=== PATIENT | male | born 1945 | race Caucasian/White ===

== ENCOUNTER 2017-01-13 16:25 | Outpatient (CLI) | payer MEDICARE | END 2017-01-13 16:26 | disposition EMS.NT | LOC: EMS 16:25 | PROVIDERS: ATTEND Surgery | DX: Z03.89 Encounter for observation for other suspected diseases and conditions ruled out (principal) ==

== ENCOUNTER 2017-10-31 | Outpatient (CLI) | END 2017-10-31 15:25 | disposition critical access hospital (66) | CPT/HCPCS: A0425; A0429 ==

== ENCOUNTER 2017-10-31 16:00 | Emergency (ER) | payer SELFPAY ==
[2017-10-31] MEDS ORDERED: SODIUM CHLORIDE 0.9% 1,000 ML IV ONE (16:09)
--- NOTE | 2017-10-31 16:12 | ED Physician Documentation ---
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 They thought he may be intoxicated and called EMS. When EMS arrived he was confused, not oriented. They state he had a temperature of 101. They have now brought him to the emergency department. He states he does not know why he is here. States he feels normal. States he does not take any medications, is allergic to penicillin. Denies any headache, chest pain. No abdominal pain. No urinary symptoms. Denies any drug use. Review of Systems Ten Systems: 10 systems reviewed and negative Constitutional: denies: Chills Ears: denies: Ear pain Nose: denies: Rhinorrhea / runny nose, Congestion Throat: denies: Sore throat Cardiac: denies: Chest pain / pressure Respiratory: denies: Cough GI: denies: Nausea, Vomiting, Diarrhea : denies: Dysuria Skin: denies: Rash Musculoskeletal: denies: Neck pain, Back pain Neurologic: denies: Focal weakness, Numbness, Syncope, Seizure, Headache PD PAST MEDICAL HISTORY - Past Medical History Past Medical History: No - Past Surgical History Past Surgical History: No - Present Medications Home Medications: Ambulatory Orders Medication Instructions Recorded Confirmed No Known Home Medications [No 10/31/17 10/31/17 Known Home Medications] - Allergies Allergies/Adverse Reactions: Allergies Allergy/AdvReac Type Severity Reaction Status Date / Time Sulfa (Sulfonamide Allergy Unknown Verified 10/31/17 16:06 Antibiotics) Penicillins AdvReac Unknown Verified 10/31/17 16:06 - Living Situation Living Arrangement: reports: At home - Social History Does the pt smoke?: Yes Does the pt drink ETOH?: Yes Does the pt have substance abuse?: No - Family History Family history: reports: Non contributory PD ED PE NORMAL - Vitals Vital signs reviewed: Yes - General General: Alert and oriented X 3, No acute distress - HEENT HEENT: Atraumatic, PERRL, EOMI, Ears normal, Moist mucous membranes, Pharynx benign, Other (wound to the L side of the nose, patient states it is chronic. 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, No motor deficit, No sensory deficit, Normal speech Eye Opening: Spontaneous Motor: Obeys Commands Verbal: Oriented GCS Score: 15 - Psych Psych: Normal mood, Normal affect Results - Vitals Vitals: Vital Signs - 24 hr 10/31/17 10/31/17 10/31/17 16:06 16:24 16:52 Temperature 37.4 C Heart Rate 86 86 63 Respiratory 15 16 15 Rate Blood Pressure 120/77 120/77 117/70 O2 Saturation 93 93 96 10/31/17 10/31/17 17:48 18:31 Temperature 36.3 C L Heart Rate 68 69 Respiratory 16 Rate Blood Pressure 133/68 H 148/70 H O2 Saturation 93 Oxygen O2 Source Room air - Labs Labs: Laboratory Tests 10/31/17 10/31/17 10/31/17 16:10 16:10 16:10 WBC 4.4 L RBC 3.34 L Hgb 11.4 L Hct 34.2 L MCV 102.5 H MCH 34.1 H MCHC 33.3 RDW 15.3 H Plt Count 166 MPV 7.7 Neut # (Auto) 3.4 Lymph # (Auto) 0.6 L [place] # (Auto) 0.2 Eos # (Auto) 0.1 Baso # (Auto) 0.1 Absolute Nucleated RBC 0.01 Nucleated RBC % 0.1 Sodium 136 Potassium 4.0 Chloride 103 Carbon Dioxide 25 Anion Gap 8.0 BUN 22 H Creatinine 1.1 Estimated GFR (MDRD) 65 L Glucose 103 H Calcium 8.6 Total Bilirubin 0.7 AST 21 ALT 10 Alkaline Phosphatase 93 Total Creatine Kinase 95 Troponin I < 0.04 Total Protein 6.7 Albumin 3.3 Globulin 3.4 Albumin/Globulin Ratio 1.0 Lipase 25 Urine Color Urine Clarity Urine pH Ur Specific [place] Urine Protein Urine Glucose (UA) Urine Ketones Urine Occult Blood Urine Nitrite Urine Bilirubin Urine Urobilinogen Ur Leukocyte Esterase Ur Microscopic Review Urine Culture Comments Salicylates < 6.0 Urine Opiates Screen Ur Oxycodone Screen Urine Methadone Screen Ur Propoxyphene Screen Acetaminophen < 10 L Ur Barbiturates Screen Ur Tricyclics Screen Ur Phencyclidine Scrn Ur Amphetamine Screen U Methamphetamines Scrn U Benzodiazepines Scrn Urine Cocaine Screen U Cannabinoids Screen Ethyl Alcohol < 5.0 10/31/17 17:40 WBC RBC Hgb Hct MCV MCH MCHC RDW Plt Count MPV Neut # (Auto) Lymph # (Auto) [place] # (Auto) Eos # (Auto) Baso # (Auto) Absolute Nucleated RBC Nucleated RBC % Sodium Potassium Chloride Carbon Dioxide Anion Gap BUN Creatinine Estimated GFR (MDRD) Glucose Calcium Total Bilirubin AST ALT Alkaline Phosphatase Total Creatine Kinase Troponin I Total Protein Albumin Globulin Albumin/Globulin Ratio Lipase Urine Color YELLOW Urine Clarity CLEAR Urine pH 5.5 Ur Specific [place] 1.025 Urine Protein NEGATIVE Urine Glucose (UA) NEGATIVE Urine Ketones NEGATIVE Urine Occult Blood NEGATIVE Urine Nitrite NEGATIVE Urine Bilirubin NEGATIVE Urine Urobilinogen 0.2 (NORMAL) Ur Leukocyte Esterase NEGATIVE Ur Microscopic Review NOT INDICATED Urine Culture Comments NOT INDICATED Salicylates Urine Opiates Screen NEGATIVE Ur Oxycodone Screen NEGATIVE Urine Methadone Screen NEGATIVE Ur Propoxyphene Screen NEGATIVE Acetaminophen Ur Barbiturates Screen NEGATIVE Ur Tricyclics Screen NEGATIVE Ur Phencyclidine Scrn NEGATIVE Ur Amphetamine Screen NEGATIVE U Methamphetamines Scrn NEGATIVE U Benzodiazepines Scrn NEGATIVE Urine Cocaine Screen NEGATIVE U Cannabinoids Screen NEGATIVE Ethyl Alcohol - Rads (name of study) head ct Radiology: Prelim report reviewed, EMP read contemporaneously, See rad report ( Symmetric moderate to marked ventriculomegaly and evidence of parenchymal volume loss. No acute hemorrhage or shift. ) PD MEDICAL DECISION MAKING - ED course Complexity details: reviewed results, re-evaluated patient, considered differential, d/w patient ED course: Patient is a 72-year-old male who was brought in by EMS for altered mental status via police report earlier today. He is alert and oriented 3 in the emergency department. No fever. No laboratory abnormalities. No abnormalities on head CT. No evidence of stroke. Unclear etiology of his symptoms earlier. We will have him follow-up closely with his doctor. Ambulating well. States he wants to go outside for a cigarette. Patient was picked up by a friend and taken home. Patient counseled regarding signs and symptoms for which I believe and urgent re-evaluation would be necessary. Patient with good understanding of and agreement to plan and is comfortable going home at this time This document was made in part using voice recognition software. While efforts are made to proofread this document, sound alike and grammatical errors may occur. - Sepsis Event Vital Signs: Vital Signs - 24 hr 10/31/17 10/31/17 10/31/17 16:06 16:24 16:52 Temperature 37.4 C Heart Rate 86 86 63 Respiratory 15 16 15 Rate Blood Pressure 120/77 120/77 117/70 O2 Saturation 93 93 96 10/31/17 10/31/17 17:48 18:31 Temperature 36.3 C L Heart Rate 68 69 Respiratory 16 Rate Blood Pressure 133/68 H 148/70 H O2 Saturation 93 Oxygen O2 Source Room air Departure - Departure Disposition: 01 Home, Self Care Clinical Impression: Altered mental status Qualifiers: Altered mental status type: transient alteration of awareness Qualified Code(s) : R40.4 - Transient alteration of awareness Condition: Good Instructions: ED Altered Loc Follow-Up: your,doctor in 1 week [Other] Comments: Return if you worsen. Drink plenty of water at home. Discharge Date/Time: 10/31/17 19:04
[2017-10-31 16:20] LABS: BASOPHILS # (AUTO) 0.1 10^3/uL (0.0-0.1); BASOPHILS % (AUTO) 2.4 %; EOSINOPHILS # (AUTO) 0.1 10^3/uL (0.0-0.7); EOSINOPHILS % (AUTO) 2.4 %; HGB - HEMOGLOBIN 11.4 g/dL (14.0-18.0); LYMPHOCYTES # (AUTO) 0.6 10^3/uL (1.5-3.5); LYMPHOCYTES % (AUTO) 13.7 %; MEAN CORPUSCULAR HEMOGLOBIN 34.1 pg (27.0-31.0); MEAN CORPUSCULAR HGB CONC 33.3 g/dL (32.0-36.0); MEAN CORPUSCULAR VOLUME 102.5 fL (80.0-94.0); MEAN PLATELET VOLUME 7.7 fL (7.4-11.4); MONOCYTES # (AUTO) 0.2 10^3/uL (0.0-1.0); MONOCYTES % (AUTO) 5.4 %; NEUTROPHILS # (AUTO) 3.4 10^3/uL (1.5-6.6); NEUTROPHILS % (AUTO) 76.1 %; PLT - PLATELET COUNT 166 10^3/uL (130-450); RED BLOOD COUNT 3.34 10^6/uL (4.70-6.10); RED CELL DISTRIBUTION WIDTH 15.3 % (12.0-15.0); WHITE BLOOD COUNT 4.4 x10^3/uL (4.8-10.8)
[2017-10-31 16:35] LABS: ALBUMIN 3.3 g/dL (3.2-5.5); ALKALINE PHOSPHATASE 93 IU/L (42-121); ALT ALANINE AMINOTRANSFERASE 10 IU/L (10-60); AST ASPARTATE AMINOTRANSFERASE 21 IU/L (10-42); BILIRUBIN,TOTAL 0.7 mg/dL (0.2-1.0); BUN - BLOOD UREA NITROGEN 22 mg/dL (6-20); CALCIUM 8.6 mg/dL (8.5-10.3); CARBON DIOXIDE - CO2 25 mmol/L (21-32); CHLORIDE 103 mmol/L (101-111); CK- CREATINE KINASE 95 IU/L (22-269); CREATININE 1.1 mg/dL (0.6-1.2); GFR - MDRD 65 (>89); GLUCOSE 103 mg/dL (70-100); LIPASE 25 U/L (22-51); SALICYLATE < 6.0 mg/dL; SODIUM 136 mmol/L (135-145); TOTAL PROTEIN 6.7 g/dL (6.7-8.2)
[2017-10-31 16:41] LABS: ACETAMINOPHEN < 10 ug/mL (10-30)
--- NOTE | 2017-10-31 16:59 | CT Report ---
Procedure Date: 10/31/2017 Accession Number: [id number] / [id number] Procedure: CT - Head W/O CPT Code: FULL RESULT: EXAM: CT HEAD EXAM DATE: 10/31/2017 04:31 PM. CLINICAL HISTORY: ALOC. COMPARISON: None. TECHNIQUE: Multiaxial CT images were obtained from the foramen magnum to the vertex. Reformats: Coronal. IV contrast: None. In accordance with CT protocol optimization, one or more of the following dose reduction techniques were utilized for this exam: automated exposure control, adjustment of mA and/or KV based on patient size, or use of iterative reconstructive technique. FINDINGS: Parenchyma: Negative for acute intracranial hemorrhage. No midline shift. No localizing edema demonstrated. Extraaxial Spaces: No subdural or epidural collections identified. Ventricles: There is symmetric moderate to marked ventriculomegaly. Sinuses and Orbits: Imaged paranasal sinuses, orbits, and mastoids show no significant abnormality. Bones: No evidence of fracture or calvarial defect. Other: None. IMPRESSION: 1. Symmetric moderate to marked ventriculomegaly and evidence of parenchymal volume loss. No acute hemorrhage or shift. RADIA
[2017-10-31 17:52] LABS: MUDS CUTOFF CONCENTRATIONS CUTOFF CONC BELOW:
[2017-10-31 17:57] LABS: BILIRUBIN,URINE NEGATIVE (NEGATIVE); GLUCOSE, URINE (UA) NEGATIVE (NEGATIVE); KETONES,URINE (UA) NEGATIVE (NEGATIVE); LEUKOCYTE ESTERASE, URINE NEGATIVE (NEGATIVE); NITRITE,URINE NEGATIVE (NEGATIVE); OCCULT BLOOD,URINE NEGATIVE (NEGATIVE); PH,URINE 5.5 PH (5.0-7.5); PROTEIN,URINE NEGATIVE (NEGATIVE); UROBILINOGEN,URINE 0.2 (NORMAL) E.U./dL (NORMAL)
[2017-10-31 17:58] LABS: CLARITY,URINE CLEAR (CLEAR)
[2017-10-31 18:07] LABS: AMPHETAMINE SCREEN,URINE NEGATIVE (NEGATIVE); BENZODIAZEPINES SCREEN, URINE NEGATIVE (NEGATIVE); COCAINE SCREEN URINE NEGATIVE (NEGATIVE); METHADONE SCREEN, URINE NEGATIVE (NEGATIVE); METHAMPHETAMINES SCREEN, URINE NEGATIVE (NEGATIVE); OPIATE SCREEN, URINE NEGATIVE (NEGATIVE); OXYCODONE SCREEN, URINE NEGATIVE (NEGATIVE); PROPOXYPHENE SCREEN, URINE NEGATIVE (NEGATIVE); TRICYCLIC ANTIDEPRESSANT,URINE NEGATIVE (NEGATIVE)
[2017-10-31 18:33] VITALS: BP 148/70
== END 2017-10-31 19:04 | disposition home or self-care (01) ==
LOC: EDUNIT# → ED 16:00
DX: R40.4 Transient alteration of awareness (principal)
CPT/HCPCS: 36415; 70450; 80053; 80306; 80307; 80320; 80329; 81001; 81003; 82550; 83690; 84484; 85025; 87086; 93005; 96360; 99284

== ENCOUNTER 2017-12-28 13:45 | Outpatient (CLI) | payer SELFPAY | END 2017-12-28 13:46 | disposition critical access hospital (66) | LOC: EMS 13:45 | PROVIDERS: ATTEND Surgery | DX: S09.90XA Unspecified injury of head, initial encounter (principal); S50.312A Abrasion of left elbow, initial encounter; S50.311A Abrasion of right elbow, initial encounter; R41.0 Disorientation, unspecified; W01.0XXA Fall on same level from slipping, tripping and stumbling without subsequent striking against object, initial encounter; Y93.01 Activity, walking, marching and hiking; Y92.413 State road as the place of occurrence of the external cause | CPT/HCPCS: A0425; A0429; A0999 ==

== ENCOUNTER 2017-12-28 14:04 | Emergency (ER) | payer SELFPAY ==
[2017-12-28] MEDS ORDERED: TETANUS/DIPHTHERIA/PERTUSSIS 0.5 ML SYRINGE IM ONE (14:17)
[2017-12-28 14:34] LABS: BASOPHILS # (AUTO) 0.1 10^3/uL (0.0-0.1); BASOPHILS % (AUTO) 1.5 %; EOSINOPHILS # (AUTO) 0.1 10^3/uL (0.0-0.7); EOSINOPHILS % (AUTO) 1.9 %; HGB - HEMOGLOBIN 11.5 g/dL (14.0-18.0); LYMPHOCYTES # (AUTO) 0.6 10^3/uL (1.5-3.5); LYMPHOCYTES % (AUTO) 15.5 %; MEAN CORPUSCULAR HEMOGLOBIN 34.8 pg (27.0-31.0); MEAN CORPUSCULAR HGB CONC 34.2 g/dL (32.0-36.0); MEAN CORPUSCULAR VOLUME 101.7 fL (80.0-94.0); MEAN PLATELET VOLUME 7.8 fL (7.4-11.4); MONOCYTES # (AUTO) 0.2 10^3/uL (0.0-1.0); MONOCYTES % (AUTO) 6.6 %; NEUTROPHILS # (AUTO) 2.7 10^3/uL (1.5-6.6); NEUTROPHILS % (AUTO) 74.5 %; PLT - PLATELET COUNT 150 10^3/uL (130-450); RED BLOOD COUNT 3.32 10^6/uL (4.70-6.10); RED CELL DISTRIBUTION WIDTH 15.7 % (12.0-15.0); WHITE BLOOD COUNT 3.6 x10^3/uL (4.8-10.8)
[2017-12-28 14:49] LABS: ALBUMIN 3.6 g/dL (3.2-5.5); ALBUMIN/GLOBULIN RATIO 1.2 (1.0-2.2); ALKALINE PHOSPHATASE 77 IU/L (42-121); ALT ALANINE AMINOTRANSFERASE 12 IU/L (10-60); AST ASPARTATE AMINOTRANSFERASE 22 IU/L (10-42); BILIRUBIN,TOTAL 0.5 mg/dL (0.2-1.0); BUN - BLOOD UREA NITROGEN 19 mg/dL (6-20); CALCIUM 8.6 mg/dL (8.5-10.3); CARBON DIOXIDE - CO2 29 mmol/L (21-32); CHLORIDE 103 mmol/L (101-111); CREATININE 1.1 mg/dL (0.6-1.2); GFR - MDRD 65 (>89); GLUCOSE 108 mg/dL (70-100); LIPASE 23 U/L (22-51); SODIUM 137 mmol/L (135-145); TOTAL PROTEIN 6.6 g/dL (6.7-8.2)
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
--- NOTE | 2017-12-28 15:10 | CT Report ---
Procedure Date: 12/28/2017 Accession Number: [id number] / [id number] Procedure: CT - Head W/O CPT Code: FULL RESULT: EXAM: CT HEAD EXAM DATE: 12/28/2017 02:40 PM. CLINICAL HISTORY: Fall with head injury. COMPARISON: Head w/o contrast 10/31/2017. TECHNIQUE: Multiaxial CT images were obtained from the foramen magnum to the vertex. Reformats: Coronal. IV contrast: None. In accordance with CT protocol optimization, one or more of the following dose reduction techniques were utilized for this exam: automated exposure control, adjustment of mA and/or KV based on patient size, or use of iterative reconstructive technique. FINDINGS: Parenchyma: No intraparenchymal hemorrhage. No evidence of mass, midline shift, or CT findings of acute infarction. Arellano-white differentiation is distinct. Diffuse chronic microangiopathic white matter changes are evident. Extraaxial Spaces: Normal for age. No subdural or epidural collections identified. Ventricles: Disproportionate [id number] enlargement of the third and lateral ventricles. Fourth ventricle is small in caliber. No midline shift nor intraventricular blood products. Sinuses and orbits: Imaged paranasal sinuses, orbits, and mastoids show no significant abnormality. Bones: No evidence of fracture or calvarial defect. Other: None. IMPRESSION: 1. Normal pressure hydrocephalus. 2. No acute intracranial abnormality nor bleed. RADIA
[2017-12-28 16:12] LABS: MUDS CUTOFF CONCENTRATIONS CUTOFF CONC BELOW:
[2017-12-28 16:13] LABS: BILIRUBIN,URINE NEGATIVE (NEGATIVE); GLUCOSE, URINE (UA) NEGATIVE (NEGATIVE); KETONES,URINE (UA) NEGATIVE (NEGATIVE); LEUKOCYTE ESTERASE, URINE NEGATIVE (NEGATIVE); NITRITE,URINE NEGATIVE (NEGATIVE); OCCULT BLOOD,URINE NEGATIVE (NEGATIVE); PH,URINE 6.5 PH (5.0-7.5); PROTEIN,URINE NEGATIVE (NEGATIVE); UROBILINOGEN,URINE 0.2 (NORMAL) E.U./dL (NORMAL)
[2017-12-28 16:15] LABS: CLARITY,URINE CLEAR (CLEAR)
[2017-12-28 16:16] VITALS: BP 147/90
[2017-12-28 16:24] LABS: AMPHETAMINE SCREEN,URINE NEGATIVE (NEGATIVE); BENZODIAZEPINES SCREEN, URINE NEGATIVE (NEGATIVE); COCAINE SCREEN URINE NEGATIVE (NEGATIVE); METHADONE SCREEN, URINE NEGATIVE (NEGATIVE); METHAMPHETAMINES SCREEN, URINE NEGATIVE (NEGATIVE); OPIATE SCREEN, URINE NEGATIVE (NEGATIVE); OXYCODONE SCREEN, URINE NEGATIVE (NEGATIVE); PROPOXYPHENE SCREEN, URINE NEGATIVE (NEGATIVE); TRICYCLIC ANTIDEPRESSANT,URINE NEGATIVE (NEGATIVE)
== END 2017-12-28 16:20 | disposition home or self-care (01) ==
LOC: EDUNIT# → ED 14:04
DX: S00.03XA Contusion of scalp, initial encounter (principal); S50.312A Abrasion of left elbow, initial encounter; S50.311A Abrasion of right elbow, initial encounter; S00.01XA Abrasion of scalp, initial encounter; W01.0XXA Fall on same level from slipping, tripping and stumbling without subsequent striking against object, initial encounter; W10.1XXA Fall (on)(from) sidewalk curb, initial encounter; Y93.01 Activity, walking, marching and hiking; Y92.480 Sidewalk as the place of occurrence of the external cause; F17.200 Nicotine dependence, unspecified, uncomplicated; Z23 Encounter for immunization
CPT/HCPCS: 36415; 70450; 80053; 80306; 80320; 81001; 81003; 83690; 84484; 85025; 87086; 90471; 93005; 99283; 99284

== ENCOUNTER 2018-02-20 15:23 | Outpatient (CLI) | payer SELFPAY | END 2018-02-20 15:24 | disposition critical access hospital (66) | LOC: EMS 15:23 | PROVIDERS: ATTEND Surgery | DX: M25.521 Pain in right elbow (principal); W19.XXXA Unspecified fall, initial encounter; Y92.481 Parking lot as the place of occurrence of the external cause | CPT/HCPCS: A0425; A0429 ==

== ENCOUNTER 2018-02-20 15:40 | Emergency (ER) | payer SELFPAY ==
--- NOTE | 2018-02-20 15:49 | ED Physician Documentation ---
PD HPI Fall - Stated complaint Stated Complaint: FALL - History obtained from History obtained from: Patient, EMS - History of Present Illness Mechanism of injury: Tripped (72-year-old gentleman with dementia who reportedly lives alone in an apartment. He fell at [facility] today and has a little scratch on his right elbow B. No serious injuries per EMS report but because of the severe dementia they felt he was not safe and needed evaluation. The patient has no specific complaints other than needing to go to the bathroom. He does not remember falling today and does not remember any injuries.) Review of Systems Unable to obtain: Dementia PD PAST MEDICAL HISTORY - Past Medical History Cardiovascular: None Endocrine/Autoimmune: None Derm: Other - Past Surgical History Past Surgical History: No - Present Medications Home Medications: Ambulatory Orders Medication Instructions Recorded Confirmed No Known Home Medications 10/31/17 10/31/17 - Allergies Allergies/Adverse Reactions: Allergies Allergy/AdvReac Type Severity Reaction Status Date / Time Sulfa (Sulfonamide Allergy Unknown Verified 10/31/17 16:06 Antibiotics) Penicillins AdvReac Unknown Verified 10/31/17 16:06 - Social History Does the pt smoke?: Yes Smoking Status: Current every day smoker Does the pt drink ETOH?: Yes Does the pt have substance abuse?: No PD ED PE NORMAL - Vitals Vital signs reviewed: Yes - General General: Other (He is alert and pleasant and follows commands. 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.) - HEENT HEENT: PERRL, Other (Disconjugate gaze which he says is chronic) - Neck Neck: Supple, no meningeal sign, No bony TTP - Cardiac Cardiac: RRR, No murmur - Respiratory Respiratory: No respiratory distress, Clear bilaterally - Abdomen Abdomen: Normal bowel sounds, Soft, Non tender - Back Back: No CVA TTP, No spinal TTP - Derm Derm: Normal color, Warm and dry - Extremities Extremities: Other (There is some dried blood on the right elbow but I do not really see a laceration, he has some mild tenderness but no limited range of motion.) - 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 Obviously given the imaging I am concerned for normal pressure hydrocephalus. Given the living arrangements social work was involved and a friend is coming to pick him up and watch him and APS referral was made. - Sepsis Event Vital Signs: Oxygen O2 Source Room air Departure - Departure Disposition: 01 Home, Self Care Clinical Impression: NPH (normal pressure hydrocephalus) Fall Qualifiers: Encounter type: initial encounter Qualified Code(s): W19.XXXA - Unspecified fall, initial encounter Dementia Qualifiers: Dementia type: unspecified type Dementia behavioral disturbance: without behavioral disturbance Qualified Code(s): F03.90 - Unspecified dementia without behavioral disturbance Contusion of head Qualifiers: Encounter type: initial encounter Contusion of head detail: scalp Qualified Code(s): S00.03XA - Contusion of scalp, initial encounter Condition: Good Record reviewed to determine appropriate education?: Yes Comments: He needs a workup for "called normal pressure hydrocephalus, he needs to follow- up with his physician and have a referral to a neurologist. [facility] particularly adept at this diagnosis and I recommend following up with them.
[2018-02-20 15:55] LABS: MUDS CUTOFF CONCENTRATIONS CUTOFF CONC BELOW:
[2018-02-20 16:00] LABS: BILIRUBIN,URINE NEGATIVE (NEGATIVE); GLUCOSE, URINE (UA) NEGATIVE (NEGATIVE); KETONES,URINE (UA) NEGATIVE (NEGATIVE); LEUKOCYTE ESTERASE, URINE NEGATIVE (NEGATIVE); NITRITE,URINE NEGATIVE (NEGATIVE); OCCULT BLOOD,URINE NEGATIVE (NEGATIVE); PH,URINE 5.5 PH (5.0-7.5); PROTEIN,URINE NEGATIVE (NEGATIVE); UROBILINOGEN,URINE 0.2 (NORMAL) E.U./dL (NORMAL)
[2018-02-20 16:13] LABS: CLARITY,URINE CLEAR (CLEAR)
[2018-02-20 16:15] LABS: AMPHETAMINE SCREEN,URINE NEGATIVE (NEGATIVE); BENZODIAZEPINES SCREEN, URINE NEGATIVE (NEGATIVE); COCAINE SCREEN URINE NEGATIVE (NEGATIVE); METHADONE SCREEN, URINE NEGATIVE (NEGATIVE); METHAMPHETAMINES SCREEN, URINE NEGATIVE (NEGATIVE); OPIATE SCREEN, URINE NEGATIVE (NEGATIVE); OXYCODONE SCREEN, URINE NEGATIVE (NEGATIVE); PROPOXYPHENE SCREEN, URINE NEGATIVE (NEGATIVE); TRICYCLIC ANTIDEPRESSANT,URINE NEGATIVE (NEGATIVE)
[2018-02-20 16:17] LABS: BASOPHILS # (AUTO) 0.1 10^3/uL (0.0-0.1); BASOPHILS % (AUTO) 1.3 %; EOSINOPHILS # (AUTO) 0.1 10^3/uL (0.0-0.7); EOSINOPHILS % (AUTO) 1.8 %; HGB - HEMOGLOBIN 12.3 g/dL (14.0-18.0); LYMPHOCYTES # (AUTO) 0.7 10^3/uL (1.5-3.5); LYMPHOCYTES % (AUTO) 12.5 %; MEAN CORPUSCULAR HEMOGLOBIN 34.1 pg (27.0-31.0); MEAN CORPUSCULAR HGB CONC 33.7 g/dL (32.0-36.0); MEAN CORPUSCULAR VOLUME 101.5 fL (80.0-94.0); MEAN PLATELET VOLUME 7.7 fL (7.4-11.4); MONOCYTES # (AUTO) 0.4 10^3/uL (0.0-1.0); NEUTROPHILS # (AUTO) 4.2 10^3/uL (1.5-6.6); NEUTROPHILS % (AUTO) 76.4 %; PLT - PLATELET COUNT 185 10^3/uL (130-450); RED BLOOD COUNT 3.61 10^6/uL (4.70-6.10); RED CELL DISTRIBUTION WIDTH 15.6 % (12.0-15.0); WHITE BLOOD COUNT 5.5 x10^3/uL (4.8-10.8)
--- NOTE | 2018-02-20 16:34 | CT Report ---
Reason: poss head inj Procedure Date: 02/20/2018 Accession Number: [id number] / [id number] Procedure: CT - Head W/O CPT Code: FULL RESULT: EXAM: CT HEAD EXAM DATE: 02/20/2018 04:09 PM. CLINICAL HISTORY: Fall with head injury. COMPARISON: HEAD W/O 12/28/2017 2:34 PM. TECHNIQUE: Multiaxial CT images were obtained from the foramen magnum to the vertex. Reformats: Sagittal and coronal. IV contrast: None. In accordance with CT protocol optimization, one or more of the following dose reduction techniques were utilized for this exam: automated exposure control, adjustment of mA and/or KV based on patient size, or use of iterative reconstructive technique. FINDINGS: Parenchyma: There is diffuse cerebral volume loss. No midline shift or mass-effect. Negative for intracranial acute hemorrhage. Extraaxial Spaces: No subdural or epidural hematoma. Ventricles: There is ventriculomegaly. Sinuses and Orbits: Imaged paranasal sinuses, orbits, and mastoids show no significant abnormality. Bones: No evidence of fracture or calvarial defect. Other: None. IMPRESSION: 1. Moderate cerebral atrophy and volume loss. 2. Negative for acute hemorrhage, localizing edema, or mass-effect. RADIA
[2018-02-20 16:35] LABS: ALBUMIN/GLOBULIN RATIO 1.2 (1.0-2.2); ALKALINE PHOSPHATASE 129 IU/L (42-121); ALT ALANINE AMINOTRANSFERASE 13 IU/L (10-60); AST ASPARTATE AMINOTRANSFERASE 25 IU/L (10-42); BILIRUBIN,TOTAL 0.8 mg/dL (0.2-1.0); BUN - BLOOD UREA NITROGEN 29 mg/dL (6-20); CALCIUM 8.7 mg/dL (8.5-10.3); CARBON DIOXIDE - CO2 26 mmol/L (21-32); CHLORIDE 99 mmol/L (101-111); CREATININE 1.2 mg/dL (0.6-1.2); GFR - MDRD 59 (>89); GLUCOSE 90 mg/dL (70-100); LIPASE 25 U/L (22-51); MAGNESIUM 2.2 mg/dL (1.7-2.8); SALICYLATE < 6.0 mg/dL; SODIUM 135 mmol/L (135-145); TOTAL PROTEIN 7.3 g/dL (6.7-8.2)
[2018-02-20 16:40] LABS: ACETAMINOPHEN < 10 ug/mL (10-30)
== END 2018-02-20 17:55 | disposition home or self-care (01) ==
LOC: EDUNIT# → ED 15:40
DX: G91.2 (Idiopathic) normal pressure hydrocephalus (principal); F03.90 Unspecified dementia, unspecified severity, without behavioral disturbance, psychotic disturbance, mood disturbance, and anxiety; Z91.81 History of falling; F17.200 Nicotine dependence, unspecified, uncomplicated
CPT/HCPCS: 36415; 70450; 80053; 80306; 80307; 80320; 80329; 81001; 81003; 83690; 83735; 85025; 87086; 99283

== ENCOUNTER 2018-07-16 23:22 | Outpatient (CLI) | payer SELFPAY | END 2018-07-16 23:23 | disposition critical access hospital (66) | LOC: EMS 23:22 | PROVIDERS: ATTEND Surgery | DX: R41.82 Altered mental status, unspecified (principal) | CPT/HCPCS: A0425; A0429 ==

== ENCOUNTER 2018-07-16 23:41 | Inpatient (IN) | payer MEDICARE ==
[2018-07-17 00:09] LABS: MUDS CUTOFF CONCENTRATIONS CUTOFF CONC BELOW:
[2018-07-17 00:11] LABS: BILIRUBIN,URINE NEGATIVE (NEGATIVE); GLUCOSE, URINE (UA) NEGATIVE (NEGATIVE); KETONES,URINE (UA) NEGATIVE (NEGATIVE); LEUKOCYTE ESTERASE, URINE NEGATIVE (NEGATIVE); NITRITE,URINE NEGATIVE (NEGATIVE); OCCULT BLOOD,URINE TRACE-LYSE (NEGATIVE); PH,URINE 5.5 PH (5.0-7.5); PROTEIN,URINE TRACE mg/dL (NEGATIVE); UROBILINOGEN,URINE 0.2 (NORMAL) E.U./dL (NORMAL)
[2018-07-17 00:20] LABS: CLARITY,URINE CLEAR (CLEAR)
--- NOTE | 2018-07-17 00:26 | ED Physician Documentation ---
History of Present Illness - Stated complaint Stated Complaint: CONFUSED - Chief complaint Chief Complaint: Neuro - History obtained from History obtained from: Patient, EMS - History of Present Illness Timing: Today Pain level now: 0 - Additonal information Additional information: Patient was found on ground near street, passerby called 911. Patient told medics that he was walking from a friend's house back home. He does not recall falling. Medics note that patient was found walking away from his house from the location he said he was walking from. Patient has no c/o at this time. Review of Systems Cardiac: reports: Reviewed and negative Respiratory: reports: Reviewed and negative GI: reports: Reviewed and negative Musculoskeletal: reports: Reviewed and negative Neurologic: reports: Reviewed and negative PD PAST MEDICAL HISTORY - Past Medical History Past Medical History: No Cardiovascular: None Respiratory: None Neuro: None Endocrine/Autoimmune: None GI: None : None HEENT: None Psych: None Musculoskeletal: None Derm: Other - Past Surgical History Past Surgical History: No - Present Medications Home Medications: Ambulatory Orders Medication Instructions Recorded Confirmed No Known Home Medications 10/31/17 10/31/17 - Allergies Allergies/Adverse Reactions: Allergies Allergy/AdvReac Type Severity Reaction Status Date / Time Sulfa (Sulfonamide Allergy Unknown Verified 10/31/17 16:06 Antibiotics) Penicillins AdvReac Unknown Verified 10/31/17 16:06 - Social History Does the pt smoke?: Yes Smoking Status: Current every day smoker Does the pt drink ETOH?: Yes Does the pt have substance abuse?: No - Immunizations Immunizations are current?: No Immunizations: TDAP >10years/unknown - POLST Patient has POLST: No PD ED PE NORMAL - Vitals Vital signs reviewed: Yes - General General: No acute distress, Well developed/nourished, Other (awake, alert, oriented to self. Does not know year. He knows he is in "the hospital" (per patient), but does not know which one nor town) - HEENT HEENT: Atraumatic, PERRL, EOMI, Moist mucous membranes - Neck Neck: Supple, no meningeal sign, No bony TTP - Cardiac Cardiac: RRR, No murmur - Respiratory Respiratory: No respiratory distress, Clear bilaterally - Abdomen Abdomen: Soft, Non tender - Back Back: No spinal TTP - Derm Derm: Normal color, Warm and dry - Extremities Extremities: Normal ROM s pain, No edema, Other (right wrist and forearm abrasions without bony tenderness. the right wrist abrasions are to the ventral surface, the forearm abrasions on dorsal aspect. 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, No motor deficit, No sensory deficit, Normal speech Eye Opening: Spontaneous Motor: Obeys Commands Verbal: Confused GCS Score: 14 - Psych Psych: Normal mood, Normal affect Results - Vitals Vitals: Vital Signs - 24 hr 07/17/18 07/17/18 07/17/18 12:58 15:08 18:54 Heart Rate 66 57 L 56 L Respiratory 16 16 16 Rate Blood Pressure 133/76 H 168/73 H 147/82 H O2 Saturation 97 97 100 07/17/18 07/17/18 07/18/18 21:47 23:43 08:34 Heart Rate 58 L 67 55 L Respiratory 16 16 16 Rate Blood Pressure 137/72 H 130/72 136/62 H O2 Saturation 98 99 96 Oxygen O2 Source Room air - Labs Labs: Laboratory Tests 07/17/18 07/17/18 07/17/18 00:00 00:55 00:55 WBC 6.9 RBC 3.65 L Hgb 12.7 L Hct 37.8 L MCV 103.6 H MCH 35.0 H MCHC 33.7 RDW 15.8 H Plt Count 166 MPV 8.5 Neut # (Auto) 5.5 Lymph # (Auto) 0.6 L [place] # (Auto) 0.4 Eos # (Auto) 0.3 Baso # (Auto) 0.1 Absolute Nucleated RBC 0.00 Nucleated RBC % 0.0 Sodium 141 Potassium 4.1 Chloride 104 Carbon Dioxide 27 Anion Gap 10.0 BUN 16 Creatinine 0.9 Estimated GFR (MDRD) 82 L Glucose 118 H Calcium 8.9 Total Bilirubin 0.5 AST 23 ALT 18 Alkaline Phosphatase 121 Total Protein 6.9 Albumin 3.6 Globulin 3.3 Albumin/Globulin Ratio 1.1 Lipase 28 Urine Color YELLOW Urine Clarity CLEAR Urine pH 5.5 Ur Specific [place] >=1.030 H Urine Protein TRACE Urine Glucose (UA) NEGATIVE Urine Ketones NEGATIVE Urine Occult Blood TRACE-LYSE Urine Nitrite NEGATIVE Urine Bilirubin NEGATIVE Urine Urobilinogen 0.2 (NORMAL) Ur Leukocyte Esterase NEGATIVE Ur Microscopic Review NOT INDICATED Urine Culture Comments NOT INDICATED Urine Opiates Screen NEGATIVE Ur Oxycodone Screen NEGATIVE Urine Methadone Screen NEGATIVE Ur Propoxyphene Screen NEGATIVE Ur Barbiturates Screen NEGATIVE Ur Tricyclics Screen NEGATIVE Ur Phencyclidine Scrn NEGATIVE Ur Amphetamine Screen NEGATIVE U Methamphetamines Scrn NEGATIVE U Benzodiazepines Scrn NEGATIVE Urine Cocaine Screen NEGATIVE U Cannabinoids Screen NEGATIVE PD MEDICAL DECISION MAKING - ED course Complexity details: reviewed old records, reviewed results, re-evaluated patient, considered differential, d/w patient ED course: NAD, pleasant, but confused. Previous ED note from February 2018 seems to indicate this is baseline mental status for this patient. However, he lives alone and thus held until AM for SW consult.
[2018-07-17 00:42] LABS: AMPHETAMINE SCREEN,URINE NEGATIVE (NEGATIVE); BENZODIAZEPINES SCREEN, URINE NEGATIVE (NEGATIVE); COCAINE SCREEN URINE NEGATIVE (NEGATIVE); METHADONE SCREEN, URINE NEGATIVE (NEGATIVE); METHAMPHETAMINES SCREEN, URINE NEGATIVE (NEGATIVE); OPIATE SCREEN, URINE NEGATIVE (NEGATIVE); OXYCODONE SCREEN, URINE NEGATIVE (NEGATIVE); PROPOXYPHENE SCREEN, URINE NEGATIVE (NEGATIVE); TRICYCLIC ANTIDEPRESSANT,URINE NEGATIVE (NEGATIVE)
[2018-07-17 01:04] LABS: BASOPHILS # (AUTO) 0.1 10^3/uL (0.0-0.1); BASOPHILS % (AUTO) 0.8 %; EOSINOPHILS # (AUTO) 0.3 10^3/uL (0.0-0.7); EOSINOPHILS % (AUTO) 4.8 %; HGB - HEMOGLOBIN 12.7 g/dL (14.0-18.0); LYMPHOCYTES # (AUTO) 0.6 10^3/uL (1.5-3.5); LYMPHOCYTES % (AUTO) 9.2 %; MEAN CORPUSCULAR HGB CONC 33.7 g/dL (32.0-36.0); MEAN CORPUSCULAR VOLUME 103.6 fL (80.0-94.0); MEAN PLATELET VOLUME 8.5 fL (7.4-11.4); MONOCYTES # (AUTO) 0.4 10^3/uL (0.0-1.0); MONOCYTES % (AUTO) 5.7 %; NEUTROPHILS # (AUTO) 5.5 10^3/uL (1.5-6.6); NEUTROPHILS % (AUTO) 79.5 %; PLT - PLATELET COUNT 166 10^3/uL (130-450); RED BLOOD COUNT 3.65 10^6/uL (4.70-6.10); RED CELL DISTRIBUTION WIDTH 15.8 % (12.0-15.0); WHITE BLOOD COUNT 6.9 x10^3/uL (4.8-10.8)
[2018-07-17 01:20] LABS: ALBUMIN 3.6 g/dL (3.2-5.5); ALBUMIN/GLOBULIN RATIO 1.1 (1.0-2.2); BILIRUBIN,TOTAL 0.5 mg/dL (0.2-1.0); CREATININE 0.9 mg/dL (0.6-1.2); TOTAL PROTEIN 6.9 g/dL (6.7-8.2)
[2018-07-17 01:22] LABS: CALCIUM 8.9 mg/dL (8.5-10.3)
[2018-07-17] MEDS ORDERED: NICOTINE 14 MG PATCH TOP STA (21:48)
--- NOTE | 2018-07-19 08:51 | CT Report ---
Reason: trauma Procedure Date: 07/19/2018 Accession Number: [id number] / [id number] Procedure: CT - HEAD WO CPT Code: FULL RESULT: EXAM: CT HEAD EXAM DATE: 07/19/2018 08:31 AM. CLINICAL HISTORY: Head pain status post head trauma. COMPARISON: HEAD W/O 02/20/2018 4:01 PM. TECHNIQUE: Multiaxial CT images were obtained from the foramen magnum to the vertex. Reformats: Sagittal and coronal. IV contrast: None. In accordance with CT protocol optimization, one or more of the following dose reduction techniques were utilized for this exam: automated exposure control, adjustment of mA and/or KV based on patient size, or use of iterative reconstructive technique. FINDINGS: Parenchyma: No intraparenchymal hemorrhage. No evidence of mass or mass-effect. Arellano-white differentiation is distinct. Diffuse chronic microangiopathic white matter changes are evident. Extraaxial Spaces: Normal for age. No subdural or epidural collections identified. Ventricles: Stable hydrocephalus without transependymal CSF migration of fluid. Sinuses and Orbits: Middle ear cavities and mastoid air cells are clear. There is mucosal thickening in bilateral ethmoid air cells. There is hyperdense fluid within the left maxillary sinus secondary to fractures of the inferior wall of the left orbit and the lateral wall of the left maxillary sinus. There is air in the left masseter space. No fracture of the left zygoma or pterygoid plates. Intraorbital contents are within normal limits. Bones: Acute left nasal bone fracture with regional soft tissue swelling. No other calvarial fracture. Other: None. IMPRESSION: 1. No acute intracranial hemorrhage. 2. Stable hydrocephalus. 3. Fractures of the superior and lateral jin of the left maxillary sinus with hyperdense fluid in the left maxillary sinus. Associated air in the left masseter space. 4. Acute left nasal bone fracture with regional soft tissue swelling. RADIA
--- NOTE | 2018-07-19 08:55 | CT Report ---
Reason: trauma Procedure Date: 07/19/2018 Accession Number: [id number] / [id number] Procedure: CT - CERVICAL SPINE WO CPT Code: FULL RESULT: EXAM: CT CERVICAL SPINE WITHOUT CONTRAST DATE: 07/19/2018 08:31 AM. HISTORY: Acute neck pain status post trauma. COMPARISONS: None. TECHNIQUE: Thin-section axial images were acquired of the cervical spine without contrast. Post-processing: Coronal and sagittal reformats. Other: None. In accordance with CT protocol optimization, one or more of the following dose reduction techniques were utilized for this exam: automated exposure control, adjustment of mA and/or KV based on patient size, or use of iterative reconstructive technique. FINDINGS: Alignment: Accentuated cervical lordosis. No vertebral body subluxation. No scoliosis. Bones: Decreased mineralization of the bones. No fracture. No focal bone lesion. No congenital vertebral anomaly. Interspace Levels/Facets: Disk space narrowing at C5-C6 and C6-C7 with marginal osteophytes at C6-C7. Facet arthrosis on the right at C3-C4. Musculature: Normal. No fatty atrophy. Other: Because of established carotid plaques in the carotid arteries. Paraspinal soft tissues are otherwise unremarkable. Bilateral apical pleural parenchymal scarring. IMPRESSION: 1. No acute fracture or subluxation. 2. Degenerative disk disease and facet arthrosis, detailed above. 3. Carotid arteriosclerosis. RADIA
--- NOTE | 2018-07-19 09:00 | CT Report ---
Reason: trauma Procedure Date: 07/19/2018 Accession Number: [id number] / [id number] Procedure: CT - MAXILLOFACIAL WO CPT Code: FULL RESULT: EXAM: CT MAXILLOFACIAL WITHOUT CONTRAST EXAM DATE: 07/19/2018 08:31 AM. CLINICAL HISTORY: Left-sided facial pain and swelling status post trauma. COMPARISONS: None. TECHNIQUE: Thin-section axial images were acquired of the face without contrast. Post-processing: Coronal and sagittal reformats. Other: None. In accordance with CT protocol optimization, one or more of the following dose reduction techniques were utilized for this exam: automated exposure control, adjustment of mA and/or KV based on patient size, or use of iterative reconstructive technique. FINDINGS: Soft Tissue: There is air in the left fire extinguisher inspector space. There is left nasal, left preseptal periorbital and left supraorbital frontal scalp soft tissue swelling. Orbits: Globes and intraorbital structures are within normal limits. Bones: Left nasal bone fracture with regional soft tissue swelling. Nondisplaced fractures of the superior and lateral jin of the left maxillary sinus with hyperdense material within the left maxillary sinus indicating blood. Temporomandibular Joints: The temporomandibular joints are symmetric and normally located. Sinuses: Normal. No mucosal thickening or fluid levels. Other: Middle ear cavities and mastoid air cells are clear. There is soft tissue attenuation in the cartilaginous portion of the left external auditory canal. IMPRESSION: 1. Left nasal bone fracture with regional soft tissue swelling and irregularity. 2. Fractures of the superior and lateral jin of the left maxillary sinus, nondisplaced. 3. Air in the left fire extinguisher inspector space. 4. Left facial, left preseptal periorbital and left supraorbital frontal scalp soft tissue swelling. RADIA
[2018-07-19 09:05] LABS: EOSINOPHILS % (AUTO) 5.7 %; HGB - HEMOGLOBIN 13.2 g/dL (14.0-18.0); LYMPHOCYTES % (AUTO) 13.9 %; MEAN CORPUSCULAR HEMOGLOBIN 35.2 pg (27.0-31.0); MEAN CORPUSCULAR HGB CONC 33.9 g/dL (32.0-36.0); MEAN CORPUSCULAR VOLUME 103.9 fL (80.0-94.0); MEAN PLATELET VOLUME 8.7 fL (7.4-11.4); MONOCYTES % (AUTO) 7.4 %; PLT - PLATELET COUNT 183 10^3/uL (130-450); RED BLOOD COUNT 3.76 10^6/uL (4.70-6.10); RED CELL DISTRIBUTION WIDTH 15.4 % (12.0-15.0); WHITE BLOOD COUNT 4.3 x10^3/uL (4.8-10.8)
[2018-07-19 09:08] LABS: ALBUMIN 3.4 g/dL (3.2-5.5); ALBUMIN/GLOBULIN RATIO 1.1 (1.0-2.2); BILIRUBIN,TOTAL 0.7 mg/dL (0.2-1.0); CALCIUM 8.7 mg/dL (8.5-10.3); CREATININE 0.8 mg/dL (0.6-1.2); TOTAL PROTEIN 6.5 g/dL (6.7-8.2)
[2018-07-19 09:16] LABS: ABNORMAL LYMPHS % (MANUAL) 0 %; BAND NEUTROPHILS % (MANUAL) 0 %
--- NOTE | 2018-07-19 09:23 | ED Physician Documentation ---
PD HPI Fall - Stated complaint Stated Complaint: CONFUSED - Chief complaint Chief Complaint: Neuro - Additional information Additional information: 73-year-old male who is currently boarding the emergency department pending placement by social work. The patient's care was turned over to me at [address] Carrillo. At change of shift nursing went to check on the patient and found him on the ground. The patient is significantly confused and unable to explained why he fell or when. The patient has injury to his head and face. The patient appears to have old bruises on his extremities but no other area of acute injury. The patient is able to move all major joints and has no complaints of extremity pain. Review of Systems Unable to obtain: Confused, Dementia PD PAST MEDICAL HISTORY - Past Medical History Past Medical History: No Cardiovascular: None Respiratory: None Neuro: None Endocrine/Autoimmune: None GI: None : None HEENT: None Psych: None Musculoskeletal: None Derm: Other - Past Surgical History Past Surgical History: No - Present Medications Home Medications: Ambulatory Orders Medication Instructions Recorded Confirmed No Known Home Medications 10/31/17 10/31/17 - Allergies Allergies/Adverse Reactions: Allergies Allergy/AdvReac Type Severity Reaction Status Date / Time Sulfa (Sulfonamide Allergy Unknown Verified 10/31/17 16:06 Antibiotics) Penicillins AdvReac Unknown Verified 10/31/17 16:06 - Social History Does the pt smoke?: Yes Smoking Status: Current every day smoker Does the pt drink ETOH?: Yes Does the pt have substance abuse?: No - Immunizations Immunizations are current?: No Immunizations: TDAP >10years/unknown - POLST Patient has POLST: No PD ED PE NORMAL - General General: Other (The patient's alert, significantly confused and unable to provide any history regarding the events) - Cardiac Cardiac: RRR, Strong equal pulses - Respiratory Respiratory: No respiratory distress - Abdomen Abdomen: Soft, Non tender - Derm Derm: Other (Patient appears to have old bruises on the extremities) - Extremities Extremities: No deformity, No tenderness to palpate, Normal ROM s pain - Neuro Neuro: Other (The patient is significantly confused, the patient does cooperate and answers questions to the best of his ability and follows commands. The patient moves all 4 extremities and has equal recordings librarian strength and there is no evidence of acute Focal changes) PD ED PE EXPANDED - HEENT HEENT: Head injury HEENT Visual: 1 - deformity (The patient has deformity to the nose, there is an area of ulceration which is chronic and there is no acute or laceration. The patient is unable to give any surrounding information regarding the chronic ulceration on his nose) 2 - abrasion (Skin tear) 3 - bruising - Neck Neck: Other (Unable to assess secondary to the confusion so a CT scan will be done to rule out cervical spine fracture) Results - Vitals Vitals: Vital Signs - 24 hr 07/18/18 07/19/18 07/19/18 22:37 08:05 10:14 Temperature 36.5 C 36.6 C Heart Rate 68 72 63 Respiratory 16 14 18 Rate Blood Pressure 130/75 152/74 H 118/69 O2 Saturation 100 100 99 07/19/18 07/19/18 12:19 14:24 Temperature Heart Rate 83 76 Respiratory 18 18 Rate Blood Pressure 150/73 H 122/82 H O2 Saturation 100 99 Oxygen O2 Source Room air - Labs Labs: Laboratory Tests 07/17/18 07/17/18 07/17/18 00:00 00:55 00:55 WBC 6.9 RBC 3.65 L Hgb 12.7 L Hct 37.8 L MCV 103.6 H MCH 35.0 H MCHC 33.7 RDW 15.8 H Plt Count 166 MPV 8.5 Neut # (Auto) 5.5 Lymph # (Auto) 0.6 L [place] # (Auto) 0.4 Eos # (Auto) 0.3 Baso # (Auto) 0.1 Absolute Nucleated RBC 0.00 Total Counted Band Neuts % (Manual) Reactive Lymphs % (Man) Abnorm Lymph % (Manual) Nucleated RBC % 0.0 Neutrophils # (Manual) Lymphocytes # (Manual) Monocytes # (Manual) Eosinophils # (Manual) Basophils # (Manual) Differential Comment Manual Slide Review Platelet Morphology Sodium 141 Potassium 4.1 Chloride 104 Carbon Dioxide 27 Anion Gap 10.0 BUN 16 Creatinine 0.9 Estimated GFR (MDRD) 82 L Glucose 118 H Calcium 8.9 Total Bilirubin 0.5 AST 23 ALT 18 Alkaline Phosphatase 121 Total Creatine Kinase Troponin I Total Protein 6.9 Albumin 3.6 Globulin 3.3 Albumin/Globulin Ratio 1.1 Lipase 28 Urine Color YELLOW Urine Clarity CLEAR Urine pH 5.5 Ur Specific [place] >=1.030 H Urine Protein TRACE Urine Glucose (UA) NEGATIVE Urine Ketones NEGATIVE Urine Occult Blood TRACE-LYSE Urine Nitrite NEGATIVE Urine Bilirubin NEGATIVE Urine Urobilinogen 0.2 (NORMAL) Ur Leukocyte Esterase NEGATIVE Ur Microscopic Review NOT INDICATED Urine Culture Comments NOT INDICATED Urine Opiates Screen NEGATIVE Ur Oxycodone Screen NEGATIVE Urine Methadone Screen NEGATIVE Ur Propoxyphene Screen NEGATIVE Ur Barbiturates Screen NEGATIVE Ur Tricyclics Screen NEGATIVE Ur Phencyclidine Scrn NEGATIVE Ur Amphetamine Screen NEGATIVE U Methamphetamines Scrn NEGATIVE U Benzodiazepines Scrn NEGATIVE Urine Cocaine Screen NEGATIVE U Cannabinoids Screen NEGATIVE 07/19/18 07/19/18 07/19/18 08:37 08:37 08:37 WBC 4.3 L RBC 3.76 L Hgb 13.2 L Hct 39.0 L MCV 103.9 H MCH 35.2 H MCHC 33.9 RDW 15.4 H Plt Count 183 MPV 8.7 Neut # (Auto) Not Reportable Lymph # (Auto) Not Reportable [place] # (Auto) Not Reportable Eos # (Auto) Not Reportable Baso # (Auto) Not Reportable Absolute Nucleated RBC Not Reportable Total Counted 100 Band Neuts % (Manual) 0 Reactive Lymphs % (Man) 6 Abnorm Lymph % (Manual) 0 Nucleated RBC % Not Reportable Neutrophils # (Manual) 3.0 Lymphocytes # (Manual) 0.9 L Monocytes # (Manual) 0.3 Eosinophils # (Manual) 0.1 Basophils # (Manual) 0.0 Differential Comment MANUAL DIFFERENTIAL Manual Slide Review Indicated Platelet Morphology RARE GIANT PLATELETS Sodium 138 Potassium 3.9 Chloride 101 Carbon Dioxide 28 Anion Gap 9.0 BUN 15 Creatinine 0.8 Estimated GFR (MDRD) 94 Glucose 108 H Calcium 8.7 Total Bilirubin 0.7 AST 20 ALT 13 Alkaline Phosphatase 113 Total Creatine Kinase 122 Troponin I < 0.04 Total Protein 6.5 L Albumin 3.4 Globulin 3.1 Albumin/Globulin Ratio 1.1 Lipase 26 Urine Color Urine Clarity Urine pH Ur Specific [place] Urine Protein Urine Glucose (UA) Urine Ketones Urine Occult Blood Urine Nitrite Urine Bilirubin Urine Urobilinogen Ur Leukocyte Esterase Ur Microscopic Review Urine Culture Comments Urine Opiates Screen Ur Oxycodone Screen Urine Methadone Screen Ur Propoxyphene Screen Ur Barbiturates Screen Ur Tricyclics Screen Ur Phencyclidine Scrn Ur Amphetamine Screen U Methamphetamines Scrn U Benzodiazepines Scrn Urine Cocaine Screen U Cannabinoids Screen - Rads (name of study) CT head/face/neck Radiology: Final report received, See rad report (IMPRESSION: 1. No acute intracranial hemorrhage. 2. Stable hydrocephalus. 3. Fractures of the superior and lateral jin of the left maxillary sinus with hyperdense fluid in the left maxillary sinus. Associated air in the left masseter space. 4. Acute left nasal bone fracture with regional soft tissue swelling. IMPRESSION: 1. No acute fr acture or subluxation. 2. Degenerative disk disease and facet arthrosis, detailed above. 3. Carotid arteriosclerosis. ) PD MEDICAL DECISION MAKING - ED course ED course: The acute findings were discussed with the on-call neurosurgery team and ENT team at [facility]. They both independently reviewed the images. Both of these findings are appropriate for outpatient management and they would gladly see the patient as an outpatient to further address these findings. Due to the patient's confusion and fall in the emergency department he is unsafe currently for discharge home. Social work has been working with the patient to attempt placement. The hospitalist Dr. Larios was contacted for admission to the hospital since the patient is unsafe for discharge and is requiring more services than the emergency department staff can provide. Dr. Larios will evaluate if the patient will be admitted to the hospital. The patient's care was turned over to Dr. Crenshaw At 1800 Departure - Departure Clinical Impression: Confusion, NPH (normal pressure hydrocephalus) Facial contusion Qualifiers: Encounter type: initial encounter Qualified Code(s): S00.83XA - Contusion of other part of head, initial encounter Closed head injury Qualifiers: Encounter type: initial encounter Qualified Code(s): S09.90XA - Unspecified injury of head, initial encounter Fall Qualifiers: Encounter type: initial encounter Qualified Code(s): W19.XXXA - Unspecified fall, initial encounter Facial fracture Qualifiers: Encounter type: initial encounter Facial bone/location: other facial bone Fracture type: closed Laterality: unspecified laterality Qualified Code(s): S02.80XA - Fracture of other specified skull and facial bones, unspecified side, initial encounter for closed fracture Dementia Qualifiers: Dementia type: unspecified type Dementia behavioral disturbance: without behavioral disturbance Qualified Code(s): F03.90 - Unspecified dementia without behavioral disturbance Skin ulcer of face Qualifiers: Non-pressure ulcer stage: unspecified non-pressure ulcer stage Qualified Code(s): L98.499 - Non-pressure chronic ulcer of skin of other sites with unspecified severity Facial abrasion Qualifiers: Encounter type: initial encounter Qualified Code(s): S00.81XA - Abrasion of other part of head, initial encounter Comments: Please follow-up with plastic surgery at [facility] for further evaluation of your facial fractures. Please call [phone] Please follow-up with Dr. Aly Toro at [facility] with the neurosurgery clinic for further evaluation of your normal pressure hydrocephalus. Please call area code [phone] to schedule appointment
[2018-07-19 09:38] LABS: BASOPHILS % (MANUAL) 1 %; DIFFERENTIAL COMMENT MANUAL DIFFERENTIAL; EOSINOPHILS # (MANUAL) 0.1 10^3/uL (0-0.7); LYMPHOCYTES # (MANUAL) 0.9 10^3/uL (1.5-3.5); LYMPHOCYTES % (MANUAL) 14 %; MONOCYTES # (MANUAL) 0.3 10^3/uL (0.0-1.0); NEUTROPHILS % (MANUAL) 69 %; PLATELET MORPHOLOGY RARE GIANT PLATELETS (NORMAL)
[2018-07-19] MEDS ORDERED: NICOTINE 14 MG PATCH TOP STA (10:56)
--- NOTE | 2018-07-20 07:26 | ED Physician Documentation ---
ED Addendum - Addendum Addendum: 07/20/18 07:22 At the beginning of my shift, patient needed to frequently be reminded by nursing staff to stay in either the bed or the chair. He eventually fell asleep and slept quietly for the majority of my shift. Signed out to oncoming physician pending placement and ongoing SW evaluation. He was in NAD during stay.
[2018-07-20 11:01] LABS: BASOPHILS # (AUTO) 0.1 10^3/uL (0.0-0.1); EOSINOPHILS # (AUTO) 0.3 10^3/uL (0.0-0.7); HGB - HEMOGLOBIN 12.7 g/dL (14.0-18.0); LYMPHOCYTES # (AUTO) 0.7 10^3/uL (1.5-3.5); LYMPHOCYTES % (AUTO) 18.1 %; MEAN CORPUSCULAR HEMOGLOBIN 35.3 pg (27.0-31.0); MEAN CORPUSCULAR VOLUME 103.8 fL (80.0-94.0); MEAN PLATELET VOLUME 8.4 fL (7.4-11.4); MONOCYTES # (AUTO) 0.4 10^3/uL (0.0-1.0); NEUTROPHILS # (AUTO) 2.6 10^3/uL (1.5-6.6); NEUTROPHILS % (AUTO) 63.9 %; PLT - PLATELET COUNT 178 10^3/uL (130-450); RED CELL DISTRIBUTION WIDTH 15.7 % (12.0-15.0)
[2018-07-20 11:09] LABS: ALBUMIN 3.3 g/dL (3.2-5.5); ALBUMIN/GLOBULIN RATIO 1.1 (1.0-2.2); BILIRUBIN,TOTAL 0.6 mg/dL (0.2-1.0); CALCIUM 8.6 mg/dL (8.5-10.3); CREATININE 0.9 mg/dL (0.6-1.2); TOTAL PROTEIN 6.2 g/dL (6.7-8.2)
--- NOTE | 2018-07-20 12:21 | CT Report ---
Reason: Recent head injury, increasing confusion and somno Procedure Date: 07/20/2018 Accession Number: [id number] / [id number] Procedure: CT - HEAD WO CPT Code: FULL RESULT: EXAM: CT HEAD EXAM DATE: 07/20/2018 11:44 AM. CLINICAL HISTORY: Recent head injury, increasing confusion and somno. COMPARISON: CERVICAL SPINE W/O 07/19/2018 8:19 AM HEAD W/O 07/19/2018 8:19 AM FACIAL BONES W/O 07/19/2018 8:19 AM HEAD W/O 02/20/2018 4:01 PM. TECHNIQUE: Multiaxial CT images were obtained from the foramen magnum to the vertex. Reformats: Sagittal and coronal. IV contrast: None. In accordance with CT protocol optimization, one or more of the following dose reduction techniques were utilized for this exam: automated exposure control, adjustment of mA and/or KV based on patient size, or use of iterative reconstructive technique. FINDINGS: Parenchyma: No intraparenchymal hemorrhage. No evidence of mass, midline shift, or CT findings of acute infarction. Arellano-white differentiation is distinct. Diffuse chronic microangiopathic white matter changes are evident. Extraaxial Spaces: Normal for age. No subdural or epidural collections identified. No pneumocephalus. Ventricles: Stable diffuse ventriculomegaly with 6.7 cm bifrontal diameter. No intraventricular hemorrhage. Sinuses and orbits: Layering hyperdense fluid within left maxillary antrum as on CT prior day, consistent with recent injury. Bones: No depressed calvarial fracture. (Left facial fractures are described on recent maxillofacial CT report 07/19/2018.) Other: None. IMPRESSION: 1. Generalized age-related changes. 2. Stable chronic diffuse ventriculomegaly. Question normal pressure hydrocephalus. 3. No acute intracranial hemorrhage. (Left facial fractures are described on recent maxillofacial CT report 07/19/2018.) RADIA
--- NOTE | 2018-07-21 08:44 | ED Physician Documentation ---
ED Addendum - Addendum Addendum: 07/21/18 08:41 Patient slept for much of my overnight shift. When awake, he frequently gets up and tries to ambulate into hallway; this required frequent instruction from nursing staff and hematology technician to redirect him to either lie in bed or sit in chair at bedside and watch TV. He is in NAD and he is able to ambulate to and from bathroom with minimal assistance (not allowed to ambulate without assistance to prevent fall). 07/21/18 08:44 He continues to await placement/disposition by social work, who will again evaluate patient in the morning. Case turned over to oncoming (day) ED physician, Dr. Rodriguez. Patient was in NAD during this overnight shift
[2018-07-21] MEDS ORDERED: BACITRACIN OINT TOP ONE (09:51)
[2018-07-21 18:42] LABS: EOSINOPHILS % (AUTO) 0.7 %; HGB - HEMOGLOBIN 12.6 g/dL (14.0-18.0); LYMPHOCYTES # (AUTO) 0.3 10^3/uL (1.5-3.5); LYMPHOCYTES % (AUTO) 9.3 %; MEAN CORPUSCULAR HEMOGLOBIN 34.9 pg (27.0-31.0); MEAN CORPUSCULAR HGB CONC 33.5 g/dL (32.0-36.0); MEAN CORPUSCULAR VOLUME 104.3 fL (80.0-94.0); MEAN PLATELET VOLUME 8.6 fL (7.4-11.4); MONOCYTES # (AUTO) 0.4 10^3/uL (0.0-1.0); MONOCYTES % (AUTO) 13.6 %; NEUTROPHILS # (AUTO) 2.2 10^3/uL (1.5-6.6); NEUTROPHILS % (AUTO) 75.4 %; PLT - PLATELET COUNT 148 10^3/uL (130-450); RED BLOOD COUNT 3.61 10^6/uL (4.70-6.10); RED CELL DISTRIBUTION WIDTH 15.4 % (12.0-15.0); WHITE BLOOD COUNT 2.9 x10^3/uL (4.8-10.8)
[2018-07-21 18:57] LABS: BILIRUBIN,URINE NEGATIVE (NEGATIVE); GLUCOSE, URINE (UA) NEGATIVE (NEGATIVE); KETONES,URINE (UA) 15 mg/dL (NEGATIVE); LEUKOCYTE ESTERASE, URINE NEGATIVE (NEGATIVE); NITRITE,URINE NEGATIVE (NEGATIVE); OCCULT BLOOD,URINE SMALL (NEGATIVE); PROTEIN,URINE NEGATIVE (NEGATIVE); UROBILINOGEN,URINE 0.2 (NORMAL) E.U./dL (NORMAL)
[2018-07-21 19:00] LABS: ALBUMIN 3.6 g/dL (3.2-5.5); ALBUMIN/GLOBULIN RATIO 1.2 (1.0-2.2); BILIRUBIN,TOTAL 0.8 mg/dL (0.2-1.0); CALCIUM 8.4 mg/dL (8.5-10.3); CREATININE 0.9 mg/dL (0.6-1.2); TOTAL PROTEIN 6.7 g/dL (6.7-8.2)
[2018-07-21 19:01] LABS: CLARITY,URINE CLEAR (CLEAR)
[2018-07-21 19:10] LABS: BACTERIA,URINE Rare /HPF (None Seen); MUCUS,URINE Few Strands; SQUAMOUS EPITHELIAL CELL,UR RARE Squamous (<= Few)
--- NOTE | 2018-07-21 23:10 | ED Physician Documentation ---
ED Addendum - Addendum Addendum: 07/20/18 18:00 PM This addendum is from 07/20/2018, during my shift the patient was slightly more confused than he had been the day before so a CT scan and lab work was performed. There is no significant acute changes to explain it. The patient was cooperative and directable. The patient's care was turned over to the oncoming physician
--- NOTE | 2018-07-22 06:20 | ED Physician Documentation ---
ED Addendum - Addendum Addendum: 07/22/18 07:00 AM The patient was stable throughout the evening, the patient was directable and slept a good portion of the evening. The patient's care will be turned over to the oncoming physician. The patient is pending placement into a [facility]
[2018-07-22] MEDS ORDERED: SODIUM CHLORIDE 0.9% 1,000 ML IV ONE ×2 (12:25→15:28)
--- NOTE | 2018-07-22 12:28 | ED Physician Documentation ---
History of Present Illness - Stated complaint Stated Complaint: CONFUSED - Chief complaint Chief Complaint: Neuro - History obtained from History obtained from: Patient - History of Present Illness Timing: Today - Additonal information Additional information: 73-year-old male who is boarding in the emergency department has had a decrease in his level of consciousness today he is less interactive and has not eaten since yesterday morning. I was asked by the staff to come reevaluate the patient. He is not forthcoming with much in the way of history he does answer questions he will open his eyes briefly seems disinterested. PD PAST MEDICAL HISTORY - Past Medical History Past Medical History: No Cardiovascular: None Respiratory: None Neuro: None Endocrine/Autoimmune: None GI: None : None HEENT: None Psych: None Musculoskeletal: None Derm: Other - Past Surgical History Past Surgical History: No - Present Medications Home Medications: Ambulatory Orders Medication Instructions Recorded Confirmed No Known Home Medications 10/31/17 07/21/18 - Allergies Allergies/Adverse Reactions: Allergies Allergy/AdvReac Type Severity Reaction Status Date / Time Sulfa (Sulfonamide Allergy Unknown Verified 10/31/17 16:06 Antibiotics) Penicillins AdvReac Unknown Verified 10/31/17 16:06 - Social History Does the pt smoke?: Yes Smoking Status: Current every day smoker Does the pt drink ETOH?: Yes Does the pt have substance abuse?: No - Immunizations Immunizations are current?: No Immunizations: TDAP >10years/unknown - POLST Patient has POLST: No PD ED PE NORMAL - Vitals Vital signs reviewed: Yes - General General: No acute distress, Well developed/nourished, Other (lays with eyes closed and answers briefly when awakened looses intrest and falls back asleep. ) - Respiratory Respiratory: No respiratory distress Results - Vitals Vitals: Vital Signs - 24 hr 07/22/18 07/22/18 07/22/18 10:12 13:12 14:00 Temperature 38.1 C H 37.8 C H Heart Rate 81 84 Respiratory 18 16 Rate Blood Pressure 137/60 H 131/71 H O2 Saturation 97 96 07/22/18 07/23/18 07/23/18 18:36 07:10 07:49 Temperature 39.6 C H Heart Rate 87 84 Respiratory 16 18 Rate Blood Pressure 144/63 H O2 Saturation 94 90 L 89 L 07/23/18 07/23/18 08:12 08:44 Temperature 38.5 C H Heart Rate Respiratory Rate Blood Pressure O2 Saturation 97 Oxygen O2 Source Nasal cannula - Labs Labs: Laboratory Tests 07/17/18 07/17/18 07/17/18 00:00 00:55 00:55 WBC 6.9 RBC 3.65 L Hgb 12.7 L Hct 37.8 L MCV 103.6 H MCH 35.0 H MCHC 33.7 RDW 15.8 H Plt Count 166 MPV 8.5 Neut # (Auto) 5.5 Lymph # (Auto) 0.6 L Braxton # (Auto) 0.4 Eos # (Auto) 0.3 Baso # (Auto) 0.1 Absolute Nucleated RBC 0.00 Total Counted Band Neuts % (Manual) Reactive Lymphs % (Man) Abnorm Lymph % (Manual) Nucleated RBC % 0.0 Neutrophils # (Manual) Lymphocytes # (Manual) Monocytes # (Manual) Eosinophils # (Manual) Basophils # (Manual) Differential Comment Manual Slide Review Platelet Morphology Sodium 141 Potassium 4.1 Chloride 104 Carbon Dioxide 27 Anion Gap 10.0 BUN 16 Creatinine 0.9 Estimated GFR (MDRD) 82 L Glucose 118 H Calcium 8.9 Total Bilirubin 0.5 AST 23 ALT 18 Alkaline Phosphatase 121 Total Creatine Kinase Troponin I Total Protein 6.9 Albumin 3.6 Globulin 3.3 Albumin/Globulin Ratio 1.1 Lipase 28 Urine Color YELLOW Urine Clarity CLEAR Urine pH 5.5 Ur Specific [place] >=1.030 H Urine Protein TRACE Urine Glucose (UA) NEGATIVE Urine Ketones NEGATIVE Urine Occult Blood TRACE-LYSE Urine Nitrite NEGATIVE Urine Bilirubin NEGATIVE Urine Urobilinogen 0.2 (NORMAL) Ur Leukocyte Esterase NEGATIVE Urine RBC Urine WBC Ur Squamous Epith Cells Urine Bacteria Urine Mucus Ur Microscopic Review NOT INDICATED Urine Culture Comments NOT INDICATED Urine Opiates Screen NEGATIVE Ur Oxycodone Screen NEGATIVE Urine Methadone Screen NEGATIVE Ur Propoxyphene Screen NEGATIVE Ur Barbiturates Screen NEGATIVE Ur Tricyclics Screen NEGATIVE Ur Phencyclidine Scrn NEGATIVE Ur Amphetamine Screen NEGATIVE U Methamphetamines Scrn NEGATIVE U Benzodiazepines Scrn NEGATIVE Urine Cocaine Screen NEGATIVE U Cannabinoids Screen NEGATIVE 07/19/18 07/19/18 07/19/18 08:37 08:37 08:37 WBC 4.3 L RBC 3.76 L Hgb 13.2 L Hct 39.0 L MCV 103.9 H MCH 35.2 H MCHC 33.9 RDW 15.4 H Plt Count 183 MPV 8.7 Neut # (Auto) Not Reportable Lymph # (Auto) Not Reportable Braxton # (Auto) Not Reportable Eos # (Auto) Not Reportable Baso # (Auto) Not Reportable Absolute Nucleated RBC Not Reportable Total Counted 100 Band Neuts % (Manual) 0 Reactive Lymphs % (Man) 6 Abnorm Lymph % (Manual) 0 Nucleated RBC % Not Reportable Neutrophils # (Manual) 3.0 Lymphocytes # (Manual) 0.9 L Monocytes # (Manual) 0.3 Eosinophils # (Manual) 0.1 Basophils # (Manual) 0.0 Differential Comment MANUAL DIFFERENTIAL Manual Slide Review Indicated Platelet Morphology RARE GIANT PLATELETS Sodium 138 Potassium 3.9 Chloride 101 Carbon Dioxide 28 Anion Gap 9.0 BUN 15 Creatinine 0.8 Estimated GFR (MDRD) 94 Glucose 108 H Calcium 8.7 Total Bilirubin 0.7 AST 20 ALT 13 Alkaline Phosphatase 113 Total Creatine Kinase 122 Troponin I < 0.04 Total Protein 6.5 L Albumin 3.4 Globulin 3.1 Albumin/Globulin Ratio 1.1 Lipase 26 Urine Color Urine Clarity Urine pH Ur Specific [place] Urine Protein Urine Glucose (UA) Urine Ketones Urine Occult Blood Urine Nitrite Urine Bilirubin Urine Urobilinogen Ur Leukocyte Esterase Urine RBC Urine WBC Ur Squamous Epith Cells Urine Bacteria Urine Mucus Ur Microscopic Review Urine Culture Comments Urine Opiates Screen Ur Oxycodone Screen Urine Methadone Screen Ur Propoxyphene Screen Ur Barbiturates Screen Ur Tricyclics Screen Ur Phencyclidine Scrn Ur Amphetamine Screen U Methamphetamines Scrn U Benzodiazepines Scrn Urine Cocaine Screen U Cannabinoids Screen 07/20/18 07/20/18 07/21/18 10:50 10:50 18:29 WBC 4.0 L RBC 3.60 L Hgb 12.7 L Hct 37.3 L MCV 103.8 H MCH 35.3 H MCHC 34.0 RDW 15.7 H Plt Count 178 MPV 8.4 Neut # (Auto) 2.6 Lymph # (Auto) 0.7 L Braxton # (Auto) 0.4 Eos # (Auto) 0.3 Baso # (Auto) 0.1 Absolute Nucleated RBC 0.00 Total Counted Band Neuts % (Manual) Reactive Lymphs % (Man) Abnorm Lymph % (Manual) Nucleated RBC % 0.0 Neutrophils # (Manual) Lymphocytes # (Manual) Monocytes # (Manual) Eosinophils # (Manual) Basophils # (Manual) Differential Comment Manual Slide Review Platelet Morphology Sodium 140 Potassium 4.1 Chloride 104 Carbon Dioxide 29 Anion Gap 7.0 BUN 15 Creatinine 0.9 Estimated GFR (MDRD) 82 L Glucose 95 Calcium 8.6 Total Bilirubin 0.6 AST 18 ALT 13 Alkaline Phosphatase 109 Total Creatine Kinase Troponin I Total Protein 6.2 L Albumin 3.3 Globulin 2.9 Albumin/Globulin Ratio 1.1 Lipase 28 Urine Color YELLOW Urine Clarity CLEAR Urine pH 6.0 Ur Specific [place] 1.025 Urine Protein NEGATIVE Urine Glucose (UA) NEGATIVE Urine Ketones 15 H Urine Occult Blood SMALL H Urine Nitrite NEGATIVE Urine Bilirubin NEGATIVE Urine Urobilinogen 0.2 (NORMAL) Ur Leukocyte Esterase NEGATIVE Urine RBC 6-10 H Urine WBC 0-3 Ur Squamous Epith Cells RARE Squamous Urine Bacteria Rare Urine Mucus Few Strands Ur Microscopic Review INDICATED Urine Culture Comments NOT INDICATED Urine Opiates Screen Ur Oxycodone Screen Urine Methadone Screen Ur Propoxyphene Screen Ur Barbiturates Screen Ur Tricyclics Screen Ur Phencyclidine Scrn Ur Amphetamine Screen U Methamphetamines Scrn U Benzodiazepines Scrn Urine Cocaine Screen U Cannabinoids Screen 07/21/18 07/21/18 07/22/18 18:36 18:37 13:37 WBC 2.9 L 4.3 L RBC 3.61 L 3.64 L Hgb 12.6 L 12.9 L Hct 37.6 L 37.8 L MCV 104.3 H 103.9 H MCH 34.9 H 35.5 H MCHC 33.5 34.2 RDW 15.4 H 15.9 H Plt Count 148 136 MPV 8.6 8.6 Neut # (Auto) 2.2 3.0 Lymph # (Auto) 0.3 L 0.6 L Braxton # (Auto) 0.4 0.7 Eos # (Auto) 0.0 0.0 Baso # (Auto) 0.0 0.0 Absolute Nucleated RBC 0.00 0.00 Total Counted Band Neuts % (Manual) Reactive Lymphs % (Man) Abnorm Lymph % (Manual) Nucleated RBC % 0.0 0.1 Neutrophils # (Manual) Lymphocytes # (Manual) Monocytes # (Manual) Eosinophils # (Manual) Basophils # (Manual) Differential Comment Manual Slide Review Platelet Morphology Sodium 132 L Potassium 4.3 Chloride 96 L Carbon Dioxide 26 Anion Gap 10.0 BUN 15 Creatinine 0.9 Estimated GFR (MDRD) 82 L Glucose 103 H Calcium 8.4 L Total Bilirubin 0.8 AST 22 ALT 12 Alkaline Phosphatase 104 Total Creatine Kinase Troponin I Total Protein 6.7 Albumin 3.6 Globulin 3.1 Albumin/Globulin Ratio 1.2 Lipase 26 Urine Color Urine Clarity Urine pH Ur Specific [place] Urine Protein Urine Glucose (UA) Urine Ketones Urine Occult Blood Urine Nitrite Urine Bilirubin Urine Urobilinogen Ur Leukocyte Esterase Urine RBC Urine WBC Ur Squamous Epith Cells Urine Bacteria Urine Mucus Ur Microscopic Review Urine Culture Comments Urine Opiates Screen Ur Oxycodone Screen Urine Methadone Screen Ur Propoxyphene Screen Ur Barbiturates Screen Ur Tricyclics Screen Ur Phencyclidine Scrn Ur Amphetamine Screen U Methamphetamines Scrn U Benzodiazepines Scrn Urine Cocaine Screen U Cannabinoids Screen 07/22/18 07/22/18 13:37 13:37 WBC RBC Hgb Hct MCV MCH MCHC RDW Plt Count MPV Neut # (Auto) Lymph # (Auto) Braxton # (Auto) Eos # (Auto) Baso # (Auto) Absolute Nucleated RBC Total Counted Band Neuts % (Manual) Reactive Lymphs % (Man) Abnorm Lymph % (Manual) Nucleated RBC % Neutrophils # (Manual) Lymphocytes # (Manual) Monocytes # (Manual) Eosinophils # (Manual) Basophils # (Manual) Differential Comment Manual Slide Review Platelet Morphology Sodium 133 L Potassium 4.5 Chloride 96 L Carbon Dioxide 25 Anion Gap 12.0 BUN 20 Creatinine 1.1 Estimated GFR (MDRD) 65 L Glucose 90 Calcium 8.1 L Total Bilirubin 0.6 AST 30 ALT 14 Alkaline Phosphatase 98 Total Creatine Kinase Troponin I < 0.04 Total Protein 6.6 L Albumin 3.4 Globulin 3.2 Albumin/Globulin Ratio 1.1 Lipase 30 Urine Color Urine Clarity Urine pH Ur Specific [place] Urine Protein Urine Glucose (UA) Urine Ketones Urine Occult Blood Urine Nitrite Urine Bilirubin Urine Urobilinogen Ur Leukocyte Esterase Urine RBC Urine WBC Ur Squamous Epith Cells Urine Bacteria Urine Mucus Ur Microscopic Review Urine Culture Comments Urine Opiates Screen Ur Oxycodone Screen Urine Methadone Screen Ur Propoxyphene Screen Ur Barbiturates Screen Ur Tricyclics Screen Ur Phencyclidine Scrn Ur Amphetamine Screen U Methamphetamines Scrn U Benzodiazepines Scrn Urine Cocaine Screen U Cannabinoids Screen Procedures - IVC sono (time) 1220 Bedside IVC sono: IVC measures (cm) (0.84), IVC collapsed c insp (cm) (complete), Dehydration (est 2 liter deficit) PD MEDICAL DECISION MAKING - ED course Complexity details: reviewed old records, reviewed results, re-evaluated patient, considered differential ED course: 73 y/o male awaiting disposition has been less interractive today (07-22-18) and he is re-evaluated with repeat labs and on interrogation of the IVC he is dehydrated and he is given IV saline. He remains lethargic and is not eating well. A repeat CT of the head was done again without findings. The patient has remained in the ED another day pending disposition to assisted living. He is not capable of assisted living in this condition. Last night an attempt to admit the patient to the hospital failed for lack of findings. Today (07-23-18) he remains lethargic, he is febrile and hypoxic and a one view chest is obtained and he is found to have an infiltrate in the right lower lobe consistent with possible aspiration. Departure - Departure Disposition: 66 [facility] DC/Xfer Clinical Impression: Confusion, NPH (normal pressure hydrocephalus) Facial contusion Qualifiers: Encounter type: initial encounter Qualified Code(s): S00.83XA - Contusion of other part of head, initial encounter Closed head injury Qualifiers: Encounter type: initial encounter Qualified Code(s): S09.90XA - Unspecified injury of head, initial encounter Fall Qualifiers: Encounter type: initial encounter Qualified Code(s): W19.XXXA - Unspecified fall, initial encounter Facial fracture Qualifiers: Encounter type: initial encounter Facial bone/location: other facial bone Fracture type: closed Laterality: unspecified laterality Qualified Code(s): S02.80XA - Fracture of other specified skull and facial bones, unspecified side, initial encounter for closed fracture Dementia Qualifiers: Dementia type: unspecified type Dementia behavioral disturbance: without behavioral disturbance Qualified Code(s): F03.90 - Unspecified dementia without behavioral disturbance Skin ulcer of face Qualifiers: Non-pressure ulcer stage: unspecified non-pressure ulcer stage Qualified Code(s): L98.499 - Non-pressure chronic ulcer of skin of other sites with unspecified severity Facial abrasion Qualifiers: Encounter type: initial encounter Qualified Code(s): S00.81XA - Abrasion of other part of head, initial encounter Pneumonia Qualifiers: Pneumonia type: due to unspecified organism Laterality: right Lung location: lower lobe of lung Qualified Code(s): J18.1 - Lobar pneumonia, unspecified organism Comments: Please follow-up with plastic surgery at [facility] for further evaluation of your facial fractures. Please call [phone] Please follow-up with Dr. Aly Toro at [facility] with the neurosurgery clinic for further evaluation of your normal pressure hy drocephalus. Please call area code [phone] to schedule appointment
[2018-07-22 13:40] LABS: BASOPHILS % (AUTO) 0.4 %; EOSINOPHILS % (AUTO) 0.2 %; HGB - HEMOGLOBIN 12.9 g/dL (14.0-18.0); LYMPHOCYTES # (AUTO) 0.6 10^3/uL (1.5-3.5); LYMPHOCYTES % (AUTO) 13.9 %; MEAN CORPUSCULAR HEMOGLOBIN 35.5 pg (27.0-31.0); MEAN CORPUSCULAR HGB CONC 34.2 g/dL (32.0-36.0); MEAN CORPUSCULAR VOLUME 103.9 fL (80.0-94.0); MEAN PLATELET VOLUME 8.6 fL (7.4-11.4); MONOCYTES # (AUTO) 0.7 10^3/uL (0.0-1.0); MONOCYTES % (AUTO) 16.3 %; NEUTROPHILS % (AUTO) 69.2 %; PLT - PLATELET COUNT 136 10^3/uL (130-450); RED BLOOD COUNT 3.64 10^6/uL (4.70-6.10); RED CELL DISTRIBUTION WIDTH 15.9 % (12.0-15.0); WHITE BLOOD COUNT 4.3 x10^3/uL (4.8-10.8)
[2018-07-22 14:00] LABS: ALBUMIN 3.4 g/dL (3.2-5.5); ALBUMIN/GLOBULIN RATIO 1.1 (1.0-2.2); BILIRUBIN,TOTAL 0.6 mg/dL (0.2-1.0); CALCIUM 8.1 mg/dL (8.5-10.3); CREATININE 1.1 mg/dL (0.6-1.2); TOTAL PROTEIN 6.6 g/dL (6.7-8.2)
--- NOTE | 2018-07-22 20:25 | CT Report ---
Reason: decreased LOC Procedure Date: 07/22/2018 Accession Number: [id number] / [id number] Procedure: CT - HEAD WO CPT Code: FULL RESULT: EXAM: CT HEAD EXAM DATE: 07/22/2018 07:39 PM. CLINICAL HISTORY: Decreased level of consciousness. COMPARISON: HEAD W/O 07/20/2018 11:35 AM. TECHNIQUE: Multiaxial CT images were obtained from the foramen magnum to the vertex. Reformats: Sagittal and coronal. IV contrast: None. In accordance with CT protocol optimization, one or more of the following dose reduction techniques were utilized for this exam: automated exposure control, adjustment of mA and/or KV based on patient size, or use of iterative reconstructive technique. FINDINGS: Parenchyma: No intraparenchymal hemorrhage. No evidence of mass, midline shift, or CT findings of acute infarction. Arellano-white differentiation is distinct. Stable mild chronic microangiopathic white matter changes are evident. Extraaxial Spaces: Normal for age. No subdural or epidural collections identified. Ventricles: Stable ventriculomegaly without effacement of cortical sulci. Sinuses and orbits: Fluid level in the left maxillary sinus and in inferior right mastoid air cells. Imaged paranasal sinuses, orbits, and mastoids otherwise show no significant abnormality. Bones: No evidence of fracture or calvarial defect. Other: None. IMPRESSION: Stable age-related cortical atrophic changes, ventriculomegaly, and left maxillary sinusitis and right mastoiditis. No acute or progressive abnormalities. RADIA
--- NOTE | 2018-07-23 08:26 | XRAY Report ---
Reason: hypoxia Procedure Date: 07/23/2018 Accession Number: [id number] / [id number] Procedure: XR - Chest 1 View X-Ray CPT Code: 29849 FULL RESULT: EXAM: CHEST RADIOGRAPHY EXAM DATE: 07/23/2018 07:47 AM. CLINICAL HISTORY: Hypoxia. COMPARISON: Chest radiograph from 07/20/2010. TECHNIQUE: 1 view. FINDINGS: Lungs/Pleura: There is somewhat nodular opacity in the right apex, which appears to have been present previously and is suggestive of pleural-parenchymal scarring. There is new patchy opacity in the right base. No pleural effusion or pneumothorax. Mediastinum: Cardiomediastinal silhouette is within normal limits. Pulmonary vasculature is unremarkable. Other: None. IMPRESSION: 1. New patchy right basilar opacity, concerning for aspiration or pneumonia. Radiographic follow-up is recommended in 6-8 weeks to ensure resolution. 2. Suspected pleural-parenchymal scarring at the right lung apex has not significantly changed. RADIA
[2018-07-23] MEDS ORDERED: SODIUM CHLORIDE 0.9% 1,000 ML IV ONE (08:47)
[2018-07-23] MEDS ORDERED: VANCOMYCIN INJ 1 GM in SODIUM CHLORIDE 0.9% 500 ML IV STA (08:47)
[2018-07-23] MEDS ORDERED: CEFEPIME 1 GM in SODIUM CHLORIDE 0.9% MINIBAG 100 ML IV STA (08:47)
[2018-07-23] MEDS ORDERED: SODIUM CHLORIDE FLUSH 0.9% 10 ML SYRINGE IVP PRN (11:56)
[2018-07-23] MEDS ORDERED: VANCOMYCIN PER PHARMACY 100 GM in SODIUM CHLORIDE 0.9% 250 ML IV SCH (12:00)
[2018-07-23] MEDS ORDERED: LACTATED RINGERS 1,000 ML IV SCH (12:00)
[2018-07-23] MEDS ORDERED: PROMETHAZINE INJ 25 MG in SODIUM CHLORIDE 0.9% 50 ML IV PRN (12:02)
[2018-07-23] MEDS ORDERED: levoFLOXacin 750 MG/150 ML 750 MG/150 ML BAG IV SCH (14:00)
--- NOTE | 2018-07-23 15:33 | HISTORY & PHYSICAL EXAMINATION ---
Chief Complaint - Chief Complaint Chief Complaint: Shortness of breath with 88% O2 saturation on room air. 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 social media & mobile manager had set up placement to [place] but patient had sustained a fall in the emergency department while Awaiting placement. In addition patient had likely aspirated as patient began to have decreasing level of consciousness and from his baseline mental status of Alzheimer's dementia. Patient was found to have a right lower lobe infiltrate on chest x-ray and desaturations were clock at 88% on room air. Patient was deemed to have a HCAP with underlying aspiration. Copious green mucus pooling at the level of the oropharynx was noted. Upon initial exam patient had bilateral expiratory rhonchi and fine bibasilar rales along with a normal CBC and normal electrolytes with a creatinine of 1.1 lactic acid was normal with a C. difficile negative and a CT head showing no acute intracranial process. Patient had CT of the facial bones and C-spine which did relieve yield no fractures at the levels to be C-spine but did reveal left nasal bone fractures fractures of the superior lateral jin with left maxillary left facial and left jen-orbital involvement. There was left supraorbital and frontal soft tissue swelling as well which is consistent with patient falling to the ground hitting his face with some contusions and lacerations. PMH/PSH - Past Medical History Cardiovascular: positive: None Respiratory: positive: None Neuro: positive: None Endocrine/Autoimmune: positive: None GI: positive: None : positive: None HEENT: positive: None Psych: positive: None Musculoskeletal: positive: None Derm: positive: Other MRSA Hx?: No Social & Family Hx - Living Situation Living Arrangement: At home - Social History Does the pt smoke?: Yes Smoking Status: Current every day smoker Does the pt drink ETOH?: Yes Does the pt have substance abuse?: No - POLST Patient has POLST: No Meds/Allgy - Home Medications Home Medications: Ambulatory Orders Medication Instructions Recorded Confirmed No Known Home Medications 10/31/17 07/21/18 - Allergies Allergies/Adverse Reactions: Allergies Allergy/AdvReac Type Severity Reaction Status Date / Time Sulfa (Sulfonamide Allergy Unknown Verified 10/31/17 16:06 Antibiotics) Penicillins AdvReac Unknown Verified 10/31/17 16:06 Review of Systems - All Other Systems All Other Systems: reports: Reviewed and negative Prior Level of Functionality: Unclear baseline at home ADLs as patient has had frequent falls and has Alzheimer's dementia Exam - Vital Signs Reviewed Vital Signs: Yes Vital Signs: Vital Signs x48h Temp Pulse Resp BP Pulse Ox 07/23/18 11:46 71 20 143/67 H 93 07/23/18 11:06 37.2 C 07/23/18 10:12 69 18 124/49 L 94 07/23/18 08:44 38.5 C H 07/23/18 08:12 97 07/23/18 07:49 89 L - Physical Exam General Appearance: positive: Alert, Other Eyes Bilateral: positive: Normal inspection, PERRL, EOMI, Other (Multiple ecchymotic bruising and very orbital swelling) ENT: positive: ENT inspection nml, Dry mucous membranes, Other (There is copious pooling to the oropharynx with mucoid secretions). negative: Pharyngeal erythema, Oral lesions Neck: positive: Nml inspection, Thyroid nml. negative: No JVD, Carotid bruit, S welling/bruising Respiratory: positive: Chest non-tender, No respiratory distress, Rales, Rhonchi. negative: Wheezes (Fine rales to the bases) Cardiovascular: positive: Regular rate & rhythm, No murmur, No gallop Peripheral Pulses: positive: 2+ Abdomen: positive: Non-tender, No organomegaly, Nml bowel sounds, No distention Skin: positive: Color nml, No rash, Warm Extremities: positive: Non-tender, Full ROM, Nml appearance. negative: Pedal edema, Calf tenderness, Joint swelling Neurologic/Psychiatric: positive: Other (Patient has Alzheimer's dementia and difficult to assess neurologic psychiatric status) Results - Lab Results Lab results reviewed: Yes Fish Bones: 07/22/18 13:37 07/22/18 13:37 Other Lab Results: Lab Results x24hrs 07/23/18 07/23/18 Range/Units 09:15 07:43 Lactic Acid 1.0 (0.5-2.2) mmol/L C. difficile Tox B Gene NEGATIVE (NEGATIVE) - Diagnostic Imaging Results Diagnostic Imaging Results: positive: Final report reviewed (Review of CT head, CT spine and CT facial bones along with chest x-ray) - EKG Results EKG Interpreted Independently: Yes EKG Comparison: positive: Old EKG unavailable EKG Findings: EKG shows sinus rhythm at 60 bpm with a left anterior fascicular block and an anterior old SD Sepsis Event Note (H) - Evaluation Current Stage of Sepsis: Ruled out Impression/Plan - Problem List Problem List: 1. Healthcare associated pneumonia 2. Suspected aspiration pneumonia with right middle lobe lower lobe infiltrate involvement 3. Acute left sinusitis with associated facial fractures 4. Acute fall with a history of fall with multiple facial fractures to the left nasal bone, superior lateral jin of the left maxillary, left face periorbital along with left supraorbital frontal soft tissue swelling 5. Macrocytosis 6. Alzheimer's dementia with behavioral disturbance and history of falls 7. Advance care planning education and counseling 7. Social placement Plan: We will continue with medical management and improve respiratory function as it pertains of patient's hospital acquired pneumonia with a component of aspiration. Would place on a mechanical altered dysphagia or pured diet for now and have speech pathology to assess for swallowing function and aspiration to determine food consistency. Will place on Levaquin as patient has allergy to penicillin and cephalosporin with great cross-reactivit, Would add on vancomycin, as well. Continue with oxygenation, duo nebs, incentive spirometry, pulmonary toileting. We will place on orthostats as patient has had multiple falls and will evaluate for orthostatic hypotension. We will place on either Aricept and/or Namenda to improve cognitive function. PT to follow. conversion worker on case as patient has been initiated for . Patient is a smoker will place on a transdermal nicotine patch 14-21 mg transdermal daily. Will obtain a sputum culture and send out to see if this is growing out any other organisms. Due to patient's demented status advance care planning edu cation counseling was difficult to ascertain. Initiate DVT/GI prophylaxis CODE STATUS: Patient has no RADHAMES ST and [employer] and will place an full code as for now.
[2018-07-23] MEDS ORDERED: IPRATROPIUM/ALBUTEROL 3 ML NEB INH PRN (15:51)
[2018-07-23] MEDS: levoFLOXacin 750 MG/150 ML 750 MG/150 ML BAG IV SCH (17:19)
[2018-07-23] MEDS: SODIUM CHLORIDE FLUSH 0.9% 10 ML SYRINGE IVP SCH (17:21)
[2018-07-23] MEDS ORDERED: MIN OIL/DIMETHICON/COCONUT OIL 92 GM TUBE TOP PRN (17:24)
[2018-07-23] MEDS: MEMANTINE 5 MG TABLET PO SCH (21:28)
[2018-07-23] MEDS: FAMOTIDINE 20 MG TABLET PO SCH (21:28)
[2018-07-23] MEDS: VANCOMYCIN INJ 1 GM in SODIUM CHLORIDE 0.9% 250 ML IV SCH (21:35)
[2018-07-24] MEDS: SODIUM CHLORIDE FLUSH 0.9% 10 ML SYRINGE IVP SCH ×3 (02:05→17:40)
[2018-07-24 05:48] LABS: BASOPHILS % (AUTO) 0.2 %; HGB - HEMOGLOBIN 12.4 g/dL (14.0-18.0); LYMPHOCYTES % (AUTO) 13.9 %; MEAN CORPUSCULAR HEMOGLOBIN 34.9 pg (27.0-31.0); MEAN CORPUSCULAR HGB CONC 33.6 g/dL (32.0-36.0); MEAN CORPUSCULAR VOLUME 104.1 fL (80.0-94.0); MEAN PLATELET VOLUME 8.8 fL (7.4-11.4); MONOCYTES # (AUTO) 0.5 10^3/uL (0.0-1.0); MONOCYTES % (AUTO) 7.6 %; NEUTROPHILS # (AUTO) 5.6 10^3/uL (1.5-6.6); NEUTROPHILS % (AUTO) 78.3 %; PLT - PLATELET COUNT 120 10^3/uL (130-450); RED BLOOD COUNT 3.56 10^6/uL (4.70-6.10); RED CELL DISTRIBUTION WIDTH 15.8 % (12.0-15.0); WHITE BLOOD COUNT 7.1 x10^3/uL (4.8-10.8)
[2018-07-24 06:06] LABS: ALBUMIN 2.9 g/dL (3.2-5.5); CALCIUM 8.1 mg/dL (8.5-10.3); CREATININE 1.2 mg/dL (0.6-1.2); PHOSPHORUS 2.4 mg/dL (2.5-4.6)
[2018-07-24] MEDS: LACTATED RINGERS 1,000 ML IV SCH ×2 (07:38→20:27)
[2018-07-24] MEDS: POLYETHYLENE GLYCOL 3350 17 GM PACKET PO SCH (08:33)
[2018-07-24] MEDS: NICOTINE 14 MG PATCH TOP SCH (08:33)
[2018-07-24] MEDS: ENOXAPARIN 40 MG/0.4 ML SYRINGE SUBQ SCH (08:34)
[2018-07-24] MEDS: MEMANTINE 5 MG TABLET PO SCH ×2 (08:34→20:50)
[2018-07-24] MEDS: FAMOTIDINE 20 MG TABLET PO SCH ×2 (08:34→20:50)
--- NOTE | 2018-07-24 10:12 | MISCELLANEOUS PROVIDER NOTE ---
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 In addition patient had likely aspirated as patient began to have decreasing level of consciousness and from his baseline mental status of Alzheimer's dementia. Patient was found to have a right lower lobe infiltrate on chest x-ray and desaturations were clock at 88% on room air. Patient was deemed to have a HCAP with underlying aspiration. Copious green mucus pooling at the level of the oropharynx was noted. Upon initial exam patient had bilateral expiratory rhonchi and fine bibasilar rales along with a normal CBC and normal electrolytes with a creatinine of 1.1 lactic acid was normal with a C. difficile negative and a CT head showing no acute intracranial process. Patient had CT of the facial bones and C-spine which did relieve yield no fractures at the levels to be C-spine but did reveal left nasal bone fractures fractures of the superior lateral jin with left maxillary left facial and left jen-orbital involvement. There was left supraorbital and frontal soft tissue swelling as well which is consistent with patient falling to the ground hitting his face with some contusions and lacerations. Subjective: Patient is a poor historian with Alzheimer's dementia and disease and does not convey much history on questioning. Objective: Vital signs hemodynamic stable afebrile heart rate of 64 blood pressure 133/63 with a respiratory rate of 1696% O2 saturation on 2 L nasal cannula General: Patient with Alzheimer's dementia in no acute respiratory distress actively coughing, ill-appearing HEENT: Pupils are equal round reactive light and accommodation extraocular muscles are bilateral intact, multiple facial ecchymosis with laceration to the bridge of nose and depression along with periorbital swelling to the right. Edentulous and poor dentition. Pooling of mucus in the oropharynx. Neck: No JVD or bruits no lymphadenopathy CV/lungs: RRR. S1-S2 within normal limits. No gallops clicks or rubs. Decreased breath sounds to bases with mild expiratory rhonchi and fine scattered rales. No increased work of breath no retractions next Abdomen: Soft nontender nondistended positive bowel sounds no guarding no HSM except extremities and skin no edema clubbing or cyanosis 2+ pulses dorsalis pedis Neuro: Difficult to assess due to patient's Alzheimer's dementia and cognitive deficits with poor cooperation. No psychomotor retardation expressed Labs: Reviewed Imaging studies: Reviewed Assessment/plan: - Problem List Problem List: 1. Healthcare associated pneumonia 2. Suspected aspiration pneumonia with right middle lobe lower lobe infiltrate involvement 3. Acute left sinusitis with associated facial fractures 4. Acute fall with a history of fall with multiple facial fractures to the left nasal bone, superior lateral jin of the left maxillary, left face periorbital along with left supraorbital frontal soft tissue swelling 5. Macrocytosis 6. Alzheimer's dementia with behavioral disturbance and history of falls 7. Acute renal insufficiency sec to dehydration 8. Advance care planning education and counseling 9. Social placement Plan: Continue with nebulizers, IV antibiotics with vancomycin and Levaquin for H CAP, speech therapy to recommend food consistency as patient is pulling much secretions and mucus to oropharynx, pulmonary toileting and incentive spirometry with oxygenation, obtain sputum sample to be sent for evaluation, MRSA screen. Patient has mild acute renal insufficiency with a creatinine 1.2 previously was 0.9 will change LR to an increase to 100 mL/HR LFTs within normal limits as well as electrolytes. Currently awaiting placement at [facility] however patient has been accepted as of now. Patient does not appear to have any intracranial hemorrhaging as per CT of the head which patient currently has baseline Alzheimer's dementia with some cognitive deficits and mobility gait issues. Will await physical therapy assessment for recommendations. Facial fractures will be addressed as an outpatient as they are stable with no compromise of sinus cavities or free air. We will continue to monitor and place on orthostats with Midrin as needed, Namenda to be dispensed, transdermal nicotine patch for patient's smoking history. Due to patient's demented status advance care planning education counseling was difficult to ascertain. Initiate DVT/GI prophylaxis CODE STATUS: Patient has no RADH[facility] and [place] and will place an full code as for now.
[2018-07-24] MEDS: VANCOMYCIN INJ 1 GM in SODIUM CHLORIDE 0.9% 250 ML IV SCH ×2 (10:30→22:19)
[2018-07-24] MEDS: levoFLOXacin 750 MG/150 ML 750 MG/150 ML BAG IV SCH (17:39)
[2018-07-24] MEDS: MULTIVITAMIN W/MINERALS TABLET PO SCH (17:39)
[2018-07-24] MEDS: traZODone 50 MG TABLET PO PRN (21:53)
[2018-07-24] MEDS ORDERED: HALOPERIDOL 5 MG/ML VIAL IVP PRN (23:52)
[2018-07-25 06:18] LABS: BASOPHILS % (AUTO) 0.2 %; EOSINOPHILS % (AUTO) 0.1 %; HGB - HEMOGLOBIN 12.2 g/dL (14.0-18.0); LYMPHOCYTES # (AUTO) 0.4 10^3/uL (1.5-3.5); LYMPHOCYTES % (AUTO) 9.8 %; MEAN CORPUSCULAR HEMOGLOBIN 34.8 pg (27.0-31.0); MEAN CORPUSCULAR HGB CONC 34.2 g/dL (32.0-36.0); MEAN CORPUSCULAR VOLUME 101.7 fL (80.0-94.0); MEAN PLATELET VOLUME 8.9 fL (7.4-11.4); MONOCYTES # (AUTO) 0.2 10^3/uL (0.0-1.0); MONOCYTES % (AUTO) 6.3 %; NEUTROPHILS # (AUTO) 3.2 10^3/uL (1.5-6.6); NEUTROPHILS % (AUTO) 83.6 %; PLT - PLATELET COUNT 118 10^3/uL (130-450); RED CELL DISTRIBUTION WIDTH 15.7 % (12.0-15.0); WHITE BLOOD COUNT 3.8 x10^3/uL (4.8-10.8)
[2018-07-25 06:30] LABS: ALBUMIN 2.7 g/dL (3.2-5.5); CALCIUM 8.1 mg/dL (8.5-10.3); CREATININE 1.1 mg/dL (0.6-1.2); PHOSPHORUS 1.7 mg/dL (2.5-4.6)
[2018-07-25] MEDS: NICOTINE 14 MG PATCH TOP SCH (08:22)
[2018-07-25] MEDS: MULTIVITAMIN W/MINERALS TABLET PO SCH (08:22)
[2018-07-25] MEDS: MEMANTINE 5 MG TABLET PO SCH ×2 (08:22→21:30)
[2018-07-25] MEDS: ENOXAPARIN 40 MG/0.4 ML SYRINGE SUBQ SCH (08:22)
[2018-07-25] MEDS: FAMOTIDINE 20 MG TABLET PO SCH ×2 (08:22→21:29)
[2018-07-25] MEDS: LACTATED RINGERS 1,000 ML IV SCH (08:23)
[2018-07-25] MEDS: SODIUM CHLORIDE FLUSH 0.9% 10 ML SYRINGE IVP SCH ×2 (08:26→17:50)
[2018-07-25] MEDS: POLYETHYLENE GLYCOL 3350 17 GM PACKET PO SCH (08:26)
[2018-07-25 09:54] LABS: VANCOMYCIN,TROUGH 17.4 ug/mL (10.0-20.0)
[2018-07-25] MEDS: VANCOMYCIN INJ 1 GM in SODIUM CHLORIDE 0.9% 250 ML IV SCH ×2 (11:33→22:41)
--- NOTE | 2018-07-25 12:01 | PROVIDER PROGRESS NOTE ---
Assessment/Plan - Problem List (1) HCAP (healthcare-associated pneumonia) Assessment/Plan: This developed during his days in ER, when he was awaiting SNF or NH placement. Continue Mucinex. He may need more pulmonary toilet with Acapella, if he will follow commands. (2) Aspiration pneumonia Assessment/Plan: Since the concern is aspiration, I will broaden iv antibiotics and add coverage for anaerobes, with Clindamycin added to Vanco and Levaquin. Continue Mucinex. He may need more pulmonary toilet with Acapella, if he will follow commands. (3) Facial fracture Qualifiers: Encounter type: subsequent encounter Facial bone/location: other facial bone Fracture type: closed Laterality: left Assessment/Plan: He is not in pain and cannot remember the event, which apparently occurred in the ER. (4) Fall Qualifiers: Encounter type: subsequent encounter Qualified Code(s): W19.XXXD - Unspecified fall, subsequent encounter Assessment/Plan: The fall in the ER resulted in the trauma to his L face. (5) Frequent falls Assessment/Plan: He cannot be [facility] home, he will be gong to [place] when medically cleared. PT has started here. (6) Alzheimer's dementia with behavioral disturbance Assessment/Plan: Pt on Aricept. (7) CARLEE (acute kidney injury) Assessment/Plan: Improving with iv hydration. (8) Hypokalemia Assessment/Plan: Will replace. Follow BMP daily. - Current Meds Current Meds: Current Medications Generic Name Dose Route Start Last Admin Trade Name Freq PRN Reason Stop Dose Admin Enoxaparin Sodium 40 mg 07/24/18 09:00 07/25/18 08:22 Lovenox SUBQ 40 mg DAILY REG Administration Famotidine 20 mg 07/23/18 21:00 07/25/18 08:22 Pepcid PO 20 mg BID REG Administration Vancomycin HCl 1 gm/ Sodium 250 mls @ 166.667 mls/hr 07/23/18 22:00 07/25/18 11:33 Chloride IV 166.67 mls/hr Q12H REG Administration Levofloxacin 750 mg in 150 mls @ 100 mls/hr 07/23/18 17:00 07/24/18 19:20 Levaquin 750 Mg/150 Ml IV Infused Q24H REG Infusion Lactated Ringer's 1,000 mls @ 75 mls/hr 07/24/18 06:11 07/25/18 08:23 Lr IV 75 mls/hr .[id number] REG Administration Memantine 5 mg 07/23/18 21:00 07/25/18 08:22 Namenda PO 5 mg BID REG Administration Multivitamins/Minerals 1 tab 07/24/18 16:00 07/25/18 08:22 Theragran M PO 1 tab DAILYWM REG Administration Nicotine 1 patch 07/24/18 09:00 07/25/18 08:22 Nicoderm TOP 1 patch DAILY REG Administration Polyethylene Glycol 17 gm 07/24/18 09:00 07/25/18 08:26 Miralax PO Not Given DAILY REG Sodium Chloride 10 ml 07/23/18 17:00 07/25/18 08:26 Normal Saline Flush 0.9% IVP Not Given 0100,0900,1700 REG Trazodone HCl 50 mg 07/24/18 21:44 07/24/18 21:53 Desyrel PO 50 mg QPM PRN Administration Insomnia - Lab Result Fish Bone Diagrams: 07/25/18 06:07 07/25/18 06:07 - Additional Planning My Orders: My Active Orders 07/25/18 12:00 Clindamycin 600 mg/50 ml [Cleocin 600 mg/50 ml] 50 ml IV Q6HR Subjective - Subjective Patient Reports: Other (Answers in 1-2 word sentences and cannot tell me any details.) Nursing Reports: Other (Oriented to self only.) Objective Vital Signs: Vital Signs - 24 hr 07/24/18 07/24/18 07/25/18 16:50 21:39 00:00 Temperature 37.1 C 37.3 C 36.9 C Heart Rate Heart Rate [ 64 69 69 Brachial] Respiratory 20 20 22 Rate Blood Pressure 129/56 L 139/71 H 139/58 H [Right Brachial artery] O2 Saturation 95 94 94 07/25/18 07/25/18 01:18 07:50 Temperature 37.3 C 37.2 C Heart Rate 69 Heart Rate [ 88 Brachial] Respiratory 20 20 Rate Blood Pressure 129/75 [Right Brachial artery] O2 Saturation 94 96 Oxygen O2 Source Room air I&O (Last 24 Hrs): Intake and Output Totals x24h 03/03/0307/24/18 07/25/18 23:59 23:59 23:59 Intake Total 2803.75 1240 Balance 2803.75 1240 General: No acute distress HEENT: EOMI, Mucous membr. moist/pink, Other (L eye: hematoma below eye and dried blood over eye) Neck: Supple Neuro: Other (Oriented to self only.) Cardiovascular: Regular rate, No murmurs Respiratory: No respiratory distress, Other (Diffusely poor air movement, distant BS, no wheezing, trales or rhonchi.) Abdomen: Soft Extremities: No edema - Results Results: Laboratory Results WBC 3.8 x10^3/uL (4.8-10.8) L 07/25/18 06:07 RBC 3.50 10^6/uL (4.70-6.10) L 07/25/18 06:07 Hgb 12.2 g/dL (14.0-18.0) L 07/25/18 06:07 Hct 35.6 % (42.0-52.0) L 07/25/18 06:07 MCV 101.7 fL (80.0-94.0) H 07/25/18 06:07 MCH 34.8 pg (27.0-31.0) H 07/25/18 06:07 MCHC 34.2 g/dL (32.0-36.0) 07/25/18 06:07 RDW 15.7 % (12.0-15.0) H 07/25/18 06:07 Plt Count 118 10^3/uL (130-450) L 07/25/18 06:07 MPV 8.9 fL (7.4-11.4) 07/25/18 06:07 Neut # (Auto) 3.2 10^3/uL (1.5-6.6) 07/25/18 06:07 Lymph # (Auto) 0.4 10^3/uL (1.5-3.5) L 07/25/18 06:07 [place] # (Auto) 0.2 10^3/uL (0.0-1.0) 07/25/18 06:07 Eos # (Auto) 0.0 10^3/uL (0.0-0.7) 07/25/18 06:07 Baso # (Auto) 0.0 10^3/uL (0.0-0.1) 07/25/18 06:07 Absolute Nucleated RBC 0.00 x10^3/uL 07/25/18 06:07 Total Counted 100 07/19/18 08:37 Band Neuts % (Manual) 0 % (0-10) 07/19/18 08:37 Reactive Lymphs % (Man) 6 % 07/19/18 08:37 Abnorm Lymph % (Manual) 0 % 07/19/18 08:37 Nucleated RBC % 0.0 /100WBC 07/25/18 06:07 Neutrophils # (Manual) 3.0 10^3/uL (1.5-6.6) 07/19/18 08:37 Lymphocytes # (Manual) 0.9 10^3/uL (1.5-3.5) L 07/19/18 08:37 Monocytes # (Manual) 0.3 10^3/uL (0.0-1.0) 07/19/18 08:37 Eosinophils # (Manual) 0.1 10^3/uL (0-0.7) 07/19/18 08:37 Basophils # (Manual) 0.0 10^3/uL (0-0.1) 07/19/18 08:37 Differential Comment MANUAL DIFFERENTIAL 07/19/18 08:37 Manual Slide Review Indicated 07/19/18 08:37 Platelet Morphology RARE GIANT PLATELETS (NORMAL) 07/19/18 08:37 Sodium 137 mmol/L (135-145) 07/25/18 06:07 Potassium 3.4 mmol/L (3.5-5.0) L 07/25/18 06:07 Chloride 106 mmol/L (101-111) 07/25/18 06:07 Carbon Dioxide 23 mmol/L (21-32) 07/25/18 06:07 Anion Gap 8.0 (6-13) 07/25/18 06:07 BUN 21 mg/dL (6-20) H 07/25/18 06:07 Creatinine 1.1 mg/dL (0.6-1.2) 07/25/18 06:07 Estimated GFR (MDRD) 65 (>89) L 07/25/18 06:07 Glucose 106 mg/dL (70-100) H 07/25/18 06:07 Lactic Acid 1.0 mmol/L (0.5-2.2) 07/23/18 09:15 Calcium 8.1 mg/dL (8.5-10.3) L 07/25/18 06:07 Phosphorus 1.7 mg/dL (2.5-4.6) L 07/25/18 06:07 Total Bilirubin 0.6 mg/dL (0.2-1.0) 07/22/18 13:37 AST 30 IU/L (10-42) 07/22/18 13:37 ALT 14 IU/L (10-60) 07/22/18 13:37 Alkaline Phosphatase 98 IU/L (42-121) 07/22/18 13:37 Total Creatine Kinase 122 IU/L (22-269) 07/19/18 08:37 Troponin I < 0.04 ng/mL (<0.49) 07/22/18 13:37 Total Protein 6.6 g/dL (6.7-8.2) L 07/22/18 13:37 Albumin 2.7 g/dL (3.2-5.5) L 07/25/18 06:07 Globulin 3.2 g/dL (2.1-4.2) 07/22/18 13:37 Albumin/Globulin Ratio 1.1 (1.0-2.2) 07/22/18 13:37 Lipase 30 U/L (22-51) 07/22/18 13:37 Urine Color YELLOW 07/21/18 18:29 Urine Clarity CLEAR (CLEAR) 07/21/18 18:29 Urine pH 6.0 PH (5.0-7.5) 07/21/18 18:29 Ur Specific [place] 1.025 (1.002-1.030) 07/21/18 18:29 Urine Protein NEGATIVE mg/dL (NEGATIVE) 07/21/18 18:29 Urine Glucose (UA) NEGATIVE mg/dL (NEGATIVE) 07/21/18 18:29 Urine Ketones 15 mg/dL (NEGATIVE) H 07/21/18 18:29 Urine Occult Blood SMALL (NEGATIVE) H 07/21/18 18:29 Urine Nitrite NEGATIVE (NEGATIVE) 07/21/18 18:29 Urine Bilirubin NEGATIVE (NEGATIVE) 07/21/18 18:29 Urine Urobilinogen 0.2 (NORMAL) E.U./dL (NORMAL) 07/21/18 18:29 Ur Leukocyte Esterase NEGATIVE (NEGATIVE) 07/21/18 18:29 Urine RBC 6-10 /HPF (0-5) H 07/21/18 18:29 Urine WBC 0-3 /HPF (0-3) 07/21/18 18:29 Ur Squamous Epith Cells RARE Squamous (<= Few) 07/21/18 18:29 Urine Bacteria Rare /HPF (None Seen) 07/21/18 18:29 Urine Mucus Few Strands 07/21/18 18:29 Ur Microscopic Review INDICATED 07/21/18 18:29 Urine Culture Comments NOT INDICATED 07/21/18 18:29 Last Dose Date UNK 07/25/18 09:30 Last Dose Time UNK 07/25/18 09:30 Vancomycin Trough 17.4 ug/mL (10.0-20.0) 07/25/18 09:30 Urine Opiates Screen NEGATIVE (NEGATIVE) 07/17/18 00:00 Ur Oxycodone Screen NEGATIVE (NEGATIVE) 07/17/18 00:00 Urine Methadone Screen NEGATIVE (NEGATIVE) 07/17/18 00:00 Ur Propoxyphene Screen NEGATIVE (NEGATIVE) 07/17/18 00:00 Ur Barbiturates Screen NEGATIVE (NEGATIVE) 07/17/18 00:00 Ur Tricyclics Screen NEGATIVE (NEGATIVE) 07/17/18 00:00 Ur Phencyclidine Scrn NEGATIVE (NEGATIVE) 07/17/18 00:00 Ur Amphetamine Screen NEGATIVE (NEGATIVE) 07/17/18 00:00 U Methamphetamines Scrn NEGATIVE (NEGATIVE) 07/17/18 00:00 U Benzodiazepines Scrn NEGATIVE (NEGATIVE) 07/17/18 00:00 Urine Cocaine Screen NEGATIVE (NEGATIVE) 07/17/18 00:00 U Cannabinoids Screen NEGATIVE (NEGATIVE) 07/17/18 00:00 C. difficile Tox B Gene NEGATIVE (NEGATIVE) 07/23/18 07:43 Sepsis Event Note (H) - Evaluation Current Stage of Sepsis: Ruled out ABX Reporting Has patient been on IV antibiotics over the past 48 hours?: Yes
[2018-07-25] MEDS: CLINDAMYCIN 600 MG/50 ML 50 ML IV SCH ×2 (13:36→19:50)
[2018-07-25] MEDS ORDERED: LACTATED RINGERS 1,000 ML IV SCH (17:36)
[2018-07-25] MEDS: levoFLOXacin 750 MG/150 ML 750 MG/150 ML BAG IV SCH (17:46)
[2018-07-25] MEDS: guaiFENesin 600 MG TABLET PO SCH (21:30)
[2018-07-26] MEDS: CLINDAMYCIN 600 MG/50 ML 50 ML IV SCH ×4 (00:29→17:57)
[2018-07-26 05:34] LABS: BASOPHILS % (AUTO) 0.4 %; EOSINOPHILS % (AUTO) 0.1 %; HGB - HEMOGLOBIN 11.2 g/dL (14.0-18.0); LYMPHOCYTES % (AUTO) 28.1 %; MEAN CORPUSCULAR HEMOGLOBIN 35.1 pg (27.0-31.0); MEAN CORPUSCULAR HGB CONC 33.7 g/dL (32.0-36.0); MEAN CORPUSCULAR VOLUME 104.3 fL (80.0-94.0); MEAN PLATELET VOLUME 9.3 fL (7.4-11.4); MONOCYTES % (AUTO) 20.2 %; NEUTROPHILS % (AUTO) 51.2 %; PLT - PLATELET COUNT 103 10^3/uL (130-450); RED BLOOD COUNT 3.19 10^6/uL (4.70-6.10); WHITE BLOOD COUNT 2.4 x10^3/uL (4.8-10.8)
[2018-07-26 05:38] LABS: ABNORMAL LYMPHS % (MANUAL) 0 %; BAND NEUTROPHILS % (MANUAL) 0 %
[2018-07-26 05:39] LABS: CALCIUM 8.1 mg/dL (8.5-10.3); CREATININE 1.1 mg/dL (0.6-1.2)
[2018-07-26] MEDS: SODIUM CHLORIDE FLUSH 0.9% 10 ML SYRINGE IVP SCH ×3 (05:49→08:46)
[2018-07-26 06:39] LABS: BASOPHILS % (MANUAL) 1 %; LYMPHOCYTES # (MANUAL) 0.6 10^3/uL (1.5-3.5); LYMPHOCYTES % (MANUAL) 23 %; MONOCYTES # (MANUAL) 0.3 10^3/uL (0.0-1.0); NEUTROPHILS # (MANUAL) 1.5 10^3/uL (1.5-6.6); NEUTROPHILS % (MANUAL) 63 %
[2018-07-26 06:40] LABS: PLATELET ESTIMATE, MANUAL DECREASED (<130,000) (NORMAL); RBC MORPHOLOGY (MULTIPLE) 1+ ANISOCYTOSIS (NORMAL)
[2018-07-26] MEDS: FAMOTIDINE 20 MG TABLET PO SCH ×2 (08:39→20:22)
[2018-07-26] MEDS: MULTIVITAMIN W/MINERALS TABLET PO SCH (08:39)
[2018-07-26] MEDS: POLYETHYLENE GLYCOL 3350 17 GM PACKET PO SCH (08:39)
[2018-07-26] MEDS: guaiFENesin 600 MG TABLET PO SCH ×2 (08:39→20:22)
[2018-07-26] MEDS: MEMANTINE 5 MG TABLET PO SCH ×2 (08:39→20:22)
[2018-07-26] MEDS: ENOXAPARIN 40 MG/0.4 ML SYRINGE SUBQ SCH (08:40)
[2018-07-26] MEDS: NICOTINE 14 MG PATCH TOP SCH (08:40)
[2018-07-26] MEDS ORDERED: POTASSIUM CHLORIDE 10 MEQ CAPSULE PO ONE (09:00)
[2018-07-26] MEDS: VANCOMYCIN INJ 1 GM in SODIUM CHLORIDE 0.9% 250 ML IV SCH ×2 (09:50→22:09)
[2018-07-26] MEDS ORDERED: POTASSIUM CHLORIDE 10 MEQ CAPSULE PO SCH (12:00)
--- NOTE | 2018-07-26 14:18 | PROVIDER PROGRESS NOTE ---
Assessment/Plan - Problem List (1) HCAP (healthcare-associated pneumonia) Assessment/Plan: Continue iv antibiotics, since he is improving. Will transition to po antibiotics. (2) Aspiration pneumonia Assessment/Plan: Will transition from iv Clinda to po antibiotics tomorrow. (3) Facial fracture Qualifiers: Encounter type: subsequent encounter Facial bone/location: other facial bone Fracture type: closed Laterality: left Assessment/Plan: Stable. (4) Fall Qualifiers: Encounter type: subsequent encounter Qualified Code(s): W19.XXXD - Unspeci fied fall, subsequent encounter Assessment/Plan: PT is starting to work with him. (5) Frequent falls Assessment/Plan: As above. He will need DCh to an assisted living facility. (6) Alzheimer's dementia with behavioral disturbance Assessment/Plan: Stable (7) Hypokalemia Assessment/Plan: Replace and will start daily KCL po. Follow BMP daily. (8) CARLEE (acute kidney injury) Assessment/Plan: Resolved with iv hydration, which was stopped yesterday. - Current Meds Current Meds: Current Medications Generic Name Dose Route Start Last Admin Trade Name Freq PRN Reason Stop Dose Admin Enoxaparin Sodium 40 mg 07/24/18 09:00 07/26/18 08:40 Lovenox SUBQ 40 mg DAILY REG Administration Famotidine 20 mg 07/23/18 21:00 07/26/18 08:39 Pepcid PO 20 mg BID REG Administration Guaifenesin 600 mg 07/25/18 21:00 07/26/18 08:39 Mucinex PO 600 mg BID REG Administration Vancomycin HCl 1 gm/ Sodium 250 mls @ 166.667 mls/hr 07/23/18 22:00 07/26/18 11:00 Chloride IV 0 mls/hr Q12H REG Infusion Levofloxacin 750 mg in 150 mls @ 100 mls/hr 07/23/18 17:00 07/25/18 19:16 Levaquin 750 Mg/150 Ml IV Infused Q24H REG Infusion Clindamycin Phosphate 50 mls @ 100 mls/hr 07/25/18 12:00 07/26/18 12:30 Cleocin 600 Mg/50 Ml IV Infused Q6HR REG Infusion Memantine 5 mg 07/23/18 21:00 07/26/18 08:39 Namenda PO 5 mg BID REG Administration Multivitamins/Minerals 1 tab 07/24/18 16:00 07/26/18 08:39 Theragran M PO 1 tab DAILYWM REG Administration Nicotine 1 patch 07/24/18 09:00 07/26/18 08:40 Nicoderm TOP 1 patch DAILY REG Administration Polyethylene Glycol 17 gm 07/24/18 09:00 07/26/18 08:39 Miralax PO 17 gm DAILY REG Administration Sodium Chloride 10 ml 07/23/18 17:00 07/26/18 08:46 Normal Saline Flush 0.9% IVP 10 ml 0100,0900,1700 REG Administration Trazodone HCl 50 mg 07/24/18 21:44 07/24/18 21:53 Desyrel PO 50 mg QPM PRN Administration Insomnia - Lab Result Fish Bone Diagrams: 07/26/18 05:05 07/26/18 05:05 - Additional Planning My Orders: My Active Orders 07/25/18 21:00 guaiFENesin [Mucinex] 600 mg PO BID 07/27/18 05:00 BMP - BASIC METABOLIC PANEL [CHEM] DAILYLAB 07/28/18 05:00 BMP - BASIC METABOLIC PANEL [CHEM] DAILYLAB Subjective - Subjective Patient Reports: Feeling Better, Other (Answers appropriately, but slowly, in 1- 2 word answers.) Nursing Reports: Other (Able to sit in a chair, feed himself) Objective Vital Signs: Vital Signs - 24 hr 07/25/18 07/25/18 07/26/18 16:00 22:54 00:00 Temperature 37.0 C 36.8 C Heart Rate [ 77 59 L Brachial] Respiratory 20 18 Rate Blood Pressure 127/62 130/66 [Right Brachial artery] O2 Saturation 94 94 94 07/26/18 07/26/18 06:02 07:30 Temperature 36.6 C Heart Rate [ 58 L 58 L Brachial] Respiratory 18 18 Rate Blood Pressure 128/70 114/62 [Right Brachial artery] O2 Saturation 93 93 Oxygen O2 Source Room air I&O (Last 24 Hrs): Intake and Output Totals x24h 07/24/18 07/25/18 07/26/18 23:59 23:59 23:59 Intake Total 2803.75 2923.75 2670.166 Balance 2803.75 2923.75 2670.166 General: Alert HEENT: Mucous membr. moist/pink, Other (L eye hematoma) Neck: Supple, No JVD Neuro: Other (Disoriented, able to follow commands.) Cardiovascular: Regular rate, No murmurs Respiratory: No respiratory distress, Other (Poor air movement but no wheezes , rales or rhonchi) Abdomen: Soft, No tenderness Extremities: No edema, Other (Multiple ecchymoses) - Results Results: Laboratory Results WBC 2.4 x10^3/uL (4.8-10.8) L 07/26/18 05:05 RBC 3.19 10^6/uL (4.70-6.10) L 07/26/18 05:05 Hgb 11.2 g/dL (14.0-18.0) L 07/26/18 05:05 Hct 33.3 % (42.0-52.0) L 07/26/18 05:05 MCV 104.3 fL (80.0-94.0) H 07/26/18 05:05 MCH 35.1 pg (27.0-31.0) H 07/26/18 05:05 MCHC 33.7 g/dL (32.0-36.0) 07/26/18 05:05 RDW 16.0 % (12.0-15.0) H 07/26/18 05:05 Plt Count 103 10^3/uL (130-450) L 07/26/18 05:05 MPV 9.3 fL (7.4-11.4) 07/26/18 05:05 Neut # (Auto) Not Reportable 07/26/18 05:05 Lymph # (Auto) Not Reportable 07/26/18 05:05 [place] # (Auto) Not Reportable 07/26/18 05:05 Eos # (Auto) Not Reportable 07/26/18 05:05 Baso # (Auto) Not Reportable 07/26/18 05:05 Absolute Nucleated RBC Not Reportable 07/26/18 05:05 Total Counted 100 07/26/18 05:05 Band Neuts % (Manual) 0 % (0-10) 07/26/18 05:05 Reactive Lymphs % (Man) 6 % 07/19/18 08:37 Abnorm Lymph % (Manual) 0 % 07/26/18 05:05 Nucleated RBC % Not Reportable 07/26/18 05:05 Neutrophils # (Manual) 1.5 10^3/uL (1.5-6.6) 07/26/18 05:05 Lymphocytes # (Manual) 0.6 10^3/uL (1.5-3.5) L 07/26/18 05:05 Monocytes # (Manual) 0.3 10^3/uL (0.0-1.0) 07/26/18 05:05 Eosinophils # (Manual) 0.0 10^3/uL (0-0.7) 07/26/18 05:05 Basophils # (Manual) 0.0 10^3/uL (0-0.1) 07/26/18 05:05 Differential Comment MANUAL DIFFERENTIAL 07/19/18 08:37 Manual Slide Review Indicated 07/19/18 08:37 Platelet Estimate DECREASED (<130,000) (NORMAL) 07/26/18 05:05 Platelet Morphology RARE GIANT PLATELETS (NORMAL) 07/19/18 08:37 RBC Morph Micro Appear 1+ ANISOCYTOSIS (NORMAL) 07/26/18 05:05 Sodium 140 mmol/L (135-145) 07/26/18 05:05 Potassium 3.4 mmol/L (3.5-5.0) L 07/26/18 05:05 Chloride 107 mmol/L (101-111) 07/26/18 05:05 Carbon Dioxide 24 mmol/L (21-32) 07/26/18 05:05 Anion Gap 9.0 (6-13) 07/26/18 05:05 BUN 19 mg/dL (6-20) 07/26/18 05:05 Creatinine 1.1 mg/dL (0.6-1.2) 07/26/18 05:05 Estimated GFR (MDRD) 65 (>89) L 07/26/18 05:05 Glucose 100 mg/dL (70-100) 07/26/18 05:05 Lactic Acid 1.0 mmol/L (0.5-2.2) 07/23/18 09:15 Calcium 8.1 mg/dL (8.5-10.3) L 07/26/18 05:05 Phosphorus 1.7 mg/dL (2.5-4.6) L 07/25/18 06:07 Total Bilirubin 0.6 mg/dL (0.2-1.0) 07/22/18 13:37 AST 30 IU/L (10-42) 07/22/18 13:37 ALT 14 IU/L (10-60) 07/22/18 13:37 Alkaline Phosphatase 98 IU/L (42-121) 07/22/18 13:37 Total Creatine Kinase 122 IU/L (22-269) 07/19/18 08:37 Troponin I < 0.04 ng/mL (<0.49) 07/22/18 13:37 Total Protein 6.6 g/dL (6.7-8.2) L 07/22/18 13:37 Albumin 2.7 g/dL (3.2-5.5) L 07/25/18 06:07 Globulin 3.2 g/dL (2.1-4.2) 07/22/18 13:37 Albumin/Globulin Ratio 1.1 (1.0-2.2) 07/22/18 13:37 Lipase 30 U/L (22-51) 07/22/18 13:37 Urine Color YELLOW 07/21/18 18:29 Urine Clarity CLEAR (CLEAR) 07/21/18 18:29 Urine pH 6.0 PH (5.0-7.5) 07/21/18 18:29 Ur Specific [place] 1.025 (1.002-1.030) 07/21/18 18:29 Urine Protein NEGATIVE mg/dL (NEGATIVE) 07/21/18 18:29 Urine Glucose (UA) NEGATIVE mg/dL (NEGATIVE) 07/21/18 18:29 Urine Ketones 15 mg/dL (NEGATIVE) H 07/21/18 18:29 Urine Occult Blood SMALL (NEGATIVE) H 07/21/18 18:29 Urine Nitrite NEGATIVE (NEGATIVE) 07/21/18 18:29 Urine Bilirubin NEGATIVE (NEGATIVE) 07/21/18 18:29 Urine Urobilinogen 0.2 (NORMAL) E.U./dL (NORMAL) 07/21/18 18:29 Ur Leukocyte Esterase NEGATIVE (NEGATIVE) 07/21/18 18:29 Urine RBC 6-10 /HPF (0-5) H 07/21/18 18:29 Urine WBC 0-3 /HPF (0-3) 07/21/18 18:29 Ur Squamous Epith Cells RARE Squamous (<= Few) 07/21/18 18:29 Urine Bacteria Rare /HPF (None Seen) 07/21/18 18:29 Urine Mucus Few Strands 07/21/18 18:29 Ur Microscopic Review INDICATED 07/21/18 18:29 Urine Culture Comments NOT INDICATED 07/21/18 18:29 Last Dose Date UNK 07/25/18 09:30 Last Dose Time UNK 07/25/18 09:30 Vancomycin Trough 17.4 ug/mL (10.0-20.0) 07/25/18 09:30 Urine Opiates Screen NEGATIVE (NEGATIVE) 07/17/18 00:00 Ur Oxycodone Screen NEGATIVE (NEGATIVE) 07/17/18 00:00 Urine Methadone Screen NEGATIVE (NEGATIVE) 07/17/18 00:00 Ur Propoxyphene Screen NEGATIVE (NEGATIVE) 07/17/18 00:00 Ur Barbiturates Screen NEGATIVE (NEGATIVE) 07/17/18 00:00 Ur Tricyclics Screen NEGATIVE (NEGATIVE) 07/17/18 00:00 Ur Phencyclidine Scrn NEGATIVE (NEGATIVE) 07/17/18 00:00 Ur Amphetamine Screen NEGATIVE (NEGATIVE) 07/17/18 00:00 U Methamphetamines Scrn NEGATIVE (NEGATIVE) 07/17/18 00:00 U Benzodiazepines Scrn NEGATIVE (NEGATIVE) 07/17/18 00:00 Urine Cocaine Screen NEGATIVE (NEGATIVE) 07/17/18 00:00 U Cannabinoids Screen NEGATIVE (NEGATIVE) 07/17/18 00:00 C. difficile Tox B Gene NEGATIVE (NEGATIVE) 07/23/18 07:43 Sepsis Event Note (H) - Evaluation Current Stage of Sepsis: Ruled out
[2018-07-26] MEDS: levoFLOXacin 750 MG/150 ML 750 MG/150 ML BAG IV SCH (16:25)
[2018-07-27] MEDS: CLINDAMYCIN 600 MG/50 ML 50 ML IV SCH ×3 (00:36→11:39)
[2018-07-27] MEDS: SODIUM CHLORIDE FLUSH 0.9% 10 ML SYRINGE IVP SCH ×3 (00:43→17:13)
[2018-07-27 04:55] LABS: BASOPHILS % (AUTO) 0.4 %; EOSINOPHILS % (AUTO) 0.1 %; HGB - HEMOGLOBIN 11.5 g/dL (14.0-18.0); LYMPHOCYTES # (AUTO) 0.8 10^3/uL (1.5-3.5); LYMPHOCYTES % (AUTO) 26.8 %; MEAN CORPUSCULAR HGB CONC 34.5 g/dL (32.0-36.0); MEAN CORPUSCULAR VOLUME 101.5 fL (80.0-94.0); MEAN PLATELET VOLUME 9.2 fL (7.4-11.4); MONOCYTES # (AUTO) 0.5 10^3/uL (0.0-1.0); MONOCYTES % (AUTO) 19.3 %; NEUTROPHILS # (AUTO) 1.5 10^3/uL (1.5-6.6); NEUTROPHILS % (AUTO) 53.4 %; PLT - PLATELET COUNT 113 10^3/uL (130-450); RED BLOOD COUNT 3.29 10^6/uL (4.70-6.10); RED CELL DISTRIBUTION WIDTH 15.6 % (12.0-15.0); WHITE BLOOD COUNT 2.8 x10^3/uL (4.8-10.8)
[2018-07-27 05:00] LABS: CALCIUM 7.9 mg/dL (8.5-10.3)
[2018-07-27 06:03] LABS: PLATELET ESTIMATE, MANUAL DECREASED (<130,000) (NORMAL)
[2018-07-27 06:04] LABS: RBC MORPHOLOGY (MULTIPLE) 1+ ANISOCYTOSIS (NORMAL)
[2018-07-27] MEDS: MEMANTINE 5 MG TABLET PO SCH ×2 (08:26→21:23)
[2018-07-27] MEDS: MULTIVITAMIN W/MINERALS TABLET PO SCH (08:26)
[2018-07-27] MEDS: FAMOTIDINE 20 MG TABLET PO SCH ×2 (08:26→21:23)
[2018-07-27] MEDS: guaiFENesin 600 MG TABLET PO SCH ×2 (08:26→21:23)
[2018-07-27] MEDS: POLYETHYLENE GLYCOL 3350 17 GM PACKET PO SCH (08:29)
[2018-07-27] MEDS: ENOXAPARIN 40 MG/0.4 ML SYRINGE SUBQ SCH (08:30)
[2018-07-27] MEDS: NICOTINE 14 MG PATCH TOP SCH (08:35)
[2018-07-27] MEDS: VANCOMYCIN INJ 1 GM in SODIUM CHLORIDE 0.9% 250 ML IV SCH (09:59)
--- NOTE | 2018-07-27 13:54 | PROVIDER PROGRESS NOTE ---
Assessment/Plan - Problem List (1) HCAP (healthcare-associated pneumonia) Assessment/Plan: Continue antibiotics and pulmonary toilet. (2) Aspiration pneumonia Assessment/Plan: In order to qualify for certain Assisted Living Facility ([facility] staff came and evaluated him today), he should be able to tolerate a soft mechanical diet. A repeat swallow eval was ordered and the Speech Therapist said he failed due to muscle fatigue, she will test him eating a soft mwchanical, cut up diet tomorrow (at lunch, due to her schedule). Continue antibiotics and pulmonary toilet. (3) Facial fracture Qualifiers: Encounter type: subsequent encounter Facial bone/location: other facial bone Fracture type: closed Laterality: left Assessment/Plan: No complaints from patient, however perhaps the fatigue with chewing could be from this fracture. (4) Fall Qualifiers: Encounter type: subsequent encounter Qualified Code(s): W19.XXXD - Unspecified fall, subsequent encounter Assessment/Plan: Ecchymosis progressing and healing. (5) Frequent falls Assessment/Plan: He will need placement in a Living Facility, and may not live alone. [facility] [employer] is reaching out to facilities to get him accepted. PT underway daily while here. (6) Alzheimer's dementia with behavioral disturbance Assessment/Plan: Stable, with disorientation to place and time and forgetful. The admission H & P described that he lived alone, ate TV dinners, had frequent visits to the ER for falls. I tried to reach the friend, Rachel Chase, listed on his demographic sheet, to determine if he has a family that I can speak to or any Advanced Directives or POLST form, any PCP (to determine if any dementia work-up had been done), and I left a message for her to call back. (7) Leukopenia Assessment/Plan: This is likely from his infection. Follow CBC daily. (8) Tobacco use Assessment/Plan: The patient was put on a Nicotine patch at admission, 14 mg. I will start weaning the dose down, will start 7 mg tomorrow, and stop it after 1 week. (9) Hypokalemia Assessment/Plan: Resolved with replacement. (10) CARLEE (acute kidney injury) Assessment/Plan: Resolved with iv hydration, now stopped and he is orally hydrating. - Current Meds Current Meds: Current Medications Generic Name Dose Route Start Last Admin Trade Name Freq PRN Reason Stop Dose Admin Enoxaparin Sodium 40 mg 07/24/18 09:00 07/27/18 08:30 Lovenox SUBQ 40 mg DAILY REG Administration Famotidine 20 mg 07/23/18 21:00 07/27/18 08:26 Pepcid PO 20 mg BID REG Administration Guaifenesin 600 mg 07/25/18 21:00 07/27/18 08:26 Mucinex PO 600 mg BID REG Administration Vancomycin HCl 1 gm/ Sodium 250 mls @ 166.667 mls/hr 07/23/18 22:00 07/27/18 11:41 Chloride IV Infused Q12H REG Infusion Levofloxacin 750 mg in 150 mls @ 100 mls/hr 07/23/18 17:00 07/26/18 17:55 Levaquin 750 Mg/150 Ml IV Infused Q24H REG Infusion Clindamycin Phosphate 50 mls @ 100 mls/hr 07/25/18 12:00 07/27/18 12:15 Cleocin 600 Mg/50 Ml IV Infused Q6HR REG Infusion Memantine 5 mg 07/23/18 21:00 07/27/18 08:26 Namenda PO 5 mg BID REG Administration Multivitamins/Minerals 1 tab 07/24/18 16:00 07/27/18 08:26 Theragran M PO 1 tab DAILYWM REG Administration Nicotine 1 patch 07/24/18 09:00 07/27/18 08:35 Nicoderm TOP 1 patch DAILY REG Administration Polyethylene Glycol 17 gm 07/24/18 09:00 07/27/18 08:29 Miralax PO 17 gm DAILY REG Administration Sodium Chloride 10 ml 07/23/18 11:56 07/26/18 17:58 Normal Saline Flush 0.9% IVP 10 ml PRN PRN Administration NEEDED PER PROVIDER ORDERS Sodium Chloride 10 ml 07/23/18 17:00 07/27/18 10:07 Normal Saline Flush 0.9% IVP 10 ml 0100,0900,1700 REG Administration Trazodone HCl 50 mg 07/24/18 21:44 07/24/18 21:53 Desyrel PO 50 mg QPM PRN Administration Insomnia - Lab Result Fish Bone Diagrams: 07/27/18 04:20 07/27/18 04:20 - Additional Planning My Orders: My Active Orders 07/27/18 Clinical Swallow Evaluation [ST] Routine 07/28/18 05:00 BMP - BASIC METABOLIC PANEL [CHEM] DAILYLAB Subjective - Subjective Patient Reports: No Complaints Nursing Reports: Other (He tolerates eating a chewed Oreo cookie, moistened with milk.) Objective Vital Signs: Vital Signs - 24 hr 07/26/18 07/27/18 07/27/18 15:31 00:00 07:45 Temperature 36.6 C 37.1 C 37.0 C Heart Rate [ 64 66 54 L Brachial] Respiratory 24 20 18 Rate Blood Pressure 136/62 H 160/69 H 136/68 H [Right Brachial artery] O2 Saturation 97 96 96 Oxygen O2 Source Room air I&O (Last 24 Hrs): Intake and Output Totals x24h 07/25/18 07/26/18 07/27/18 23:59 23:59 23:59 Intake Total 2923.75 3625.333 1710 Balance 2923.75 3625.333 1710 General: Alert HEENT: Other (L eye ecchymosis below and scab above L eye.) Neck: Supple Neuro: Other (Oriented to person only.) Cardiovascular: Regular rate Respiratory: No respiratory distress Abdomen: Soft Extremities: No edema - Results Results: Laboratory Results WBC 2.8 x10^3/uL (4.8-10.8) L 07/27/18 04:20 RBC 3.29 10^6/uL (4.70-6.10) L 07/27/18 04:20 Hgb 11.5 g/dL (14.0-18.0) L 07/27/18 04:20 Hct 33.4 % (42.0-52.0) L 07/27/18 04:20 MCV 101.5 fL (80.0-94.0) H 07/27/18 04:20 MCH 35.0 pg (27.0-31.0) H 07/27/18 04:20 MCHC 34.5 g/dL (32.0-36.0) 07/27/18 04:20 RDW 15.6 % (12.0-15.0) H 07/27/18 04:20 Plt Count 113 10^3/uL (130-450) L 07/27/18 04:20 MPV 9.2 fL (7.4-11.4) 07/27/18 04:20 Neut # (Auto) 1.5 10^3/uL (1.5-6.6) 07/27/18 04:20 Lymph # (Auto) 0.8 10^3/uL (1.5-3.5) L 07/27/18 04:20 [place] # (Auto) 0.5 10^3/uL (0.0-1.0) 07/27/18 04:20 Eos # (Auto) 0.0 10^3/uL (0.0-0.7) 07/27/18 04:20 Baso # (Auto) 0.0 10^3/uL (0.0-0.1) 07/27/18 04:20 Absolute Nucleated RBC 0.00 x10^3/uL 07/27/18 04:20 Total Counted 100 07/26/18 05:05 Band Neuts % (Manual) 0 % (0-10) 07/26/18 05:05 Reactive Lymphs % (Man) 6 % 07/19/18 08:37 Abnorm Lymph % (Manual) 0 % 07/26/18 05:05 Nucleated RBC % 0.1 /100WBC 07/27/18 04:20 Neutrophils # (Manual) 1.5 10^3/uL (1.5-6.6) 07/26/18 05:05 Lymphocytes # (Manual) 0.6 10^3/uL (1.5-3.5) L 07/26/18 05:05 Monocytes # (Manual) 0.3 10^3/uL (0.0-1.0) 07/26/18 05:05 Eosinophils # (Manual) 0.0 10^3/uL (0-0.7) 07/26/18 05:05 Basophils # (Manual) 0.0 10^3/uL (0-0.1) 07/26/18 05:05 Differential Comment MANUAL DIFFERENTIAL 07/19/18 08:37 Manual Slide Review Indicated 07/27/18 04:20 Platelet Estimate DECREASED (<130,000) (NORMAL) 07/27/18 04:20 Platelet Morphology RARE GIANT PLATELETS (NORMAL) 07/19/18 08:37 RBC Morph Micro Appear 1+ ANISOCYTOSIS (NORMAL) 07/27/18 04:20 Sodium 137 mmol/L (135-145) 07/27/18 04:20 Potassium 3.6 mmol/L (3.5-5.0) 07/27/18 04:20 Chloride 105 mmol/L (101-111) 07/27/18 04:20 Carbon Dioxide 25 mmol/L (21-32) 07/27/18 04:20 Anion Gap 7.0 (6-13) 07/27/18 04:20 BUN 16 mg/dL (6-20) 07/27/18 04:20 Creatinine 1.0 mg/dL (0.6-1.2) 07/27/18 04:20 Estimated GFR (MDRD) 73 (>89) L 07/27/18 04:20 Glucose 100 mg/dL (70-100) 07/27/18 04:20 POC Whole Bld Glucose 70 mg/dL (70 - 100) 07/22/18 11:34 Lactic Acid 1.0 mmol/L (0.5-2.2) 07/23/18 09:15 Calcium 7.9 mg/dL (8.5-10.3) L 07/27/18 04:20 Phosphorus 1.7 mg/dL (2.5-4.6) L 07/25/18 06:07 Total Bilirubin 0.6 mg/dL (0.2-1.0) 07/22/18 13:37 AST 30 IU/L (10-42) 07/22/18 13:37 ALT 14 IU/L (10-60) 07/22/18 13:37 Alkaline Phosphatase 98 IU/L (42-121) 07/22/18 13:37 Total Creatine Kinase 122 IU/L (22-269) 07/19/18 08:37 Troponin I < 0.04 ng/mL (<0.49) 07/22/18 13:37 Total Protein 6.6 g/dL (6.7-8.2) L 07/22/18 13:37 Albumin 2.7 g/dL (3.2-5.5) L 07/25/18 06:07 Globulin 3.2 g/dL (2.1-4.2) 07/22/18 13:37 Albumin/Globulin Ratio 1.1 (1.0-2.2) 07/22/18 13:37 Lipase 30 U/L (22-51) 07/22/18 13:37 Urine Color YELLOW 07/21/18 18:29 Urine Clarity CLEAR (CLEAR) 07/21/18 18:29 Urine pH 6.0 PH (5.0-7.5) 07/21/18 18:29 Ur Specific [place] 1.025 (1.002-1.030) 07/21/18 18:29 Urine Protein NEGATIVE mg/dL (NEGATIVE) 07/21/18 18:29 Urine Glucose (UA) NEGATIVE mg/dL (NEGATIVE) 07/21/18 18:29 Urine Ketones 15 mg/dL (NEGATIVE) H 07/21/18 18:29 Urine Occult Blood SMALL (NEGATIVE) H 07/21/18 18:29 Urine Nitrite NEGATIVE (NEGATIVE) 07/21/18 18:29 Urine Bilirubin NEGATIVE (NEGATIVE) 07/21/18 18:29 Urine Urobilinogen 0.2 (NORMAL) E.U./dL (NORMAL) 07/21/18 18:29 Ur Leukocyte Esterase NEGATIVE (NEGATIVE) 07/21/18 18:29 Urine RBC 6-10 /HPF (0-5) H 07/21/18 18:29 Urine WBC 0-3 /HPF (0-3) 07/21/18 18:29 Ur Squamous Epith Cells RARE Squamous (<= Few) 07/21/18 18:29 Urine Bacteria Rare /HPF (None Seen) 07/21/18 18:29 Urine Mucus Few Strands 07/21/18 18:29 Ur Microscopic Review INDICATED 07/21/18 18:29 Urine Culture Comments NOT INDICATED 07/21/18 18:29 Last Dose Date UNK 07/25/18 09:30 Last Dose Time UNK 07/25/18 09:30 Vancomycin Trough 17.4 ug/mL (10.0-20.0) 07/25/18 09:30 Urine Opiates Screen NEGATIVE (NEGATIVE) 07/17/18 00:00 Ur Oxycodone Screen NEGATIVE (NEGATIVE) 07/17/18 00:00 Urine Methadone Screen NEGATIVE (NEGATIVE) 07/17/18 00:00 Ur Propoxyphene Screen NEGATIVE (NEGATIVE) 07/17/18 00:00 Ur Barbiturates Screen NEGATIVE (NEGATIVE) 07/17/18 00:00 Ur Tricyclics Screen NEGATIVE (NEGATIVE) 07/17/18 00:00 Ur Phencyclidine Scrn NEGATIVE (NEGATIVE) 07/17/18 00:00 Ur Amphetamine Screen NEGATIVE (NEGATIVE) 07/17/18 00:00 U Methamphetamines Scrn NEGATIVE (NEGATIVE) 07/17/18 00:00 U Benzodiazepines Scrn NEGATIVE (NEGATIVE) 07/17/18 00:00 Urine Cocaine Screen NEGATIVE (NEGATIVE) 07/17/18 00:00 U Cannabinoids Screen NEGATIVE (NEGATIVE) 07/17/18 00:00 C. difficile Tox B Gene NEGATIVE (NEGATIVE) 07/23/18 07:43 Sepsis Event Note (H) - Evaluation Current Stage of Sepsis: Ruled out
[2018-07-27] MEDS: CLINDAMYCIN 150 MG CAPSULE PO SCH (21:23)
[2018-07-28 06:20] LABS: CALCIUM 7.9 mg/dL (8.5-10.3); CREATININE 0.9 mg/dL (0.6-1.2)
[2018-07-28] MEDS: CLINDAMYCIN 150 MG CAPSULE PO SCH ×3 (11:23→20:02)
[2018-07-28] MEDS: MEMANTINE 5 MG TABLET PO SCH ×3 (11:24→20:06)
[2018-07-28] MEDS: FAMOTIDINE 20 MG TABLET PO SCH ×3 (11:24→20:02)
[2018-07-28] MEDS: guaiFENesin 600 MG TABLET PO SCH ×4 (11:24→20:07)
[2018-07-28] MEDS: levoFLOXacin 250 MG TABLET PO SCH ×2 (11:24→15:35)
[2018-07-28] MEDS: ENOXAPARIN 40 MG/0.4 ML SYRINGE SUBQ SCH (11:24)
[2018-07-28] MEDS: NICOTINE 7 MG PATCH TOP SCH (11:25)
[2018-07-28] MEDS: POLYETHYLENE GLYCOL 3350 17 GM PACKET PO SCH (11:25)
[2018-07-28] MEDS: MULTIVITAMIN W/MINERALS TABLET PO SCH ×2 (11:29→15:34)
--- NOTE | 2018-07-28 14:30 | PROVIDER PROGRESS NOTE ---
Assessment/Plan - Problem List (1) Diarrhea Assessment/Plan: He has been on antibiotics, therefore concern for C. diff Will obtain stool for C. diff test. (2) Dementia Qualifiers: Dementia type: unspecified type Dementia behavioral disturbance: without behavioral disturbance Qualified Code(s): F03.90 - Unspecified dementia without behavioral disturbance Assessment/Plan: He cannot recognize someone he lived with for 35 years and who had conversations with him til his presentation to the ER this time. He answers with facial expressions, nods or shakes his head and 1 word answers. Social Work informed that he cannot indicate who he would choose as a DPOA. Hospital [facility] ([facility]) was informed that he may need legal guardianship authorized and will need permanent placement when ready for [facility]. (3) HCAP (healthcare-associated pneumonia) Assessment/Plan: Nearly no cough Finish a course of 7 days of antibiotics planned (4) Aspiration pneumonia Assessment/Plan: Finish a course of 7 days of antibiotics planned (5) Facial fracture Qualifiers: Encounter type: subsequent encounter Facial bone/location: other facial bone Fracture type: closed Laterality: left Assessment/Plan: Slowly resolving ecchymosis (7) Leukopenia Assessment/Plan: Will follow CBC intermittently. (8) Tobacco use Assessment/Plan: On a Nicotine patch with taper to off planned. (9) Hypokalemia Assessment/Plan: Resolved (10) CARLEE (acute kidney injury) Assessment/Plan: Resolved (11) Hypertrophic toenail Assessment/Plan: The friend Rachel says he was due for a Elevator Troubleshooter appointment, but fell and has been hospitalized. Will ask if our Wound Care would recommend management. - Current Meds Current Meds: Current Medications Generic Name Dose Route Start Last Admin Trade Name Freq PRN Reason Stop Dose Admin Clindamycin HCl 600 mg 07/27/18 21:00 07/28/18 11:23 Cleocin PO 600 mg BID REG Administration Enoxaparin Sodium 40 mg 07/24/18 09:00 07/28/18 11:24 Lovenox SUBQ 40 mg DAILY REG Administration Famotidine 20 mg 07/23/18 21:00 07/28/18 11:24 Pepcid PO 20 mg BID REG Administration Guaifenesin 600 mg 07/25/18 21:00 07/28/18 11:24 Mucinex PO 600 mg BID REG Administration Levofloxacin 750 mg 07/28/18 09:00 07/28/18 11:24 Levaquin PO 750 mg DAILY REG Administration Memantine 5 mg 07/23/18 21:00 07/28/18 11:24 Namenda PO 5 mg BID REG Administration Multivitamins/Minerals 1 tab 07/24/18 16:00 07/28/18 11:29 Theragran M PO 1 tab DAILYWM REG Administration Nicotine 1 patch 07/28/18 09:00 07/28/18 11:25 Nicoderm TOP 08/04/18 01:00 1 patch DAILY REG Administration Polyethylene Glycol 17 gm 07/24/18 09:00 07/28/18 11:25 Miralax PO Not Given DAILY REG Trazodone HCl 50 mg 07/24/18 21:44 07/24/18 21:53 Desyrel PO 50 mg QPM PRN Administration Insomnia - Lab Result Fish Bone Diagrams: 07/27/18 04:20 07/28/18 05:31 - Additional Planning My Orders: My Active Orders 07/27/18 21:00 Clindamycin [Cleocin] 600 mg PO BID 07/28/18 09:00 Nicotine 7 mg Patch [Nicoderm] 1 patch TOP DAILY levoFLOXacin [Levaquin] 750 mg PO DAILY 07/28/18 11:46 Miscellaenous Nursing Order [RC] QSHIFT 07/28/18 Lunch Dysphagia Mechanically Altered Diet [DIET] Subjective - Subjective Patient Reports: Other (Cannot identify his friend Rachel who is visiting and is his personnel monitor) Nursing Reports: Other (Explosive watery diarrhea this a.m.) Objective Vital Signs: Vital Signs - 24 hr 07/27/18 07/28/18 07/28/18 16:00 00:00 08:00 Temperature 37.4 C 36.3 C L 36.3 C L Heart Rate [ 65 69 56 L Brachial] Respiratory 18 18 20 Rate Blood Pressure 132/56 H 154/69 H 146/68 H [Right Brachial artery] O2 Saturation 95 96 93 Oxygen O2 Source Room air I&O (Last 24 Hrs): Intake and Output Totals x24h 07/26/18 07/27/18 07/28/18 23:59 23:59 23:59 Intake Total 3625.333 1890 220 Balance 3625.333 1890 220 General: Other (Disoriented) HEENT: Mucous membr. moist/pink, Other (Ecchymosis of L cheekbone) Neuro: Disoriented, Other (Minimal speech but also answers with shaking head, nods and facial expressions) Cardiovascular: Regular rate Respiratory: No respiratory distress Abdomen: Soft Extremities: Other (Venous stasis. Toenails are all hypertrophisc and long, curling) - Results Results: Laboratory Results WBC 2.8 x10^3/uL (4.8-10.8) L 07/27/18 04:20 RBC 3.29 10^6/uL (4.70-6.10) L 07/27/18 04:20 Hgb 11.5 g/dL (14.0-18.0) L 07/27/18 04:20 Hct 33.4 % (42.0-52.0) L 07/27/18 04:20 MCV 101.5 fL (80.0-94.0) H 07/27/18 04:20 MCH 35.0 pg (27.0-31.0) H 07/27/18 04:20 MCHC 34.5 g/dL (32.0-36.0) 07/27/18 04:20 RDW 15.6 % (12.0-15.0) H 07/27/18 04:20 Plt Count 113 10^3/uL (130-450) L 07/27/18 04:20 MPV 9.2 fL (7.4-11.4) 07/27/18 04:20 Neut # (Auto) 1.5 10^3/uL (1.5-6.6) 07/27/18 04:20 Lymph # (Auto) 0.8 10^3/uL (1.5-3.5) L 07/27/18 04:20 [place] # (Auto) 0.5 10^3/uL (0.0-1.0) 07/27/18 04:20 Eos # (Auto) 0.0 10^3/uL (0.0-0.7) 07/27/18 04:20 Baso # (Auto) 0.0 10^3/uL (0.0-0.1) 07/27/18 04:20 Absolute Nucleated RBC 0.00 x10^3/uL 07/27/18 04:20 Total Counted 100 07/26/18 05:05 Band Neuts % (Manual) 0 % (0-10) 07/26/18 05:05 Reactive Lymphs % (Man) 6 % 07/19/18 08:37 Abnorm Lymph % (Manual) 0 % 07/26/18 05:05 Nucleated RBC % 0.1 /100WBC 07/27/18 04:20 Neutrophils # (Manual) 1.5 10^3/uL (1.5-6.6) 07/26/18 05:05 Lymphocytes # (Manual) 0.6 10^3/uL (1.5-3.5) L 07/26/18 05:05 Monocytes # (Manual) 0.3 10^3/uL (0.0-1.0) 07/26/18 05:05 Eosinophils # (Manual) 0.0 10^3/uL (0-0.7) 07/26/18 05:05 Basophils # (Manual) 0.0 10^3/uL (0-0.1) 07/26/18 05:05 Differential Comment MANUAL DIFFERENTIAL 07/19/18 08:37 Manual Slide Review Indicated 07/27/18 04:20 Platelet Estimate DECREASED (<130,000) (NORMAL) 07/27/18 04:20 Platelet Morphology RARE GIANT PLATELETS (NORMAL) 07/19/18 08:37 RBC Morph Micro Appear 1+ ANISOCYTOSIS (NORMAL) 07/27/18 04:20 Sodium 139 mmol/L (135-145) 07/28/18 05:31 Potassium 3.6 mmol/L (3.5-5.0) 07/28/18 05:31 Chloride 105 mmol/L (101-111) 07/28/18 05:31 Carbon Dioxide 26 mmol/L (21-32) 07/28/18 05:31 Anion Gap 8.0 (6-13) 07/28/18 05:31 BUN 15 mg/dL (6-20) 07/28/18 05:31 Creatinine 0.9 mg/dL (0.6-1.2) 07/28/18 05:31 Estimated GFR (MDRD) 82 (>89) L 07/28/18 05:31 Glucose 93 mg/dL (70-100) 07/28/18 05:31 POC Whole Bld Glucose 70 mg/dL (70 - 100) 07/22/18 11:34 Lactic Acid 1.0 mmol/L (0.5-2.2) 07/23/18 09:15 Calcium 7.9 mg/dL (8.5-10.3) L 07/28/18 05:31 Phosphorus 1.7 mg/dL (2.5-4.6) L 07/25/18 06:07 Total Bilirubin 0.6 mg/dL (0.2-1.0) 07/22/18 13:37 AST 30 IU/L (10-42) 07/22/18 13:37 ALT 14 IU/L (10-60) 07/22/18 13:37 Alkaline Phosphatase 98 IU/L (42-121) 07/22/18 13:37 Total Creatine Kinase 122 IU/L (22-269) 07/19/18 08:37 Troponin I < 0.04 ng/mL (<0.49) 07/22/18 13:37 Total Protein 6.6 g/dL (6.7-8.2) L 07/22/18 13:37 Albumin 2.7 g/dL (3.2-5.5) L 07/25/18 06:07 Globulin 3.2 g/dL (2.1-4.2) 07/22/18 13:37 Albumin/Globulin Ratio 1.1 (1.0-2.2) 07/22/18 13:37 Lipase 30 U/L (22-51) 07/22/18 13:37 Urine Color YELLOW 07/21/18 18:29 Urine Clarity CLEAR (CLEAR) 07/21/18 18:29 Urine pH 6.0 PH (5.0-7.5) 07/21/18 18:29 Ur Specific [place] 1.025 (1.002-1.030) 07/21/18 18:29 Urine Protein NEGATIVE mg/dL (NEGATIVE) 07/21/18 18:29 Urine Glucose (UA) NEGATIVE mg/dL (NEGATIVE) 07/21/18 18:29 Urine Ketones 15 mg/dL (NEGATIVE) H 07/21/18 18:29 Urine Occult Blood SMALL (NEGATIVE) H 07/21/18 18:29 Urine Nitrite NEGATIVE (NEGATIVE) 07/21/18 18:29 Urine Bilirubin NEGATIVE (NEGATIVE) 07/21/18 18:29 Urine Urobilinogen 0.2 (NORMAL) E.U./dL (NORMAL) 07/21/18 18:29 Ur Leukocyte Esterase NEGATIVE (NEGATIVE) 07/21/18 18:29 Urine RBC 6-10 /HPF (0-5) H 07/21/18 18:29 Urine WBC 0-3 /HPF (0-3) 07/21/18 18:29 Ur Squamous Epith Cells RARE Squamous (<= Few) 07/21/18 18:29 Urine Bacteria Rare /HPF (None Seen) 07/21/18 18:29 Urine Mucus Few Strands 07/21/18 18:29 Ur Microscopic Review INDICATED 07/21/18 18:29 Urine Culture Comments NOT INDICATED 07/21/18 18:29 Last Dose Date UNK 07/25/18 09:30 Last Dose Time UNK 07/25/18 09:30 Vancomycin Trough 17.4 ug/mL (10.0-20.0) 07/25/18 09:30 Urine Opiates Screen NEGATIVE (NEGATIVE) 07/17/18 00:00 Ur Oxycodone Screen NEGATIVE (NEGATIVE) 07/17/18 00:00 Urine Methadone Screen NEGATIVE (NEGATIVE) 07/17/18 00:00 Ur Propoxyphene Screen NEGATIVE (NEGATIVE) 07/17/18 00:00 Ur Barbiturates Screen NEGATIVE (NEGATIVE) 07/17/18 00:00 Ur Tricyclics Screen NEGATIVE (NEGATIVE) 07/17/18 00:00 Ur Phencyclidine Scrn NEGATIVE (NEGATIVE) 07/17/18 00:00 Ur Amphetamine Screen NEGATIVE (NEGATIVE) 07/17/18 00:00 U Methamphetamines Scrn NEGATIVE (NEGATIVE) 07/17/18 00:00 U Benzodiazepines Scrn NEGATIVE (NEGATIVE) 07/17/18 00:00 Urine Cocaine Screen NEGATIVE (NEGATIVE) 07/17/18 00:00 U Cannabinoids Screen NEGATIVE (NEGATIVE) 07/17/18 00:00 C. difficile Tox B Gene NEGATIVE (NEGATIVE) 07/23/18 07:43 Sepsis Event Note (H) - Evaluation Current Stage of Sepsis: Ruled out
--- NOTE | 2018-07-29 08:37 | ADVANCE CARE PLANNING NOTE ---
Advance Care Planning - Date/Time Date: 07/28/18 Time: 11:15 - Purpose of encounter Text: To establish his capability to make decisions AND if he is able, then to determine his Code wishes and choice of a potential DPOA - Parties in attendance Parties in attendance: I spoke to the patient, who was sitting in his recliner, and his listed mechanical engineering draftsperson, Rachel, also interacting with him. - Decisional capacity Decisional capacity of: He answered to only a portion of questions and only said Yes, No and had facial gestures, he was unable to answer Where he is or state Who Rachel is or say her name. When she asked him "Who am I?", he only shrugged that he did not know. (This is a person that he lived with for 35 years). He therefore has no capability for decision making. - Subjective/Patient's story Subjective/Patient's story: Rachel and her , Marline, took in Mr Murray and he lived with them for 35 years. Marline was his best friend. She now helped him in his own apartment, took him shopping and for walks. They would have normal conversations and interactions, she said, until this fall and being brought to the ER. 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 He never and has no children. There is one brother, but Rachel has no idea where he is. He left [place] and moved to the [facility] to help his ailing mother, who has . He never worked again. She describes him as being "artistic", and rather bohemian. and very smart. She sees his current poor mental capacity and is saddened that he has changes so much so quickly. She knows of no POLST form or any other records assigning BATOOL to anyone. - Objective/Medical story Objective/Medical Story: He was brought to the ER when froilan saw him on the ground on the street and called 911. The patient could not describe what happened. He was noted to be demented and needed reorienting. His head CT showed no acute findings, but NPH was described. He was in the ER for several days awaiting "placement" by our Social Workers. He fell out of his ER bed on his second day there, striking his L cheek and eye area was diagnosed with facial and nasal bone fractures and a laceration of the scalp by imaging. He also developed a cough and was febrile and hypoxic on his 7th day in the ER. He was admitted to full Inpatient status for a HCAP and possible aspiration pneumonia. He has needed iv antibiotics, nebulizers and pulmonary toilet and has improved. He has only ever communicated that he is hungry, has pain, wants to get OOB, and similar things. He has never been able to carry on a conversation with anyone while here. He will need placement in a prison when he is clinically stable, as he cannot return to his prison apartment. - Goals of Care Goals of care determinations: Obtain advice from hospital administrators regarding who will be making decisions for him. - Plan Plan: Discuss his case and circumstances with with hospital clinical administration. Continue Full Code status, as there is no POLST requesting the alternative. - Code Status Code Status: Attempt Resuscitation - Time Spent on Advance Care Planning Time spent on advance care plannin min
[2018-07-29] MEDS: MULTIVITAMIN W/MINERALS TABLET PO SCH (08:41)
[2018-07-29] MEDS: CLINDAMYCIN 150 MG CAPSULE PO SCH ×2 (08:41→20:21)
[2018-07-29] MEDS: MEMANTINE 5 MG TABLET PO SCH ×2 (08:41→20:22)
[2018-07-29] MEDS: guaiFENesin 600 MG TABLET PO SCH ×2 (08:42→20:22)
[2018-07-29] MEDS: ENOXAPARIN 40 MG/0.4 ML SYRINGE SUBQ SCH (08:42)
[2018-07-29] MEDS: FAMOTIDINE 20 MG TABLET PO SCH ×2 (08:42→20:21)
[2018-07-29] MEDS: POLYETHYLENE GLYCOL 3350 17 GM PACKET PO SCH (08:42)
[2018-07-29] MEDS: levoFLOXacin 250 MG TABLET PO SCH (08:42)
[2018-07-29] MEDS: NICOTINE 7 MG PATCH TOP SCH (08:58)
--- NOTE | 2018-07-29 15:11 | PROVIDER PROGRESS NOTE ---
Assessment/Plan - Problem List (1) Diarrhea Assessment/Plan: Awaiting C. diff doni result. Starting po Florastor. (2) Dementia Qualifiers: Dementia type: unspecified type Dementia behavioral disturbance: without behavioral disturbance Qualified Code(s): F03.90 - Unspecified dementia without behavioral disturbance Assessment/Plan: Michael was started here. He answers with facial expressions, nods or shakes his head and 1 word answers. Social Work was informed yesterday that he cannot indicate who he would choose as a DPOA. [facility] was informed that he may need legal guardianship authorized and will need permanent placement when ready for [facility]. (3) HCAP (healthcare-associated pneumonia) Assessment/Plan: On po Levaquin, a 7 day course is planned. (4) Aspiration pneumonia Assessment/Plan: On Clindamycin po, a 7 day course is planned. Mucinex and pulm toilet. (5) Facial fracture Qualifiers: Encounter type: subsequent encounter Facial bone/location: other facial bone Fracture type: closed Laterality: left Assessment/Plan: No complaints of pain. Ecchymoses are slowly resolving. (6) Tobacco use Assessment/Plan: On a Nicotine patch with taper to off planned. (7) Frequent falls Assessment/Plan: Likely from NPH. He will need permanent NH placement. PT is working with him here, he is cooperative and does follow cues and commeds. (8) NPH (normal pressure hydrocephalus) Assessment/Plan: See on CT brain and was likely causing ataxia and therefore falls (9) Hypertrophic toenail Assessment/Plan: Asked for Wound Care consult for recommendations - Current Meds Current Meds: Current Medications Generic Name Dose Route Start Last Admin Trade Name Tisha PRN Reason Stop Dose Admin Clindamycin HCl 600 mg 07/27/18 21:00 07/29/18 08:41 Cleocin PO 600 mg BID REG Administration Enoxaparin Sodium 40 mg 07/24/18 09:00 07/29/18 08:42 Lovenox SUBQ 40 mg DAILY REG Administration Famotidine 20 mg 07/23/18 21:00 07/29/18 08:42 Pepcid PO 20 mg BID REG Administration Guaifenesin 600 mg 07/25/18 21:00 07/29/18 08:42 Mucinex PO 600 mg BID REG Administration Levofloxacin 750 mg 07/28/18 09:00 07/29/18 08:42 Levaquin PO 750 mg DAILY REG Administration Memantine 5 mg 07/23/18 21:00 07/29/18 08:41 Namenda PO 5 mg BID REG Administration Multivitamins/Minerals 1 tab 07/24/18 16:00 07/29/18 08:41 Theragran M PO 1 tab DAILYWM REG Administration Nicotine 1 patch 07/28/18 09:00 07/29/18 08:58 Nicoderm TOP 08/04/18 01:00 1 patch DAILY REG Administration Polyethylene Glycol 17 gm 07/24/18 09:00 07/29/18 08:42 Miralax PO 17 gm DAILY REG Administration Trazodone HCl 50 mg 07/24/18 21:44 07/24/18 21:53 Desyrel PO 50 mg QPM PRN Administration Insomnia - Lab Result Fish Bone Diagrams: 07/27/18 04:20 07/28/18 05:31 Subjective - Subjective Patient Reports: No Complaints Nursing Reports: Other (cooperates) Objective Vital Signs: Vital Signs - 24 hr 07/28/18 07/29/18 07/29/18 16:00 00:00 08:00 Temperature 36.7 C 36.7 C 36.5 C Heart Rate [ 66 58 L 70 Brachial] Respiratory 20 18 16 Rate Blood Pressure 120/42 L 151/75 H 152/77 H [Right Brachial artery] O2 Saturation 95 95 94 Oxygen O2 Source Room air I&O (Last 24 Hrs): Intake and Output Totals x24h 07/27/18 07/28/18 07/29/18 23:59 23:59 23:59 Intake Total 1890 1160 880 Balance 1890 1160 880 General: Other (Disoriented) HEENT: Mucous membr. moist/pink, Other (L cheek eccymosis) Neuro: Non Focal, Other (Disoriented) Cardiovascular: Regular rate Respiratory: No respiratory distress Abdomen: Soft Extremities: No edema, Other (Venous color changes and mild foot edema, toenails as described yesterda.) - Results Results: Laboratory Results WBC 2.8 x10^3/uL (4.8-10.8) L 07/27/18 04:20 RBC 3.29 10^6/uL (4.70-6.10) L 07/27/18 04:20 Hgb 11.5 g/dL (14.0-18.0) L 07/27/18 04:20 Hct 33.4 % (42.0-52.0) L 07/27/18 04:20 MCV 101.5 fL (80.0-94.0) H 07/27/18 04:20 MCH 35.0 pg (27.0-31.0) H 07/27/18 04:20 MCHC 34.5 g/dL (32.0-36.0) 07/27/18 04:20 RDW 15.6 % (12.0-15.0) H 07/27/18 04:20 Plt Count 113 10^3/uL (130-450) L 07/27/18 04:20 MPV 9.2 fL (7.4-11.4) 07/27/18 04:20 Neut # (Auto) 1.5 10^3/uL (1.5-6.6) 07/27/18 04:20 Lymph # (Auto) 0.8 10^3/uL (1.5-3.5) L 07/27/18 04:20 [place] # (Auto) 0.5 10^3/uL (0.0-1.0) 07/27/18 04:20 Eos # (Auto) 0.0 10^3/uL (0.0-0.7) 07/27/18 04:20 Baso # (Auto) 0.0 10^3/uL (0.0-0.1) 07/27/18 04:20 Absolute Nucleated RBC 0.00 x10^3/uL 07/27/18 04:20 Total Counted 100 07/26/18 05:05 Band Neuts % (Manual) 0 % (0-10) 07/26/18 05:05 Reactive Lymphs % (Man) 6 % 07/19/18 08:37 Abnorm Lymph % (Manual) 0 % 07/26/18 05:05 Nucleated RBC % 0.1 /100WBC 07/27/18 04:20 Neutrophils # (Manual) 1.5 10^3/uL (1.5-6.6) 07/26/18 05:05 Lymphocytes # (Manual) 0.6 10^3/uL (1.5-3.5) L 07/26/18 05:05 Monocytes # (Manual) 0.3 10^3/uL (0.0-1.0) 07/26/18 05:05 Eosinophils # (Manual) 0.0 10^3/uL (0-0.7) 07/26/18 05:05 Basophils # (Manual) 0.0 10^3/uL (0-0.1) 07/26/18 05:05 Differential Comment MANUAL DIFFERENTIAL 07/19/18 08:37 Manual Slide Review Indicated 07/27/18 04:20 Platelet Estimate DECREASED (<130,000) (NORMAL) 07/27/18 04:20 Platelet Morphology RARE GIANT PLATELETS (NORMAL) 07/19/18 08:37 RBC Morph Micro Appear 1+ ANISOCYTOSIS (NORMAL) 07/27/18 04:20 Sodium 139 mmol/L (135-145) 07/28/18 05:31 Potassium 3.6 mmol/L (3.5-5.0) 07/28/18 05:31 Chloride 105 mmol/L (101-111) 07/28/18 05:31 Carbon Dioxide 26 mmol/L (21-32) 07/28/18 05:31 Anion Gap 8.0 (6-13) 07/28/18 05:31 BUN 15 mg/dL (6-20) 07/28/18 05:31 Creatinine 0.9 mg/dL (0.6-1.2) 07/28/18 05:31 Estimated GFR (MDRD) 82 (>89) L 07/28/18 05:31 Glucose 93 mg/dL (70-100) 07/28/18 05:31 POC Whole Bld Glucose 70 mg/dL (70 - 100) 07/22/18 11:34 Lactic Acid 1.0 mmol/L (0.5-2.2) 07/23/18 09:15 Calcium 7.9 mg/dL (8.5-10.3) L 07/28/18 05:31 Phosphorus 1.7 mg/dL (2.5-4.6) L 07/25/18 06:07 Total Bilirubin 0.6 mg/dL (0.2-1.0) 07/22/18 13:37 AST 30 IU/L (10-42) 07/22/18 13:37 ALT 14 IU/L (10-60) 07/22/18 13:37 Alkaline Phosphatase 98 IU/L (42-121) 07/22/18 13:37 Total Creatine Kinase 122 IU/L (22-269) 07/19/18 08:37 Troponin I < 0.04 ng/mL (<0.49) 07/22/18 13:37 Total Protein 6.6 g/dL (6.7-8.2) L 07/22/18 13:37 Albumin 2.7 g/dL (3.2-5.5) L 07/25/18 06:07 Globulin 3.2 g/dL (2.1-4.2) 07/22/18 13:37 Albumin/Globulin Ratio 1.1 (1.0-2.2) 07/22/18 13:37 Lipase 30 U/L (22-51) 07/22/18 13:37 Urine Color YELLOW 07/21/18 18:29 Urine Clarity CLEAR (CLEAR) 07/21/18 18:29 Urine pH 6.0 PH (5.0-7.5) 07/21/18 18:29 Ur Specific [place] 1.025 (1.002-1.030) 07/21/18 18:29 Urine Protein NEGATIVE mg/dL (NEGATIVE) 07/21/18 18:29 Urine Glucose (UA) NEGATIVE mg/dL (NEGATIVE) 07/21/18 18:29 Urine Ketones 15 mg/dL (NEGATIVE) H 07/21/18 18:29 Urine Occult Blood SMALL (NEGATIVE) H 07/21/18 18:29 Urine Nitrite NEGATIVE (NEGATIVE) 07/21/18 18:29 Urine Bilirubin NEGATIVE (NEGATIVE) 07/21/18 18:29 Urine Urobilinogen 0.2 (NORMAL) E.U./dL (NORMAL) 07/21/18 18:29 Ur Leukocyte Esterase NEGATIVE (NEGATIVE) 07/21/18 18:29 Urine RBC 6-10 /HPF (0-5) H 07/21/18 18:29 Urine WBC 0-3 /HPF (0-3) 07/21/18 18:29 Ur Squamous Epith Cells RARE Squamous (<= Few) 07/21/18 18:29 Urine Bacteria Rare /HPF (None Seen) 07/21/18 18:29 Urine Mucus Few Strands 07/21/18 18:29 Ur Microscopic Review INDICATED 07/21/18 18:29 Urine Culture Comments NOT INDICATED 07/21/18 18:29 Last Dose Date UNK 07/25/18 09:30 Last Dose Time UNK 07/25/18 09:30 Vancomycin Trough 17.4 ug/mL (10.0-20.0) 07/25/18 09:30 Urine Opiates Screen NEGATIVE (NEGATIVE) 07/17/18 00:00 Ur Oxycodone Screen NEGATIVE (NEGATIVE) 07/17/18 00:00 Urine Methadone Screen NEGATIVE (NEGATIVE) 07/17/18 00:00 Ur Propoxyphene Screen NEGATIVE (NEGATIVE) 07/17/18 00:00 Ur Barbiturates Screen NEGATIVE (NEGATIVE) 07/17/18 00:00 Ur Tricyclics Screen NEGATIVE (NEGATIVE) 07/17/18 00:00 Ur Phencyclidine Scrn NEGATIVE (NEGATIVE) 07/17/18 00:00 Ur Amphetamine Screen NEGATIVE (NEGATIVE) 07/17/18 00:00 U Methamphetamines Scrn NEGATIVE (NEGATIVE) 07/17/18 00:00 U Benzodiazepines Scrn NEGATIVE (NEGATIVE) 07/17/18 00:00 Urine Cocaine Screen NEGATIVE (NEGATIVE) 07/17/18 00:00 U Cannabinoids Screen NEGATIVE (NEGATIVE) 07/17/18 00:00 C. difficile Tox B Gene NEGATIVE (NEGATIVE) 07/23/18 07:43 Sepsis Event Note (H) - Evaluation Current Stage of Sepsis: Ruled out
[2018-07-29] MEDS: SACCHAROMYCES BOULARDII 250 MG CAPSULE PO SCH (17:00)
[2018-07-29] MEDS: traZODone 50 MG TABLET PO PRN (20:21)
[2018-07-30] MEDS: NICOTINE 7 MG PATCH TOP SCH (08:41)
[2018-07-30] MEDS: CLINDAMYCIN 150 MG CAPSULE PO SCH ×2 (08:41→20:37)
[2018-07-30] MEDS: MULTIVITAMIN W/MINERALS TABLET PO SCH (08:42)
[2018-07-30] MEDS: levoFLOXacin 250 MG TABLET PO SCH (08:42)
[2018-07-30] MEDS: ENOXAPARIN 40 MG/0.4 ML SYRINGE SUBQ SCH ×2 (08:42→09:02)
[2018-07-30] MEDS: MEMANTINE 5 MG TABLET PO SCH ×2 (08:42→20:36)
[2018-07-30] MEDS: FAMOTIDINE 20 MG TABLET PO SCH ×2 (08:42→20:37)
[2018-07-30] MEDS: guaiFENesin 600 MG TABLET PO SCH ×2 (08:42→20:36)
[2018-07-30] MEDS: POLYETHYLENE GLYCOL 3350 17 GM PACKET PO SCH (08:43)
[2018-07-30] MEDS: SACCHAROMYCES BOULARDII 250 MG CAPSULE PO SCH ×2 (08:44→17:38)
--- NOTE | 2018-07-30 11:08 | PROVIDER PROGRESS NOTE ---
Assessment/Plan - Problem List (1) Diarrhea Assessment/Plan: Resolving diarrhea that started 2 days ago, but yesterday he had a soft stool. Will cancel the C. diff stool sample order. Remain on Florastor while on antibiotics. (2) Dementia Qualifiers: Dementia type: unspecified type Dementia behavioral disturbance: without behavioral disturbance Qualified Code(s): F03.90 - Unspecified dementia without behavioral disturbance Assessment/Plan: He is more alert and communicative during mornings, then gets fatigued by the mid afternoon. Continue Namenda. (3) HCAP (healthcare-associated pneumonia) Assessment/Plan: Today is Day #7 of 7 planned for treatment. (4) Aspiration pneumonia Assessment/Plan: Today is the final day of antibiotics. Continue cough meds if needed. (5) Facial fracture Qualifiers: Encounter type: subsequent encounter Facial bone/location: other facial bone Fracture type: closed Laterality: left Assessment/Plan: Stable (6) Tobacco use Assessment/Plan: Nicotine patch with taper to off planned, his last day is upcoming. (7) Frequent falls Assessment/Plan: Physical Therapy is ongoing here and he has slow noticeable improvement. With his NPH, he will always have ataxia however. (8) NPH (normal pressure hydrocephalus) Assessment/Plan: Stable. PT daily planned. (9) Hypertrophic toenail Assessment/Plan: Wound Care consult tomorrow planned. - Current Meds Current Meds: Current Medications Generic Name Dose Route Start Last Admin Trade Name Tisha PRN Reason Stop Dose Admin Clindamycin HCl 600 mg 07/27/18 21:00 07/30/18 08:41 Cleocin PO 600 mg BID REG Administration Enoxaparin Sodium 40 mg 07/24/18 09:00 07/30/18 09:02 Lovenox SUBQ Not Given DAILY REG Famotidine 20 mg 07/23/18 21:00 07/30/18 08:42 Pepcid PO 20 mg BID REG Administration Guaifenesin 600 mg 07/25/18 21:00 07/30/18 08:42 Mucinex PO 600 mg BID REG Administration Levofloxacin 750 mg 07/28/18 09:00 07/30/18 08:42 Levaquin PO 750 mg DAILY REG Administration Memantine 5 mg 07/23/18 21:00 07/30/18 08:42 Namenda PO 5 mg BID REG Administration Multivitamins/Minerals 1 tab 03/11/19 16:00 07/30/18 08:42 Theragran M PO 1 tab DAILYWM REG Administration Nicotine 1 patch 07/28/18 09:00 07/30/18 08:41 Nicoderm TOP 08/04/18 01:00 1 patch DAILY REG Administration Polyethylene Glycol 17 gm 07/24/18 09:00 07/30/18 08:43 Miralax PO 17 gm DAILY REG Administration Saccharomyces Boulardii 250 mg 07/29/18 17:00 07/30/18 08:44 Florastor PO 250 mg BIDWM REG Administration Trazodone HCl 50 mg 07/24/18 21:44 07/29/18 20:21 Desyrel PO 50 mg QPM PRN Administration Insomnia - Lab Result Fish Bone Diagrams: 07/27/18 04:20 07/28/18 05:31 - Additional Planning My Orders: My Active Orders 07/29/18 17:00 Saccharomyces Boulardii [Florastor] 250 mg PO BIDWM Subjective - Subjective Patient Reports: Feeling Better, No Complaints Objective Vital Signs: Vital Signs - 24 hr 07/29/18 07/30/18 15:25 00:00 Temperature 36.2 C L 36.4 C L Heart Rate [ 64 79 Brachial] Respiratory 20 18 Rate Blood Pressure 129/71 156/63 H [Right Brachial artery] O2 Saturation 95 99 Oxygen O2 Source Room air I&O (Last 24 Hrs): Intake and Output Totals x24h 07/28/18 07/29/18 07/30/18 23:59 23:59 23:59 Intake Total 1160 1230 Balance 1160 1230 General: Alert HEENT: Other (Minimal ecchymosis of L cheek) Neck: Supple, No JVD Neuro: Disoriented Cardiovascular: Regular rate, No murmurs Respiratory: No respiratory distress, Breath sounds nml Abdomen: Soft Extremities: No edema - Results Results: Laboratory Results WBC 2.8 x10^3/uL (4.8-10.8) L 07/27/18 04:20 RBC 3.29 10^6/uL (4.70-6.10) L 07/27/18 04:20 Hgb 11.5 g/dL (14.0-18.0) L 07/27/18 04:20 Hct 33.4 % (42.0-52.0) L 07/27/18 04:20 MCV 101.5 fL (80.0-94.0) H 07/27/18 04:20 MCH 35.0 pg (27.0-31.0) H 07/27/18 04:20 MCHC 34.5 g/dL (32.0-36.0) 07/27/18 04:20 RDW 15.6 % (12.0-15.0) H 07/27/18 04:20 Plt Count 113 10^3/uL (130-450) L 07/27/18 04:20 MPV 9.2 fL (7.4-11.4) 07/27/18 04:20 Neut # (Auto) 1.5 10^3/uL (1.5-6.6) 07/27/18 04:20 Lymph # (Auto) 0.8 10^3/uL (1.5-3.5) L 07/27/18 04:20 [place] # (Auto) 0.5 10^3/uL (0.0-1.0) 07/27/18 04:20 Eos # (Auto) 0.0 10^3/uL (0.0-0.7) 07/27/18 04:20 Baso # (Auto) 0.0 10^3/uL (0.0-0.1) 07/27/18 04:20 Absolute Nucleated RBC 0.00 x10^3/uL 07/27/18 04:20 Total Counted 100 07/26/18 05:05 Band Neuts % (Manual) 0 % (0-10) 07/26/18 05:05 Reactive Lymphs % (Man) 6 % 07/19/18 08:37 Abnorm Lymph % (Manual) 0 % 07/26/18 05:05 Nucleated RBC % 0.1 /100WBC 07/27/18 04:20 Neutrophils # (Manual) 1.5 10^3/uL (1.5-6.6) 07/26/18 05:05 Lymphocytes # (Manual) 0.6 10^3/uL (1.5-3.5) L 07/26/18 05:05 Monocytes # (Manual) 0.3 10^3/uL (0.0-1.0) 07/26/18 05:05 Eosinophils # (Manual) 0.0 10^3/uL (0-0.7) 07/26/18 05:05 Basophils # (Manual) 0.0 10^3/uL (0-0.1) 07/26/18 05:05 Differential Comment MANUAL DIFFERENTIAL 07/19/18 08:37 Manual Slide Review Indicated 07/27/18 04:20 Platelet Estimate DECREASED (<130,000) (NORMAL) 07/27/18 04:20 Platelet Morphology RARE GIANT PLATELETS (NORMAL) 07/19/18 08:37 RBC Morph Micro Appear 1+ ANISOCYTOSIS (NORMAL) 07/27/18 04:20 Sodium 139 mmol/L (135-145) 07/28/18 05:31 Potassium 3.6 mmol/L (3.5-5.0) 07/28/18 05:31 Chloride 105 mmol/L (101-111) 07/28/18 05:31 Carbon Dioxide 26 mmol/L (21-32) 07/28/18 05:31 Anion Gap 8.0 (6-13) 07/28/18 05:31 BUN 15 mg/dL (6-20) 07/28/18 05:31 Creatinine 0.9 mg/dL (0.6-1.2) 07/28/18 05:31 Estimated GFR (MDRD) 82 (>89) L 07/28/18 05:31 Glucose 93 mg/dL (70-100) 07/28/18 05:31 POC Whole Bld Glucose 70 mg/dL (70 - 100) 07/22/18 11:34 Lactic Acid 1.0 mmol/L (0.5-2.2) 07/23/18 09:15 Calcium 7.9 mg/dL (8.5-10.3) L 07/28/18 05:31 Phosphorus 1.7 mg/dL (2.5-4.6) L 07/25/18 06:07 Total Bilirubin 0.6 mg/dL (0.2-1.0) 07/22/18 13:37 AST 30 IU/L (10-42) 07/22/18 13:37 ALT 14 IU/L (10-60) 07/22/18 13:37 Alkaline Phosphatase 98 IU/L (42-121) 07/22/18 13:37 Total Creatine Kinase 122 IU/L (22-269) 07/19/18 08:37 Troponin I < 0.04 ng/mL (<0.49) 07/22/18 13:37 Total Protein 6.6 g/dL (6.7-8.2) L 07/22/18 13:37 Albumin 2.7 g/dL (3.2-5.5) L 07/25/18 06:07 Globulin 3.2 g/dL (2.1-4.2) 07/22/18 13:37 Albumin/Globulin Ratio 1.1 (1.0-2.2) 07/22/18 13:37 Lipase 30 U/L (22-51) 07/22/18 13:37 Urine Color YELLOW 07/21/18 18:29 Urine Clarity CLEAR (CLEAR) 07/21/18 18:29 Urine pH 6.0 PH (5.0-7.5) 07/21/18 18:29 Ur Specific [place] 1.025 (1.002-1.030) 07/21/18 18:29 Urine Protein NEGATIVE mg/dL (NEGATIVE) 07/21/18 18:29 Urine Glucose (UA) NEGATIVE mg/dL (NEGATIVE) 07/21/18 18:29 Urine Ketones 15 mg/dL (NEGATIVE) H 07/21/18 18:29 Urine Occult Blood SMALL (NEGATIVE) H 07/21/18 18:29 Urine Nitrite NEGATIVE (NEGATIVE) 07/21/18 18:29 Urine Bilirubin NEGATIVE (NEGATIVE) 07/21/18 18:29 Urine Urobilinogen 0.2 (NORMAL) E.U./dL (NORMAL) 07/21/18 18:29 Ur Leukocyte Esterase NEGATIVE (NEGATIVE) 07/21/18 18:29 Urine RBC 6-10 /HPF (0-5) H 07/21/18 18:29 Urine WBC 0-3 /HPF (0-3) 07/21/18 18:29 Ur Squamous Epith Cells RARE Squamous (<= Few) 07/21/18 18:29 Urine Bacteria Rare /HPF (None Seen) 07/21/18 18:29 Urine Mucus Few Strands 07/21/18 18:29 Ur Microscopic Review INDICATED 07/21/18 18:29 Urine Culture Comments NOT INDICATED 07/21/18 18:29 Last Dose Date UNK 07/25/18 09:30 Last Dose Time UNK 07/25/18 09:30 Vancomycin Trough 17.4 ug/mL (10.0-20.0) 07/25/18 09:30 Urine Opiates Screen NEGATIVE (NEGATIVE) 07/17/18 00:00 Ur Oxycodone Screen NEGATIVE (NEGATIVE) 07/17/18 00:00 Urine Methadone Screen NEGATIVE (NEGATIVE) 07/17/18 00:00 Ur Propoxyphene Screen NEGATIVE (NEGATIVE) 07/17/18 00:00 Ur Barbiturates Screen NEGATIVE (NEGATIVE) 07/17/18 00:00 Ur Tricyclics Screen NEGATIVE (NEGATIVE) 07/17/18 00:00 Ur Phencyclidine Scrn NEGATIVE (NEGATIVE) 07/17/18 00:00 Ur Amphetamine Screen NEGATIVE (NEGATIVE) 07/17/18 00:00 U Methamphetamines Scrn NEGATIVE (NEGATIVE) 07/17/18 00:00 U Benzodiazepines Scrn NEGATIVE (NEGATIVE) 07/17/18 00:00 Urine Cocaine Screen NEGATIVE (NEGATIVE) 07/17/18 00:00 U Cannabinoids Screen NEGATIVE (NEGATIVE) 07/17/18 00:00 C. difficile Tox B Gene NEGATIVE (NEGATIVE) 07/23/18 07:43 Sepsis Event Note (H) - Evaluation Current Stage of Sepsis: Ruled out
[2018-07-31] MEDS: levoFLOXacin 250 MG TABLET PO SCH (09:25)
[2018-07-31] MEDS: NICOTINE 7 MG PATCH TOP SCH (09:25)
[2018-07-31] MEDS: SACCHAROMYCES BOULARDII 250 MG CAPSULE PO SCH (09:25)
[2018-07-31] MEDS: MULTIVITAMIN W/MINERALS TABLET PO SCH (09:25)
[2018-07-31] MEDS: CLINDAMYCIN 150 MG CAPSULE PO SCH (09:25)
[2018-07-31] MEDS: FAMOTIDINE 20 MG TABLET PO SCH ×2 (09:25→20:28)
[2018-07-31] MEDS: MEMANTINE 5 MG TABLET PO SCH ×2 (09:25→20:28)
[2018-07-31] MEDS: guaiFENesin 600 MG TABLET PO SCH ×2 (09:25→20:28)
[2018-07-31] MEDS: ENOXAPARIN 40 MG/0.4 ML SYRINGE SUBQ SCH (09:26)
[2018-07-31] MEDS: POLYETHYLENE GLYCOL 3350 17 GM PACKET PO SCH (09:26)
--- NOTE | 2018-07-31 14:07 | PROVIDER PROGRESS NOTE ---
Assessment/Plan - Problem List (1) HCAP (healthcare-associated pneumonia) Assessment/Plan: He has finished a 7 day course of treatment and is clinically more comfortable, from a respiratory standpoint. Done with Levaquin. Will stop Florastor as well. Continue Mucinex prn cough. (2) Aspiration pneumonia Assessment/Plan: He has finished a 7 day course of treatment and is clinically more comfortable, from a respiratory standpoint. Done with Clindamycin po. Will stop Florastor as well. Continue Mucinex prn cough. (3) Dementia Qualifiers: Dementia type: unspecified type Dementia behavioral disturbance: without behavioral disturbance Qualified Code(s): F03.90 - Unspecified dementia without behavioral disturbance Assessment/Plan: Continue clueing and reorientation. Continue Namenda, which was started at admission. He has no family (except 1 brother who cannot be located), so no legal DPOA. He requires placement, can no longer function independantly in a senior apartment. Social Workers are working on placement for him. (4) Facial fracture Qualifiers: Encounter type: subsequent encounter Facial bone/location: other facial bone Fracture type: closed Laterality: left Assessment/Plan: Stable (5) Tobacco use Assessment/Plan: Nearly off the Nicotine patch-mediated taper. (6) Frequent falls Assessment/Plan: His NPH likely led to these. PT states he is still a fall risk. (7) NPH (normal pressure hydrocephalus) Assessment/Plan: Abnormal but stable, unchanged symptoms. (9) Diarrhea Assessment/Plan: Resolved - Current Meds Current Meds: Current Medications Generic Name Dose Route Start Last Admin Trade Name Freq PRN Reason Stop Dose Admin Clindamycin HCl 600 mg 07/27/18 21:00 07/31/18 09:25 Cleocin PO 600 mg BID REG Administration Enoxaparin Sodium 40 mg 07/24/18 09:00 07/31/18 09:26 Lovenox SUBQ 40 mg DAILY REG Administration Famotidine 20 mg 07/23/18 21:00 07/31/18 09:25 Pepcid PO 20 mg BID REG Administration Guaifenesin 600 mg 07/25/18 21:00 07/31/18 09:25 Mucinex PO 600 mg BID REG Administration Levofloxacin 750 mg 07/28/18 09:00 07/31/18 09:25 Levaquin PO 750 mg DAILY REG Administration Memantine 5 mg 07/23/18 21:00 07/31/18 09:25 Namenda PO 5 mg BID REG Administration Multivitamins/Minerals 1 tab 07/24/18 16:00 07/31/18 09:25 Theragran M PO 1 tab DAILYWM REG Administration Nicotine 1 patch 07/28/18 09:00 07/31/18 09:25 Nicoderm TOP 08/04/18 01:00 1 patch DAILY REG Administration Polyethylene Glycol 17 gm 07/24/18 09:00 07/31/18 09:26 Miralax PO Not Given DAILY REG Saccharomyces Boulardii 250 mg 07/29/18 17:00 07/31/18 09:25 Florastor PO 250 mg BIDWM REG Administration Trazodone HCl 50 mg 07/24/18 21:44 07/29/18 20:21 Desyrel PO 50 mg QPM PRN Administration Insomnia - Lab Result Fish Bone Diagrams: 07/27/18 04:20 07/28/18 05:31 - Additional Planning My Orders: My Active Orders 07/31/18 Wound Consult MAC [MAC] Routine 07/31/18 Lunch Dysphagia Puree Diet [DIET] Subjective - Subjective Patient Reports: No Complaints, Other (I have heard him state "Oh, God damn it" when he is in pain from his maxillary and nasal bone fractures, when he sneezes. Then he relaxes.) Objective Vital Signs: Vital Signs - 24 hr 07/30/18 07/31/18 07/31/18 16:00 00:05 08:00 Temperature 36.4 C L 36.7 C 36.8 C Heart Rate [ 69 76 83 Brachial] Respiratory 18 16 18 Rate Blood Pressure 114/71 127/75 140/70 H [Right Brachial artery] O2 Saturation 92 99 94 Oxygen O2 Source Room air I&O (Last 24 Hrs): Intake and Output Totals x24h 07/29/18 07/30/18 07/31/18 23:59 23:59 23:59 Intake Total 1230 890 360 Balance 1230 890 360 General: Alert HEENT: Mucous membr. moist/pink Neck: Supple Neuro: Disoriented Cardiovascular: No murmurs Respiratory: No respiratory distress, Breath sounds nml Abdomen: Soft Extremities: No edema, Other (Hypertrophic toe nails) - Results Results: Laboratory Results WBC 2.8 x10^3/uL (4.8-10.8) L 07/27/18 04:20 RBC 3.29 10^6/uL (4.70-6.10) L 07/27/18 04:20 Hgb 11.5 g/dL (14.0-18.0) L 07/27/18 04:20 Hct 33.4 % (42.0-52.0) L 07/27/18 04:20 MCV 101.5 fL (80.0-94.0) H 07/27/18 04:20 MCH 35.0 pg (27.0-31.0) H 07/27/18 04:20 MCHC 34.5 g/dL (32.0-36.0) 07/27/18 04:20 RDW 15.6 % (12.0-15.0) H 07/27/18 04:20 Plt Count 113 10^3/uL (130-450) L 07/27/18 04:20 MPV 9.2 fL (7.4-11.4) 07/27/18 04:20 Neut # (Auto) 1.5 10^3/uL (1.5-6.6) 07/27/18 04:20 Lymph # (Auto) 0.8 10^3/uL (1.5-3.5) L 07/27/18 04:20 [place] # (Auto) 0.5 10^3/uL (0.0-1.0) 07/27/18 04:20 Eos # (Auto) 0.0 10^3/uL (0.0-0.7) 07/27/18 04:20 Baso # (Auto) 0.0 10^3/uL (0.0-0.1) 07/27/18 04:20 Absolute Nucleated RBC 0.00 x10^3/uL 07/27/18 04:20 Total Counted 100 07/26/18 05:05 Band Neuts % (Manual) 0 % (0-10) 07/26/18 05:05 Reactive Lymphs % (Man) 6 % 07/19/18 08:37 Abnorm Lymph % (Manual) 0 % 07/26/18 05:05 Nucleated RBC % 0.1 /100WBC 07/27/18 04:20 Neutrophils # (Manual) 1.5 10^3/uL (1.5-6.6) 07/26/18 05:05 Lymphocytes # (Manual) 0.6 10^3/uL (1.5-3.5) L 07/26/18 05:05 Monocytes # (Manual) 0.3 10^3/uL (0.0-1.0) 07/26/18 05:05 Eosinophils # (Manual) 0.0 10^3/uL (0-0.7) 07/26/18 05:05 Basophils # (Manual) 0.0 10^3/uL (0-0.1) 07/26/18 05:05 Differential Comment MANUAL DIFFERENTIAL 07/19/18 08:37 Manual Slide Review Indicated 07/27/18 04:20 Platelet Estimate DECREASED (<130,000) (NORMAL) 07/27/18 04:20 Platelet Morphology RARE GIANT PLATELETS (NORMAL) 07/19/18 08:37 RBC Morph Micro Appear 1+ ANISOCYTOSIS (NORMAL) 07/27/18 04:20 Sodium 139 mmol/L (135-145) 07/28/18 05:31 Potassium 3.6 mmol/L (3.5-5.0) 07/28/18 05:31 Chloride 105 mmol/L (101-111) 07/28/18 05:31 Carbon Dioxide 26 mmol/L (21-32) 07/28/18 05:31 Anion Gap 8.0 (6-13) 07/28/18 05:31 BUN 15 mg/dL (6-20) 07/28/18 05:31 Creatinine 0.9 mg/dL (0.6-1.2) 07/28/18 05:31 Estimated GFR (MDRD) 82 (>89) L 07/28/18 05:31 Glucose 93 mg/dL (70-100) 07/28/18 05:31 POC Whole Bld Glucose 70 mg/dL (70 - 100) 07/22/18 11:34 Lactic Acid 1.0 mmol/L (0.5-2.2) 07/23/18 09:15 Calcium 7.9 mg/dL (8.5-10.3) L 07/28/18 05:31 Phosphorus 1.7 mg/dL (2.5-4.6) L 07/25/18 06:07 Total Bilirubin 0.6 mg/dL (0.2-1.0) 07/22/18 13:37 AST 30 IU/L (10-42) 07/22/18 13:37 ALT 14 IU/L (10-60) 07/22/18 13:37 Alkaline Phosphatase 98 IU/L (42-121) 07/22/18 13:37 Total Creatine Kinase 122 IU/L (22-269) 07/19/18 08:37 Troponin I < 0.04 ng/mL (<0.49) 07/22/18 13:37 Total Protein 6.6 g/dL (6.7-8.2) L 07/22/18 13:37 Albumin 2.7 g/dL (3.2-5.5) L 07/25/18 06:07 Globulin 3.2 g/dL (2.1-4.2) 07/22/18 13:37 Albumin/Globulin Ratio 1.1 (1.0-2.2) 07/22/18 13:37 Lipase 30 U/L (22-51) 07/22/18 13:37 Urine Color YELLOW 07/21/18 18:29 Urine Clarity CLEAR (CLEAR) 07/21/18 18:29 Urine pH 6.0 PH (5.0-7.5) 07/21/18 18:29 Ur Specific [place] 1.025 (1.002-1.030) 07/21/18 18:29 Urine Protein NEGATIVE mg/dL (NEGATIVE) 07/21/18 18:29 Urine Glucose (UA) NEGATIVE mg/dL (NEGATIVE) 07/21/18 18:29 Urine Ketones 15 mg/dL (NEGATIVE) H 07/21/18 18:29 Urine Occult Blood SMALL (NEGATIVE) H 07/21/18 18:29 Urine Nitrite NEGATIVE (NEGATIVE) 07/21/18 18:29 Urine Bilirubin NEGATIVE (NEGATIVE) 07/21/18 18:29 Urine Urobilinogen 0.2 (NORMAL) E.U./dL (NORMAL) 07/21/18 18:29 Ur Leukocyte Esterase NEGATIVE (NEGATIVE) 07/21/18 18:29 Urine RBC 6-10 /HPF (0-5) H 07/21/18 18:29 Urine WBC 0-3 /HPF (0-3) 07/21/18 18:29 Ur Squamous Epith Cells RARE Squamous (<= Few) 07/21/18 18:29 Urine Bacteria Rare /HPF (None Seen) 07/21/18 18:29 Urine Mucus Few Strands 07/21/18 18:29 Ur Microscopic Review INDICATED 07/21/18 18:29 Urine Culture Comments NOT INDICATED 07/21/18 18:29 Last Dose Date UNK 07/25/18 09:30 Last Dose Time UNK 07/25/18 09:30 Vancomycin Trough 17.4 ug/mL (10.0-20.0) 07/25/18 09:30 Urine Opiates Screen NEGATIVE (NEGATIVE) 07/17/18 00:00 Ur Oxycodone Screen NEGATIVE (NEGATIVE) 07/17/18 00:00 Urine Methadone Screen NEGATIVE (NEGATIVE) 07/17/18 00:00 Ur Propoxyphene Screen NEGATIVE (NEGATIVE) 07/17/18 00:00 Ur Barbiturates Screen NEGATIVE (NEGATIVE) 07/17/18 00:00 Ur Tricyclics Screen NEGATIVE (NEGATIVE) 07/17/18 00:00 Ur Phencyclidine Scrn NEGATIVE (NEGATIVE) 07/17/18 00:00 Ur Amphetamine Screen NEGATIVE (NEGATIVE) 07/17/18 00:00 U Methamphetamines Scrn NEGATIVE (NEGATIVE) 07/17/18 00:00 U Benzodiazepines Scrn NEGATIVE (NEGATIVE) 07/17/18 00:00 Urine Cocaine Screen NEGATIVE (NEGATIVE) 07/17/18 00:00 U Cannabinoids Screen NEGATIVE (NEGATIVE) 07/17/18 00:00 C. difficile Tox B Gene NEGATIVE (NEGATIVE) 07/23/18 07:43 Sepsis Event Note (H) - Evaluation Current Stage of Sepsis: Ruled out
[2018-07-31] MEDS: traZODone 50 MG TABLET PO PRN (20:28)
[2018-08-01] MEDS: FAMOTIDINE 20 MG TABLET PO SCH ×2 (09:41→20:21)
[2018-08-01] MEDS: MEMANTINE 5 MG TABLET PO SCH ×2 (09:41→20:21)
[2018-08-01] MEDS: MULTIVITAMIN W/MINERALS TABLET PO SCH (09:41)
[2018-08-01] MEDS: guaiFENesin 600 MG TABLET PO SCH ×2 (09:41→20:21)
[2018-08-01] MEDS: ENOXAPARIN 40 MG/0.4 ML SYRINGE SUBQ SCH (09:41)
[2018-08-01] MEDS: NICOTINE 7 MG PATCH TOP SCH (09:42)
[2018-08-01] MEDS: POLYETHYLENE GLYCOL 3350 17 GM PACKET PO SCH (09:42)
--- NOTE | 2018-08-01 13:07 | PROVIDER PROGRESS NOTE ---
Subjective - Prog Note Date Prog Note Date: 08/01/18 Prog Note Time: 13:05 - Subjective Subjective: He is an elderly gentleman who has Alzheimer's dementia with behavioral disturbances. He lives alone at home and had frequent falls and lives on TV dinners. He was brought into the emergency room because of behavioral disorder. Did not have any criteria for admission. He was in the emergency room for a week where he suffered a fall, and had a fracture of his face. In addition he aspirated and had decreasing level of consciousness and a change in his baseline mental status. He was found to have a right lower lobe pneumonia on chest x-ray with hypoxia. He has now been here 10 days since July 23 in acute care. On presentation he had copious green mucus pooling in his oropharynx. He had expiratory rhonchi, fine bibasilar rales, a left nasal bone fracture of the superior lateral jin with left maxillary left facial and left periorbital in volvement. He had a lot of soft tissue swelling. Since that time is been treated for pneumonia. He has had an episode of diarrhea which is resolved. He is still with dementia and behavioral disorders. He is not violent, not combative, he can be prompted to eat, and cooperate. But he likes to yell a lot. I am now the hospitalist on service for this week. Social work is working on placement. Current Medications - Current Medications Current Medications: Active Medications Acetaminophen (Tylenol) 650 mg PO Q4HR PRN PRN Reason: Pain 1 to 4 Enoxaparin Sodium (Lovenox) 40 mg SUBQ DAILY [facility] Last Admin: 08/01/18 09:41 Dose: 40 mg Famotidine (Pepcid) 20 mg PO BID [facility] Last Admin: 08/01/18 09:41 Dose: 20 mg Guaifenesin (Mucinex) 600 mg PO BID [facility] Last Admin: 08/01/18 09:41 Dose: 600 mg Memantine (Namenda) 5 mg PO BID [facility] Last Admin: 08/01/18 09:41 Dose: 5 mg Multivitamins/Minerals (Theragran M) 1 tab PO DAILYWM [facility] Last Admin: 08/01/18 09:41 Dose: 1 tab Nicotine (Nicoderm) 1 patch TOP DAILY [facility] Stop: 08/04/18 01:00 Last Admin: 08/01/18 09:42 Dose: 1 patch Polyethylene Glycol (Miralax) 17 gm PO DAILY [facility] Last Admin: 08/01/18 09:42 Dose: 17 gm Trazodone HCl (Desyrel) 50 mg PO QPM PRN PRN Reason: Insomnia Last Admin: 07/31/18 20:28 Dose: 50 mg No Known Home Medications 10/31/17 Objective - Vital Signs/Intake & Output Reviewed Vital Signs: Yes Vital Signs: Vital Signs x48h Temp Pulse Resp BP Pulse Ox 08/01/18 08:00 36.7 C 67 20 144/79 H 94 Intake & Output: Intake & Output 07/29/18 07/30/18 07/31/18 08/01/18 23:59 23:59 23:59 23:59 Intake Total 1230 890 750 240 Balance 1230 890 750 240 - Objective General Appearance: positive: No acute distress, Alert, Other (Thin white male who looks stated age, angular, gaunt, full phillips and glasses) Eyes Bilateral: positive: PERRL, EOMI ENT: positive: Other (poor dentition, soft tissue edema present on admission not present, no black eyes) Neck: positive: No JVD. negative: Stiff neck, Carotid bruit Respiratory: positive: Chest non-tender. negative: Wheezes, Rales, Rhonchi Cardiovascular: positive: Regular rate & rhythm, No gallop. negative: JVD present, Gallop/S4, Friction rub Abdomen: positive: Non-tender, No organomegaly, Nml bowel sounds, No distention Skin: positive: Warm, Dry Neurologic/Psychiatric: positive: CN's nml (2-12), Motor nml, Disoriented to person, Other - Lab Results Fish Bones: 07/27/18 04:20 07/28/18 05:31 ABX Reporting Has patient been on IV antibiotics over the past 48 hours?: No Sepsis Event Note (H) - Evaluation Current Stage of Sepsis: Ruled out Assessment/Plan - Problem List (1) Hypertrophic toenail Impression: These make it harder to walk. He missed his Podiatry appointment when he was boarding in the ER. Wound Care supposedly saw patient 07/31 but no note available as of yet. I will ask them. (2) HCAP (healthcare-associated pneumonia) Assessment/Plan: He has finished a 7 day course of treatment and is clinically more comfortable, from a respiratory standpoint. Done with Levaquin. Will stop Florastor as well. Continue Mucinex prn cough. (3) Aspiration pneumonia Assessment/Plan: He has finished a 7 day course of treatment and is clinically more comfortable, from a respiratory standpoint. Done with Clindamycin po. Will stop Florastor as well. Continue Mucinex prn cough. (4) Dementia Qualifiers: Dementia type: unspecified type Dementia behavioral disturbance: without behavioral disturbance Qualified Code(s): F03.90 - Unspecified dementia without behavioral disturbance Assessment/Plan: Continue clueing and reorientation. While he is loud and can get upset, can be calmed but low, slow voice and repetitive prompting. Continue Namenda, which was started at admission. He has no family (except 1 brother who cannot be located), so no legal DPOA. He requires placement, can no longer function independantly in a senior apartment. Social Workers are working on placement for him. (5) Facial fracture from fall Qualifiers: Encounter type: subsequent encounter Facial bone/location: other facial bone Fracture type: closed Laterality: left Assessment/Plan: Stable (6) Tobacco use Assessment/Plan: Nearly off the Nicotine patch-mediated taper. (7) Frequent falls Assessment/Plan: His NPH likely led to these. PT states he is still a fall risk. (8) NPH (normal pressure hydrocephalus) Assessment/Plan: with associated cerebellar ataxia, falls. Abnormal but stable, unchanged symptoms. Not a candidate for shunt since his disease is too far gone. (9) Diarrhea Assessment/Plan: Resolved
[2018-08-01] MEDS: traZODone 50 MG TABLET PO PRN (20:21)
[2018-08-02] MEDS: ENOXAPARIN 40 MG/0.4 ML SYRINGE SUBQ SCH (11:03)
[2018-08-02] MEDS: POLYETHYLENE GLYCOL 3350 17 GM PACKET PO SCH (11:04)
[2018-08-02] MEDS: MULTIVITAMIN W/MINERALS TABLET PO SCH (11:04)
[2018-08-02] MEDS: MEMANTINE 5 MG TABLET PO SCH ×2 (11:04→21:34)
[2018-08-02] MEDS: guaiFENesin 600 MG TABLET PO SCH ×2 (11:04→21:34)
[2018-08-02] MEDS: NICOTINE 7 MG PATCH TOP SCH (11:04)
[2018-08-02] MEDS: FAMOTIDINE 20 MG TABLET PO SCH ×2 (11:04→21:34)
--- NOTE | 2018-08-02 11:59 | PROVIDER PROGRESS NOTE ---
Subjective - Prog Note Date Prog Note Date: 08/02/18 Prog Note Time: 11:59 - Subjective Pt reports feeling: No change Subjective: no new complaints. awake, alert, watching Tv and eating breakfast. Current Medications - Current Medications Current Medications: Active Medications Acetaminophen (Tylenol) 650 mg PO Q4HR PRN PRN Reason: Pain 1 to 4 Enoxaparin Sodium (Lovenox) 40 mg SUBQ DAILY [facility] Last Admin: 08/02/18 11:03 Dose: 40 mg Famotidine (Pepcid) 20 mg PO BID [facility] Last Admin: 08/02/18 11:04 Dose: 20 mg Guaifenesin (Mucinex) 600 mg PO BID [facility] Last Admin: 08/02/18 11:04 Dose: 600 mg Memantine (Namenda) 5 mg PO BID [facility] Last Admin: 08/02/18 11:04 Dose: 5 mg Multivitamins/Minerals (Theragran M) 1 tab PO DAILYWM [facility] Last Admin: 08/02/18 11:04 Dose: 1 tab Nicotine (Nicoderm) 1 patch TOP DAILY [facility] Stop: 08/04/18 01:00 Last Admin: 08/02/18 11:04 Dose: 1 patch Polyethylene Glycol (Miralax) 17 gm PO DAILY [facility] Last Admin: 08/02/18 11:04 Dose: Not Given Trazodone HCl (Desyrel) 50 mg PO QPM PRN PRN Reason: Insomnia Last Admin: 08/01/18 20:21 Dose: 50 mg No Known Home Medications 10/31/17 Objective - Vital Signs/Intake & Output Reviewed Vital Signs: Yes Vital Signs: Vital Signs x48h Temp Pulse Resp BP Pulse Ox 08/02/18 11:10 36.7 C 84 20 133/67 H 93 Intake & Output: Intake & Output 07/30/18 07/31/18 08/01/18 08/02/18 23:59 23:59 23:59 23:59 Intake Total 890 750 600 Balance 890 750 600 - Objective General Appearance: positive: No acute distress, Alert, Other (thin beared, white male) Eyes Bilateral: positive: PERRL ENT: positive: Pharynx nml Neck: positive: No JVD. negative: Carotid bruit, Swelling/bruising Respiratory: positive: Chest non-tender. negative: Wheezes, Rales, Rhonchi Cardiovascular: positive: Regular rate & rhythm. negative: Gallop/S4, Friction rub Abdomen: positive: Non-tender, No distention. negative: Guarding, Rebound Skin: positive: Warm, Dry, Pallor Extremities: positive: Non-tender, No pedal edema Neurologic/Psychiatric: positive: CN's nml (2-12), Motor nml - Lab Results Fish Bones: 07/27/18 04:20 07/28/18 05:31 ABX Reporting Has patient been on IV antibiotics over the past 48 hours?: No Sepsis Event Note (H) - Evaluation Current Stage of Sepsis: Ruled out Assessment/Plan - Problem List (1) Hypertrophic toenail Impression: These make it harder to walk. He missed his Podiatry appointment when he was boarding in the ER. Wound Care supposedly saw patient 07/31 but no note available as of yet. I will ask them. The provider saw the patient and are not able to do nail care. It is beyond the scope of practice here. (2) HCAP (healthcare-associated pneumonia) Assessment/Plan: No changes. He has finished a 7 day course of treatment and is clinically more comfortable, from a respiratory standpoint. Done with Levaquin. Will stop Florastor as well. Continue Mucinex prn cough. (3) Aspiration pneumonia Assessment/Plan: No changes. He has finished a 7 day course of treatment and is clinically more comfortable, from a respiratory standpoint. Done with Clindamycin po. Will stop Florastor as well. Continue Mucinex prn cough. (4) Dementia Qualifiers: Dementia type: unspecified type Dementia behavioral disturbance: without behavioral disturbance Qualified Code(s): F03.90 - Unspecified dementia without behavioral disturbance Assessment/Plan: No changes. Continue clueing and reorientation. While he is loud and can get upset, can be calmed but low, slow voice and repetitive prompting. Continue Namenda, which was started at admission. He has no family (except 1 brother who cannot be located), so no legal DPOA. He requires placement, can no longer function independantly in a senior [facility] rtment. Social Workers are working on placement for him. (5) Facial fracture from fall Qualifiers: Encounter type: subsequent encounter Facial bone/location: other facial bone Fracture type: closed Laterality: left Assessment/Plan: Stable (6) Tobacco use Assessment/Plan: Nearly off the Nicotine patch-mediated taper. (7) Frequent falls Assessment/Plan: His NPH likely led to these. PT states he is still a fall risk. (8) NPH (normal pressure hydrocephalus) Assessment/Plan: with associated cerebellar ataxia, falls. Abnormal but stable, unchanged symptoms. Not a candidate for shunt since his disease is too far gone. (9) Diarrhea Assessment/Plan: Resolved
[2018-08-02] MEDS: traZODone 50 MG TABLET PO PRN (21:34)
--- NOTE | 2018-08-03 07:51 | PROVIDER PROGRESS NOTE ---
Subjective - Prog Note Date Prog Note Date: 08/03/18 Prog Note Time: 16:13 - Subjective Subjective: no new events or complaints. Current Medications - Current Medications Current Medications: Active Medications Acetaminophen (Tylenol) 650 mg PO Q4HR PRN PRN Reason: Pain 1 to 4 Enoxaparin Sodium (Lovenox) 40 mg SUBQ DAILY [facility] Last Admin: 08/02/18 11:03 Dose: 40 mg Famotidine (Pepcid) 20 mg PO BID [facility] Last Admin: 08/02/18 21:34 Dose: 20 mg Guaifenesin (Mucinex) 600 mg PO BID [facility] Last Admin: 08/02/18 21:34 Dose: 600 mg Memantine (Namenda) 5 mg PO BID [facility] Last Admin: 08/02/18 21:34 Dose: 5 mg Multivitamins/Minerals (Theragran M) 1 tab PO DAILYWM [facility] Last Admin: 08/02/18 11:04 Dose: 1 tab Nicotine (Nicoderm) 1 patch TOP DAILY [facility] Stop: 08/04/18 01:00 Last Admin: 08/02/18 11:04 Dose: 1 patch Polyethylene Glycol (Miralax) 17 gm PO DAILY [facility] Last Admin: 08/02/18 11:04 Dose: Not Given Trazodone HCl (Desyrel) 50 mg PO QPM PRN PRN Reason: Insomnia Last Admin: 08/02/18 21:34 Dose: 50 mg No Known Home Medications 10/31/17 Objective - Vital Signs/Intake & Output Reviewed Vital Signs: Yes Vital Signs: Vital Signs x48h Temp Pulse Resp BP Pulse Ox 08/03/18 00:00 36.3 C L 79 16 119/64 96 Intake & Output: Intake & Output 07/31/18 08/01/18 08/02/18 08/03/18 23:59 23:59 23:59 23:59 Intake Total 750 600 640 Balance 750 600 640 - Objective General Appearance: positive: No acute distress, Alert Eyes Bilateral: positive: PERRL Neck: positive: No JVD Respiratory: positive: Chest non-tender. negative: Wheezes, Rales, Rhonchi Cardiovascular: positive: Regular rate & rhythm. negative: Gallop/S4, Friction rub Abdomen: positive: Non-tender, No organomegaly, Nml bowel sounds, No distention Skin: positive: Warm, Dry Extremities: positive: Full ROM Neurologic/Psychiatric: positive: CN's nml (2-12), Motor nml - Lab Results Fish Bones: 07/27/18 04:20 07/28/18 05:31 ABX Reporting Has patient been on IV antibiotics over the past 48 hours?: No Sepsis Event Note (H) - Evaluation Current Stage of Sepsis: Ruled out Assessment/Plan - Problem List (1) Hypertrophic toenail Impression: These make it harder to walk. He missed his Podiatry appointment when he was boarding in the ER. Wound Care supposedly saw patient 07/31 but no note available as of yet. I will ask them. The provider saw the patient and are not able to do nail care. It is beyond the scope of practice here. (2) HCAP (healthcare-associated pneumonia) Assessment/Plan: No changes. He has finished a 7 day course of treatment and is clinically more comfortable, from a respiratory standpoint. Done with Levaquin. Will stop Florastor as well. Continue Mucinex prn cough. (3) Aspiration pneumonia Assessment/Plan: No changes. He has finished a 7 day course of treatment and is clinically more comfortable, from a respiratory standpoint. Done with Clindamycin po. Will stop Florastor as well. Continue Mucinex prn cough. (4) Dementia Qualifiers: Dementia type: unspecified type Dementia behavioral disturbance: without behavioral disturbance Qualified Code(s): F03.90 - Unspecified dementia without behavioral disturbance Assessment/Plan: No changes. Continue clueing and reorientation. While he is loud and can get upset, can be calmed but low, slow voice and repetitive prompting. Continue Namenda, which was started at admission. He has no family (except 1 brother who cannot be located), so no legal DPOA. He requires placement, can no longer function independantly in a senior apartment. Social Workers are working on placement for him. (5) Facial fracture from fall Qualifiers: Encounter type: subsequent encounter Facial bone/location: other facial b one Fracture type: closed Laterality: left Assessment/Plan: Stable (6) Tobacco use Assessment/Plan: Nearly off the Nicotine patch-mediated taper. (7) Frequent falls Assessment/Plan: His NPH likely led to these. PT states he is still a fall risk. (8) NPH (normal pressure hydrocephalus) Assessment/Plan: with associated cerebellar ataxia, falls. Abnormal but stable, unchanged symptoms. Not a candidate for shunt since his disease is too far gone. (9) Diarrhea Assessment/Plan: Resolved
[2018-08-03] MEDS: ENOXAPARIN 40 MG/0.4 ML SYRINGE SUBQ SCH (08:38)
[2018-08-03] MEDS: guaiFENesin 600 MG TABLET PO SCH ×2 (08:38→20:42)
[2018-08-03] MEDS: MEMANTINE 5 MG TABLET PO SCH ×2 (08:38→20:42)
[2018-08-03] MEDS: FAMOTIDINE 20 MG TABLET PO SCH ×2 (08:38→20:42)
[2018-08-03] MEDS: MULTIVITAMIN W/MINERALS TABLET PO SCH (08:38)
[2018-08-03] MEDS: POLYETHYLENE GLYCOL 3350 17 GM PACKET PO SCH (08:39)
[2018-08-03] MEDS: NICOTINE 7 MG PATCH TOP SCH (08:39)
[2018-08-03] MEDS: traZODone 50 MG TABLET PO PRN (20:42)
[2018-08-04] MEDS: MULTIVITAMIN W/MINERALS TABLET PO SCH (08:35)
[2018-08-04] MEDS: POLYETHYLENE GLYCOL 3350 17 GM PACKET PO SCH (08:35)
[2018-08-04] MEDS: MEMANTINE 5 MG TABLET PO SCH ×2 (08:35→20:40)
[2018-08-04] MEDS: ACETAMINOPHEN 325 MG TABLET PO PRN (08:35)
[2018-08-04] MEDS: ENOXAPARIN 40 MG/0.4 ML SYRINGE SUBQ SCH (08:36)
[2018-08-04] MEDS: guaiFENesin 600 MG TABLET PO SCH ×2 (08:36→20:40)
[2018-08-04] MEDS: FAMOTIDINE 20 MG TABLET PO SCH ×2 (08:36→20:40)
--- NOTE | 2018-08-04 16:29 | PROVIDER PROGRESS NOTE ---
Subjective - Prog Note Date Prog Note Date: 08/04/18 Prog Note Time: 16:27 - Subjective Subjective: This is an elderly white male awaiting placement. He has dementia. Behavioral defer disturbances. Was in the emergency room for several days where he fell and had developed pneumonia. He is now been on the inpatient side for 13 days. He has recovered, doing well. He is on maintenance medications, and no major events have occurred. Current Medications - Current Medications Current Medications: Active Medications Acetaminophen (Tylenol) 650 mg PO Q4HR PRN PRN Reason: Pain 1 to 4 Last Admin: 08/04/18 08:35 Dose: 650 mg Enoxaparin Sodium (Lovenox) 40 mg SUBQ DAILY [facility] Last Admin: 08/04/18 08:36 Dose: Not Given Famotidine (Pepcid) 20 mg PO BID [facility] Last Admin: 08/04/18 08:36 Dose: 20 mg Guaifenesin (Mucinex) 600 mg PO BID [facility] Last Admin: 08/04/18 08:36 Dose: 600 mg Memantine (Namenda) 5 mg PO BID [facility] Last Admin: 08/04/18 08:35 Dose: 5 mg Multivitamins/Minerals (Theragran M) 1 tab PO DAILYWM [facility] Last Admin: 08/04/18 08:35 Dose: 1 tab Polyethylene Glycol (Miralax) 17 gm PO DAILY [facility] Last Admin: 08/04/18 08:35 Dose: 17 gm Trazodone HCl (Desyrel) 50 mg PO QPM PRN PRN Reason: Insomnia Last Admin: 08/03/18 20:42 Dose: 50 mg No Known Home Medications 10/31/17 Objective - Vital Signs/Intake & Output Reviewed Vital Signs: Yes Vital Signs: Vital Signs x48h Temp Pulse Resp BP Pulse Ox 08/04/18 15:35 36.4 C L 61 18 142/71 H 95 08/04/18 08:33 36.5 C 77 18 136/78 H 94 Intake & Output: Intake & Output 08/01/18 08/02/18 08/03/18 08/04/18 23:59 23:59 23:59 23:59 Intake Total 675 189 1511 480 Output Total 250 Balance 934 498 3527 480 - Objective General Appearance: positive: No acute distress, Alert, Other (Thin angular elderly man) Eyes Bilateral: positive: PERRL, EOMI Respiratory: positive: Chest non-tender. negative: Wheezes, Rales, Rhonchi Cardiovascular: positive: Regular rate & rhythm. negative: Gallop/S4, Friction rub Abdomen: positive: Non-tender, No organomegaly, Nml bowel sounds, No distention Extremities: positive: Non-tender, Full ROM, No pedal edema Neurologic/Psychiatric: positive: CN's nml (2-12), Motor nml, Disoriented to person, Disoriented to place, Disoriented to time - Lab Results Fish Bones: 07/27/18 04:20 07/28/18 05:31 ABX Reporting Has patient been on IV antibiotics over the past 48 hours?: No Sepsis Event Note (H) - Evaluation Current Stage of Sepsis: Ruled out Assessment/Plan - Problem List (1) Problem situation relating to social and personal history Impression: This gentleman is awaiting placement. No acute medical problems at this time. We do check on him daily. If there are any medical needs that, we will address them. At this time the patient is ambulating in his room, able to do activities of daily living with regards to feeding self, dressing self and going to the bathroom. No falls since admission. Patient refuses SCDs for DVT prophylaxis. Eating 75 200% of his food. Blood pressure anywhere from 142-159 systolic. In the 70s diastolic. Afebrile. Oxygenating well on room air.
[2018-08-05] MEDS: FAMOTIDINE 20 MG TABLET PO SCH ×2 (09:57→21:08)
[2018-08-05] MEDS: ACETAMINOPHEN 325 MG TABLET PO PRN (09:57)
[2018-08-05] MEDS: MEMANTINE 5 MG TABLET PO SCH ×2 (09:57→21:08)
[2018-08-05] MEDS: guaiFENesin 600 MG TABLET PO SCH ×2 (09:57→21:08)
[2018-08-05] MEDS: MULTIVITAMIN W/MINERALS TABLET PO SCH (09:57)
[2018-08-05] MEDS: ENOXAPARIN 40 MG/0.4 ML SYRINGE SUBQ SCH (09:57)
[2018-08-05] MEDS: POLYETHYLENE GLYCOL 3350 17 GM PACKET PO SCH (09:58)
--- NOTE | 2018-08-05 13:50 | PROVIDER PROGRESS NOTE ---
Subjective - Prog Note Date Prog Note Date: 08/05/18 Prog Note Time: 13:48 - Subjective Subjective: Nursing does not report any new events. Vitals are stable. He is eating 100% of his meals today. Taking p.o. liquids and just fine. He is able to ambulate in his room without any assistance, goes to the bathroom. Cyst in the chair. Watches TV. Current Medications - Current Medications Current Medications: Active Medications Acetaminophen (Tylenol) 650 mg PO Q4HR PRN PRN Reason: Pain 1 to 4 Last Admin: 08/05/18 09:57 Dose: 650 mg Enoxaparin Sodium (Lovenox) 40 mg SUBQ DAILY [facility] Last Admin: 08/05/18 09:57 Dose: 40 mg Famotidine (Pepcid) 20 mg PO BID [facility] Last Admin: 08/05/18 09:57 Dose: 20 mg Guaifenesin (Mucinex) 600 mg PO BID [facility] Last Admin: 08/05/18 09:57 Dose: 600 mg Memantine (Namenda) 5 mg PO BID [facility] Last Admin: 08/05/18 09:57 Dose: 5 mg Multivitamins/Minerals (Theragran M) 1 tab PO DAILYWM [facility] Last Admin: 08/05/18 09:57 Dose: 1 tab Polyethylene Glycol (Miralax) 17 gm PO DAILY [facility] Last Admin: 08/05/18 09:58 Dose: Not Given Trazodone HCl (Desyrel) 50 mg PO QPM PRN PRN Reason: Insomnia Last Admin: 08/03/18 20:42 Dose: 50 mg No Known Home Medications 10/31/17 Objective - Vital Signs/Intake & Output Reviewed Vital Signs: Yes Vital Signs: Vital Signs x48h Temp Pulse Resp BP Pulse Ox 08/05/18 08:27 36.3 C L 64 18 125/77 93 Intake & Output: Intake & Output 08/02/18 08/03/18 08/04/18 08/05/18 23:59 23:59 23:59 23:59 Intake Total 640 1295 750 480 Output Total 250 Balance 640 1045 750 480 - Objective General Appearance: positive: No acute distress, Alert, Other (Tall lanky white male who looks actually is slightly younger than stated age, bearded, with glasses. Disheveled ungroomed phillips and hair but he is clean, wearing a hospital gown) Eyes Bilateral: positive: PERRL ENT: positive: Other (No facial asymmetry) Neck: positive: No JVD. negative: Stiff neck Respiratory: positive: Chest non-tender. negative: Wheezes, Rales, Rhonchi Cardiovascular: positive: Regular rate & rhythm. negative: Gallop/S4, Friction rub Abdomen: positive: Non-tender, No organomegaly, Nml bowel sounds, No distention Skin: positive: Warm, Dry Extremities: positive: Non-tender, No pedal edema Neurologic/Psychiatric: positive: CN's nml (2-12), Motor nml, Disoriented to person, Disoriented to place, Disoriented to time - Lab Results Fish Bones: 07/27/18 04:20 07/28/18 05:31 ABX Reporting Has patient been on IV antibiotics over the past 48 hours?: No Sepsis Event Note (H) - Evaluation Current Stage of Sepsis: Ruled out Assessment/Plan - Problem List (1) Problem situation relating to social and personal history Impression: He has now been here 14 days. Still awaiting placement.
--- NOTE | 2018-08-06 10:52 | PROVIDER PROGRESS NOTE ---
Subjective - Prog Note Date Prog Note Date: 08/06/18 Prog Note Time: 10:50 - Subjective Subjective: Upright during the day. Since in the chair. Walks in the room. Goes to the bathroom on his own. Feeds himself breakfast. Right now watching basketball . His main change in demeanor occurs at night. Gets a little bit more recalcitrant but is able to be prompted. Daytime nurse does not report any new events. Current Medications - Current Medications Current Medications: Active Medications Acetaminophen (Tylenol) 650 mg PO Q4HR PRN PRN Reason: Pain 1 to 4 Last Admin: 08/05/18 09:57 Dose: 650 mg Enoxaparin Sodium (Lovenox) 40 mg SUBQ DAILY [facility] Last Admin: 08/05/18 09:57 Dose: 40 mg Famotidine (Pepcid) 20 mg PO BID [facility] Last Admin: 08/05/18 21:08 Dose: 20 mg Guaifenesin (Mucinex) 600 mg PO BID [facility] Last Admin: 08/05/18 21:08 Dose: 600 mg Memantine (Namenda) 5 mg PO BID [facility] Last Admin: 08/05/18 21:08 Dose: 5 mg Multivitamins/Minerals (Theragran M) 1 tab PO DAILYWM [facility] Last Admin: 08/05/18 09:57 Dose: 1 tab Polyethylene Glycol (Miralax) 17 gm PO DAILY [facility] Last Admin: 08/05/18 09:58 Dose: Not Given Trazodone HCl (Desyrel) 50 mg PO QPM PRN PRN Reason: Insomnia Last Admin: 08/03/18 20:42 Dose: 50 mg No Known Home Medications 10/31/17 Objective - Vital Signs/Intake & Output Reviewed Vital Signs: Yes Vital Signs: Vital Signs x48h Temp Pulse Resp BP Pulse Ox 08/06/18 07:32 36.5 C 62 18 157/73 H 98 Intake & Output: Intake & Output 08/03/18 08/04/18 08/05/18 08/06/18 23:59 23:59 23:59 23:59 Intake Total 1295 750 680 340 Output Total 250 Balance 1045 750 680 340 - Objective General Appearance: positive: No acute distress, Alert, Other (Bearded white male, tall, lean and lanky with glasses and appeared. He pretty much ignores every time I come in every day and will be very monosyllabic in his responses. I seem to annoy him every time I come in to examine him) Eyes Bilateral: positive: PERRL, EOMI ENT: positive: Pharynx nml Neck: positive: No JVD. negative: Stiff neck, Carotid bruit Respiratory: positive: Chest non-tender. negative: Wheezes, Rales, Rhonchi Cardiovascular: positive: Regular rate & rhythm. negative: Gallop/S4, Friction rub Abdomen: positive: Non-tender, No organomegaly, Nml bowel sounds, No distention Skin: positive: Warm, Dry Extremities: positive: Full ROM Neurologic/Psychiatric: positive: CN's nml (2-12), Motor nml, Disoriented to person, Disoriented to place, Disoriented to time - Lab Results Fish Bones: 07/27/18 04:20 07/28/18 05:31 ABX Reporting Has patient been on IV antibiotics over the past 48 hours?: No Sepsis Event Note (H) - Evaluation Current Stage of Sepsis: Ruled out Assessment/Plan - Problem List (1) Problem situation relating to social and personal history Impression: Awaiting placement.The problem has to do with his dementia. He needs some type of outside guardianship to fill out a POLST form for him to go to [place]. Other facilities do not seem to be asking for that and we are basically waiting for social service to find a place willing to accept the payment stated by his insurance.
[2018-08-06] MEDS: FAMOTIDINE 20 MG TABLET PO SCH ×2 (13:09→20:57)
[2018-08-06] MEDS: guaiFENesin 600 MG TABLET PO SCH ×2 (13:09→20:57)
[2018-08-06] MEDS: ENOXAPARIN 40 MG/0.4 ML SYRINGE SUBQ SCH (13:09)
[2018-08-06] MEDS: MEMANTINE 5 MG TABLET PO SCH ×2 (13:09→20:57)
[2018-08-06] MEDS: MULTIVITAMIN W/MINERALS TABLET PO SCH (13:09)
[2018-08-06] MEDS: POLYETHYLENE GLYCOL 3350 17 GM PACKET PO SCH (14:56)
[2018-08-07] MEDS: FAMOTIDINE 20 MG TABLET PO SCH ×2 (08:38→21:56)
[2018-08-07] MEDS: MEMANTINE 5 MG TABLET PO SCH ×2 (08:38→21:56)
[2018-08-07] MEDS: guaiFENesin 600 MG TABLET PO SCH ×2 (08:38→21:56)
[2018-08-07] MEDS: MULTIVITAMIN W/MINERALS TABLET PO SCH (08:39)
[2018-08-07] MEDS: POLYETHYLENE GLYCOL 3350 17 GM PACKET PO SCH (08:43)
[2018-08-07] MEDS: ENOXAPARIN 40 MG/0.4 ML SYRINGE SUBQ SCH (08:45)
--- NOTE | 2018-08-07 11:16 | PROVIDER PROGRESS NOTE ---
Subjective - Prog Note Date Prog Note Date: 08/07/18 Prog Note Time: 11:14 - Subjective Pt reports feeling: No change Subjective: Spends his time in his room. Feeds himself. Gets up to go to the bathroom on his own. Watches TV. This weekend off and on has been basketball, right now he is watching old time westerns. Black and white. Current Medications - Current Medications Current Medications: Active Medications Generic Name Dose Route Start Last Admin Trade Name Freq PRN Reason Stop Dose Admin Acetaminophen 650 mg 07/23/18 11:56 08/05/18 09:57 Tylenol PO 650 mg Q4HR PRN Administration Pain 1 to 4 Enoxaparin Sodium 40 mg 07/24/18 09:00 08/07/18 08:45 Lovenox SUBQ 40 mg DAILY [facility] Administration Famotidine 20 mg 07/23/18 21:00 08/07/18 08:38 Pepcid PO 20 mg BID [facility] Administration Guaifenesin 600 mg 07/25/18 21:00 08/07/18 08:38 Mucinex PO 600 mg BID [facility] Administration Memantine 5 mg 07/23/18 21:00 08/07/18 08:38 Namenda PO 5 mg BID [facility] Administration Multivitamins/Minerals 1 tab 07/24/18 16:00 08/07/18 08:39 Theragran M PO 1 tab DAILYWM REG Administration Polyethylene Glycol 17 gm 07/24/18 09:00 08/07/18 08:43 Miralax PO 17 gm DAILY [facility] Administration Trazodone HCl 50 mg 07/24/18 21:44 08/03/18 20:42 Desyrel PO 50 mg QPM PRN Administration Insomnia No Known Home Medications 10/31/17 Objective - Vital Signs/Intake & Output Reviewed Vital Signs: Yes Vital Signs: Vital Signs x48h Temp Pulse Resp BP Pulse Ox 08/07/18 07:35 36.3 C L 79 18 130/69 92 Intake & Output: Intake & Output 08/04/18 08/05/18 08/06/18 08/07/18 23:59 23:59 23:59 23:59 Intake Total 750 680 830 240 Balance 750 680 830 240 - Objective General Appearance: positive: Alert, Other (tall, thin, glasses and a phillips) Eyes Bilateral: positive: PERRL Respiratory: positive: No respiratory distress. negative: Wheezes, Rales, Rhonchi Cardiovascular: positive: Regular rate & rhythm. negative: Gallop/S4, Friction rub Abdomen: positive: Non-tender, No organomegaly, Nml bowel sounds, No distention Neurologic/Psychiatric: positive: Oriented x3, CN's nml (2-12), Motor nml, Disoriented to person, Disoriented to place, Disoriented to time - Lab Results Fish Bones: 07/27/18 04:20 07/28/18 05:31 ABX Reporting Has patient been on IV antibiotics over the past 48 hours?: No Sepsis Event Note (H) - Evaluation Current Stage of Sepsis: Ruled out Assessment/Plan - Problem List (1) Problem situation relating to social and personal history Impression: Dementia patient. Not able to live alone in the home. Awaiting placement. Now day #16
--- NOTE | 2018-08-08 10:53 | PROVIDER PROGRESS NOTE ---
Assessment/Plan - Problem List (1) Dementia Qualifiers: Dementia type: unspecified type Dementia behavioral disturbance: without behavioral disturbance Qualified Code(s): F03.90 - Unspecified dementia without behavioral disturbance Assessment/Plan: Unchanged. (2) NPH (normal pressure hydrocephalus) Assessment/Plan: No intervention planned (3) Problem situation relating to social and personal history Assessment/Plan: He cannot return to living alone. Placement and legal issues being worked on. - Current Meds Current Meds: Current Medications Generic Name Dose Route Start Last Admin Trade Name Freq PRN Reason Stop Dose Admin Acetaminophen 650 mg 07/23/18 11:56 08/05/18 09:57 Tylenol PO 650 mg Q4HR PRN Administration Pain 1 to 4 Enoxaparin Sodium 40 mg 07/24/18 09:00 08/07/18 08:45 Lovenox SUBQ 40 mg DAILY [facility] Administration Famotidine 20 mg 07/23/18 21:00 08/07/18 21:56 Pepcid PO 20 mg BID [facility] Administration Guaifenesin 600 mg 07/25/18 21:00 08/07/18 21:56 Mucinex PO 600 mg BID [facility] Administration Memantine 5 mg 07/23/18 21:00 08/07/18 21:56 Namenda PO 5 mg BID [facility] Administration Multivitamins/Minerals 1 tab 07/24/18 16:00 08/07/18 08:39 Theragran M PO 1 tab DAILYWM REG Administration Polyethylene Glycol 17 gm 07/24/18 09:00 08/07/18 08:43 Miralax PO 17 gm DAILY [facility] Administration Trazodone HCl 50 mg 07/24/18 21:44 08/03/18 20:42 Desyrel PO 50 mg QPM PRN Administration Insomnia - Lab Result Fish Bone Diagrams: 07/27/18 04:20 07/28/18 05:31 Subjective - Subjective Patient Reports: No Complaints Nursing Reports: No Complaints Objective Vital Signs: Vital Signs - 24 hr 08/07/18 08/08/18 08/08/18 15:40 00:00 08:27 Temperature 36.6 C 36.8 C 36.5 C Heart Rate [ 87 88 66 Brachial] Respiratory 22 16 18 Rate Blood Pressure 114/61 119/57 L 155/79 H [Right Brachial artery] O2 Saturation 96 94 98 Oxygen O2 Source Room air I&O (Last 24 Hrs): Intake and Output Totals x24h 08/06/18 08/07/18 08/08/18 23:59 23:59 23:59 Intake Total 830 1150 240 Balance 830 1150 240 General: Other (Spends his time in his room. Feeds himself. Gets up to go to the bathroom on his own. Watches TV. Says Hi and waves.) Neck: Supple Neuro: Disoriented Respiratory: No respiratory distress Abdomen: Soft - Results Results: Laboratory Results WBC 2.8 x10^3/uL (4.8-10.8) L 07/27/18 04:20 RBC 3.29 10^6/uL (4.70-6.10) L 07/27/18 04:20 Hgb 11.5 g/dL (14.0-18.0) L 07/27/18 04:20 Hct 33.4 % (42.0-52.0) L 07/27/18 04:20 MCV 101.5 fL (80.0-94.0) H 07/27/18 04:20 MCH 35.0 pg (27.0-31.0) H 07/27/18 04:20 MCHC 34.5 g/dL (32.0-36.0) 07/27/18 04:20 RDW 15.6 % (12.0-15.0) H 07/27/18 04:20 Plt Count 113 10^3/uL (130-450) L 07/27/18 04:20 MPV 9.2 fL (7.4-11.4) 07/27/18 04:20 Neut # (Auto) 1.5 10^3/uL (1.5-6.6) 07/27/18 04:20 Lymph # (Auto) 0.8 10^3/uL (1.5-3.5) L 07/27/18 04:20 Ceiba # (Auto) 0.5 10^3/uL (0.0-1.0) 07/27/18 04:20 Eos # (Auto) 0.0 10^3/uL (0.0-0.7) 07/27/18 04:20 Baso # (Auto) 0.0 10^3/uL (0.0-0.1) 07/27/18 04:20 Absolute Nucleated RBC 0.00 x10^3/uL 07/27/18 04:20 Total Counted 100 07/26/18 05:05 Band Neuts % (Manual) 0 % (0-10) 07/26/18 05:05 Reactive Lymphs % (Man) 6 % 07/19/18 08:37 Abnorm Lymph % (Manual) 0 % 07/26/18 05:05 Nucleated RBC % 0.1 /100WBC 07/27/18 04:20 Neutrophils # (Manual) 1.5 10^3/uL (1.5-6.6) 07/26/18 05:05 Lymphocytes # (Manual) 0.6 10^3/uL (1.5-3.5) L 07/26/18 05:05 Monocytes # (Manual) 0.3 10^3/uL (0.0-1.0) 07/26/18 05:05 Eosinophils # (Manual) 0.0 10^3/uL (0-0.7) 07/26/18 05:05 Basophils # (Manual) 0.0 10^3/uL (0-0.1) 07/26/18 05:05 Differential Comment MANUAL DIFFERENTIAL 07/19/18 08:37 Manual Slide Review Indicated 07/27/18 04:20 Platelet Estimate DECREASED (<130,000) (NORMAL) 07/27/18 04:20 Platelet Morphology RARE GIANT PLATELETS (NORMAL) 07/19/18 08:37 RBC Morph Micro Appear 1+ ANISOCYTOSIS (NORMAL) 07/27/18 04:20 Sodium 139 mmol/L (135-145) 07/28/18 05:31 Potassium 3.6 mmol/L (3.5-5.0) 07/28/18 05:31 Chloride 105 mmol/L (101-111) 07/28/18 05:31 Carbon Dioxide 26 mmol/L (21-32) 07/28/18 05:31 Anion Gap 8.0 (6-13) 07/28/18 05:31 BUN 15 mg/dL (6-20) 07/28/18 05:31 Creatinine 0.9 mg/dL (0.6-1.2) 07/28/18 05:31 Estimated GFR (MDRD) 82 (>89) L 07/28/18 05:31 Glucose 93 mg/dL (70-100) 07/28/18 05:31 POC Whole Bld Glucose 70 mg/dL (70 - 100) 07/22/18 11:34 Lactic Acid 1.0 mmol/L (0.5-2.2) 07/23/18 09:15 Calcium 7.9 mg/dL (8.5-10.3) L 07/28/18 05:31 Phosphorus 1.7 mg/dL (2.5-4.6) L 07/25/18 06:07 Total Bilirubin 0.6 mg/dL (0.2-1.0) 07/22/18 13:37 AST 30 IU/L (10-42) 07/22/18 13:37 ALT 14 IU/L (10-60) 07/22/18 13:37 Alkaline Phosphatase 98 IU/L (42-121) 07/22/18 13:37 Total Creatine Kinase 122 IU/L (22-269) 07/19/18 08:37 Troponin I < 0.04 ng/mL (<0.49) 07/22/18 13:37 Total Protein 6.6 g/dL (6.7-8.2) L 07/22/18 13:37 Albumin 2.7 g/dL (3.2-5.5) L 07/25/18 06:07 Globulin 3.2 g/dL (2.1-4.2) 07/22/18 13:37 Albumin/Globulin Ratio 1.1 (1.0-2.2) 07/22/18 13:37 Lipase 30 U/L (22-51) 07/22/18 13:37 Urine Color YELLOW 07/21/18 18:29 Urine Clarity CLEAR (CLEAR) 07/21/18 18:29 Urine pH 6.0 PH (5.0-7.5) 07/21/18 18:29 Ur Specific [place] 1.025 (1.002-1.030) 07/21/18 18:29 Urine Protein NEGATIVE mg/dL (NEGATIVE) 07/21/18 18:29 Urine Glucose (UA) NEGATIVE mg/dL (NEGATIVE) 07/21/18 18:29 Urine Ketones 15 mg/dL (NEGATIVE) H 07/21/18 18:29 Urine Occult Blood SMALL (NEGATIVE) H 07/21/18 18:29 Urine Nitrite NEGATIVE (NEGATIVE) 07/21/18 18:29 Urine Bilirubin NEGATIVE (NEGATIVE) 07/21/18 18:29 Urine Urobilinogen 0.2 (NORMAL) E.U./dL (NORMAL) 07/21/18 18:29 Ur Leukocyte Esterase NEGATIVE (NEGATIVE) 07/21/18 18:29 Urine RBC 6-10 /HPF (0-5) H 07/21/18 18:29 Urine WBC 0-3 /HPF (0-3) 07/21/18 18:29 Ur Squamous Epith Cells RARE Squamous (<= Few) 07/21/18 18:29 Urine Bacteria Rare /HPF (None Seen) 07/21/18 18:29 Urine Mucus Few Strands 07/21/18 18:29 Ur Microscopic Review INDICATED 07/21/18 18:29 Urine Culture Comments NOT INDICATED 07/21/18 18:29 Last Dose Date UNK 07/25/18 09:30 Last Dose Time UNK 07/25/18 09:30 Vancomycin Trough 17.4 ug/mL (10.0-20.0) 07/25/18 09:30 Urine Opiates Screen NEGATIVE (NEGATIVE) 07/17/18 00:00 Ur Oxycodone Screen NEGATIVE (NEGATIVE) 07/17/18 00:00 Urine Methadone Screen NEGATIVE (NEGATIVE) 07/17/18 00:00 Ur Propoxyphene Screen NEGATIVE (NEGATIVE) 07/17/18 00:00 Ur Barbiturates Screen NEGATIVE (NEGATIVE) 07/17/18 00:00 Ur Tricyclics Screen NEGATIVE (NEGATIVE) 07/17/18 00:00 Ur Phencyclidine Scrn NEGATIVE (NEGATIVE) 07/17/18 00:00 Ur Amphetamine Screen NEGATIVE (NEGATIVE) 07/17/18 00:00 U Methamphetamines Scrn NEGATIVE (NEGATIVE) 07/17/18 00:00 U Benzodiazepines Scrn NEGATIVE (NEGATIVE) 07/17/18 00:00 Urine Cocaine Screen NEGATIVE (NEGATIVE) 07/17/18 00:00 U Cannabinoids Screen NEGATIVE (NEGATIVE) 07/17/18 00:00 C. difficile Tox B Gene NEGATIVE (NEGATIVE) 07/23/18 07:43 Sepsis Event Note (H) - Evaluation Current Stage of Sepsis: Ruled out
[2018-08-08] MEDS: MULTIVITAMIN W/MINERALS TABLET PO SCH (11:00)
[2018-08-08] MEDS: MEMANTINE 5 MG TABLET PO SCH ×2 (11:00→20:18)
[2018-08-08] MEDS: guaiFENesin 600 MG TABLET PO SCH ×2 (11:01→20:18)
[2018-08-08] MEDS: FAMOTIDINE 20 MG TABLET PO SCH ×2 (11:02→20:18)
[2018-08-08] MEDS: ENOXAPARIN 40 MG/0.4 ML SYRINGE SUBQ SCH (11:02)
[2018-08-08] MEDS: POLYETHYLENE GLYCOL 3350 17 GM PACKET PO SCH (11:06)
[2018-08-08] MEDS: traZODone 50 MG TABLET PO PRN (20:18)
--- NOTE | 2018-08-09 08:34 | PROVIDER PROGRESS NOTE ---
Assessment/Plan - Problem List (1) Dementia Qualifiers: Dementia type: unspecified type Dementia behavioral disturbance: without behavioral disturbance Qualified Code(s): F03.90 - Unspecified dementia without behavioral disturbance Assessment/Plan: Continue Namenda. Awaiting placement since return to his residence alone is not safe. (2) NPH (normal pressure hydrocephalus) Assessment/Plan: Stable (3) Problem situation relating to social and personal history Assessment/Plan: Will stop the scheduled Mucinex, his resp status has normalized. Will change VS checks to daily. Awaiting placement since return to his residence alone is not safe. - Current Meds Current Meds: Current Medications Generic Name Dose Route Start Last Admin Trade Name Freq PRN Reason Stop Dose Admin Acetaminophen 650 mg 07/23/18 11:56 08/05/18 09:57 Tylenol PO 650 mg Q4HR PRN Administration Pain 1 to 4 Enoxaparin Sodium 40 mg 07/24/18 09:00 08/08/18 11:02 Lovenox SUBQ 40 mg DAILY REG Administration Famotidine 20 mg 07/23/18 21:00 08/08/18 20:18 Pepcid PO 20 mg BID REG Administration Memantine 5 mg 07/23/18 21:00 08/08/18 20:18 Namenda PO 5 mg BID REG Administration Multivitamins/Minerals 1 tab 07/24/18 16:00 08/08/18 11:00 Theragran M PO 1 tab DAILYWM REG Administration Polyethylene Glycol 17 gm 07/24/18 09:00 08/08/18 11:06 Miralax PO 17 gm DAILY REG Administration Trazodone HCl 50 mg 07/24/18 21:44 08/08/18 20:18 Desyrel PO 50 mg QPM PRN Administration Insomnia - Lab Result Fish Bone Diagrams: 07/27/18 04:20 07/28/18 05:31 Subjective - Subjective Patient Reports: No Complaints Objective Vital Signs: Vital Signs - 24 hr 08/08/18 08/09/18 16:00 00:10 Temperature 37.1 C 36.8 C Heart Rate [ 77 62 Brachial] Respiratory 16 16 Rate Blood Pressure 127/63 145/70 H [Right Brachial artery] O2 Saturation 94 96 Oxygen O2 Source Room air I&O (Last 24 Hrs): Intake and Output Totals x24h 08/07/18 08/08/18 08/09/18 23:59 23:59 23:59 Intake Total 1150 780 100 Balance 1150 780 100 General: Alert HEENT: Mucous membr. moist/pink Neuro: Disoriented Respiratory: No respiratory distress Extremities: No edema - Results Results: Laboratory Results WBC 2.8 x10^3/uL (4.8-10.8) L 07/27/18 04:20 RBC 3.29 10^6/uL (4.70-6.10) L 07/27/18 04:20 Hgb 11.5 g/dL (14.0-18.0) L 07/27/18 04:20 Hct 33.4 % (42.0-52.0) L 07/27/18 04:20 MCV 101.5 fL (80.0-94.0) H 07/27/18 04:20 MCH 35.0 pg (27.0-31.0) H 07/27/18 04:20 MCHC 34.5 g/dL (32.0-36.0) 07/27/18 04:20 RDW 15.6 % (12.0-15.0) H 07/27/18 04:20 Plt Count 113 10^3/uL (130-450) L 07/27/18 04:20 MPV 9.2 fL (7.4-11.4) 07/27/18 04:20 Neut # (Auto) 1.5 10^3/uL (1.5-6.6) 07/27/18 04:20 Lymph # (Auto) 0.8 10^3/uL (1.5-3.5) L 07/27/18 04:20 [place] # (Auto) 0.5 10^3/uL (0.0-1.0) 07/27/18 04:20 Eos # (Auto) 0.0 10^3/uL (0.0-0.7) 07/27/18 04:20 Baso # (Auto) 0.0 10^3/uL (0.0-0.1) 07/27/18 04:20 Absolute Nucleated RBC 0.00 x10^3/uL 07/27/18 04:20 Total Counted 100 07/26/18 05:05 Band Neuts % (Manual) 0 % (0-10) 07/26/18 05:05 Reactive Lymphs % (Man) 6 % 07/19/18 08:37 Abnorm Lymph % (Manual) 0 % 07/26/18 05:05 Nucleated RBC % 0.1 /100WBC 07/27/18 04:20 Neutrophils # (Manual) 1.5 10^3/uL (1.5-6.6) 07/26/18 05:05 Lymphocytes # (Manual) 0.6 10^3/uL (1.5-3.5) L 07/26/18 05:05 Monocytes # (Manual) 0.3 10^3/uL (0.0-1.0) 07/26/18 05:05 Eosinophils # (Manual) 0.0 10^3/uL (0-0.7) 07/26/18 05:05 Basophils # (Manual) 0.0 10^3/uL (0-0.1) 07/26/18 05:05 Differential Comment MANUAL DIFFERENTIAL 07/19/18 08:37 Manual Slide Review Indicated 07/27/18 04:20 Platelet Estimate DECREASED (<130,000) (NORMAL) 07/27/18 04:20 Platelet Morphology RARE GIANT PLATELETS (NORMAL) 07/19/18 08:37 RBC Morph Micro Appear 1+ ANISOCYTOSIS (NORMAL) 07/27/18 04:20 Sodium 139 mmol/L (135-145) 07/28/18 05:31 Potassium 3.6 mmol/L (3.5-5.0) 07/28/18 05:31 Chloride 105 mmol/L (101-111) 07/28/18 05:31 Carbon Dioxide 26 mmol/L (21-32) 07/28/18 05:31 Anion Gap 8.0 (6-13) 07/28/18 05:31 BUN 15 mg/dL (6-20) 07/28/18 05:31 Creatinine 0.9 mg/dL (0.6-1.2) 07/28/18 05:31 Estimated GFR (MDRD) 82 (>89) L 07/28/18 05:31 Glucose 93 mg/dL (70-100) 07/28/18 05:31 POC Whole Bld Glucose 70 mg/dL (70 - 100) 07/22/18 11:34 Lactic Acid 1.0 mmol/L (0.5-2.2) 07/23/18 09:15 Calcium 7.9 mg/dL (8.5-10.3) L 07/28/18 05:31 Phosphorus 1.7 mg/dL (2.5-4.6) L 07/25/18 06:07 Total Bilirubin 0.6 mg/dL (0.2-1.0) 07/22/18 13:37 AST 30 IU/L (10-42) 07/22/18 13:37 ALT 14 IU/L (10-60) 07/22/18 13:37 Alkaline Phosphatase 98 IU/L (42-121) 07/22/18 13:37 Total Creatine Kinase 122 IU/L (22-269) 07/19/18 08:37 Troponin I < 0.04 ng/mL (<0.49) 07/22/18 13:37 Total Protein 6.6 g/dL (6.7-8.2) L 07/22/18 13:37 Albumin 2.7 g/dL (3.2-5.5) L 07/25/18 06:07 Globulin 3.2 g/dL (2.1-4.2) 07/22/18 13:37 Albumin/Globulin Ratio 1.1 (1.0-2.2) 07/22/18 13:37 Lipase 30 U/L (22-51) 07/22/18 13:37 Urine Color YELLOW 07/21/18 18:29 Urine Clarity CLEAR (CLEAR) 07/21/18 18:29 Urine pH 6.0 PH (5.0-7.5) 07/21/18 18:29 Ur Specific [place] 1.025 (1.002-1.030) 07/21/18 18:29 Urine Protein NEGATIVE mg/dL (NEGATIVE) 07/21/18 18:29 Urine Glucose (UA) NEGATIVE mg/dL (NEGATIVE) 07/21/18 18:29 Urine Ketones 15 mg/dL (NEGATIVE) H 07/21/18 18:29 Urine Occult Blood SMALL (NEGATIVE) H 07/21/18 18:29 Urine Nitrite NEGATIVE (NEGATIVE) 07/21/18 18:29 Urine Bilirubin NEGATIVE (NEGATIVE) 07/21/18 18:29 Urine Urobilinogen 0.2 (NORMAL) E.U./dL (NORMAL) 07/21/18 18:29 Ur Leukocyte Esterase NEGATIVE (NEGATIVE) 07/21/18 18:29 Urine RBC 6-10 /HPF (0-5) H 07/21/18 18:29 Urine WBC 0-3 /HPF (0-3) 07/21/18 18:29 Ur Squamous Epith Cells RARE Squamous (<= Few) 07/21/18 18:29 Urine Bacteria Rare /HPF (None Seen) 07/21/18 18:29 Urine Mucus Few Strands 07/21/18 18:29 Ur Microscopic Review INDICATED 07/21/18 18:29 Urine Culture Comments NOT INDICATED 07/21/18 18:29 Last Dose Date UNK 07/25/18 09:30 Last Dose Time UNK 07/25/18 09:30 Vancomycin Trough 17.4 ug/mL (10.0-20.0) 07/25/18 09:30 Urine Opiates Screen NEGATIVE (NEGATIVE) 07/17/18 00:00 Ur Oxycodone Screen NEGATIVE (NEGATIVE) 07/17/18 00:00 Urine Methadone Screen NEGATIVE (NEGATIVE) 07/17/18 00:00 Ur Propoxyphene Screen NEGATIVE (NEGATIVE) 07/17/18 00:00 Ur Barbiturates Screen NEGATIVE (NEGATIVE) 07/17/18 00:00 Ur Tricyclics Screen NEGATIVE (NEGATIVE) 07/17/18 00:00 Ur Phencyclidine Scrn NEGATIVE (NEGATIVE) 07/17/18 00:00 Ur Amphetamine Screen NEGATIVE (NEGATIVE) 07/17/18 00:00 U Methamphetamines Scrn NEGATIVE (NEGATIVE) 07/17/18 00:00 U Benzodiazepines Scrn NEGATIVE (NEGATIVE) 07/17/18 00:00 Urine Cocaine Screen NEGATIVE (NEGATIVE) 07/17/18 00:00 U Cannabinoids Screen NEGATIVE (NEGATIVE) 07/17/18 00:00 C. difficile Tox B Gene NEGATIVE (NEGATIVE) 07/23/18 07:43 Sepsis Event Note (H) - Evaluation Current Stage of Sepsis: Ruled out
[2018-08-09] MEDS: FAMOTIDINE 20 MG TABLET PO SCH ×2 (08:54→20:24)
[2018-08-09] MEDS: MEMANTINE 5 MG TABLET PO SCH ×2 (08:54→20:24)
[2018-08-09] MEDS: MULTIVITAMIN W/MINERALS TABLET PO SCH (08:54)
[2018-08-09] MEDS: POLYETHYLENE GLYCOL 3350 17 GM PACKET PO SCH (08:57)
[2018-08-09] MEDS: ENOXAPARIN 40 MG/0.4 ML SYRINGE SUBQ SCH (08:57)
[2018-08-09] MEDS: traZODone 50 MG TABLET PO PRN (20:24)
[2018-08-10] MEDS: FAMOTIDINE 20 MG TABLET PO SCH ×2 (09:09→20:02)
[2018-08-10] MEDS: ENOXAPARIN 40 MG/0.4 ML SYRINGE SUBQ SCH (09:10)
[2018-08-10] MEDS: MULTIVITAMIN W/MINERALS TABLET PO SCH (09:10)
[2018-08-10] MEDS: MEMANTINE 5 MG TABLET PO SCH ×2 (09:11→20:02)
[2018-08-10] MEDS: POLYETHYLENE GLYCOL 3350 17 GM PACKET PO SCH (09:12)
--- NOTE | 2018-08-10 15:30 | PROVIDER PROGRESS NOTE ---
Assessment/Plan - Problem List (1) Dementia Qualifiers: Dementia type: unspecified type Dementia behavioral disturbance: without behavioral disturbance Qualified Code(s): F03.90 - Unspecified dementia without behavioral disturbance Assessment/Plan: Unchanged (2) NPH (normal pressure hydrocephalus) Assessment/Plan: Unchanged (3) Problem situation relating to social and personal history Assessment/Plan: Unchanged - Current Meds Current Meds: Current Medications Generic Name Dose Route Start Last Admin Trade Name Freq PRN Reason Stop Dose Admin Acetaminophen 650 mg 07/23/18 11:56 08/05/18 09:57 Tylenol PO 650 mg Q4HR PRN Administration Pain 1 to 4 Enoxaparin Sodium 40 mg 07/24/18 09:00 08/10/18 09:10 Lovenox SUBQ 40 mg DAILY REG Administration Famotidine 20 mg 07/23/18 21:00 08/10/18 09:09 Pepcid PO 20 mg BID REG Administration Memantine 5 mg 07/23/18 21:00 08/10/18 09:11 Namenda PO 5 mg BID REG Administration Multivitamins/Minerals 1 tab 07/24/18 16:00 08/10/18 09:10 Theragran M PO 1 tab DAILYWM REG Administration Polyethylene Glycol 17 gm 07/24/18 09:00 08/10/18 09:12 Miralax PO 17 gm DAILY REG Administration Trazodone HCl 50 mg 07/24/18 21:44 08/09/18 20:24 Desyrel PO 50 mg QPM PRN Administration Insomnia - Lab Result Fish Bone Diagrams: 07/27/18 04:20 07/28/18 05:31 Subjective - Subjective Patient Reports: Resting Comfortably Objective Vital Signs: Vital Signs - 24 hr 08/10/18 09:26 Temperature 36.4 C L Heart Rate [ 75 Brachial] Respiratory 18 Rate Blood Pressure 116/56 L [Right Brachial artery] O2 Saturation 94 Oxygen O2 Source Room air I&O (Last 24 Hrs): Intake and Output Totals x24h 08/08/18 08/09/18 08/10/18 23:59 23:59 23:59 Intake Total 780 1190 920 Balance 780 1190 920 General: Alert Respiratory: No respiratory distress - Results Results: Laboratory Results WBC 2.8 x10^3/uL (4.8-10.8) L 07/27/18 04:20 RBC 3.29 10^6/uL (4.70-6.10) L 07/27/18 04:20 Hgb 11.5 g/dL (14.0-18.0) L 07/27/18 04:20 Hct 33.4 % (42.0-52.0) L 07/27/18 04:20 MCV 101.5 fL (80.0-94.0) H 07/27/18 04:20 MCH 35.0 pg (27.0-31.0) H 07/27/18 04:20 MCHC 34.5 g/dL (32.0-36.0) 07/27/18 04:20 RDW 15.6 % (12.0-15.0) H 07/27/18 04:20 Plt Count 113 10^3/uL (130-450) L 07/27/18 04:20 MPV 9.2 fL (7.4-11.4) 07/27/18 04:20 Neut # (Auto) 1.5 10^3/uL (1.5-6.6) 07/27/18 04:20 Lymph # (Auto) 0.8 10^3/uL (1.5-3.5) L 07/27/18 04:20 [place] # (Auto) 0.5 10^3/uL (0.0-1.0) 07/27/18 04:20 Eos # (Auto) 0.0 10^3/uL (0.0-0.7) 07/27/18 04:20 Baso # (Auto) 0.0 10^3/uL (0.0-0.1) 07/27/18 04:20 Absolute Nucleated RBC 0.00 x10^3/uL 07/27/18 04:20 Total Counted 100 07/26/18 05:05 Band Neuts % (Manual) 0 % (0-10) 07/26/18 05:05 Reactive Lymphs % (Man) 6 % 07/19/18 08:37 Abnorm Lymph % (Manual) 0 % 07/26/18 05:05 Nucleated RBC % 0.1 /100WBC 07/27/18 04:20 Neutrophils # (Manual) 1.5 10^3/uL (1.5-6.6) 07/26/18 05:05 Lymphocytes # (Manual) 0.6 10^3/uL (1.5-3.5) L 07/26/18 05:05 Monocytes # (Manual) 0.3 10^3/uL (0.0-1.0) 07/26/18 05:05 Eosinophils # (Manual) 0.0 10^3/uL (0-0.7) 07/26/18 05:05 Basophils # (Manual) 0.0 10^3/uL (0-0.1) 07/26/18 05:05 Differential Comment MANUAL DIFFERENTIAL 07/19/18 08:37 Manual Slide Review Indicated 07/27/18 04:20 Platelet Estimate DECREASED (<130,000) (NORMAL) 07/27/18 04:20 Platelet Morphology RARE GIANT PLATELETS (NORMAL) 07/19/18 08:37 RBC Morph Micro Appear 1+ ANISOCYTOSIS (NORMAL) 07/27/18 04:20 Sodium 139 mmol/L (135-145) 07/28/18 05:31 Potassium 3.6 mmol/L (3.5-5.0) 07/28/18 05:31 Chloride 105 mmol/L (101-111) 07/28/18 05:31 Carbon Dioxide 26 mmol/L (21-32) 07/28/18 05:31 Anion Gap 8.0 (6-13) 07/28/18 05:31 BUN 15 mg/dL (6-20) 07/28/18 05:31 Creatinine 0.9 mg/dL (0.6-1.2) 07/28/18 05:31 Estimated GFR (MDRD) 82 (>89) L 07/28/18 05:31 Glucose 93 mg/dL (70-100) 07/28/18 05:31 POC Whole Bld Glucose 70 mg/dL (70 - 100) 07/22/18 11:34 Lactic Acid 1.0 mmol/L (0.5-2.2) 07/23/18 09:15 Calcium 7.9 mg/dL (8.5-10.3) L 07/28/18 05:31 Phosphorus 1.7 mg/dL (2.5-4.6) L 07/25/18 06:07 Total Bilirubin 0.6 mg/dL (0.2-1.0) 07/22/18 13:37 AST 30 IU/L (10-42) 07/22/18 13:37 ALT 14 IU/L (10-60) 07/22/18 13:37 Alkaline Phosphatase 98 IU/L (42-121) 07/22/18 13:37 Total Creatine Kinase 122 IU/L (22-269) 07/19/18 08:37 Troponin I < 0.04 ng/mL (<0.49) 07/22/18 13:37 Total Protein 6.6 g/dL (6.7-8.2) L 07/22/18 13:37 Albumin 2.7 g/dL (3.2-5.5) L 07/25/18 06:07 Globulin 3.2 g/dL (2.1-4.2) 07/22/18 13:37 Albumin/Globulin Ratio 1.1 (1.0-2.2) 07/22/18 13:37 Lipase 30 U/L (22-51) 07/22/18 13:37 Urine Color YELLOW 07/21/18 18:29 Urine Clarity CLEAR (CLEAR) 07/21/18 18:29 Urine pH 6.0 PH (5.0-7.5) 07/21/18 18:29 Ur Specific [place] 1.025 (1.002-1.030) 07/21/18 18:29 Urine Protein NEGATIVE mg/dL (NEGATIVE) 07/21/18 18:29 Urine Glucose (UA) NEGATIVE mg/dL (NEGATIVE) 07/21/18 18:29 Urine Ketones 15 mg/dL (NEGATIVE) H 07/21/18 18:29 Urine Occult Blood SMALL (NEGATIVE) H 07/21/18 18:29 Urine Nitrite NEGATIVE (NEGATIVE) 07/21/18 18:29 Urine Bilirubin NEGATIVE (NEGATIVE) 07/21/18 18:29 Urine Urobilinogen 0.2 (NORMAL) E.U./dL (NORMAL) 07/21/18 18:29 Ur Leukocyte Esterase NEGATIVE (NEGATIVE) 07/21/18 18:29 Urine RBC 6-10 /HPF (0-5) H 07/21/18 18:29 Urine WBC 0-3 /HPF (0-3) 07/21/18 18:29 Ur Squamous Epith Cells RARE Squamous (<= Few) 07/21/18 18:29 Urine Bacteria Rare /HPF (None Seen) 07/21/18 18:29 Urine Mucus Few Strands 07/21/18 18:29 Ur Microscopic Review INDICATED 07/21/18 18:29 Urine Culture Comments NOT INDICATED 07/21/18 18:29 Last Dose Date UNK 07/25/18 09:30 Last Dose Time UNK 07/25/18 09:30 Vancomycin Trough 17.4 ug/mL (10.0-20.0) 07/25/18 09:30 Urine Opiates Screen NEGATIVE (NEGATIVE) 07/17/18 00:00 Ur Oxycodone Screen NEGATIVE (NEGATIVE) 07/17/18 00:00 Urine Methadone Screen NEGATIVE (NEGATIVE) 07/17/18 00:00 Ur Propoxyphene Screen NEGATIVE (NEGATIVE) 07/17/18 00:00 Ur Barbiturates Screen NEGATIVE (NEGATIVE) 07/17/18 00:00 Ur Tricyclics Screen NEGATIVE (NEGATIVE) 07/17/18 00:00 Ur Phencyclidine Scrn NEGATIVE (NEGATIVE) 07/17/18 00:00 Ur Amphetamine Screen NEGATIVE (NEGATIVE) 07/17/18 00:00 U Methamphetamines Scrn NEGATIVE (NEGATIVE) 07/17/18 00:00 U Benzodiazepines Scrn NEGATIVE (NEGATIVE) 07/17/18 00:00 Urine Cocaine Screen NEGATIVE (NEGATIVE) 07/17/18 00:00 U Cannabinoids Screen NEGATIVE (NEGATIVE) 07/17/18 00:00 C. difficile Tox B Gene NEGATIVE (NEGATIVE) 07/23/18 07:43 Sepsis Event Note (H) - Evaluation Current Stage of Sepsis: Ruled out
[2018-08-10] MEDS: traZODone 50 MG TABLET PO PRN (20:02)
[2018-08-11] MEDS: MEMANTINE 5 MG TABLET PO SCH ×2 (09:28→20:07)
[2018-08-11] MEDS: FAMOTIDINE 20 MG TABLET PO SCH ×2 (09:28→20:07)
[2018-08-11] MEDS: MULTIVITAMIN W/MINERALS TABLET PO SCH (09:28)
[2018-08-11] MEDS: POLYETHYLENE GLYCOL 3350 17 GM PACKET PO SCH (09:28)
[2018-08-11] MEDS: ENOXAPARIN 40 MG/0.4 ML SYRINGE SUBQ SCH (09:35)
--- NOTE | 2018-08-11 12:58 | PROVIDER PROGRESS NOTE ---
Assessment/Plan - Problem List (1) Dementia Qualifiers: Dementia type: unspecified type Dementia behavioral disturbance: without behavioral disturbance Qualified Code(s): F03.90 - Unspecified dementia without behavioral disturbance Assessment/Plan: Unchanged (2) NPH (normal pressure hydrocephalus) Assessment/Plan: Unchanged (3) Problem situation relating to social and personal history Assessment/Plan: Unchanged - Current Meds Current Meds: Current Medications Generic Name Dose Route Start Last Admin Trade Name Freq PRN Reason Stop Dose Admin Acetaminophen 650 mg 07/23/18 11:56 08/05/18 09:57 Tylenol PO 650 mg Q4HR PRN Administration Pain 1 to 4 Enoxaparin Sodium 40 mg 07/24/18 09:00 08/11/18 09:35 Lovenox SUBQ 40 mg DAILY REG Administration Famotidine 20 mg 07/23/18 21:00 08/11/18 09:28 Pepcid PO 20 mg BID REG Administration Memantine 5 mg 07/23/18 21:00 08/11/18 09:28 Namenda PO 5 mg BID REG Administration Multivitamins/Minerals 1 tab 07/24/18 16:00 08/11/18 09:28 Theragran M PO 1 tab DAILYWM REG Administration Polyethylene Glycol 17 gm 07/24/18 09:00 08/11/18 09:28 Miralax PO 17 gm DAILY REG Administration Trazodone HCl 50 mg 07/24/18 21:44 08/10/18 20:02 Desyrel PO 50 mg QPM PRN Administration Insomnia - Lab Result Fish Bone Diagrams: 07/27/18 04:20 07/28/18 05:31 Subjective - Subjective Patient Reports: No Complaints Objective Vital Signs: Vital Signs - 24 hr 08/11/18 09:00 Temperature 36.4 C L Heart Rate [ 70 Brachial] Respiratory 16 Rate Blood Pressure 108/62 [Right Brachial artery] O2 Saturation 94 Oxygen O2 Source Room air I&O (Last 24 Hrs): Intake and Output Totals x24h 08/09/18 08/10/18 08/11/18 23:59 23:59 23:59 Intake Total 1190 1040 Balance 1190 1040 Respiratory: No respiratory distress - Results Results: Laboratory Results WBC 2.8 x10^3/uL (4.8-10.8) L 07/27/18 04:20 RBC 3.29 10^6/uL (4.70-6.10) L 07/27/18 04:20 Hgb 11.5 g/dL (14.0-18.0) L 07/27/18 04:20 Hct 33.4 % (42.0-52.0) L 07/27/18 04:20 MCV 101.5 fL (80.0-94.0) H 07/27/18 04:20 MCH 35.0 pg (27.0-31.0) H 07/27/18 04:20 MCHC 34.5 g/dL (32.0-36.0) 07/27/18 04:20 RDW 15.6 % (12.0-15.0) H 07/27/18 04:20 Plt Count 113 10^3/uL (130-450) L 07/27/18 04:20 MPV 9.2 fL (7.4-11.4) 07/27/18 04:20 Neut # (Auto) 1.5 10^3/uL (1.5-6.6) 07/27/18 04:20 Lymph # (Auto) 0.8 10^3/uL (1.5-3.5) L 07/27/18 04:20 [place] # (Auto) 0.5 10^3/uL (0.0-1.0) 07/27/18 04:20 Eos # (Auto) 0.0 10^3/uL (0.0-0.7) 07/27/18 04:20 Baso # (Auto) 0.0 10^3/uL (0.0-0.1) 07/27/18 04:20 Absolute Nucleated RBC 0.00 x10^3/uL 07/27/18 04:20 Total Counted 100 07/26/18 05:05 Band Neuts % (Manual) 0 % (0-10) 07/26/18 05:05 Reactive Lymphs % (Man) 6 % 07/19/18 08:37 Abnorm Lymph % (Manual) 0 % 07/26/18 05:05 Nucleated RBC % 0.1 /100WBC 07/27/18 04:20 Neutrophils # (Manual) 1.5 10^3/uL (1.5-6.6) 07/26/18 05:05 Lymphocytes # (Manual) 0.6 10^3/uL (1.5-3.5) L 07/26/18 05:05 Monocytes # (Manual) 0.3 10^3/uL (0.0-1.0) 07/26/18 05:05 Eosinophils # (Manual) 0.0 10^3/uL (0-0.7) 07/26/18 05:05 Basophils # (Manual) 0.0 10^3/uL (0-0.1) 07/26/18 05:05 Differential Comment MANUAL DIFFERENTIAL 07/19/18 08:37 Manual Slide Review Indicated 07/27/18 04:20 Platelet Estimate DECREASED (<130,000) (NORMAL) 07/27/18 04:20 Platelet Morphology RARE GIANT PLATELETS (NORMAL) 07/19/18 08:37 RBC Morph Micro Appear 1+ ANISOCYTOSIS (NORMAL) 07/27/18 04:20 Sodium 139 mmol/L (135-145) 07/28/18 05:31 Potassium 3.6 mmol/L (3.5-5.0) 07/28/18 05:31 Chloride 105 mmol/L (101-111) 07/28/18 05:31 Carbon Dioxide 26 mmol/L (21-32) 07/28/18 05:31 Anion Gap 8.0 (6-13) 07/28/18 05:31 BUN 15 mg/dL (6-20) 07/28/18 05:31 Creatinine 0.9 mg/dL (0.6-1.2) 07/28/18 05:31 Estimated GFR (MDRD) 82 (>89) L 07/28/18 05:31 Glucose 93 mg/dL (70-100) 07/28/18 05:31 POC Whole Bld Glucose 70 mg/dL (70 - 100) 07/22/18 11:34 Lactic Acid 1.0 mmol/L (0.5-2.2) 07/23/18 09:15 Calcium 7.9 mg/dL (8.5-10.3) L 07/28/18 05:31 Phosphorus 1.7 mg/dL (2.5-4.6) L 07/25/18 06:07 Total Bilirubin 0.6 mg/dL (0.2-1.0) 07/22/18 13:37 AST 30 IU/L (10-42) 07/22/18 13:37 ALT 14 IU/L (10-60) 07/22/18 13:37 Alkaline Phosphatase 98 IU/L (42-121) 07/22/18 13:37 Total Creatine Kinase 122 IU/L (22-269) 07/19/18 08:37 Troponin I < 0.04 ng/mL (<0.49) 07/22/18 13:37 Total Protein 6.6 g/dL (6.7-8.2) L 07/22/18 13:37 Albumin 2.7 g/dL (3.2-5.5) L 07/25/18 06:07 Globulin 3.2 g/dL (2.1-4.2) 07/22/18 13:37 Albumin/Globulin Ratio 1.1 (1.0-2.2) 07/22/18 13:37 Lipase 30 U/L (22-51) 07/22/18 13:37 Urine Color YELLOW 07/21/18 18:29 Urine Clarity CLEAR (CLEAR) 07/21/18 18:29 Urine pH 6.0 PH (5.0-7.5) 07/21/18 18:29 Ur Specific [place] 1.025 (1.002-1.030) 07/21/18 18:29 Urine Protein NEGATIVE mg/dL (NEGATIVE) 07/21/18 18:29 Urine Glucose (UA) NEGATIVE mg/dL (NEGATIVE) 07/21/18 18:29 Urine Ketones 15 mg/dL (NEGATIVE) H 07/21/18 18:29 Urine Occult Blood SMALL (NEGATIVE) H 07/21/18 18:29 Urine Nitrite NEGATIVE (NEGATIVE) 07/21/18 18:29 Urine Bilirubin NEGATIVE (NEGATIVE) 07/21/18 18:29 Urine Urobilinogen 0.2 (NORMAL) E.U./dL (NORMAL) 07/21/18 18:29 Ur Leukocyte Esterase NEGATIVE (NEGATIVE) 07/21/18 18:29 Urine RBC 6-10 /HPF (0-5) H 07/21/18 18:29 Urine WBC 0-3 /HPF (0-3) 07/21/18 18:29 Ur Squamous Epith Cells RARE Squamous (<= Few) 07/21/18 18:29 Urine Bacteria Rare /HPF (None Seen) 07/21/18 18:29 Urine Mucus Few Strands 07/21/18 18:29 Ur Microscopic Review INDICATED 07/21/18 18:29 Urine Culture Comments NOT INDICATED 07/21/18 18:29 Last Dose Date UNK 07/25/18 09:30 Last Dose Time UNK 07/25/18 09:30 Vancomycin Trough 17.4 ug/mL (10.0-20.0) 07/25/18 09:30 Urine Opiates Screen NEGATIVE (NEGATIVE) 07/17/18 00:00 Ur Oxycodone Screen NEGATIVE (NEGATIVE) 07/17/18 00:00 Urine Methadone Screen NEGATIVE (NEGATIVE) 07/17/18 00:00 Ur Propoxyphene Screen NEGATIVE (NEGATIVE) 07/17/18 00:00 Ur Barbiturates Screen NEGATIVE (NEGATIVE) 07/17/18 00:00 Ur Tricyclics Screen NEGATIVE (NEGATIVE) 07/17/18 00:00 Ur Phencyclidine Scrn NEGATIVE (NEGATIVE) 07/17/18 00:00 Ur Amphetamine Screen NEGATIVE (NEGATIVE) 07/17/18 00:00 U Methamphetamines Scrn NEGATIVE (NEGATIVE) 07/17/18 00:00 U Benzodiazepines Scrn NEGATIVE (NEGATIVE) 07/17/18 00:00 Urine Cocaine Screen NEGATIVE (NEGATIVE) 07/17/18 00:00 U Cannabinoids Screen NEGATIVE (NEGATIVE) 07/17/18 00:00 C. difficile Tox B Gene NEGATIVE (NEGATIVE) 07/23/18 07:43 Sepsis Event Note (H) - Evaluation Current Stage of Sepsis: Ruled out
[2018-08-11] MEDS: traZODone 50 MG TABLET PO PRN (20:07)
[2018-08-12] MEDS ORDERED: SODIUM CHLORIDE FLUSH 0.9% 10 ML SYRINGE ONE (06:52)
[2018-08-12] MEDS: ENOXAPARIN 40 MG/0.4 ML SYRINGE SUBQ SCH (09:42)
[2018-08-12] MEDS: MULTIVITAMIN W/MINERALS TABLET PO SCH (09:42)
[2018-08-12] MEDS: POLYETHYLENE GLYCOL 3350 17 GM PACKET PO SCH (09:42)
[2018-08-12] MEDS: FAMOTIDINE 20 MG TABLET PO SCH ×2 (09:42→20:42)
[2018-08-12] MEDS: MEMANTINE 5 MG TABLET PO SCH ×2 (09:42→20:42)
--- NOTE | 2018-08-12 16:52 | PROVIDER PROGRESS NOTE ---
Assessment/Plan - Problem List (1) Dementia Qualifiers: Dementia type: unspecified type Dementia behavioral disturbance: without behavioral disturbance Qualified Code(s): F03.90 - Unspecified dementia without behavioral disturbance Assessment/Plan: Unchanged (2) NPH (normal pressure hydrocephalus) Assessment/Plan: Unchanged clinical status (3) Problem situation relating to social and personal history Assessment/Plan: No news regarding placement from [facility] [place]. - Current Meds Current Meds: Current Medications Generic Name Dose Route Start Last Admin Trade Name Freq PRN Reason Stop Dose Admin Acetaminophen 650 mg 07/23/18 11:56 08/05/18 09:57 Tylenol PO 650 mg Q4HR PRN Administration Pain 1 to 4 Enoxaparin Sodium 40 mg 07/24/18 09:00 08/12/18 09:42 Lovenox SUBQ 40 mg DAILY REG Administration Famotidine 20 mg 07/23/18 21:00 08/12/18 09:42 Pepcid PO 20 mg BID REG Administration Memantine 5 mg 07/23/18 21:00 08/12/18 09:42 Namenda PO 5 mg BID REG Administration Multivitamins/Minerals 1 tab 07/24/18 16:00 08/12/18 09:42 Theragran M PO 1 tab DAILYWM REG Administration Polyethylene Glycol 17 gm 07/24/18 09:00 08/12/18 09:42 Miralax PO 17 gm DAILY REG Administration Trazodone HCl 50 mg 07/24/18 21:44 08/11/18 20:07 Desyrel PO 50 mg QPM PRN Administration Insomnia - Lab Result Fish Bone Diagrams: 07/27/18 04:20 07/28/18 05:31 Subjective - Subjective Patient Reports: No Complaints Objective Vital Signs: Vital Signs - 24 hr 08/12/18 09:00 Temperature 36.4 C L Heart Rate [ 61 Brachial] Respiratory 16 Rate Blood Pressure 146/83 H [Right Brachial artery] O2 Saturation 95 Oxygen O2 Source Room air I&O (Last 24 Hrs): Intake and Output Totals x24h 08/10/18 08/11/18 08/12/18 23:59 23:59 23:59 Intake Total 1040 420 490 Output Total 100 Balance 1040 420 390 General: Alert Respiratory: No respiratory distress - Results Results: Laboratory Results WBC 2.8 x10^3/uL (4.8-10.8) L 07/27/18 04:20 RBC 3.29 10^6/uL (4.70-6.10) L 07/27/18 04:20 Hgb 11.5 g/dL (14.0-18.0) L 07/27/18 04:20 Hct 33.4 % (42.0-52.0) L 07/27/18 04:20 MCV 101.5 fL (80.0-94.0) H 07/27/18 04:20 MCH 35.0 pg (27.0-31.0) H 07/27/18 04:20 MCHC 34.5 g/dL (32.0-36.0) 07/27/18 04:20 RDW 15.6 % (12.0-15.0) H 07/27/18 04:20 Plt Count 113 10^3/uL (130-450) L 07/27/18 04:20 MPV 9.2 fL (7.4-11.4) 07/27/18 04:20 Neut # (Auto) 1.5 10^3/uL (1.5-6.6) 07/27/18 04:20 Lymph # (Auto) 0.8 10^3/uL (1.5-3.5) L 07/27/18 04:20 [place] # (Auto) 0.5 10^3/uL (0.0-1.0) 07/27/18 04:20 Eos # (Auto) 0.0 10^3/uL (0.0-0.7) 07/27/18 04:20 Baso # (Auto) 0.0 10^3/uL (0.0-0.1) 07/27/18 04:20 Absolute Nucleated RBC 0.00 x10^3/uL 07/27/18 04:20 Total Counted 100 07/26/18 05:05 Band Neuts % (Manual) 0 % (0-10) 07/26/18 05:05 Reactive Lymphs % (Man) 6 % 07/19/18 08:37 Abnorm Lymph % (Manual) 0 % 07/26/18 05:05 Nucleated RBC % 0.1 /100WBC 07/27/18 04:20 Neutrophils # (Manual) 1.5 10^3/uL (1.5-6.6) 07/26/18 05:05 Lymphocytes # (Manual) 0.6 10^3/uL (1.5-3.5) L 07/26/18 05:05 Monocytes # (Manual) 0.3 10^3/uL (0.0-1.0) 07/26/18 05:05 Eosinophils # (Manual) 0.0 10^3/uL (0-0.7) 07/26/18 05:05 Basophils # (Manual) 0.0 10^3/uL (0-0.1) 07/26/18 05:05 Differential Comment MANUAL DIFFERENTIAL 07/19/18 08:37 Manual Slide Review Indicated 07/27/18 04:20 Platelet Estimate DECREASED (<130,000) (NORMAL) 07/27/18 04:20 Platelet Morphology RARE GIANT PLATELETS (NORMAL) 07/19/18 08:37 RBC Morph Micro Appear 1+ ANISOCYTOSIS (NORMAL) 07/27/18 04:20 Sodium 139 mmol/L (135-145) 07/28/18 05:31 Potassium 3.6 mmol/L (3.5-5.0) 07/28/18 05:31 Chloride 105 mmol/L (101-111) 07/28/18 05:31 Carbon Dioxide 26 mmol/L (21-32) 07/28/18 05:31 Anion Gap 8.0 (6-13) 07/28/18 05:31 BUN 15 mg/dL (6-20) 07/28/18 05:31 Creatinine 0.9 mg/dL (0.6-1.2) 07/28/18 05:31 Estimated GFR (MDRD) 82 (>89) L 07/28/18 05:31 Glucose 93 mg/dL (70-100) 07/28/18 05:31 POC Whole Bld Glucose 70 mg/dL (70 - 100) 07/22/18 11:34 Lactic Acid 1.0 mmol/L (0.5-2.2) 07/23/18 09:15 Calcium 7.9 mg/dL (8.5-10.3) L 07/28/18 05:31 Phosphorus 1.7 mg/dL (2.5-4.6) L 07/25/18 06:07 Total Bilirubin 0.6 mg/dL (0.2-1.0) 07/22/18 13:37 AST 30 IU/L (10-42) 07/22/18 13:37 ALT 14 IU/L (10-60) 07/22/18 13:37 Alkaline Phosphatase 98 IU/L (42-121) 07/22/18 13:37 Total Creatine Kinase 122 IU/L (22-269) 07/19/18 08:37 Troponin I < 0.04 ng/mL (<0.49) 07/22/18 13:37 Total Protein 6.6 g/dL (6.7-8.2) L 07/22/18 13:37 Albumin 2.7 g/dL (3.2-5.5) L 07/25/18 06:07 Globulin 3.2 g/dL (2.1-4.2) 07/22/18 13:37 Albumin/Globulin Ratio 1.1 (1.0-2.2) 07/22/18 13:37 Lipase 30 U/L (22-51) 07/22/18 13:37 Urine Color YELLOW 07/21/18 18:29 Urine Clarity CLEAR (CLEAR) 07/21/18 18:29 Urine pH 6.0 PH (5.0-7.5) 07/21/18 18:29 Ur Specific [place] 1.025 (1.002-1.030) 07/21/18 18:29 Urine Protein NEGATIVE mg/dL (NEGATIVE) 07/21/18 18:29 Urine Glucose (UA) NEGATIVE mg/dL (NEGATIVE) 07/21/18 18:29 Urine Ketones 15 mg/dL (NEGATIVE) H 07/21/18 18:29 Urine Occult Blood SMALL (NEGATIVE) H 07/21/18 18:29 Urine Nitrite NEGATIVE (NEGATIVE) 07/21/18 18:29 Urine Bilirubin NEGATIVE (NEGATIVE) 07/21/18 18:29 Urine Urobilinogen 0.2 (NORMAL) E.U./dL (NORMAL) 07/21/18 18:29 Ur Leukocyte Esterase NEGATIVE (NEGATIVE) 07/21/18 18:29 Urine RBC 6-10 /HPF (0-5) H 07/21/18 18:29 Urine WBC 0-3 /HPF (0-3) 07/21/18 18:29 Ur Squamous Epith Cells RARE Squamous (<= Few) 07/21/18 18:29 Urine Bacteria Rare /HPF (None Seen) 07/21/18 18:29 Urine Mucus Few Strands 07/21/18 18:29 Ur Microscopic Review INDICATED 07/21/18 18:29 Urine Culture Comments NOT INDICATED 07/21/18 18:29 Last Dose Date UNK 07/25/18 09:30 Last Dose Time UNK 07/25/18 09:30 Vancomycin Trough 17.4 ug/mL (10.0-20.0) 07/25/18 09:30 Urine Opiates Screen NEGATIVE (NEGATIVE) 07/17/18 00:00 Ur Oxycodone Screen NEGATIVE (NEGATIVE) 07/17/18 00:00 Urine Methadone Screen NEGATIVE (NEGATIVE) 07/17/18 00:00 Ur Propoxyphene Screen NEGATIVE (NEGATIVE) 07/17/18 00:00 Ur Barbiturates Screen NEGATIVE (NEGATIVE) 07/17/18 00:00 Ur Tricyclics Screen NEGATIVE (NEGATIVE) 07/17/18 00:00 Ur Phencyclidine Scrn NEGATIVE (NEGATIVE) 07/17/18 00:00 Ur Amphetamine Screen NEGATIVE (NEGATIVE) 07/17/18 00:00 U Methamphetamines Scrn NEGATIVE (NEGATIVE) 07/17/18 00:00 U Benzodiazepines Scrn NEGATIVE (NEGATIVE) 07/17/18 00:00 Urine Cocaine Screen NEGATIVE (NEGATIVE) 07/17/18 00:00 U Cannabinoids Screen NEGATIVE (NEGATIVE) 07/17/18 00:00 C. difficile Tox B Gene NEGATIVE (NEGATIVE) 07/23/18 07:43 Sepsis Event Note (H) - Evaluation Current Stage of Sepsis: Ruled out
[2018-08-12] MEDS: traZODone 50 MG TABLET PO PRN (20:42)
--- NOTE | 2018-08-13 08:22 | PROVIDER PROGRESS NOTE ---
Assessment/Plan - Problem List (1) Dementia Qualifiers: Dementia type: unspecified type Dementia behavioral disturbance: without behavioral disturbance Qualified Code(s): F03.90 - Unspecified dementia without behavioral disturbance Assessment/Plan: Continue clueing and reorientation. While he is loud and can get upset, can be calmed but low, slow voice and repetitive prompting. Continue Namenda, which was started at admission. (2) NPH (normal pressure hydrocephalus) Assessment/Plan: He is not a shunt candidate, since it is too far progressed. (3) Problem situation relating to social and personal history Assessment/Plan: He has no family (except 1 brother who cannot be located), so no legal DPOA. He requires placement, can no longer function independently in a senior apartment. Social Workers are working on placement for him. They have called NUMEROUS facilities and the problem is no legal guardianship for this patient who cannot make his own decisions. Attestation: The patient is expected to be transferred to another facility within 96 hours. - Current Meds Current Meds: Current Medications Generic Name Dose Route Start Last Admin Trade Name Freq PRN Reason Stop Dose Admin Acetaminophen 650 mg 07/23/18 11:56 08/05/18 09:57 Tylenol PO 650 mg Q4HR PRN Administration Pain 1 to 4 Enoxaparin Sodium 40 mg 07/24/18 09:00 08/12/18 09:42 Lovenox SUBQ 40 mg DAILY REG Administration Famotidine 20 mg 07/23/18 21:00 08/12/18 20:42 Pepcid PO 20 mg BID REG Administration Memantine 5 mg 07/23/18 21:00 08/12/18 20:42 Namenda PO 5 mg BID REG Administration Multivitamins/Minerals 1 tab 07/24/18 16:00 08/12/18 09:42 Theragran M PO 1 tab DAILYWM REG Administration Polyethylene Glycol 17 gm 07/24/18 09:00 08/12/18 09:42 Miralax PO 17 gm DAILY REG Administration Trazodone HCl 50 mg 07/24/18 21:44 08/12/18 20:42 Desyrel PO 50 mg QPM PRN Administration Insomnia - Lab Result Fish Bone Diagrams: 07/27/18 04:20 07/28/18 05:31 Subjective - Subjective Patient Reports: No Complaints Objective Vital Signs: Vital Signs - 24 hr 08/12/18 09:00 Temperature 36.4 C L Heart Rate [ 61 Brachial] Respiratory 16 Rate Blood Pressure 146/83 H [Right Brachial artery] O2 Saturation 95 Oxygen O2 Source Room air I&O (Last 24 Hrs): Intake and Output Totals x24h 08/11/18 08/12/18 08/13/18 23:59 23:59 23:59 Intake Total 420 850 Output Total 100 Balance 420 750 General: Alert HEENT: Mucous membr. moist/pink Neck: Supple Neuro: Disoriented, Other (Poor gait) Cardiovascular: Regular rate Respiratory: No respiratory distress Abdomen: Soft Extremities: No edema - Results Results: Laboratory Results WBC 2.8 x10^3/uL (4.8-10.8) L 07/27/18 04:20 RBC 3.29 10^6/uL (4.70-6.10) L 07/27/18 04:20 Hgb 11.5 g/dL (14.0-18.0) L 07/27/18 04:20 Hct 33.4 % (42.0-52.0) L 07/27/18 04:20 MCV 101.5 fL (80.0-94.0) H 07/27/18 04:20 MCH 35.0 pg (27.0-31.0) H 07/27/18 04:20 MCHC 34.5 g/dL (32.0-36.0) 07/27/18 04:20 RDW 15.6 % (12.0-15.0) H 07/27/18 04:20 Plt Count 113 10^3/uL (130-450) L 07/27/18 04:20 MPV 9.2 fL (7.4-11.4) 07/27/18 04:20 Neut # (Auto) 1.5 10^3/uL (1.5-6.6) 07/27/18 04:20 Lymph # (Auto) 0.8 10^3/uL (1.5-3.5) L 07/27/18 04:20 [place] # (Auto) 0.5 10^3/uL (0.0-1.0) 07/27/18 04:20 Eos # (Auto) 0.0 10^3/uL (0.0-0.7) 07/27/18 04:20 Baso # (Auto) 0.0 10^3/uL (0.0-0.1) 07/27/18 04:20 Absolute Nucleated RBC 0.00 x10^3/uL 07/27/18 04:20 Total Counted 100 07/26/18 05:05 Band Neuts % (Manual) 0 % (0-10) 07/26/18 05:05 Reactive Lymphs % (Man) 6 % 07/19/18 08:37 Abnorm Lymph % (Manual) 0 % 07/26/18 05:05 Nucleated RBC % 0.1 /100WBC 07/27/18 04:20 Neutrophils # (Manual) 1.5 10^3/uL (1.5-6.6) 07/26/18 05:05 Lymphocytes # (Manual) 0.6 10^3/uL (1.5-3.5) L 07/26/18 05:05 Monocytes # (Manual) 0.3 10^3/uL (0.0-1.0) 07/26/18 05:05 Eosinophils # (Manual) 0.0 10^3/uL (0-0.7) 07/26/18 05:05 Basophils # (Manual) 0.0 10^3/uL (0-0.1) 07/26/18 05:05 Differential Comment MANUAL DIFFERENTIAL 07/19/18 08:37 Manual Slide Review Indicated 07/27/18 04:20 Platelet Estimate DECREASED (<130,000) (NORMAL) 07/27/18 04:20 Platelet Morphology RARE GIANT PLATELETS (NORMAL) 07/19/18 08:37 RBC Morph Micro Appear 1+ ANISOCYTOSIS (NORMAL) 07/27/18 04:20 Sodium 139 mmol/L (135-145) 07/28/18 05:31 Potassium 3.6 mmol/L (3.5-5.0) 07/28/18 05:31 Chloride 105 mmol/L (101-111) 07/28/18 05:31 Carbon Dioxide 26 mmol/L (21-32) 07/28/18 05:31 Anion Gap 8.0 (6-13) 07/28/18 05:31 BUN 15 mg/dL (6-20) 07/28/18 05:31 Creatinine 0.9 mg/dL (0.6-1.2) 07/28/18 05:31 Estimated GFR (MDRD) 82 (>89) L 07/28/18 05:31 Glucose 93 mg/dL (70-100) 07/28/18 05:31 POC Whole Bld Glucose 70 mg/dL (70 - 100) 07/22/18 11:34 Lactic Acid 1.0 mmol/L (0.5-2.2) 07/23/18 09:15 Calcium 7.9 mg/dL (8.5-10.3) L 07/28/18 05:31 Phosphorus 1.7 mg/dL (2.5-4.6) L 07/25/18 06:07 Total Bilirubin 0.6 mg/dL (0.2-1.0) 07/22/18 13:37 AST 30 IU/L (10-42) 07/22/18 13:37 ALT 14 IU/L (10-60) 07/22/18 13:37 Alkaline Phosphatase 98 IU/L (42-121) 07/22/18 13:37 Total Creatine Kinase 122 IU/L (22-269) 07/19/18 08:37 Troponin I < 0.04 ng/mL (<0.49) 07/22/18 13:37 Total Protein 6.6 g/dL (6.7-8.2) L 07/22/18 13:37 Albumin 2.7 g/dL (3.2-5.5) L 07/25/18 06:07 Globulin 3.2 g/dL (2.1-4.2) 07/22/18 13:37 Albumin/Globulin Ratio 1.1 (1.0-2.2) 07/22/18 13:37 Lipase 30 U/L (22-51) 07/22/18 13:37 Urine Color YELLOW 07/21/18 18:29 Urine Clarity CLEAR (CLEAR) 07/21/18 18:29 Urine pH 6.0 PH (5.0-7.5) 07/21/18 18:29 Ur Specific [place] 1.025 (1.002-1.030) 07/21/18 18:29 Urine Protein NEGATIVE mg/dL (NEGATIVE) 07/21/18 18:29 Urine Glucose (UA) NEGATIVE mg/dL (NEGATIVE) 07/21/18 18:29 Urine Ketones 15 mg/dL (NEGATIVE) H 07/21/18 18:29 Urine Occult Blood SMALL (NEGATIVE) H 07/21/18 18:29 Urine Nitrite NEGATIVE (NEGATIVE) 07/21/18 18:29 Urine Bilirubin NEGATIVE (NEGATIVE) 07/21/18 18:29 Urine Urobilinogen 0.2 (NORMAL) E.U./dL (NORMAL) 07/21/18 18:29 Ur Leukocyte Esterase NEGATIVE (NEGATIVE) 07/21/18 18:29 Urine RBC 6-10 /HPF (0-5) H 07/21/18 18:29 Urine WBC 0-3 /HPF (0-3) 07/21/18 18:29 Ur Squamous Epith Cells RARE Squamous (<= Few) 07/21/18 18:29 Urine Bacteria Rare /HPF (None Seen) 07/21/18 18:29 Urine Mucus Few Strands 07/21/18 18:29 Ur Microscopic Review INDICATED 07/21/18 18:29 Urine Culture Comments NOT INDICATED 07/21/18 18:29 Last Dose Date UNK 07/25/18 09:30 Last Dose Time UNK 07/25/18 09:30 Vancomycin Trough 17.4 ug/mL (10.0-20.0) 07/25/18 09:30 Urine Opiates Screen NEGATIVE (NEGATIVE) 07/17/18 00:00 Ur Oxycodone Screen NEGATIVE (NEGATIVE) 07/17/18 00:00 Urine Methadone Screen NEGATIVE (NEGATIVE) 07/17/18 00:00 Ur Propoxyphene Screen NEGATIVE (NEGATIVE) 07/17/18 00:00 Ur Barbiturates Screen NEGATIVE (NEGATIVE) 07/17/18 00:00 Ur Tricyclics Screen NEGATIVE (NEGATIVE) 07/17/18 00:00 Ur Phencyclidine Scrn NEGATIVE (NEGATIVE) 07/17/18 00:00 Ur Amphetamine Screen NEGATIVE (NEGATIVE) 07/17/18 00:00 U Methamphetamines Scrn NEGATIVE (NEGATIVE) 07/17/18 00:00 U Benzodiazepines Scrn NEGATIVE (NEGATIVE) 07/17/18 00:00 Urine Cocaine Screen NEGATIVE (NEGATIVE) 07/17/18 00:00 U Cannabinoids Screen NEGATIVE (NEGATIVE) 07/17/18 00:00 C. difficile Tox B Gene NEGATIVE (NEGATIVE) 07/23/18 07:43 Sepsis Event Note (H) - Evaluation Current Stage of Sepsis: Ruled out
[2018-08-13] MEDS: MULTIVITAMIN W/MINERALS TABLET PO SCH (08:58)
[2018-08-13] MEDS: FAMOTIDINE 20 MG TABLET PO SCH ×2 (08:58→20:02)
[2018-08-13] MEDS: MEMANTINE 5 MG TABLET PO SCH ×2 (08:58→20:02)
[2018-08-13] MEDS: POLYETHYLENE GLYCOL 3350 17 GM PACKET PO SCH (09:00)
[2018-08-13] MEDS: ENOXAPARIN 40 MG/0.4 ML SYRINGE SUBQ SCH (09:01)
[2018-08-13] MEDS: ACETAMINOPHEN 325 MG TABLET PO PRN ×2 (10:26→18:55)
[2018-08-13] MEDS: traZODone 50 MG TABLET PO PRN (20:02)
[2018-08-13] MEDS ORDERED: ZINC OXIDE 20% OINT 28.35 GM TUBE TOP PRN (20:03)
--- NOTE | 2018-08-14 06:59 | MISCELLANEOUS PROVIDER NOTE ---
Miscellaneous Provider Note - - Note: S: Patient seen at bedside with no complaints other than a occasional cough with no sputum production. Denies fevers chills nausea vomiting emesis GI or symptoms. O: On examination vital signs hemodynamically stable, afebrile, heart rate 67 bpm, blood pressure 117/72, respiratory rate 16. Pulse ox 94% O2 saturation on room air General: Patient is alert and oriented x2 unable to state time. Baseline Alzheimer's dementia. HEENT: Multiple facial fractures with healed contusions. Pupils equal round react light and accommodation extraocular muscles are bilateral intact next Neck: No JVD no bruits no lymphadenopathy next para CV lungs S1-S2 within normal limits. RRR. Abdomen: Soft nontender nondistended positive bowel sounds all quads no HSM Extremities and skin multiple contusions to the face no edema clubbing or cyanosis to upper or lower extremities Neuro: No psychomotor retardation cranial nerves II to XII grossly intact baseline Alzheimer's dementia. Labs reviewed Imaging: reviewed Assessment/Plan - Problem List (1) Dementia, Alzheimer's type Qualifiers: Dementia type: unspecified type Dementia behavioral disturbance: without behavioral disturbance Qualified Code(s): F03.90 - Unspecified dementia without behavioral disturbance Assessment/Plan: We will continue with medical management and avoid any triggers that would precipitate behavioral disturbance. Continue Namenda, which was started at admission. (2) NPH (normal pressure hydrocephalus) Assessment/Plan: This would explain patient's multiple falls however, He is not a shunt candidate, since it is too far progressed. (3) Pancytopenia: Unclear of etiology however patient has had recent infection and perhaps iatrogenic cause from prior HCAP. (4) Problem situation relating to social and personal history Assessment/Plan: He has no family (except 1 brother who cannot be located), so no legal DPOA. He requires placement, can no longer function independently in a senior apartment. Social Workers are working on placement for him. They have called NUMEROUS facilities and the problem is no legal guardianship for this patient who cannot make his own decisions. Attestation: The patient is expected to be transferred to another facility within 96 hours. Continue with DVT/GI prophylaxis.
[2018-08-14] MEDS: MEMANTINE 5 MG TABLET PO SCH ×2 (09:34→20:06)
[2018-08-14] MEDS: FAMOTIDINE 20 MG TABLET PO SCH ×2 (09:34→20:06)
[2018-08-14] MEDS: MULTIVITAMIN W/MINERALS TABLET PO SCH (09:34)
[2018-08-14] MEDS: ENOXAPARIN 40 MG/0.4 ML SYRINGE SUBQ SCH (09:34)
[2018-08-14] MEDS: POLYETHYLENE GLYCOL 3350 17 GM PACKET PO SCH (09:35)
[2018-08-15] MEDS: FAMOTIDINE 20 MG TABLET PO SCH ×2 (09:03→20:21)
[2018-08-15] MEDS: MEMANTINE 5 MG TABLET PO SCH ×2 (09:03→20:21)
[2018-08-15] MEDS: ENOXAPARIN 40 MG/0.4 ML SYRINGE SUBQ SCH (09:03)
[2018-08-15] MEDS: POLYETHYLENE GLYCOL 3350 17 GM PACKET PO SCH (09:03)
[2018-08-15] MEDS: MULTIVITAMIN W/MINERALS TABLET PO SCH (09:03)
--- NOTE | 2018-08-15 12:51 | MISCELLANEOUS PROVIDER NOTE ---
Miscellaneous Provider Note - - Note: Subjective: Patient seen at bedside with no acute complaints. Currently awaiting placement. Guardianship legal process initiated. Objective: On examination vital signs hemodynamically stable. General: Patient is alert and oriented x2 unable to state time. Baseline Alzheimer's dementia. HEENT: Multiple facial fractures with healed contusions. Pupils equal round react light and accommodation extraocular muscles are bilateral intact next Neck: No JVD no bruits no lymphadenopathy next para CV lungs S1-S2 within normal limits. RRR. Abdomen: Soft nontender nondistended positive bowel sounds all quads no HSM Extremities and skin multiple contusions to the face no edema clubbing or cyanosis to upper or lower extremities Neuro: No psychomotor retardation cranial nerves II to XII grossly intact baseline Alzheimer's dementia. Labs reviewed Imaging: reviewed Assessment/Plan - Problem List (1) Dementia, Alzheimer's type Qualifiers: Dementia type: unspecified type Dementia behavioral disturbance: without behavioral disturbance Qualified Code(s): F03.90 - Unspecified dementia without behavioral disturbance Assessment/Plan: We will continue with medical management and avoid any triggers that would precipitate behavioral disturbance. Continue Namenda, which was started at admission. Patient at the present time is a social placement issue with guardianship legal process that has been initiated already. We will continue to follow director of social services recommendations and further u pdates. (2) NPH (normal pressure hydrocephalus) Assessment/Plan: This would explain patient's multiple falls however, He is not a shunt candidate, since it is too far progressed. (3) Pancytopenia: Unclear of etiology however patient has had recent infection and perhaps iatrogenic cause from prior HCAP. (4) Problem situation relating to social and personal history Assessment/Plan: Patient at the present time is a social placement issue with guardianship legal process that has been initiated already. We will continue to follow director of social services recommendations and further updates. He has no family (except 1 brother who cannot be located), so no legal DPOA. He requires placement, can no longer function independently in a senior apartment. Social Workers are working on placement for him. They have called NUMEROUS facilities and the problem is no legal guardianship for this patient who cannot make his own decisions. Attestation: The patient is expected To continue to stay more than 96 hours as a result of patient awaiting placement which is dependent on the guardianship legal process which has already been initiated by social work. Continue with DVT/GI prophylaxis.
[2018-08-16] MEDS: POLYETHYLENE GLYCOL 3350 17 GM PACKET PO SCH (08:33)
[2018-08-16] MEDS: MULTIVITAMIN W/MINERALS TABLET PO SCH (08:33)
[2018-08-16] MEDS: MEMANTINE 5 MG TABLET PO SCH ×2 (08:33→21:14)
[2018-08-16] MEDS: ENOXAPARIN 40 MG/0.4 ML SYRINGE SUBQ SCH (08:33)
[2018-08-16] MEDS: FAMOTIDINE 20 MG TABLET PO SCH ×2 (08:33→21:14)
--- NOTE | 2018-08-16 11:49 | MISCELLANEOUS PROVIDER NOTE ---
Miscellaneous Provider Note - - Note: Subjective: Patient seen at bedside with no acute complaints. Currently awaiting placement. Guardianship legal process initiated. Objective: On examination vital signs hemodynamically stable. Up in chair eating breakfast. General: Patient is alert and oriented x2 unable to state time. Baseline Alzheimer's dementia. HEENT: Multiple facial fractures with healed contusions. Pupils equal round react light and accommodation extraocular muscles are bilateral intact next Neck: No JVD no bruits no lymphadenopathy next para CV lungs S1-S2 within normal limits. RRR. Abdomen: Soft nontender nondistended positive bowel sounds all quads no HSM Extremities and skin multiple contusions to the face no edema clubbing or cyanosis to upper or lower extremities Neuro: No psychomotor retardation cranial nerves II to XII grossly intact baseline Alzheimer's dementia. Labs reviewed Imaging: reviewed Assessment/Plan - Problem List (1) Dementia, Alzheimer's type Qualifiers: Dementia type: unspecified type Dementia behavioral disturbance: without behavioral disturbance Qualified Code(s): F03.90 - Unspecified dementia w ithout behavioral disturbance Assessment/Plan: We will continue with medical management and avoid any triggers that would precipitate behavioral disturbance. Continue Namenda, which was started at admission. Patient at the present time is a social placement issue with guardianship legal process that has been initiated already. We will continue to follow addiction social worker recommendations and further updates. (2) NPH (normal pressure hydrocephalus) Assessment/Plan: This would explain patient's multiple falls however, He is not a shunt candidate, since it is too far progressed. (3) Pancytopenia: Unclear of etiology however patient has had recent infection and perhaps iatrogenic cause from prior HCAP. (4) Problem situation relating to social and personal history Assessment/Plan: Patient at the present time is a social placement issue with guardianship legal process that has been initiated already. We will continue to follow addiction social worker recommendations and further updates. He has no family (except 1 brother who cannot be located), so no legal DPOA. He requires placement, can no longer function independently in a senior apartment. Social Workers are working on placement for him. They have called NUMEROUS facilities and the problem is no legal guardianship for this patient who cannot make his own decisions. [employer] had requested that [employer] approve [employer]'s request to work with needed outside executive assistant to general counsel on the pursuit of guardianship for this patient. [employer] TECHNICIAN has just approved request, so this process will be officially pursued from this point forward. Attestation: The patient is expected To continue to stay more than 96 hours as a result of patient awaiting placement which is dependent on the guardianship legal process which has already been initiated by social work. Continue with DVT/GI prophylaxis.
[2018-08-16] MEDS: traZODone 50 MG TABLET PO PRN (21:14)
[2018-08-17] MEDS: FAMOTIDINE 20 MG TABLET PO SCH ×2 (08:18→21:12)
[2018-08-17] MEDS: MEMANTINE 5 MG TABLET PO SCH ×2 (08:18→21:12)
[2018-08-17] MEDS: POLYETHYLENE GLYCOL 3350 17 GM PACKET PO SCH (08:18)
[2018-08-17] MEDS: MULTIVITAMIN W/MINERALS TABLET PO SCH (08:18)
[2018-08-17] MEDS: ENOXAPARIN 40 MG/0.4 ML SYRINGE SUBQ SCH (08:19)
--- NOTE | 2018-08-17 08:51 | MISCELLANEOUS PROVIDER NOTE ---
Miscellaneous Provider Note - - Note: Subjective: Patient seen at bedside with no new events. Patient tolerating diet well. Patient denies any symptoms. Objective: On examination vital signs hemodynamically stable. Communicates and verbalizes needs well. General: Patient is alert and oriented x2 unable to state time. Baseline Alzheimer's dementia. HEENT: Multiple facial fractures with healed contusions. Pupils equal round react light and accommodation extraocular muscles are bilateral intact next Neck: No JVD no bruits no lymphadenopathy next para CV lungs S1-S2 within normal limits. RRR. Abdomen: Soft nontender nondistended positive bowel sounds all quads no HSM Extremities and skin multiple contusions to the face no edema clubbing or cyanosis to upper or lower extremities Neuro: No psychomotor retardation cranial nerves II to XII grossly intact baseline Alzheimer's dementia. Labs reviewed Imaging: reviewed Assessment/Plan - Problem List (1) Dementia, Alzheimer's type Qualifiers: Dementia type: unspecified type Dementia behavioral disturbance: without behavioral disturbance Qualified Code(s): F03.90 - Unspecified dementia withou t behavioral disturbance Assessment/Plan: We will continue with medical management and avoid any triggers that would precipitate behavioral disturbance. Continue Namenda, which was started at admission. Patient at the present time is a social placement issue with guardianship legal process that has been initiated already. We will continue to follow social and human services assistant recommendations and further updates. (2) NPH (normal pressure hydrocephalus) Assessment/Plan: This would explain patient's multiple falls however, He is not a shunt candidate, since it is too far progressed. (3) Pancytopenia: Unclear of etiology however patient has had recent infection and perhaps iatrogenic cause from prior HCAP. (4) Problem situation relating to social and personal history Assessment/Plan: Patient at the present time is a social placement issue with guardianship legal process that has been initiated already. We will continue to follow social and human services assistant recommendations and further updates. He has no family (except 1 brother who cannot be located), so no legal DPOA. He requires placement, can no longer function independently in a senior apartment. Social Workers are working on placement for him. They have called NUMEROUS facilities and the problem is no legal guardianship for this patient who cannot make his own decisions. [employer] had requested that [facility] approve Hydroelectric Component Machinist's request to work with needed outside counseling program leader on the pursuit of guardianship for this patient. SALES REPRESENTATIVE [employer] has just approved request, so this process will be officially pursued from this point forward. Attestation: The patient is expected To continue to stay more than 96 hours as a result of patient awaiting placement which is dependent on the guardianship legal process which has already been initiated by social work. Continue with DVT/GI prophylaxis.
[2018-08-17] MEDS: traZODone 50 MG TABLET PO PRN (21:37)
[2018-08-18] MEDS: FAMOTIDINE 20 MG TABLET PO SCH ×2 (08:52→21:19)
[2018-08-18] MEDS: MULTIVITAMIN W/MINERALS TABLET PO SCH (08:52)
[2018-08-18] MEDS: MEMANTINE 5 MG TABLET PO SCH ×2 (08:52→21:19)
[2018-08-18] MEDS: POLYETHYLENE GLYCOL 3350 17 GM PACKET PO SCH (08:52)
[2018-08-18] MEDS: ENOXAPARIN 40 MG/0.4 ML SYRINGE SUBQ SCH (08:53)
--- NOTE | 2018-08-18 11:30 | MISCELLANEOUS PROVIDER NOTE ---
Miscellaneous Provider Note - - Note: Subjective: Patient seen at bedside with no new events.Patient had a uncomplicated bleeding episode of his left side of nose for which bandage was pulled off and he was bleeding which was controlled with replacing bandage on nose. Objective: On examination vital signs hemodynamically stable. Communicates and verbalizes needs well. General: Patient is alert and oriented x2 unable to state time. Baseline Alzheimer's dementia. HEENT: Multiple facial fractures with healed contusions. Nose left aspect with visible blood eschar and no bleeding. Pupils equal round react light and accommodation extraocular muscles are bilateral intact next Neck: No JVD no bruits no lymphadenopathy next para CV lungs S1-S2 within normal limits. RRR. Abdomen: Soft nontender nondistended positive bowel sounds all quads no HSM Extremities and skin multiple contusions to the face no edema clubbing or cyanosis to upper or lower extremities Neuro: No psychomotor retardation cranial nerves II to XII grossly intact baseline Alzheimer's dementia. Labs reviewed Imaging: reviewed Assessment/Plan - Problem List (1) Dementia, Alzheimer's type Qualifiers: Dementia type: unspecified type Dementia behavioral disturbance: without behavioral disturbance Qualified Code(s): F03.90 - Unspecified dementia without behavioral disturbance Assessment/Plan: We will continue with medical management and avoid any triggers that would precipitate behavioral disturbance. Continue Namenda, which was started at admission. Patient at the present time is a social placement issue with guardianship legal process that has been initiated already. We will continue to follow social studies teacher recommendations and further updates. (2) NPH (normal pressure hydrocephalus) Assessment/Plan: This would explain patient's multiple falls however, He is not a shunt ca ndidate, since it is too far progressed. (3) Pancytopenia: Unclear of etiology however patient has had recent infection and perhaps iatrogenic cause from prior HCAP. We will discontinue Lovenox. Obtain a most recent CBC. (4) Problem situation relating to social and personal history Assessment/Plan: Patient at the present time is a social placement issue with guardianship legal process that has been initiated already. We will continue to follow social studies teacher recommendations and further updates. He has no family (except 1 brother who cannot be located), so no legal DPOA. He requires placement, can no longer function independently in a senior apartment. Social Workers are working on placement for him. They have called NUMEROUS facilities and the problem is no legal guardianship for this patient who cannot make his own decisions. DVT prophylaxis with SCD boots only. Discontinue Lovenox. GI prophylaxis to kailash michel. Social Work had requested that CIVILIAN JAIL OFFICER approve Retail Leasing Agent's request to work with needed outside residential counselor on the pursuit of guardianship for this patient. [facility] [place] request, so this process will be officially pursued from this point forward. Attestation: The patient is expected To continue to stay more than 96 hours as a result of patient awaiting placement which is dependent on the guardianship legal process which has already been initiated by social work. Continue with DVT/GI prophylaxis.
[2018-08-18 11:51] LABS: BASOPHILS # (AUTO) 0.1 10^3/uL (0.0-0.1); BASOPHILS % (AUTO) 1.3 %; EOSINOPHILS # (AUTO) 0.5 10^3/uL (0.0-0.7); EOSINOPHILS % (AUTO) 8.3 %; HGB - HEMOGLOBIN 12.1 g/dL (14.0-18.0); LYMPHOCYTES % (AUTO) 17.2 %; MEAN CORPUSCULAR HEMOGLOBIN 34.2 pg (27.0-31.0); MEAN CORPUSCULAR HGB CONC 33.2 g/dL (32.0-36.0); MEAN PLATELET VOLUME 7.9 fL (7.4-11.4); MONOCYTES # (AUTO) 0.6 10^3/uL (0.0-1.0); MONOCYTES % (AUTO) 11.5 %; NEUTROPHILS # (AUTO) 3.4 10^3/uL (1.5-6.6); NEUTROPHILS % (AUTO) 61.7 %; PLT - PLATELET COUNT 216 10^3/uL (130-450); RED BLOOD COUNT 3.55 10^6/uL (4.70-6.10); RED CELL DISTRIBUTION WIDTH 14.9 % (12.0-15.0); WHITE BLOOD COUNT 5.5 x10^3/uL (4.8-10.8)
[2018-08-18 12:05] LABS: INR 1.1 (0.8-1.2); PT - PROTHROMBIN TIME 12.7 secs (9.9-12.6)
[2018-08-18] MEDS: traZODone 50 MG TABLET PO PRN (21:19)
[2018-08-19] MEDS: POLYETHYLENE GLYCOL 3350 17 GM PACKET PO SCH (09:31)
[2018-08-19] MEDS: MEMANTINE 5 MG TABLET PO SCH ×2 (09:32→21:04)
[2018-08-19] MEDS: MULTIVITAMIN W/MINERALS TABLET PO SCH (09:32)
[2018-08-19] MEDS: FAMOTIDINE 20 MG TABLET PO SCH ×2 (09:32→21:04)
--- NOTE | 2018-08-19 10:12 | MISCELLANEOUS PROVIDER NOTE ---
Miscellaneous Provider Note - - Note: Subjective: Patient seen at bedside with no acute events. Denies fevers chills nausea vomiting headaches dizziness GI or symptoms. Objective: On examination vital signs hemodynamically stable. Communicates and verbalizes needs well. General: Patient is alert and oriented x2 unable to state time. Baseline Alzheimer's dementia. HEENT: Multiple facial fractures with healed contusions. Nose left aspect with visible blood eschar and no bleeding. Pupils equal round react light and accommodation extraocular muscles are bilateral intact next Neck: No JVD no bruits no lymphadenopathy next para CV lungs S1-S2 within normal limits. RRR. Abdomen: Soft nontender nondistended positive bowel sounds all quads no HSM Extremities and skin: Multiple contusions to the face With a nose laceration that appears to be healing Neuro: No psychomotor retardation cranial nerves II to XII grossly intact baseline Alzheimer's dementia. Labs reviewed Imaging: reviewed Assessment/Plan - Problem List (1) Dementia, Alzheimer's type Qualifiers: Dementia type: unspecified type Dementia behavioral disturbance: without behavioral disturbance Qualified Code(s): F03.90 - Unspecified dementia without behavioral disturbance Assessment/Plan: We will continue with medical management and avoid any triggers that would precipitate behavioral disturbance. Continue Namenda, which was started at admission. Patient at the present time is a social placement issue with guardianship legal process that has been initiated already. We will continue to follow renal social worker recommendations and further updates. (2) NPH (normal pressure hydrocephalus) Assessment/Plan: This would explain patient's multiple falls however, He is not a shunt candidate, since it is too far progressed. (3) Pancytopenia: Resolved -Repeat CBC is unremarkable. INR 1.1 Unclear of etiology however patient has had recent infection and perhaps iatrogenic cause from prior HCAP. Currently off of Lovenox. (4) Problem situation relating to social and personal history Assessment/Plan: Patient at the present time is a social placement issue with guardianship legal process that has been initiated already. We will continue to follow renal social worker recommendations and further updates. He has no family (except 1 brother who cannot be located), so no legal DPOA. He requires placement, can no longer function independently in a senior apartment. Social Workers are working on placement for him. They have called NUMEROUS facilities and the problem is no legal guardianship for this patient who cannot make his own decisions. DVT prophylaxis with SCD boots only. Discontinue Lovenox. GI prophylaxis to continue. Social Work had requested that PRESS LOADER approve Clinical Nurse's request to work wi th needed outside family life counselor on the pursuit of guardianship for this patient. [facility] [place], so this process will be officially pursued from this point forward. Attestation: The patient is expected To continue to stay more than 96 hours as a result of patient awaiting placement which is dependent on the guardianship legal process which has already been initiated by social work. Continue with DVT/GI prophylaxis.
--- NOTE | 2018-08-20 08:26 | MISCELLANEOUS PROVIDER NOTE ---
Miscellaneous Provider Note - - Note: Subjective: Patient is seen at bedside still awaiting placement and legal guardianship. Objective: On examination vital signs hemodynamically stable. Communicates and verbalizes needs well. General: Patient is alert and oriented x2 unable to state time. Baseline Alzheimer's dementia. HEENT: Multiple facial fractures with healed contusions. Nose left aspect with visible blood eschar and no bleeding. Pupils equal round react light and accommodation extraocular muscles are bilateral intact next Neck: No JVD no bruits no lymphadenopathy next para CV lungs S1-S2 within normal limits. RRR. Abdomen: Soft nontender nondistended positive bowel sounds all quads no HSM Extremities and skin: Multiple contusions to the face With a nose laceration that appears to be healing Neuro: No psychomotor retardation cranial nerves II to XII grossly intact baseline Alzheimer's dementia. Labs reviewed Imaging: reviewed Assessment/Plan - Problem List (1) Dementia, Alzheimer's type Qualifiers: Dementia type: unspecified type Dementia behavioral disturbance: without behavioral disturbance Qualified Code(s): F03.90 - Unspecified dementia without behavioral disturbance Assessment/Plan: We will continue with medical management and avoid any triggers that would precipitate behavioral disturbance. Continue Namenda, which was started at admission. Patient at the present time is a social placement issue with guardianship legal process that has been initiated already. We will continue to follow health social work professor recommendations and further updates. (2) NPH (normal pressure hydrocephalus) Assessment/Plan: This would explain patient's multiple falls however, He is not a shunt candidate, since it is too far progressed. (3) Pancytopenia: Resolved -Repeat CBC is unremarkable. INR 1.1 Unclear of etiology however patient has had recent infection and perhaps iatrogenic cause from prior HCAP. Currently off of Lovenox. (4) Problem situation relating to social and personal history Assessment/Plan: Patient at the present time is a social placement issue with guardianship legal process that has been initiated already. We will continue to follow health social work professor recommendations and further updates. He has no family (except 1 brother who cannot be located), so no legal DPOA. He requires placement, can no longer function independently in a senior apartme nt. Social Workers are working on placement for him. They have called NUMEROUS facilities and the problem is no legal guardianship for this patient who cannot make his own decisions. DVT prophylaxis with SCD boots only. Discontinue Lovenox. GI prophylaxis to continue. Social Work had requested that PURCHASING INTERN approve Travel Information Center Supervisor's request to work with needed outside college counselor on the pursuit of guardianship for this patient. [facility] [place], so this process will be officially pursued from this point forward. Attestation: The patient is expected To continue to stay more than 96 hours as a result of patient awaiting placement which is dependent on the guardianship legal process which has already been initiated by social work. Continue with DVT/GI prophylaxis.
[2018-08-20] MEDS: MULTIVITAMIN W/MINERALS TABLET PO SCH (08:56)
[2018-08-20] MEDS: POLYETHYLENE GLYCOL 3350 17 GM PACKET PO SCH (08:56)
[2018-08-20] MEDS: FAMOTIDINE 20 MG TABLET PO SCH ×2 (08:56→20:58)
[2018-08-20] MEDS: MEMANTINE 5 MG TABLET PO SCH ×2 (08:56→20:58)
[2018-08-20] MEDS: NYSTATIN POWDER 15 GM TOP SCH (20:58)
[2018-08-21] MEDS: MULTIVITAMIN W/MINERALS TABLET PO SCH (09:22)
[2018-08-21] MEDS: FAMOTIDINE 20 MG TABLET PO SCH ×2 (09:22→20:14)
[2018-08-21] MEDS: MEMANTINE 5 MG TABLET PO SCH ×2 (09:22→20:14)
[2018-08-21] MEDS: NYSTATIN POWDER 15 GM TOP SCH ×2 (09:22→20:14)
[2018-08-21] MEDS: POLYETHYLENE GLYCOL 3350 17 GM PACKET PO SCH (09:22)
--- NOTE | 2018-08-21 10:15 | MISCELLANEOUS PROVIDER NOTE ---
Miscellaneous Provider Note - - Note: Subjective: Patient will have wound care to assess patient's bleeding left paranasal chronic ulcer. Currently awaiting guardianship appointment Objective: On examination vital signs hemodynamically stable. Communicates and verbalizes needs well. General: Patient is alert and oriented x2 unable to state time. Baseline Alzheimer's dementia. HEENT: Multiple facial fractures with healed contusions. Nose left aspect with visible blood eschar and no bleeding. Pupils equal round react light and accommodation extraocular muscles are bilateral intact next Neck: No JVD no bruits no lymphadenopathy next para CV lungs S1-S2 within normal limits. RRR. Abdomen: Soft nontender nondistended positive bowel sounds all quads no HSM Extremities and skin: Multiple contusions to the face With a nose laceration that appears to be healing Neuro: No psychomotor retardation cranial nerves II to XII grossly intact baseline Alzheimer's dementia. Labs reviewed Imaging: reviewed Assessment/Plan - Problem List (1) Dementia, Alzheimer's type Qualifiers: Dementia type: unspecified type Dementia behavioral disturbance: without behavioral disturbance Qualified Code(s): F03.90 - Unspecified dementia without behavioral disturbance Assessment/Plan: We will continue with medical management and avoid any triggers that would precipitate behavioral disturbance. Continue Namenda, which was started at admission. Patient at the present time is a social placement issue with guardianship legal process that has been initiated already. We will continue to follow workers compensation claims adjuster recommendations and further updates. (2) NPH (normal pressure hydrocephalus) Assessment/Plan: This would explain patient's multiple falls however, He is not a shunt candidate, since it is too far progressed. (3) Pancytopenia: Resolved -Repeat CBC is unremarkable. INR 1.1 Unclear of etiology however patient has had recent infection and perhaps iatrogenic cause from prior HCAP. Currently off of Lovenox. (4) Left chronic paranasal chronic ulcer -We will have wound care assess and possible biopsy as underlying basal cell carcinoma or other dermatological cancers cannot be ruled out -May need outpatient dermatological referral once patient is cleared with guardianship (5) Problem situation relating to social and personal history Assessment/Plan: Patient at the present time is a social placement issue with guardianship legal process that has been initiated already. We will continue to follow workers compensation claims adjuster recommendations and further updates. He has no family (except 1 brother who cannot be located), so no legal DPOA. He requires placement, can no longer function independently in a senior apartment. Social Workers are working on placement for him. They have called NUMEROUS facilities and the problem is no legal guardianship for this patient who cannot make his own decisions. DVT prophylaxis with SCD boots only. Due to bleeding Lovenox has since been discontinued. GI prophylaxis to continue. Social Work had requested that ANALYTICS SPECIALIST approve Microwave Remote Sensing Scientist's request to work with needed outside staff counsel on the pursuit of guardianship for this patient. [facility] [place] just [place] request, so this process will be officially pursued from this point forward. Attestation: The patient is expected To continue to stay more than 96 hours as a result of patient awaiting placement which is dependent on the guardianship legal process which has already been initiated by social work. Continue with DVT/GI prophylaxis.
[2018-08-21] MEDS: traZODone 50 MG TABLET PO PRN (20:14)
[2018-08-22] MEDS: MEMANTINE 5 MG TABLET PO SCH ×2 (08:22→21:10)
[2018-08-22] MEDS: MULTIVITAMIN W/MINERALS TABLET PO SCH (08:22)
[2018-08-22] MEDS: FAMOTIDINE 20 MG TABLET PO SCH ×2 (08:22→21:10)
[2018-08-22] MEDS: POLYETHYLENE GLYCOL 3350 17 GM PACKET PO SCH (08:23)
[2018-08-22] MEDS: NYSTATIN POWDER 15 GM TOP SCH ×2 (08:23→21:18)
--- NOTE | 2018-08-22 17:44 | PROVIDER PROGRESS NOTE ---
Assessment/Plan - Problem List (1) Dementia Qualifiers: Dementia type: unspecified type Dementia behavioral disturbance: without behavioral disturbance Qualified Code(s): F03.90 - Unspecified dementia without behavioral disturbance Assessment/Plan: Continue Namenda (2) NPH (normal pressure hydrocephalus) Assessment/Plan: Not a surgical c andidate since it is too progressed. (3) Problem situation relating to social and personal history Assessment/Plan: Guardianship is being worked on, so that placement in a facility can be arranged. - Current Meds Current Meds: Current Medications Generic Name Dose Route Start Last Admin Trade Name Freq PRN Reason Stop Dose Admin Acetaminophen 650 mg 07/23/18 11:56 08/13/18 18:55 Tylenol PO 650 mg Q4HR PRN Administration Pain 1 to 4 Famotidine 20 mg 07/23/18 21:00 08/22/18 08:22 Pepcid PO 20 mg BID REG Administration Memantine 5 mg 07/23/18 21:00 08/22/18 08:22 Namenda PO 5 mg BID REG Administration Multivitamins/Minerals 1 tab 07/24/18 16:00 08/22/18 08:22 Theragran M PO 1 tab DAILYWM REG Administration Nystatin 1 applic 08/20/18 21:00 08/22/18 08:23 Nystop TOP 1 applic BID REG Administration Polyethylene Glycol 17 gm 07/24/18 09:00 08/22/18 08:23 Miralax PO Not Given DAILY REG Trazodone HCl 50 mg 07/24/18 21:44 08/21/18 20:14 Desyrel PO 50 mg QPM PRN Administration Insomnia - Lab Result Fish Bone Diagrams: 08/18/18 11:45 07/28/18 05:31 Subjective - Subjective Patient Reports: No Complaints Objective Vital Signs: Oxygen O2 Source Room air I&O (Last 24 Hrs): Intake and Output Totals x24h 08/20/18 08/21/18 08/22/18 23:59 23:59 23:59 Intake Total 1217 1960 720 Balance 1217 1960 720 General: Alert Respiratory: No respiratory distress - Results Results: Laboratory Results WBC 5.5 x10^3/uL (4.8-10.8) 08/18/18 11:45 RBC 3.55 10^6/uL (4.70-6.10) L 08/18/18 11:45 Hgb 12.1 g/dL (14.0-18.0) L 08/18/18 11:45 Hct 36.6 % (42.0-52.0) L 08/18/18 11:45 MCV 103.0 fL (80.0-94.0) H 08/18/18 11:45 MCH 34.2 pg (27.0-31.0) H 08/18/18 11:45 MCHC 33.2 g/dL (32.0-36.0) 08/18/18 11:45 RDW 14.9 % (12.0-15.0) 08/18/18 11:45 Plt Count 216 10^3/uL (130-450) 08/18/18 11:45 MPV 7.9 fL (7.4-11.4) 08/18/18 11:45 Neut # (Auto) 3.4 10^3/uL (1.5-6.6) 08/18/18 11:45 Lymph # (Auto) 1.0 10^3/uL (1.5-3.5) L 08/18/18 11:45 [place] # (Auto) 0.6 10^3/uL (0.0-1.0) 08/18/18 11:45 Eos # (Auto) 0.5 10^3/uL (0.0-0.7) 08/18/18 11:45 Baso # (Auto) 0.1 10^3/uL (0.0-0.1) 08/18/18 11:45 Absolute Nucleated RBC 0.01 x10^3/uL 08/18/18 11:45 Total Counted 100 07/26/18 05:05 Band Neuts % (Manual) 0 % (0-10) 07/26/18 05:05 Reactive Lymphs % (Man) 6 % 07/19/18 08:37 Abnorm Lymph % (Manual) 0 % 07/26/18 05:05 Nucleated RBC % 0.1 /100WBC 08/18/18 11:45 Neutrophils # (Manual) 1.5 10^3/uL (1.5-6.6) 07/26/18 05:05 Lymphocytes # (Manual) 0.6 10^3/uL (1.5-3.5) L 07/26/18 05:05 Monocytes # (Manual) 0.3 10^3/uL (0.0-1.0) 07/26/18 05:05 Eosinophils # (Manual) 0.0 10^3/uL (0-0.7) 07/26/18 05:05 Basophils # (Manual) 0.0 10^3/uL (0-0.1) 07/26/18 05:05 Differential Comment MANUAL DIFFERENTIAL 07/19/18 08:37 Manual Slide Review Indicated 07/27/18 04:20 Platelet Estimate DECREASED (<130,000) (NORMAL) 07/27/18 04:20 Platelet Morphology RARE GIANT PLATELETS (NORMAL) 07/19/18 08:37 RBC Morph Micro Appear 1+ ANISOCYTOSIS (NORMAL) 07/27/18 04:20 PT 12.7 secs (9.9-12.6) H 08/18/18 11:45 INR 1.1 (0.8-1.2) 08/18/18 11:45 Sodium 139 mmol/L (135-145) 07/28/18 05:31 Potassium 3.6 mmol/L (3.5-5.0) 07/28/18 05:31 Chloride 105 mmol/L (101-111) 07/28/18 05:31 Carbon Dioxide 26 mmol/L (21-32) 07/28/18 05:31 Anion Gap 8.0 (6-13) 07/28/18 05:31 BUN 15 mg/dL (6-20) 07/28/18 05:31 Creatinine 0.9 mg/dL (0.6-1.2) 07/28/18 05:31 Estimated GFR (MDRD) 82 (>89) L 07/28/18 05:31 Glucose 93 mg/dL (70-100) 07/28/18 05:31 POC Whole Bld Glucose 70 mg/dL (70 - 100) 07/22/18 11:34 Lactic Acid 1.0 mmol/L (0.5-2.2) 07/23/18 09:15 Calcium 7.9 mg/dL (8.5-10.3) L 07/28/18 05:31 Phosphorus 1.7 mg/dL (2.5-4.6) L 07/25/18 06:07 Total Bilirubin 0.6 mg/dL (0.2-1.0) 07/22/18 13:37 AST 30 IU/L (10-42) 07/22/18 13:37 ALT 14 IU/L (10-60) 07/22/18 13:37 Alkaline Phosphatase 98 IU/L (42-121) 07/22/18 13:37 Total Creatine Kinase 122 IU/L (22-269) 07/19/18 08:37 Troponin I < 0.04 ng/mL (<0.49) 07/22/18 13:37 Total Protein 6.6 g/dL (6.7-8.2) L 07/22/18 13:37 Albumin 2.7 g/dL (3.2-5.5) L 07/25/18 06:07 Globulin 3.2 g/dL (2.1-4.2) 07/22/18 13:37 Albumin/Globulin Ratio 1.1 (1.0-2.2) 07/22/18 13:37 Lipase 30 U/L (22-51) 07/22/18 13:37 Urine Color YELLOW 07/21/18 18:29 Urine Clarity CLEAR (CLEAR) 07/21/18 18:29 Urine pH 6.0 PH (5.0-7.5) 07/21/18 18:29 Ur Specific [place] 1.025 (1.002-1.030) 07/21/18 18:29 Urine Protein NEGATIVE mg/dL (NEGATIVE) 07/21/18 18:29 Urine Glucose (UA) NEGATIVE mg/dL (NEGATIVE) 07/21/18 18:29 Urine Ketones 15 mg/dL (NEGATIVE) H 07/21/18 18:29 Urine Occult Blood SMALL (NEGATIVE) H 07/21/18 18:29 Urine Nitrite NEGATIVE (NEGATIVE) 07/21/18 18:29 Urine Bilirubin NEGATIVE (NEGATIVE) 07/21/18 18:29 Urine Urobilinogen 0.2 (NORMAL) E.U./dL (NORMAL) 07/21/18 18:29 Ur Leukocyte Esterase NEGATIVE (NEGATIVE) 07/21/18 18:29 Urine RBC 6-10 /HPF (0-5) H 07/21/18 18:29 Urine WBC 0-3 /HPF (0-3) 07/21/18 18:29 Ur Squamous Epith Cells RARE Squamous (<= Few) 07/21/18 18:29 Urine Bacteria Rare /HPF (None Seen) 07/21/18 18:29 Urine Mucus Few Strands 07/21/18 18:29 Ur Microscopic Review INDICATED 07/21/18 18:29 Urine Culture Comments NOT INDICATED 07/21/18 18:29 Last Dose Date UNK 07/25/18 09:30 Last Dose Time UNK 07/25/18 09:30 Vancomycin Trough 17.4 ug/mL (10.0-20.0) 07/25/18 09:30 Urine Opiates Screen NEGATIVE (NEGATIVE) 07/17/18 00:00 Ur Oxycodone Screen NEGATIVE (NEGATIVE) 07/17/18 00:00 Urine Methadone Screen NEGATIVE (NEGATIVE) 07/17/18 00:00 Ur Propoxyphene Screen NEGATIVE (NEGATIVE) 07/17/18 00:00 Ur Barbiturates Screen NEGATIVE (NEGATIVE) 07/17/18 00:00 Ur Tricyclics Screen NEGATIVE (NEGATIVE) 07/17/18 00:00 Ur Phencyclidine Scrn NEGATIVE (NEGATIVE) 07/17/18 00:00 Ur Amphetamine Screen NEGATIVE (NEGATIVE) 07/17/18 00:00 U Methamphetamines Scrn NEGATIVE (NEGATIVE) 07/17/18 00:00 U Benzodiazepines Scrn NEGATIVE (NEGATIVE) 07/17/18 00:00 Urine Cocaine Screen NEGATIVE (NEGATIVE) 07/17/18 00:00 U Cannabinoids Screen NEGATIVE (NEGATIVE) 07/17/18 00:00 C. difficile Tox B Gene NEGATIVE (NEGATIVE) 07/23/18 07:43 Sepsis Event Note (H) - Evaluation Current Stage of Sepsis: Ruled out
[2018-08-23] MEDS: FAMOTIDINE 20 MG TABLET PO SCH ×2 (08:28→20:35)
[2018-08-23] MEDS: POLYETHYLENE GLYCOL 3350 17 GM PACKET PO SCH (08:28)
[2018-08-23] MEDS: MULTIVITAMIN W/MINERALS TABLET PO SCH (08:29)
[2018-08-23] MEDS: MEMANTINE 5 MG TABLET PO SCH ×2 (08:29→20:35)
[2018-08-23] MEDS: NYSTATIN POWDER 15 GM TOP SCH ×2 (08:31→20:36)
--- NOTE | 2018-08-23 13:28 | PROVIDER PROGRESS NOTE ---
Assessment/Plan - Problem List (1) Dementia Qualifiers: Dementia type: unspecified type Dementia behavioral disturbance: without behavioral disturbance Qualified Code(s): F03.90 - Unspecified dementia without behavioral disturbance Assessment/Plan: Awaiting permanent placement. (2) NPH (normal pressure hydrocephalus) Assessment/Plan: Awaiting permanent placement. (3) Problem situation relating to social and personal history Assessment/Plan: The hospital is working on guardianship and is working on transfer. Awaiting permanent placement. - Current Meds Current Meds: Current Medications Generic Name Dose Route Start Last Admin Trade Name Freq PRN Reason Stop Dose Admin Acetaminophen 650 mg 07/23/18 11:56 08/13/18 18:55 Tylenol PO 650 mg Q4HR PRN Administration Pain 1 to 4 Famotidine 20 mg 07/23/18 21:00 08/23/18 08:28 Pepcid PO 20 mg BID REG Administration Memantine 5 mg 07/23/18 21:00 08/23/18 08:29 Namenda PO 5 mg BID REG Administration Multivitamins/Minerals 1 tab 07/24/18 16:00 08/23/18 08:29 Theragran M PO 1 tab DAILYWM REG Administration Nystatin 1 applic 08/20/18 21:00 08/23/18 08:31 Nystop TOP 1 applic BID REG Administration Polyethylene Glycol 17 gm 07/24/18 09:00 08/23/18 08:28 Miralax PO 17 gm DAILY REG Administration Trazodone HCl 50 mg 07/24/18 21:44 08/21/18 20:14 Desyrel PO 50 mg QPM PRN Administration Insomnia - Lab Result Fish Bone Diagrams: 08/18/18 11:45 07/28/18 05:31 Subjective - Subjective Patient Reports: No Complaints Objective Vital Signs: Vital Signs - 24 hr 08/23/18 07:49 Temperature 36.3 C L Heart Rate [ 73 Brachial] Respiratory 18 Rate Blood Pressure 120/65 [Right Brachial artery] O2 Saturation 92 Oxygen O2 Source Room air I&O (Last 24 Hrs): Intake and Output Totals x24h 08/21/18 08/22/18 08/23/18 23:59 23:59 23:59 Intake Total 7056 585 5784 Output Total 200 Balance 7411 860 0422 Respiratory: No respiratory distress - Results Results: Laboratory Results WBC 5.5 x10^3/uL (4.8-10.8) 08/18/18 11:45 RBC 3.55 10^6/uL (4.70-6.10) L 08/18/18 11:45 Hgb 12.1 g/dL (14.0-18.0) L 08/18/18 11:45 Hct 36.6 % (42.0-52.0) L 08/18/18 11:45 MCV 103.0 fL (80.0-94.0) H 08/18/18 11:45 MCH 34.2 pg (27.0-31.0) H 08/18/18 11:45 MCHC 33.2 g/dL (32.0-36.0) 08/18/18 11:45 RDW 14.9 % (12.0-15.0) 08/18/18 11:45 Plt Count 216 10^3/uL (130-450) 08/18/18 11:45 MPV 7.9 fL (7.4-11.4) 08/18/18 11:45 Neut # (Auto) 3.4 10^3/uL (1.5-6.6) 08/18/18 11:45 Lymph # (Auto) 1.0 10^3/uL (1.5-3.5) L 08/18/18 11:45 [place] # (Auto) 0.6 10^3/uL (0.0-1.0) 08/18/18 11:45 Eos # (Auto) 0.5 10^3/uL (0.0-0.7) 08/18/18 11:45 Baso # (Auto) 0.1 10^3/uL (0.0-0.1) 08/18/18 11:45 Absolute Nucleated RBC 0.01 x10^3/uL 08/18/18 11:45 Total Counted 100 07/26/18 05:05 Band Neuts % (Manual) 0 % (0-10) 07/26/18 05:05 Reactive Lymphs % (Man) 6 % 07/19/18 08:37 Abnorm Lymph % (Manual) 0 % 07/26/18 05:05 Nucleated RBC % 0.1 /100WBC 08/18/18 11:45 Neutrophils # (Manual) 1.5 10^3/uL (1.5-6.6) 07/26/18 05:05 Lymphocytes # (Manual) 0.6 10^3/uL (1.5-3.5) L 07/26/18 05:05 Monocytes # (Manual) 0.3 10^3/uL (0.0-1.0) 07/26/18 05:05 Eosinophils # (Manual) 0.0 10^3/uL (0-0.7) 07/26/18 05:05 Basophils # (Manual) 0.0 10^3/uL (0-0.1) 07/26/18 05:05 Differential Comment MANUAL DIFFERENTIAL 07/19/18 08:37 Manual Slide Review Indicated 07/27/18 04:20 Platelet Estimate DECREASED (<130,000) (NORMAL) 07/27/18 04:20 Platelet Morphology RARE GIANT PLATELETS (NORMAL) 07/19/18 08:37 RBC Morph Micro Appear 1+ ANISOCYTOSIS (NORMAL) 07/27/18 04:20 PT 12.7 secs (9.9-12.6) H 08/18/18 11:45 INR 1.1 (0.8-1.2) 08/18/18 11:45 Sodium 139 mmol/L (135-145) 07/28/18 05:31 Potassium 3.6 mmol/L (3.5-5.0) 07/28/18 05:31 Chloride 105 mmol/L (101-111) 07/28/18 05:31 Carbon Dioxide 26 mmol/L (21-32) 07/28/18 05:31 Anion Gap 8.0 (6-13) 07/28/18 05:31 BUN 15 mg/dL (6-20) 07/28/18 05:31 Creatinine 0.9 mg/dL (0.6-1.2) 07/28/18 05:31 Estimated GFR (MDRD) 82 (>89) L 07/28/18 05:31 Glucose 93 mg/dL (70-100) 07/28/18 05:31 POC Whole Bld Glucose 70 mg/dL (70 - 100) 07/22/18 11:34 Lactic Acid 1.0 mmol/L (0.5-2.2) 07/23/18 09:15 Calcium 7.9 mg/dL (8.5-10.3) L 07/28/18 05:31 Phosphorus 1.7 mg/dL (2.5-4.6) L 07/25/18 06:07 Total Bilirubin 0.6 mg/dL (0.2-1.0) 07/22/18 13:37 AST 30 IU/L (10-42) 07/22/18 13:37 ALT 14 IU/L (10-60) 07/22/18 13:37 Alkaline Phosphatase 98 IU/L (42-121) 07/22/18 13:37 Total Creatine Kinase 122 IU/L (22-269) 07/19/18 08:37 Troponin I < 0.04 ng/mL (<0.49) 07/22/18 13:37 Total Protein 6.6 g/dL (6.7-8.2) L 07/22/18 13:37 Albumin 2.7 g/dL (3.2-5.5) L 07/25/18 06:07 Globulin 3.2 g/dL (2.1-4.2) 07/22/18 13:37 Albumin/Globulin Ratio 1.1 (1.0-2.2) 07/22/18 13:37 Lipase 30 U/L (22-51) 07/22/18 13:37 Urine Color YELLOW 07/21/18 18:29 Urine Clarity CLEAR (CLEAR) 07/21/18 18:29 Urine pH 6.0 PH (5.0-7.5) 07/21/18 18:29 Ur Specific [place] 1.025 (1.002-1.030) 07/21/18 18:29 Urine Protein NEGATIVE mg/dL (NEGATIVE) 07/21/18 18:29 Urine Glucose (UA) NEGATIVE mg/dL (NEGATIVE) 07/21/18 18:29 Urine Ketones 15 mg/dL (NEGATIVE) H 07/21/18 18:29 Urine Occult Blood SMALL (NEGATIVE) H 07/21/18 18:29 Urine Nitrite NEGATIVE (NEGATIVE) 07/21/18 18:29 Urine Bilirubin NEGATIVE (NEGATIVE) 07/21/18 18:29 Urine Urobilinogen 0.2 (NORMAL) E.U./dL (NORMAL) 07/21/18 18:29 Ur Leukocyte Esterase NEGATIVE (NEGATIVE) 07/21/18 18:29 Urine RBC 6-10 /HPF (0-5) H 07/21/18 18:29 Urine WBC 0-3 /HPF (0-3) 07/21/18 18:29 Ur Squamous Epith Cells RARE Squamous (<= Few) 07/21/18 18:29 Urine Bacteria Rare /HPF (None Seen) 07/21/18 18:29 Urine Mucus Few Strands 07/21/18 18:29 Ur Microscopic Review INDICATED 07/21/18 18:29 Urine Culture Comments NOT INDICATED 07/21/18 18:29 Last Dose Date UNK 07/25/18 09:30 Last Dose Time UNK 07/25/18 09:30 Vancomycin Trough 17.4 ug/mL (10.0-20.0) 07/25/18 09:30 Urine Opiates Screen NEGATIVE (NEGATIVE) 07/17/18 00:00 Ur Oxycodone Screen NEGATIVE (NEGATIVE) 07/17/18 00:00 Urine Methadone Screen NEGATIVE (NEGATIVE) 07/17/18 00:00 Ur Propoxyphene Screen NEGATIVE (NEGATIVE) 07/17/18 00:00 Ur Barbiturates Screen NEGATIVE (NEGATIVE) 07/17/18 00:00 Ur Tricyclics Screen NEGATIVE (NEGATIVE) 07/17/18 00:00 Ur Phencyclidine Scrn NEGATIVE (NEGATIVE) 07/17/18 00:00 Ur Amphetamine Screen NEGATIVE (NEGATIVE) 07/17/18 00:00 U Methamphetamines Scrn NEGATIVE (NEGATIVE) 07/17/18 00:00 U Benzodiazepines Scrn NEGATIVE (NEGATIVE) 07/17/18 00:00 Urine Cocaine Screen NEGATIVE (NEGATIVE) 07/17/18 00:00 U Cannabinoids Screen NEGATIVE (NEGATIVE) 07/17/18 00:00 C. difficile Tox B Gene NEGATIVE (NEGATIVE) 07/23/18 07:43 Sepsis Event Note (H) - Evaluation Current Stage of Sepsis: Ruled out
[2018-08-24] MEDS: MEMANTINE 5 MG TABLET PO SCH ×2 (08:51→20:58)
[2018-08-24] MEDS: NYSTATIN POWDER 15 GM TOP SCH ×2 (08:51→20:58)
[2018-08-24] MEDS: POLYETHYLENE GLYCOL 3350 17 GM PACKET PO SCH (08:51)
[2018-08-24] MEDS: MULTIVITAMIN W/MINERALS TABLET PO SCH (08:51)
[2018-08-24] MEDS: FAMOTIDINE 20 MG TABLET PO SCH ×2 (08:51→20:58)
--- NOTE | 2018-08-24 11:52 | PROVIDER PROGRESS NOTE ---
Assessment/Plan - Problem List (1) Dementia Qualifiers: Dementia type: unspecified type Dementia behavioral disturbance: without behavioral disturbance Qualified Code(s): F03.90 - Unspecified dementia without behavioral disturbance Assessment/Plan: No change (2) NPH (normal pressure hydrocephalus) Assessment/Plan: No change (3) Problem situation relating to social and personal history Assessment/Plan: No change. Awaiting final paperwork regarding guardianship. Awaiting placement, possibly to [facility], in [place], [place]. - Current Meds Current Meds: Current Medications Generic Name Dose Route Start Last Admin Trade Name Freq PRN Reason Stop Dose Admin Acetaminophen 650 mg 07/23/18 11:56 08/13/18 18:55 Tylenol PO 650 mg Q4HR PRN Administration Pain 1 to 4 Famotidine 20 mg 07/23/18 21:00 08/24/18 08:51 Pepcid PO 20 mg BID REG Administration Memantine 5 mg 07/23/18 21:00 08/24/18 08:51 Namenda PO 5 mg BID REG Administration Multivitamins/Minerals 1 tab 07/24/18 16:00 08/24/18 08:51 Theragran M PO 1 tab DAILYWM REG Administration Nystatin 1 applic 08/20/18 21:00 08/24/18 08:51 Nystop TOP 1 applic BID REG Administration Polyethylene Glycol 17 gm 07/24/18 09:00 08/24/18 08:51 Miralax PO 17 gm DAILY REG Administration Trazodone HCl 50 mg 07/24/18 21:44 08/21/18 20:14 Desyrel PO 50 mg QPM PRN Administration Insomnia - Lab Result Fish Bone Diagrams: 08/18/18 11:45 07/28/18 05:31 Subjective - Subjective Patient Reports: No Complaints Objective Vital Signs: Vital Signs - 24 hr 08/24/18 07:34 Temperature 36.8 C Heart Rate [ 56 L Brachial] Respiratory 16 Rate Blood Pressure 128/69 [Right Brachial artery] O2 Saturation 95 Oxygen O2 Source Room air I&O (Last 24 Hrs): Intake and Output Totals x24h 08/22/18 08/23/18 08/24/18 23:59 23:59 23:59 Intake Total 960 1830 720 Output Total 200 Balance 960 1630 720 General: Cooperative Respiratory: No respiratory distress - Results Results: Laboratory Results WBC 5.5 x10^3/uL (4.8-10.8) 08/18/18 11:45 RBC 3.55 10^6/uL (4.70-6.10) L 08/18/18 11:45 Hgb 12.1 g/dL (14.0-18.0) L 08/18/18 11:45 Hct 36.6 % (42.0-52.0) L 08/18/18 11:45 MCV 103.0 fL (80.0-94.0) H 08/18/18 11:45 MCH 34.2 pg (27.0-31.0) H 08/18/18 11:45 MCHC 33.2 g/dL (32.0-36.0) 08/18/18 11:45 RDW 14.9 % (12.0-15.0) 08/18/18 11:45 Plt Count 216 10^3/uL (130-450) 08/18/18 11:45 MPV 7.9 fL (7.4-11.4) 08/18/18 11:45 Neut # (Auto) 3.4 10^3/uL (1.5-6.6) 08/18/18 11:45 Lymph # (Auto) 1.0 10^3/uL (1.5-3.5) L 08/18/18 11:45 [place] # (Auto) 0.6 10^3/uL (0.0-1.0) 08/18/18 11:45 Eos # (Auto) 0.5 10^3/uL (0.0-0.7) 08/18/18 11:45 Baso # (Auto) 0.1 10^3/uL (0.0-0.1) 08/18/18 11:45 Absolute Nucleated RBC 0.01 x10^3/uL 08/18/18 11:45 Total Counted 100 07/26/18 05:05 Band Neuts % (Manual) 0 % (0-10) 07/26/18 05:05 Reactive Lymphs % (Man) 6 % 07/19/18 08:37 Abnorm Lymph % (Manual) 0 % 07/26/18 05:05 Nucleated RBC % 0.1 /100WBC 08/18/18 11:45 Neutrophils # (Manual) 1.5 10^3/uL (1.5-6.6) 07/26/18 05:05 Lymphocytes # (Manual) 0.6 10^3/uL (1.5-3.5) L 07/26/18 05:05 Monocytes # (Manual) 0.3 10^3/uL (0.0-1.0) 07/26/18 05:05 Eosinophils # (Manual) 0.0 10^3/uL (0-0.7) 07/26/18 05:05 Basophils # (Manual) 0.0 10^3/uL (0-0.1) 07/26/18 05:05 Differential Comment MANUAL DIFFERENTIAL 07/19/18 08:37 Manual Slide Review Indicated 07/27/18 04:20 Platelet Estimate DECREASED (<130,000) (NORMAL) 07/27/18 04:20 Platelet Morphology RARE GIANT PLATELETS (NORMAL) 07/19/18 08:37 RBC Morph Micro Appear 1+ ANISOCYTOSIS (NORMAL) 07/27/18 04:20 PT 12.7 secs (9.9-12.6) H 08/18/18 11:45 INR 1.1 (0.8-1.2) 08/18/18 11:45 Sodium 139 mmol/L (135-145) 07/28/18 05:31 Potassium 3.6 mmol/L (3.5-5.0) 07/28/18 05:31 Chloride 105 mmol/L (101-111) 07/28/18 05:31 Carbon Dioxide 26 mmol/L (21-32) 07/28/18 05:31 Anion Gap 8.0 (6-13) 07/28/18 05:31 BUN 15 mg/dL (6-20) 07/28/18 05:31 Creatinine 0.9 mg/dL (0.6-1.2) 07/28/18 05:31 Estimated GFR (MDRD) 82 (>89) L 07/28/18 05:31 Glucose 93 mg/dL (70-100) 07/28/18 05:31 POC Whole Bld Glucose 70 mg/dL (70 - 100) 07/22/18 11:34 Lactic Acid 1.0 mmol/L (0.5-2.2) 07/23/18 09:15 Calcium 7.9 mg/dL (8.5-10.3) L 07/28/18 05:31 Phosphorus 1.7 mg/dL (2.5-4.6) L 07/25/18 06:07 Total Bilirubin 0.6 mg/dL (0.2-1.0) 07/22/18 13:37 AST 30 IU/L (10-42) 07/22/18 13:37 ALT 14 IU/L (10-60) 07/22/18 13:37 Alkaline Phosphatase 98 IU/L (42-121) 07/22/18 13:37 Total Creatine Kinase 122 IU/L (22-269) 07/19/18 08:37 Troponin I < 0.04 ng/mL (<0.49) 07/22/18 13:37 Total Protein 6.6 g/dL (6.7-8.2) L 07/22/18 13:37 Albumin 2.7 g/dL (3.2-5.5) L 07/25/18 06:07 Globulin 3.2 g/dL (2.1-4.2) 07/22/18 13:37 Albumin/Globulin Ratio 1.1 (1.0-2.2) 07/22/18 13:37 Lipase 30 U/L (22-51) 07/22/18 13:37 Urine Color YELLOW 07/21/18 18:29 Urine Clarity CLEAR (CLEAR) 07/21/18 18:29 Urine pH 6.0 PH (5.0-7.5) 07/21/18 18:29 Ur Specific [place] 1.025 (1.002-1.030) 07/21/18 18:29 Urine Protein NEGATIVE mg/dL (NEGATIVE) 07/21/18 18:29 Urine Glucose (UA) NEGATIVE mg/dL (NEGATIVE) 07/21/18 18:29 Urine Ketones 15 mg/dL (NEGATIVE) H 07/21/18 18:29 Urine Occult Blood SMALL (NEGATIVE) H 07/21/18 18:29 Urine Nitrite NEGATIVE (NEGATIVE) 07/21/18 18:29 Urine Bilirubin NEGATIVE (NEGATIVE) 07/21/18 18:29 Urine Urobilinogen 0.2 (NORMAL) E.U./dL (NORMAL) 07/21/18 18:29 Ur Leukocyte Esterase NEGATIVE (NEGATIVE) 07/21/18 18:29 Urine RBC 6-10 /HPF (0-5) H 07/21/18 18:29 Urine WBC 0-3 /HPF (0-3) 07/21/18 18:29 Ur Squamous Epith Cells RARE Squamous (<= Few) 07/21/18 18:29 Urine Bacteria Rare /HPF (None Seen) 07/21/18 18:29 Urine Mucus Few Strands 07/21/18 18:29 Ur Microscopic Review INDICATED 07/21/18 18:29 Urine Culture Comments NOT INDICATED 07/21/18 18:29 Last Dose Date UNK 07/25/18 09:30 Last Dose Time UNK 07/25/18 09:30 Vancomycin Trough 17.4 ug/mL (10.0-20.0) 07/25/18 09:30 Urine Opiates Screen NEGATIVE (NEGATIVE) 07/17/18 00:00 Ur Oxycodone Screen NEGATIVE (NEGATIVE) 07/17/18 00:00 Urine Methadone Screen NEGATIVE (NEGATIVE) 07/17/18 00:00 Ur Propoxyphene Screen NEGATIVE (NEGATIVE) 07/17/18 00:00 Ur Barbiturates Screen NEGATIVE (NEGATIVE) 07/17/18 00:00 Ur Tricyclics Screen NEGATIVE (NEGATIVE) 07/17/18 00:00 Ur Phencyclidine Scrn NEGATIVE (NEGATIVE) 07/17/18 00:00 Ur Amphetamine Screen NEGATIVE (NEGATIVE) 07/17/18 00:00 U Methamphetamines Scrn NEGATIVE (NEGATIVE) 07/17/18 00:00 U Benzodiazepines Scrn NEGATIVE (NEGATIVE) 07/17/18 00:00 Urine Cocaine Screen NEGATIVE (NEGATIVE) 07/17/18 00:00 U Cannabinoids Screen NEGATIVE (NEGATIVE) 07/17/18 00:00 C. difficile Tox B Gene NEGATIVE (NEGATIVE) 07/23/18 07:43 Sepsis Event Note (H) - Evaluation Current Stage of Sepsis: Ruled out
[2018-08-25] MEDS: FAMOTIDINE 20 MG TABLET PO SCH ×2 (10:21→21:28)
[2018-08-25] MEDS: POLYETHYLENE GLYCOL 3350 17 GM PACKET PO SCH (10:21)
[2018-08-25] MEDS: NYSTATIN POWDER 15 GM TOP SCH ×2 (10:22→21:29)
[2018-08-25] MEDS: MULTIVITAMIN W/MINERALS TABLET PO SCH (10:22)
[2018-08-25] MEDS: MEMANTINE 5 MG TABLET PO SCH ×2 (10:22→21:28)
--- NOTE | 2018-08-25 10:27 | PROVIDER PROGRESS NOTE ---
Assessment/Plan - Problem List (1) Dementia Qualifiers: Dementia type: unspecified type Dementia behavioral disturbance: without behavioral disturbance Qualified Code(s): F03.90 - Unspecified dementia without behavioral disturbance Assessment/Plan: Unchanged (2) NPH (normal pressure hydrocephalus) Assessment/Plan: Unchanged (3) Problem situation relating to social and personal history Assessment/Plan: Unchanged, see yesterday's note re: placement. - Current Meds Current Meds: Current Medications Generic Name Dose Route Start Last Admin Trade Name Freq PRN Reason Stop Dose Admin Acetaminophen 650 mg 07/23/18 11:56 08/13/18 18:55 Tylenol PO 650 mg Q4HR PRN Administration Pain 1 to 4 Famotidine 20 mg 07/23/18 21:00 08/25/18 10:21 Pepcid PO 20 mg BID REG Administration Memantine 5 mg 07/23/18 21:00 08/25/18 10:22 Namenda PO 5 mg BID REG Administration Multivitamins/Minerals 1 tab 07/24/18 16:00 08/25/18 10:22 Theragran M PO 1 tab DAILYWM REG Administration Nystatin 1 applic 08/20/18 21:00 08/25/18 10:22 Nystop TOP 1 applic BID REG Administration Polyethylene Glycol 17 gm 07/24/18 09:00 08/25/18 10:21 Miralax PO 17 gm DAILY REG Administration Trazodone HCl 50 mg 07/24/18 21:44 08/21/18 20:14 Desyrel PO 50 mg QPM PRN Administration Insomnia - Lab Result Fish Bone Diagrams: 08/18/18 11:45 07/28/18 05:31 Subjective - Subjective Nursing Reports: No Complaints Objective Vital Signs: Oxygen O2 Source Room air I&O (Last 24 Hrs): Intake and Output Totals x24h 08/23/18 08/24/18 08/25/18 23:59 23:59 23:59 Intake Total 1830 1760 240 Output Total 200 Balance 1630 1760 240 General: Alert Respiratory: No respiratory distress - Results Results: Laboratory Results WBC 5.5 x10^3/uL (4.8-10.8) 08/18/18 11:45 RBC 3.55 10^6/uL (4.70-6.10) L 08/18/18 11:45 Hgb 12.1 g/dL (14.0-18.0) L 08/18/18 11:45 Hct 36.6 % (42.0-52.0) L 08/18/18 11:45 MCV 103.0 fL (80.0-94.0) H 08/18/18 11:45 MCH 34.2 pg (27.0-31.0) H 08/18/18 11:45 MCHC 33.2 g/dL (32.0-36.0) 08/18/18 11:45 RDW 14.9 % (12.0-15.0) 08/18/18 11:45 Plt Count 216 10^3/uL (130-450) 08/18/18 11:45 MPV 7.9 fL (7.4-11.4) 08/18/18 11:45 Neut # (Auto) 3.4 10^3/uL (1.5-6.6) 08/18/18 11:45 Lymph # (Auto) 1.0 10^3/uL (1.5-3.5) L 08/18/18 11:45 [place] # (Auto) 0.6 10^3/uL (0.0-1.0) 08/18/18 11:45 Eos # (Auto) 0.5 10^3/uL (0.0-0.7) 08/18/18 11:45 Baso # (Auto) 0.1 10^3/uL (0.0-0.1) 08/18/18 11:45 Absolute Nucleated RBC 0.01 x10^3/uL 08/18/18 11:45 Total Counted 100 07/26/18 05:05 Band Neuts % (Manual) 0 % (0-10) 07/26/18 05:05 Reactive Lymphs % (Man) 6 % 07/19/18 08:37 Abnorm Lymph % (Manual) 0 % 07/26/18 05:05 Nucleated RBC % 0.1 /100WBC 08/18/18 11:45 Neutrophils # (Manual) 1.5 10^3/uL (1.5-6.6) 07/26/18 05:05 Lymphocytes # (Manual) 0.6 10^3/uL (1.5-3.5) L 07/26/18 05:05 Monocytes # (Manual) 0.3 10^3/uL (0.0-1.0) 07/26/18 05:05 Eosinophils # (Manual) 0.0 10^3/uL (0-0.7) 07/26/18 05:05 Basophils # (Manual) 0.0 10^3/uL (0-0.1) 07/26/18 05:05 Differential Comment MANUAL DIFFERENTIAL 07/19/18 08:37 Manual Slide Review Indicated 07/27/18 04:20 Platelet Estimate DECREASED (<130,000) (NORMAL) 07/27/18 04:20 Platelet Morphology RARE GIANT PLATELETS (NORMAL) 07/19/18 08:37 RBC Morph Micro Appear 1+ ANISOCYTOSIS (NORMAL) 07/27/18 04:20 PT 12.7 secs (9.9-12.6) H 08/18/18 11:45 INR 1.1 (0.8-1.2) 08/18/18 11:45 Sodium 139 mmol/L (135-145) 07/28/18 05:31 Potassium 3.6 mmol/L (3.5-5.0) 07/28/18 05:31 Chloride 105 mmol/L (101-111) 07/28/18 05:31 Carbon Dioxide 26 mmol/L (21-32) 07/28/18 05:31 Anion Gap 8.0 (6-13) 07/28/18 05:31 BUN 15 mg/dL (6-20) 07/28/18 05:31 Creatinine 0.9 mg/dL (0.6-1.2) 07/28/18 05:31 Estimated GFR (MDRD) 82 (>89) L 07/28/18 05:31 Glucose 93 mg/dL (70-100) 07/28/18 05:31 POC Whole Bld Glucose 70 mg/dL (70 - 100) 07/22/18 11:34 Lactic Acid 1.0 mmol/L (0.5-2.2) 07/23/18 09:15 Calcium 7.9 mg/dL (8.5-10.3) L 07/28/18 05:31 Phosphorus 1.7 mg/dL (2.5-4.6) L 07/25/18 06:07 Total Bilirubin 0.6 mg/dL (0.2-1.0) 07/22/18 13:37 AST 30 IU/L (10-42) 07/22/18 13:37 ALT 14 IU/L (10-60) 07/22/18 13:37 Alkaline Phosphatase 98 IU/L (42-121) 07/22/18 13:37 Total Creatine Kinase 122 IU/L (22-269) 07/19/18 08:37 Troponin I < 0.04 ng/mL (<0.49) 07/22/18 13:37 Total Protein 6.6 g/dL (6.7-8.2) L 07/22/18 13:37 Albumin 2.7 g/dL (3.2-5.5) L 07/25/18 06:07 Globulin 3.2 g/dL (2.1-4.2) 07/22/18 13:37 Albumin/Globulin Ratio 1.1 (1.0-2.2) 07/22/18 13:37 Lipase 30 U/L (22-51) 07/22/18 13:37 Urine Color YELLOW 07/21/18 18:29 Urine Clarity CLEAR (CLEAR) 07/21/18 18:29 Urine pH 6.0 PH (5.0-7.5) 07/21/18 18:29 Ur Specific [place] 1.025 (1.002-1.030) 07/21/18 18:29 Urine Protein NEGATIVE mg/dL (NEGATIVE) 07/21/18 18:29 Urine Glucose (UA) NEGATIVE mg/dL (NEGATIVE) 07/21/18 18:29 Urine Ketones 15 mg/dL (NEGATIVE) H 07/21/18 18:29 Urine Occult Blood SMALL (NEGATIVE) H 07/21/18 18:29 Urine Nitrite NEGATIVE (NEGATIVE) 07/21/18 18:29 Urine Bilirubin NEGATIVE (NEGATIVE) 07/21/18 18:29 Urine Urobilinogen 0.2 (NORMAL) E.U./dL (NORMAL) 07/21/18 18:29 Ur Leukocyte Esterase NEGATIVE (NEGATIVE) 07/21/18 18:29 Urine RBC 6-10 /HPF (0-5) H 07/21/18 18:29 Urine WBC 0-3 /HPF (0-3) 07/21/18 18:29 Ur Squamous Epith Cells RARE Squamous (<= Few) 07/21/18 18:29 Urine Bacteria Rare /HPF (None Seen) 07/21/18 18:29 Urine Mucus Few Strands 07/21/18 18:29 Ur Microscopic Review INDICATED 07/21/18 18:29 Urine Culture Comments NOT INDICATED 07/21/18 18:29 Last Dose Date UNK 07/25/18 09:30 Last Dose Time UNK 07/25/18 09:30 Vancomycin Trough 17.4 ug/mL (10.0-20.0) 07/25/18 09:30 Urine Opiates Screen NEGATIVE (NEGATIVE) 07/17/18 00:00 Ur Oxycodone Screen NEGATIVE (NEGATIVE) 07/17/18 00:00 Urine Methadone Screen NEGATIVE (NEGATIVE) 07/17/18 00:00 Ur Propoxyphene Screen NEGATIVE (NEGATIVE) 07/17/18 00:00 Ur Barbiturates Screen NEGATIVE (NEGATIVE) 07/17/18 00:00 Ur Tricyclics Screen NEGATIVE (NEGATIVE) 07/17/18 00:00 Ur Phencyclidine Scrn NEGATIVE (NEGATIVE) 07/17/18 00:00 Ur Amphetamine Screen NEGATIVE (NEGATIVE) 07/17/18 00:00 U Methamphetamines Scrn NEGATIVE (NEGATIVE) 07/17/18 00:00 U Benzodiazepines Scrn NEGATIVE (NEGATIVE) 07/17/18 00:00 Urine Cocaine Screen NEGATIVE (NEGATIVE) 07/17/18 00:00 U Cannabinoids Screen NEGATIVE (NEGATIVE) 07/17/18 00:00 C. difficile Tox B Gene NEGATIVE (NEGATIVE) 07/23/18 07:43 Sepsis Event Note (H) - Evaluation Current Stage of Sepsis: Ruled out
[2018-08-25] MEDS: traZODone 50 MG TABLET PO PRN (21:28)
[2018-08-26] MEDS: MEMANTINE 5 MG TABLET PO SCH ×2 (09:32→21:18)
[2018-08-26] MEDS: FAMOTIDINE 20 MG TABLET PO SCH ×2 (09:32→21:19)
[2018-08-26] MEDS: NYSTATIN POWDER 15 GM TOP SCH (09:32)
[2018-08-26] MEDS: POLYETHYLENE GLYCOL 3350 17 GM PACKET PO SCH (09:32)
[2018-08-26] MEDS: MULTIVITAMIN W/MINERALS TABLET PO SCH (09:32)
--- NOTE | 2018-08-26 13:34 | PROVIDER PROGRESS NOTE ---
Assessment/Plan - Problem List (1) Dementia Qualifiers: Dementia type: unspecified type Dementia behavioral disturbance: without behavioral disturbance Qualified Code(s): F03.90 - Unspecified dementia without behavioral disturbance Assessment/Plan: Unchanged (2) NPH (normal pressure hydrocephalus) Assessment/Plan: Unchanged (3) Problem situation relating to social and personal history Assessment/Plan: Unchanged - Current Meds Current Meds: Current Medications Generic Name Dose Route Start Last Admin Trade Name Freq PRN Reason Stop Dose Admin Acetaminophen 650 mg 07/23/18 11:56 08/13/18 18:55 Tylenol PO 650 mg Q4HR PRN Administration Pain 1 to 4 Famotidine 20 mg 07/23/18 21:00 08/26/18 09:32 Pepcid PO 20 mg BID REG Administration Memantine 5 mg 07/23/18 21:00 08/26/18 09:32 Namenda PO 5 mg BID REG Administration Multivitamins/Minerals 1 tab 07/24/18 16:00 08/26/18 09:32 Theragran M PO 1 tab DAILYWM REG Administration Nystatin 1 applic 08/20/18 21:00 08/26/18 09:32 Nystop TOP 1 applic BID REG Administration Polyethylene Glycol 17 gm 07/24/18 09:00 08/26/18 09:32 Miralax PO 17 gm DAILY REG Administration Trazodone HCl 50 mg 07/24/18 21:44 08/25/18 21:28 Desyrel PO 50 mg QPM PRN Administration Insomnia - Lab Result [place] Diagrams: 08/18/18 11:45 07/28/18 05:31 Subjective - Subjective Nursing Reports: No Complaints Objective Vital Signs: Oxygen O2 Source Room air I&O (Last 24 Hrs): Intake and Output Totals x24h 08/24/18 08/25/18 08/26/18 23:59 23:59 23:59 Intake Total 1760 810 600 Balance 1760 810 600 General: Alert Respiratory: No respiratory distress - Results Results: Laboratory Results WBC 5.5 x10^3/uL (4.8-10.8) 08/18/18 11:45 RBC 3.55 10^6/uL (4.70-6.10) L 08/18/18 11:45 Hgb 12.1 g/dL (14.0-18.0) L 08/18/18 11:45 Hct 36.6 % (42.0-52.0) L 08/18/18 11:45 MCV 103.0 fL (80.0-94.0) H 08/18/18 11:45 MCH 34.2 pg (27.0-31.0) H 08/18/18 11:45 MCHC 33.2 g/dL (32.0-36.0) 08/18/18 11:45 RDW 14.9 % (12.0-15.0) 08/18/18 11:45 Plt Count 216 10^3/uL (130-450) 08/18/18 11:45 MPV 7.9 fL (7.4-11.4) 08/18/18 11:45 Neut # (Auto) 3.4 10^3/uL (1.5-6.6) 08/18/18 11:45 Lymph # (Auto) 1.0 10^3/uL (1.5-3.5) L 08/18/18 11:45 [place] # (Auto) 0.6 10^3/uL (0.0-1.0) 08/18/18 11:45 Eos # (Auto) 0.5 10^3/uL (0.0-0.7) 08/18/18 11:45 Baso # (Auto) 0.1 10^3/uL (0.0-0.1) 08/18/18 11:45 Absolute Nucleated RBC 0.01 x10^3/uL 08/18/18 11:45 Total Counted 100 07/26/18 05:05 Band Neuts % (Manual) 0 % (0-10) 07/26/18 05:05 Reactive Lymphs % (Man) 6 % 07/19/18 08:37 Abnorm Lymph % (Manual) 0 % 07/26/18 05:05 Nucleated RBC % 0.1 /100WBC 08/18/18 11:45 Neutrophils # (Manual) 1.5 10^3/uL (1.5-6.6) 07/26/18 05:05 Lymphocytes # (Manual) 0.6 10^3/uL (1.5-3.5) L 07/26/18 05:05 Monocytes # (Manual) 0.3 10^3/uL (0.0-1.0) 07/26/18 05:05 Eosinophils # (Manual) 0.0 10^3/uL (0-0.7) 07/26/18 05:05 Basophils # (Manual) 0.0 10^3/uL (0-0.1) 07/26/18 05:05 Differential Comment MANUAL DIFFERENTIAL 07/19/18 08:37 Manual Slide Review Indicated 07/27/18 04:20 Platelet Estimate DECREASED (<130,000) (NORMAL) 07/27/18 04:20 Platelet Morphology RARE GIANT PLATELETS (NORMAL) 07/19/18 08:37 RBC Morph Micro Appear 1+ ANISOCYTOSIS (NORMAL) 07/27/18 04:20 PT 12.7 secs (9.9-12.6) H 08/18/18 11:45 INR 1.1 (0.8-1.2) 08/18/18 11:45 Sodium 139 mmol/L (135-145) 07/28/18 05:31 Potassium 3.6 mmol/L (3.5-5.0) 07/28/18 05:31 Chloride 105 mmol/L (101-111) 07/28/18 05:31 Carbon Dioxide 26 mmol/L (21-32) 07/28/18 05:31 Anion Gap 8.0 (6-13) 07/28/18 05:31 BUN 15 mg/dL (6-20) 07/28/18 05:31 Creatinine 0.9 mg/dL (0.6-1.2) 07/28/18 05:31 Estimated GFR (MDRD) 82 (>89) L 07/28/18 05:31 Glucose 93 mg/dL (70-100) 07/28/18 05:31 POC Whole Bld Glucose 70 mg/dL (70 - 100) 07/22/18 11:34 Lactic Acid 1.0 mmol/L (0.5-2.2) 07/23/18 09:15 Calcium 7.9 mg/dL (8.5-10.3) L 07/28/18 05:31 Phosphorus 1.7 mg/dL (2.5-4.6) L 07/25/18 06:07 Total Bilirubin 0.6 mg/dL (0.2-1.0) 07/22/18 13:37 AST 30 IU/L (10-42) 07/22/18 13:37 ALT 14 IU/L (10-60) 07/22/18 13:37 Alkaline Phosphatase 98 IU/L (42-121) 07/22/18 13:37 Total Creatine Kinase 122 IU/L (22-269) 07/19/18 08:37 Troponin I < 0.04 ng/mL (<0.49) 07/22/18 13:37 Total Protein 6.6 g/dL (6.7-8.2) L 07/22/18 13:37 Albumin 2.7 g/dL (3.2-5.5) L 07/25/18 06:07 Globulin 3.2 g/dL (2.1-4.2) 07/22/18 13:37 Albumin/Globulin Ratio 1.1 (1.0-2.2) 07/22/18 13:37 Lipase 30 U/L (22-51) 07/22/18 13:37 Urine Color YELLOW 07/21/18 18:29 Urine Clarity CLEAR (CLEAR) 07/21/18 18:29 Urine pH 6.0 PH (5.0-7.5) 07/21/18 18:29 Ur Specific [place] 1.025 (1.002-1.030) 07/21/18 18:29 Urine Protein NEGATIVE mg/dL (NEGATIVE) 07/21/18 18:29 Urine Glucose (UA) NEGATIVE mg/dL (NEGATIVE) 07/21/18 18:29 Urine Ketones 15 mg/dL (NEGATIVE) H 07/21/18 18:29 Urine Occult Blood SMALL (NEGATIVE) H 07/21/18 18:29 Urine Nitrite NEGATIVE (NEGATIVE) 07/21/18 18:29 Urine Bilirubin NEGATIVE (NEGATIVE) 07/21/18 18:29 Urine Urobilinogen 0.2 (NORMAL) E.U./dL (NORMAL) 07/21/18 18:29 Ur Leukocyte Esterase NEGATIVE (NEGATIVE) 07/21/18 18:29 Urine RBC 6-10 /HPF (0-5) H 07/21/18 18:29 Urine WBC 0-3 /HPF (0-3) 07/21/18 18:29 Ur Squamous Epith Cells RARE Squamous (<= Few) 07/21/18 18:29 Urine Bacteria Rare /HPF (None Seen) 07/21/18 18:29 Urine Mucus Few Strands 07/21/18 18:29 Ur Microscopic Review INDICATED 07/21/18 18:29 Urine Culture Comments NOT INDICATED 07/21/18 18:29 Last Dose Date UNK 07/25/18 09:30 Last Dose Time UNK 07/25/18 09:30 Vancomycin Trough 17.4 ug/mL (10.0-20.0) 07/25/18 09:30 Urine Opiates Screen NEGATIVE (NEGATIVE) 07/17/18 00:00 Ur Oxycodone Screen NEGATIVE (NEGATIVE) 07/17/18 00:00 Urine Methadone Screen NEGATIVE (NEGATIVE) 07/17/18 00:00 Ur Propoxyphene Screen NEGATIVE (NEGATIVE) 07/17/18 00:00 Ur Barbiturates Screen NEGATIVE (NEGATIVE) 07/17/18 00:00 Ur Tricyclics Screen NEGATIVE (NEGATIVE) 07/17/18 00:00 Ur Phencyclidine Scrn NEGATIVE (NEGATIVE) 07/17/18 00:00 Ur Amphetamine Screen NEGATIVE (NEGATIVE) 07/17/18 00:00 U Methamphetamines Scrn NEGATIVE (NEGATIVE) 07/17/18 00:00 U Benzodiazepines Scrn NEGATIVE (NEGATIVE) 07/17/18 00:00 Urine Cocaine Screen NEGATIVE (NEGATIVE) 07/17/18 00:00 U Cannabinoids Screen NEGATIVE (NEGATIVE) 07/17/18 00:00 C. difficile Tox B Gene NEGATIVE (NEGATIVE) 07/23/18 07:43 Sepsis Event Note (H) - Evaluation Current Stage of Sepsis: Ruled out
--- NOTE | 2018-08-26 19:41 | DISCHARGE SUMMARY ---
Discharge Summary Code Status: Do Not Attempt Resuscitation - ALLERGIES Allergies/Adverse Reactions: Allergies Allergy/AdvReac Type Severity Reaction Status Date / Time Sulfa (Sulfonamide Allergy Unknown Verified 10/31/17 16:06 Antibiotics) Penicillins AdvReac Unknown Verified 10/31/17 16:06 - MEDICATIONS Home Medications: Ambulatory Orders Medication Instructions Recorded Confirmed No Known Home Medications 10/31/17 07/21/18 - LABS Result Diagrams: 08/18/18 11:45 07/28/18 05:31 - SEPSIS Current Stage of Sepsis: Ruled out
[2018-08-26] MEDS: traZODone 50 MG TABLET PO PRN (21:19)
[2018-08-27] MEDS: NYSTATIN POWDER 15 GM TOP SCH ×3 (02:25→21:14)
[2018-08-27] MEDS: POLYETHYLENE GLYCOL 3350 17 GM PACKET PO SCH (02:34)
[2018-08-27] MEDS: FAMOTIDINE 20 MG TABLET PO SCH ×2 (09:48→21:14)
[2018-08-27] MEDS: MEMANTINE 5 MG TABLET PO SCH ×2 (09:48→21:14)
[2018-08-27] MEDS: MULTIVITAMIN W/MINERALS TABLET PO SCH (09:48)
--- NOTE | 2018-08-27 14:42 | PROVIDER PROGRESS NOTE ---
Assessment/Plan - Problem List (1) Dementia Qualifiers: Dementia type: unspecified type Dementia behavioral disturbance: without behavioral disturbance Qualified Code(s): F03.90 - Unspecified dementia without behavioral disturbance Assessment/Plan: Unchanged (2) NPH (normal pressure hydrocephalus) Assessment/Plan: Stable (3) Problem situation relating to social and personal history Assessment/Plan: SW is working on placement. - Current Meds Current Meds: Current Medications Generic Name Dose Route Start Last Admin Trade Name Freq PRN Reason Stop Dose Admin Acetaminophen 650 mg 07/23/18 11:56 08/13/18 18:55 Tylenol PO 650 mg Q4HR PRN Administration Pain 1 to 4 Famotidine 20 mg 07/23/18 21:00 08/27/18 09:48 Pepcid PO 20 mg BID REG Administration Memantine 5 mg 07/23/18 21:00 08/27/18 09:48 Namenda PO 5 mg BID REG Administration Multivitamins/Minerals 1 tab 07/24/18 16:00 08/27/18 09:48 Theragran M PO 1 tab DAILYWM REG Administration Nystatin 1 applic 08/20/18 21:00 08/27/18 09:50 Nystop TOP 1 applic BID REG Administration Polyethylene Glycol 17 gm 07/24/18 09:00 08/27/18 02:34 Miralax PO Not Given DAILY REG Trazodone HCl 50 mg 07/24/18 21:44 08/26/18 21:19 Desyrel PO 50 mg QPM PRN Administration Insomnia - Lab Result [place] Diagrams: 08/18/18 11:45 07/28/18 05:31 Subjective - Subjective Patient Reports: No Complaints Nursing Reports: No Complaints Objective Vital Signs: Oxygen O2 Source Room air I&O (Last 24 Hrs): Intake and Output Totals x24h 08/25/18 08/26/18 08/27/18 23:59 23:59 23:59 Intake Total 810 960 900 Balance 810 960 900 General: Alert Respiratory: No respiratory distress - Results Results: Laboratory Results WBC 5.5 x10^3/uL (4.8-10.8) 08/18/18 11:45 RBC 3.55 10^6/uL (4.70-6.10) L 08/18/18 11:45 Hgb 12.1 g/dL (14.0-18.0) L 08/18/18 11:45 Hct 36.6 % (42.0-52.0) L 08/18/18 11:45 MCV 103.0 fL (80.0-94.0) H 08/18/18 11:45 MCH 34.2 pg (27.0-31.0) H 08/18/18 11:45 MCHC 33.2 g/dL (32.0-36.0) 08/18/18 11:45 RDW 14.9 % (12.0-15.0) 08/18/18 11:45 Plt Count 216 10^3/uL (130-450) 08/18/18 11:45 MPV 7.9 fL (7.4-11.4) 08/18/18 11:45 Neut # (Auto) 3.4 10^3/uL (1.5-6.6) 08/18/18 11:45 Lymph # (Auto) 1.0 10^3/uL (1.5-3.5) L 08/18/18 11:45 [place] # (Auto) 0.6 10^3/uL (0.0-1.0) 08/18/18 11:45 Eos # (Auto) 0.5 10^3/uL (0.0-0.7) 08/18/18 11:45 Baso # (Auto) 0.1 10^3/uL (0.0-0.1) 08/18/18 11:45 Absolute Nucleated RBC 0.01 x10^3/uL 08/18/18 11:45 Total Counted 100 07/26/18 05:05 Band Neuts % (Manual) 0 % (0-10) 07/26/18 05:05 Reactive Lymphs % (Man) 6 % 07/19/18 08:37 Abnorm Lymph % (Manual) 0 % 07/26/18 05:05 Nucleated RBC % 0.1 /100WBC 08/18/18 11:45 Neutrophils # (Manual) 1.5 10^3/uL (1.5-6.6) 07/26/18 05:05 Lymphocytes # (Manual) 0.6 10^3/uL (1.5-3.5) L 07/26/18 05:05 Monocytes # (Manual) 0.3 10^3/uL (0.0-1.0) 07/26/18 05:05 Eosinophils # (Manual) 0.0 10^3/uL (0-0.7) 07/26/18 05:05 Basophils # (Manual) 0.0 10^3/uL (0-0.1) 07/26/18 05:05 Differential Comment MANUAL DIFFERENTIAL 07/19/18 08:37 Manual Slide Review Indicated 07/27/18 04:20 Platelet Estimate DECREASED (<130,000) (NORMAL) 07/27/18 04:20 Platelet Morphology RARE GIANT PLATELETS (NORMAL) 07/19/18 08:37 RBC Morph Micro Appear 1+ ANISOCYTOSIS (NORMAL) 07/27/18 04:20 PT 12.7 secs (9.9-12.6) H 08/18/18 11:45 INR 1.1 (0.8-1.2) 08/18/18 11:45 Sodium 139 mmol/L (135-145) 07/28/18 05:31 Potassium 3.6 mmol/L (3.5-5.0) 07/28/18 05:31 Chloride 105 mmol/L (101-111) 07/28/18 05:31 Carbon Dioxide 26 mmol/L (21-32) 07/28/18 05:31 Anion Gap 8.0 (6-13) 07/28/18 05:31 BUN 15 mg/dL (6-20) 07/28/18 05:31 Creatinine 0.9 mg/dL (0.6-1.2) 07/28/18 05:31 Estimated GFR (MDRD) 82 (>89) L 07/28/18 05:31 Glucose 93 mg/dL (70-100) 07/28/18 05:31 POC Whole Bld Glucose 70 mg/dL (70 - 100) 07/22/18 11:34 Lactic Acid 1.0 mmol/L (0.5-2.2) 07/23/18 09:15 Calcium 7.9 mg/dL (8.5-10.3) L 07/28/18 05:31 Phosphorus 1.7 mg/dL (2.5-4.6) L 07/25/18 06:07 Total Bilirubin 0.6 mg/dL (0.2-1.0) 07/22/18 13:37 AST 30 IU/L (10-42) 07/22/18 13:37 ALT 14 IU/L (10-60) 07/22/18 13:37 Alkaline Phosphatase 98 IU/L (42-121) 07/22/18 13:37 Total Creatine Kinase 122 IU/L (22-269) 07/19/18 08:37 Troponin I < 0.04 ng/mL (<0.49) 07/22/18 13:37 Total Protein 6.6 g/dL (6.7-8.2) L 07/22/18 13:37 Albumin 2.7 g/dL (3.2-5.5) L 07/25/18 06:07 Globulin 3.2 g/dL (2.1-4.2) 07/22/18 13:37 Albumin/Globulin Ratio 1.1 (1.0-2.2) 07/22/18 13:37 Lipase 30 U/L (22-51) 07/22/18 13:37 Urine Color YELLOW 07/21/18 18:29 Urine Clarity CLEAR (CLEAR) 07/21/18 18:29 Urine pH 6.0 PH (5.0-7.5) 07/21/18 18:29 Ur Specific [place] 1.025 (1.002-1.030) 07/21/18 18:29 Urine Protein NEGATIVE mg/dL (NEGATIVE) 07/21/18 18:29 Urine Glucose (UA) NEGATIVE mg/dL (NEGATIVE) 07/21/18 18:29 Urine Ketones 15 mg/dL (NEGATIVE) H 07/21/18 18:29 Urine Occult Blood SMALL (NEGATIVE) H 07/21/18 18:29 Urine Nitrite NEGATIVE (NEGATIVE) 07/21/18 18:29 Urine Bilirubin NEGATIVE (NEGATIVE) 07/21/18 18:29 Urine Urobilinogen 0.2 (NORMAL) E.U./dL (NORMAL) 07/21/18 18:29 Ur Leukocyte Esterase NEGATIVE (NEGATIVE) 07/21/18 18:29 Urine RBC 6-10 /HPF (0-5) H 07/21/18 18:29 Urine WBC 0-3 /HPF (0-3) 07/21/18 18:29 Ur Squamous Epith Cells RARE Squamous (<= Few) 07/21/18 18:29 Urine Bacteria Rare /HPF (None Seen) 07/21/18 18:29 Urine Mucus Few Strands 07/21/18 18:29 Ur Microscopic Review INDICATED 07/21/18 18:29 Urine Culture Comments NOT INDICATED 07/21/18 18:29 Last Dose Date UNK 07/25/18 09:30 Last Dose Time UNK 07/25/18 09:30 Vancomycin Trough 17.4 ug/mL (10.0-20.0) 07/25/18 09:30 Urine Opiates Screen NEGATIVE (NEGATIVE) 07/17/18 00:00 Ur Oxycodone Screen NEGATIVE (NEGATIVE) 07/17/18 00:00 Urine Methadone Screen NEGATIVE (NEGATIVE) 07/17/18 00:00 Ur Propoxyphene Screen NEGATIVE (NEGATIVE) 07/17/18 00:00 Ur Barbiturates Screen NEGATIVE (NEGATIVE) 07/17/18 00:00 Ur Tricyclics Screen NEGATIVE (NEGATIVE) 07/17/18 00:00 Ur Phencyclidine Scrn NEGATIVE (NEGATIVE) 07/17/18 00:00 Ur Amphetamine Screen NEGATIVE (NEGATIVE) 07/17/18 00:00 U Methamphetamines Scrn NEGATIVE (NEGATIVE) 07/17/18 00:00 U Benzodiazepines Scrn NEGATIVE (NEGATIVE) 07/17/18 00:00 Urine Cocaine Screen NEGATIVE (NEGATIVE) 07/17/18 00:00 U Cannabinoids Screen NEGATIVE (NEGATIVE) 07/17/18 00:00 C. difficile Tox B Gene NEGATIVE (NEGATIVE) 07/23/18 07:43 Sepsis Event Note (H) - Evaluation Current Stage of Sepsis: Ruled out
[2018-08-27] MEDS: traZODone 50 MG TABLET PO PRN (21:14)
[2018-08-28] MEDS: MULTIVITAMIN W/MINERALS TABLET PO SCH (10:15)
[2018-08-28] MEDS: FAMOTIDINE 20 MG TABLET PO SCH ×2 (10:16→20:09)
[2018-08-28] MEDS: POLYETHYLENE GLYCOL 3350 17 GM PACKET PO SCH (10:16)
[2018-08-28] MEDS: NYSTATIN POWDER 15 GM TOP SCH ×2 (10:16→20:09)
[2018-08-28] MEDS: MEMANTINE 5 MG TABLET PO SCH ×2 (10:16→20:09)
--- NOTE | 2018-08-28 17:58 | PROVIDER PROGRESS NOTE ---
Assessment/Plan - Problem List (1) Dementia Qualifiers: Dementia type: unspecified type Dementia behavioral disturbance: without behavioral disturbance Qualified Code(s): F03.90 - Unspecified dementia without behavioral disturbance Assessment/Plan: Continue Namenda. (2) NPH (normal pressure hydrocephalus) Assessment/Plan: Unchanged but stable symptoms. (3) Problem situation relating to social and personal history Assessment/Plan: Still awaiting guardianship to become official, POLST to be finalized then, and a facility to then accept him for permanent residence. - Current Meds Current Meds: Current Medications Generic Name Dose Route Start Last Admin Trade Name Freq PRN Reason Stop Dose Admin Acetaminophen 650 mg 07/23/18 11:56 08/13/18 18:55 Tylenol PO 650 mg Q4HR PRN Administration Pain 1 to 4 Famotidine 20 mg 07/23/18 21:00 08/28/18 10:16 Pepcid PO 20 mg BID REG Administration Memantine 5 mg 07/23/18 21:00 08/28/18 10:16 Namenda PO 5 mg BID REG Administration Multivitamins/Minerals 1 tab 07/24/18 16:00 08/28/18 10:15 Theragran M PO 1 tab DAILYWM REG Administration Nystatin 1 applic 08/20/18 21:00 08/28/18 10:16 Nystop TOP 1 applic BID REG Administration Polyethylene Glycol 17 gm 07/24/18 09:00 08/28/18 10:16 Miralax PO 17 gm DAILY REG Administration Trazodone HCl 50 mg 07/24/18 21:44 08/27/18 21:14 Desyrel PO 50 mg QPM PRN Administration Insomnia - Lab Result [place] Diagrams: 08/18/18 11:45 07/28/18 05:31 Subjective - Subjective Patient Reports: No Complaints Nursing Reports: No Complaints Objective Vital Signs: Vital Signs - 24 hr 08/28/18 08:28 Temperature 36.4 C L Heart Rate [ 61 Brachial] Respiratory 16 Rate Blood Pressure 153/87 H [Right Brachial artery] O2 Saturation 99 Oxygen O2 Source Room air I&O (Last 24 Hrs): Intake and Output Totals x24h 08/26/18 08/27/18 08/28/18 23:59 23:59 23:59 Intake Total 960 1140 1200 Balance 960 1140 1200 General: Alert HEENT: Atraumatic Neuro: Disoriented Respiratory: No respiratory distress Extremities: No edema - Results Results: Laboratory Results WBC 5.5 x10^3/uL (4.8-10.8) 08/18/18 11:45 RBC 3.55 10^6/uL (4.70-6.10) L 08/18/18 11:45 Hgb 12.1 g/dL (14.0-18.0) L 08/18/18 11:45 Hct 36.6 % (42.0-52.0) L 08/18/18 11:45 MCV 103.0 fL (80.0-94.0) H 08/18/18 11:45 MCH 34.2 pg (27.0-31.0) H 08/18/18 11:45 MCHC 33.2 g/dL (32.0-36.0) 08/18/18 11:45 RDW 14.9 % (12.0-15.0) 08/18/18 11:45 Plt Count 216 10^3/uL (130-450) 08/18/18 11:45 MPV 7.9 fL (7.4-11.4) 08/18/18 11:45 Neut # (Auto) 3.4 10^3/uL (1.5-6.6) 08/18/18 11:45 Lymph # (Auto) 1.0 10^3/uL (1.5-3.5) L 08/18/18 11:45 [place] # (Auto) 0.6 10^3/uL (0.0-1.0) 08/18/18 11:45 Eos # (Auto) 0.5 10^3/uL (0.0-0.7) 08/18/18 11:45 Baso # (Auto) 0.1 10^3/uL (0.0-0.1) 08/18/18 11:45 Absolute Nucleated RBC 0.01 x10^3/uL 08/18/18 11:45 Total Counted 100 07/26/18 05:05 Band Neuts % (Manual) 0 % (0-10) 07/26/18 05:05 Reactive Lymphs % (Man) 6 % 07/19/18 08:37 Abnorm Lymph % (Manual) 0 % 07/26/18 05:05 Nucleated RBC % 0.1 /100WBC 08/18/18 11:45 Neutrophils # (Manual) 1.5 10^3/uL (1.5-6.6) 07/26/18 05:05 Lymphocytes # (Manual) 0.6 10^3/uL (1.5-3.5) L 07/26/18 05:05 Monocytes # (Manual) 0.3 10^3/uL (0.0-1.0) 07/26/18 05:05 Eosinophils # (Manual) 0.0 10^3/uL (0-0.7) 07/26/18 05:05 Basophils # (Manual) 0.0 10^3/uL (0-0.1) 07/26/18 05:05 Differential Comment MANUAL DIFFERENTIAL 07/19/18 08:37 Manual Slide Review Indicated 07/27/18 04:20 Platelet Estimate DECREASED (<130,000) (NORMAL) 07/27/18 04:20 Platelet Morphology RARE GIANT PLATELETS (NORMAL) 07/19/18 08:37 RBC Morph Micro Appear 1+ ANISOCYTOSIS (NORMAL) 07/27/18 04:20 PT 12.7 secs (9.9-12.6) H 08/18/18 11:45 INR 1.1 (0.8-1.2) 08/18/18 11:45 Sodium 139 mmol/L (135-145) 07/28/18 05:31 Potassium 3.6 mmol/L (3.5-5.0) 07/28/18 05:31 Chloride 105 mmol/L (101-111) 07/28/18 05:31 Carbon Dioxide 26 mmol/L (21-32) 07/28/18 05:31 Anion Gap 8.0 (6-13) 07/28/18 05:31 BUN 15 mg/dL (6-20) 07/28/18 05:31 Creatinine 0.9 mg/dL (0.6-1.2) 07/28/18 05:31 Estimated GFR (MDRD) 82 (>89) L 07/28/18 05:31 Glucose 93 mg/dL (70-100) 07/28/18 05:31 POC Whole Bld Glucose 70 mg/dL (70 - 100) 07/22/18 11:34 Lactic Acid 1.0 mmol/L (0.5-2.2) 07/23/18 09:15 Calcium 7.9 mg/dL (8.5-10.3) L 07/28/18 05:31 Phosphorus 1.7 mg/dL (2.5-4.6) L 07/25/18 06:07 Total Bilirubin 0.6 mg/dL (0.2-1.0) 07/22/18 13:37 AST 30 IU/L (10-42) 07/22/18 13:37 ALT 14 IU/L (10-60) 07/22/18 13:37 Alkaline Phosphatase 98 IU/L (42-121) 07/22/18 13:37 Total Creatine Kinase 122 IU/L (22-269) 07/19/18 08:37 Troponin I < 0.04 ng/mL (<0.49) 07/22/18 13:37 Total Protein 6.6 g/dL (6.7-8.2) L 07/22/18 13:37 Albumin 2.7 g/dL (3.2-5.5) L 07/25/18 06:07 Globulin 3.2 g/dL (2.1-4.2) 07/22/18 13:37 Albumin/Globulin Ratio 1.1 (1.0-2.2) 07/22/18 13:37 Lipase 30 U/L (22-51) 07/22/18 13:37 Urine Color YELLOW 07/21/18 18:29 Urine Clarity CLEAR (CLEAR) 07/21/18 18:29 Urine pH 6.0 PH (5.0-7.5) 07/21/18 18:29 Ur Specific [place] 1.025 (1.002-1.030) 07/21/18 18:29 Urine Protein NEGATIVE mg/dL (NEGATIVE) 07/21/18 18:29 Urine Glucose (UA) NEGATIVE mg/dL (NEGATIVE) 07/21/18 18:29 Urine Ketones 15 mg/dL (NEGATIVE) H 07/21/18 18:29 Urine Occult Blood SMALL (NEGATIVE) H 07/21/18 18:29 Urine Nitrite NEGATIVE (NEGATIVE) 07/21/18 18:29 Urine Bilirubin NEGATIVE (NEGATIVE) 07/21/18 18:29 Urine Urobilinogen 0.2 (NORMAL) E.U./dL (NORMAL) 07/21/18 18:29 Ur Leukocyte Esterase NEGATIVE (NEGATIVE) 07/21/18 18:29 Urine RBC 6-10 /HPF (0-5) H 07/21/18 18:29 Urine WBC 0-3 /HPF (0-3) 07/21/18 18:29 Ur Squamous Epith Cells RARE Squamous (<= Few) 07/21/18 18:29 Urine Bacteria Rare /HPF (None Seen) 07/21/18 18:29 Urine Mucus Few Strands 07/21/18 18:29 Ur Microscopic Review INDICATED 07/21/18 18:29 Urine Culture Comments NOT INDICATED 07/21/18 18:29 Last Dose Date UNK 07/25/18 09:30 Last Dose Time UNK 07/25/18 09:30 Vancomycin Trough 17.4 ug/mL (10.0-20.0) 07/25/18 09:30 Urine Opiates Screen NEGATIVE (NEGATIVE) 07/17/18 00:00 Ur Oxycodone Screen NEGATIVE (NEGATIVE) 07/17/18 00:00 Urine Methadone Screen NEGATIVE (NEGATIVE) 07/17/18 00:00 Ur Propoxyphene Screen NEGATIVE (NEGATIVE) 07/17/18 00:00 Ur Barbiturates Screen NEGATIVE (NEGATIVE) 07/17/18 00:00 Ur Tricyclics Screen NEGATIVE (NEGATIVE) 07/17/18 00:00 Ur Phencyclidine Scrn NEGATIVE (NEGATIVE) 07/17/18 00:00 Ur Amphetamine Screen NEGATIVE (NEGATIVE) 07/17/18 00:00 U Methamphetamines Scrn NEGATIVE (NEGATIVE) 07/17/18 00:00 U Benzodiazepines Scrn NEGATIVE (NEGATIVE) 07/17/18 00:00 Urine Cocaine Screen NEGATIVE (NEGATIVE) 07/17/18 00:00 U Cannabinoids Screen NEGATIVE (NEGATIVE) 07/17/18 00:00 C. difficile Tox B Gene NEGATIVE (NEGATIVE) 07/23/18 07:43 Sepsis Event Note (H) - Evaluation Current Stage of Sepsis: Ruled out
[2018-08-28] MEDS: traZODone 50 MG TABLET PO PRN (20:09)
[2018-08-29] MEDS: MULTIVITAMIN W/MINERALS TABLET PO SCH (08:50)
[2018-08-29] MEDS: MEMANTINE 5 MG TABLET PO SCH ×2 (08:50→22:30)
[2018-08-29] MEDS: POLYETHYLENE GLYCOL 3350 17 GM PACKET PO SCH (08:50)
[2018-08-29] MEDS: FAMOTIDINE 20 MG TABLET PO SCH ×2 (08:51→22:31)
[2018-08-29] MEDS: NYSTATIN POWDER 15 GM TOP SCH ×2 (08:51→22:31)
--- NOTE | 2018-08-29 16:00 | PROVIDER PROGRESS NOTE ---
Subjective - Subjective Pt reports feeling: No change Subjective: pt is stable, and replacement is pending Current Medications - Current Medications Current Medications: Active Medications Acetaminophen (Tylenol) 650 mg PO Q4HR PRN PRN Reason: Pain 1 to 4 Last Admin: 08/13/18 18:55 Dose: 650 mg Famotidine (Pepcid) 20 mg PO BID [facility] Last Admin: 08/29/18 08:51 Dose: 20 mg Memantine (Namenda) 5 mg PO BID [facility] Last Admin: 08/29/18 08:50 Dose: 5 mg Multi-Ingredient Ointment (Zinc Oxide) 1 applic TOP PRN PRN PRN Reason: Skin Care Multivitamins/Minerals (Theragran M) 1 tab PO DAILYWM [facility] Last Admin: 08/29/18 08:50 Dose: 1 tab Nystatin (Nystop) 1 applic TOP BID [facility] Last Admin: 08/29/18 08:51 Dose: 1 applic Polyethylene Glycol (Miralax) 17 gm PO DAILY [facility] Last Admin: 08/29/18 08:50 Dose: 17 gm Trazodone HCl (Desyrel) 50 mg PO QPM PRN PRN Reason: Insomnia Last Admin: 08/28/18 20:09 Dose: 50 mg No Known Home Medications 10/31/17 Objective - Vital Signs/Intake & Output Reviewed Vital Signs: Yes Vital Signs: Vital Signs x48h Temp Pulse Resp BP Pulse Ox 08/29/18 09:01 36.5 C 75 18 121/56 L 94 Intake & Output: Intake & Output 08/26/18 08/27/18 08/28/18 08/29/18 23:59 23:59 23:59 23:59 Intake Total 960 1140 1440 1130 Output Total 1 Balance 960 1140 1440 1129 - Objective General Appearance: positive: No acute distress, Alert. negative: Lethargic Eyes Bilateral: positive: Normal inspection, PERRL, No lid inflammation, Conjunctivae nml ENT: positive: ENT inspection nml, Pharynx nml, No signs of dehydration. negative: Purulent nasal drainage, Pharyngeal erythema, Oral lesions Neck: positive: Nml inspection, Thyroid nml, No JVD. negative: Trachea midline, Thyromegaly, Lymphadenopathy (R), Lymphadenopathy (L), Stiff neck, Swelling/bruising, Tracheal deviation Respiratory: positive: Chest non-tender, No respiratory distress, Breath sounds nml. negative: Wheezes, Rales, Rhonchi Cardiovascular: positive: Regular rate & rhythm, No murmur, No gallop. negative: Irregularly irregular, Extrasystoles, Tachycardia, Bradycardia, JVD present, Systolic murmur, Diastolic murmur Peripheral Pulses: 2+ Radial (R), 2+ Radial (L), 2+ Dorsalis pedis (R), 2+ Dorsalis pedis (L) Abdomen: positive: Non-tender, No organomegaly, Nml bowel sounds, No distention. negative: Tenderness, Guarding, Rebound Back: positive: Nml inspection. negative: CVA tenderness (R), CVA tenderness (L) Skin: positive: Color nml, No rash, Warm, Dry. negative: Cyanosis, Diaphoresis, Pallor Extremities: positive: Non-tender, Full ROM, Nml appearance. negative: Calf tenderness, Mauricio's sign/cords Neurologic/Psychiatric: positive: Mood/affect nml. negative: Weakness, Sensory loss, Facial droop, Slurred/abnml speech, Depressed mood/affect - Lab Results Fish Bones: 08/18/18 11:45 07/28/18 05:31 ABX Reporting Has patient been on IV antibiotics over the past 48 hours?: No Sepsis Event Note (H) - Evaluation Current Stage of Sepsis: Ruled out Assessment/Plan - Problem List (1) Dementia Impression: (1) Dementia Assessment/Plan: stable, Continue Namenda. (2) NPH (normal pressure hydrocephalus) Assessment/Plan: stable symptoms, continue vital and nurse support (3) Problem situation relating to social and personal history Assessment/Plan: Now pt is Still awaiting guardianship to become official, POLST to be finalized then, and a facility to then accept him for permanent residence. Qualifiers: Dementia type: unspecified type Dementia behavioral disturbance: without behavioral disturbance Qualified Code(s): F03.90 - Unspecified dementia without behavioral disturbance
[2018-08-30] MEDS: MULTIVITAMIN W/MINERALS TABLET PO SCH (09:20)
[2018-08-30] MEDS: FAMOTIDINE 20 MG TABLET PO SCH ×2 (09:20→22:18)
[2018-08-30] MEDS: MEMANTINE 5 MG TABLET PO SCH ×2 (09:21→22:18)
[2018-08-30] MEDS: POLYETHYLENE GLYCOL 3350 17 GM PACKET PO SCH (09:38)
[2018-08-30] MEDS: NYSTATIN POWDER 15 GM TOP SCH ×2 (09:39→22:18)
--- NOTE | 2018-08-30 16:34 | PROVIDER PROGRESS NOTE ---
Subjective - Prog Note Date Prog Note Date: 08/30/18 - Subjective Pt reports feeling: No change Subjective: stable, pt has no complaint Current Medications - Current Medications Current Medications: Active Medications Acetaminophen (Tylenol) 650 mg PO Q4HR PRN PRN Reason: Pain 1 to 4 Last Admin: 08/13/18 18:55 Dose: 650 mg Famotidine (Pepcid) 20 mg PO BID [facility] Last Admin: 08/30/18 09:20 Dose: 20 mg Memantine (Namenda) 5 mg PO BID [facility] Last Admin: 08/30/18 09:21 Dose: 5 mg Multi-Ingredient Ointment (Zinc Oxide) 1 applic TOP PRN PRN PRN Reason: Skin Care Multivitamins/Minerals (Theragran M) 1 tab PO DAILYWM [facility] Last Admin: 08/30/18 09:20 Dose: 1 tab Nystatin (Nystop) 1 applic TOP BID [facility] Last Admin: 08/30/18 09:39 Dose: 1 applic Polyethylene Glycol (Miralax) 17 gm PO DAILY [facility] Last Admin: 08/30/18 09:38 Dose: 17 gm Trazodone HCl (Desyrel) 50 mg PO QPM PRN PRN Reason: Insomnia Last Admin: 08/28/18 20:09 Dose: 50 mg No Known Home Medications 10/31/17 Objective - Vital Signs/Intake & Output Reviewed Vital Signs: Yes Intake & Output: Intake & Output 08/27/18 08/28/18 08/29/18 08/30/18 23:59 23:59 23:59 23:59 Intake Total 1140 1440 1310 560 Output Total 1 Balance 1140 1440 1309 560 - Objective General Appearance: positive: No acute distress, Alert. negative: Lethargic Eyes Bilateral: positive: Normal inspection, PERRL, No lid inflammation, Conjunctivae nml ENT: positive: ENT inspection nml, Pharynx nml, No signs of dehydration. negative: Purulent nasal drainage, Pharyngeal erythema, Oral lesions Neck: positive: Nml inspection, Thyroid nml, No JVD, Trachea midline. negative: Thyromegaly, Lymphadenopathy (R), Lymphadenopathy (L), Stiff neck, Swelling/bruising, Tracheal deviation Respiratory: positive: Chest non-tender, No respiratory distress. negative: Wheezes, Rales, Rhonchi Cardiovascular: positive: Regular rate & rhythm, No murmur, No gallop. negative: Irregularly irregular, Extrasystoles, Tachycardia, Bradycardia, JVD p resent, Systolic murmur, Diastolic murmur Peripheral Pulses: 2+ Radial (R), 2+ Radial (L), 2+ Dorsalis pedis (R), 2+ Dorsalis pedis (L) Abdomen: positive: Non-tender, No organomegaly, Nml bowel sounds, No distention. negative: Tenderness, Guarding, Rebound Back: positive: Nml inspection. negative: CVA tenderness (R), CVA tenderness (L) Skin: positive: Color nml, No rash, Warm, Dry. negative: Cyanosis, Diaphoresis, Pallor Extremities: positive: Non-tender. negative: Calf tenderness, Mauricio's sign/cords Neurologic/Psychiatric: negative: Sensory loss, Facial droop, Slurred/abnml speech, Depressed mood/affect - Lab Results Fish Bones: 08/18/18 11:45 07/28/18 05:31 ABX Reporting Has patient been on IV antibiotics over the past 48 hours?: No Sepsis Event Note (H) - Evaluation Current Stage of Sepsis: Ruled out Assessment/Plan - Problem List (1) Dementia Impression: stable, Continue Namenda. (2) NPH (normal pressure hydrocephalus) Assessment/Plan: stable symptoms, continue vital and nurse support (3) Problem situation relating to social and personal history Assessment/Plan: Now pt is Still awaiting guardianship to become official, POLST to be finalized then, and a facility to then accept him for permanent residence. Qualifiers: Dementia type: unspecified type Dementia behavioral disturbance: without behavioral disturbance Qualified Code(s): F03.90 - Unspecified dementia without behavioral disturbance
[2018-08-31] MEDS: FAMOTIDINE 20 MG TABLET PO SCH ×2 (08:18→20:55)
[2018-08-31] MEDS: MULTIVITAMIN W/MINERALS TABLET PO SCH (08:18)
[2018-08-31] MEDS: MEMANTINE 5 MG TABLET PO SCH ×2 (08:18→20:55)
[2018-08-31] MEDS: POLYETHYLENE GLYCOL 3350 17 GM PACKET PO SCH (08:19)
[2018-08-31] MEDS: NYSTATIN POWDER 15 GM TOP SCH ×2 (08:20→20:55)
--- NOTE | 2018-08-31 15:49 | PROVIDER PROGRESS NOTE ---
Assessment/Plan - Problem List (1) Dementia Qualifiers: Dementia type: unspecified type Dementia behavioral disturbance: without behavioral disturbance Qualified Code(s): F03.90 - Unspecified dementia without behavioral disturbance Assessment/Plan: Impression: pt is stable, pending for d/c stable, Continue Namenda. (2) NPH (normal pressure hydrocephalus) Assessment/Plan: stable symptoms, continue vital and nurse support (3) Problem situation relating to social and personal history Assessment/Plan: Now pt is Still awaiting guardianship to become official, POLST to be finalized then, and a facility to then accept him for permanent residence. - Current Meds Current Meds: Current Medications Generic Name Dose Route Start Last Admin Trade Name Freq PRN Reason Stop Dose Admin Acetaminophen 650 mg 07/23/18 11:56 08/13/18 18:55 Tylenol PO 650 mg Q4HR PRN Administration Pain 1 to 4 Famotidine 20 mg 07/23/18 21:00 08/31/18 08:18 Pepcid PO 20 mg BID REG Administration Memantine 5 mg 07/23/18 21:00 08/31/18 08:18 Namenda PO 5 mg BID REG Administration Multivitamins/Minerals 1 tab 07/24/18 16:00 08/31/18 08:18 Theragran M PO 1 tab DAILYWM REG Administration Nystatin 1 applic 08/20/18 21:00 08/31/18 08:20 Nystop TOP 1 applic BID REG Administration Polyethylene Glycol 17 gm 07/24/18 09:00 08/31/18 08:19 Miralax PO Not Given DAILY REG Trazodone HCl 50 mg 07/24/18 21:44 08/28/18 20:09 Desyrel PO 50 mg QPM PRN Administration Insomnia - Lab Result Fish Bone Diagrams: 08/18/18 11:45 07/28/18 05:31 Subjective - Subjective Patient Reports: Feeling Better Objective Vital Signs: Oxygen O2 Source Room air I&O (Last 24 Hrs): Intake and Output Totals x24h 08/29/18 08/30/18 08/31/18 23:59 23:59 23:59 Intake Total 1310 960 480 Output Total 1 Balance 1309 960 480 - Results Results: Laboratory Results WBC 5.5 x10^3/uL (4.8-10.8) 08/18/18 11:45 RBC 3.55 10^6/uL (4.70-6.10) L 08/18/18 11:45 Hgb 12.1 g/dL (14.0-18.0) L 08/18/18 11:45 Hct 36.6 % (42.0-52.0) L 08/18/18 11:45 MCV 103.0 fL (80.0-94.0) H 08/18/18 11:45 MCH 34.2 pg (27.0-31.0) H 08/18/18 11:45 MCHC 33.2 g/dL (32.0-36.0) 08/18/18 11:45 RDW 14.9 % (12.0-15.0) 08/18/18 11:45 Plt Count 216 10^3/uL (130-450) 08/18/18 11:45 MPV 7.9 fL (7.4-11.4) 08/18/18 11:45 Neut # (Auto) 3.4 10^3/uL (1.5-6.6) 08/18/18 11:45 Lymph # (Auto) 1.0 10^3/uL (1.5-3.5) L 08/18/18 11:45 [place] # (Auto) 0.6 10^3/uL (0.0-1.0) 08/18/18 11:45 Eos # (Auto) 0.5 10^3/uL (0.0-0.7) 08/18/18 11:45 Baso # (Auto) 0.1 10^3/uL (0.0-0.1) 08/18/18 11:45 Absolute Nucleated RBC 0.01 x10^3/uL 08/18/18 11:45 Total Counted 100 07/26/18 05:05 Band Neuts % (Manual) 0 % (0-10) 07/26/18 05:05 Reactive Lymphs % (Man) 6 % 07/19/18 08:37 Abnorm Lymph % (Manual) 0 % 07/26/18 05:05 Nucleated RBC % 0.1 /100WBC 08/18/18 11:45 Neutrophils # (Manual) 1.5 10^3/uL (1.5-6.6) 07/26/18 05:05 Lymphocytes # (Manual) 0.6 10^3/uL (1.5-3.5) L 07/26/18 05:05 Monocytes # (Manual) 0.3 10^3/uL (0.0-1.0) 07/26/18 05:05 Eosinophils # (Manual) 0.0 10^3/uL (0-0.7) 07/26/18 05:05 Basophils # (Manual) 0.0 10^3/uL (0-0.1) 07/26/18 05:05 Differential Comment MANUAL DIFFERENTIAL 07/19/18 08:37 Manual Slide Review Indicated 07/27/18 04:20 Platelet Estimate DECREASED (<130,000) (NORMAL) 07/27/18 04:20 Platelet Morphology RARE GIANT PLATELETS (NORMAL) 07/19/18 08:37 RBC Morph Micro Appear 1+ ANISOCYTOSIS (NORMAL) 07/27/18 04:20 PT 12.7 secs (9.9-12.6) H 08/18/18 11:45 INR 1.1 (0.8-1.2) 08/18/18 11:45 Sodium 139 mmol/L (135-145) 07/28/18 05:31 Potassium 3.6 mmol/L (3.5-5.0) 07/28/18 05:31 Chloride 105 mmol/L (101-111) 07/28/18 05:31 Carbon Dioxide 26 mmol/L (21-32) 07/28/18 05:31 Anion Gap 8.0 (6-13) 07/28/18 05:31 BUN 15 mg/dL (6-20) 07/28/18 05:31 Creatinine 0.9 mg/dL (0.6-1.2) 07/28/18 05:31 Estimated GFR (MDRD) 82 (>89) L 07/28/18 05:31 Glucose 93 mg/dL (70-100) 07/28/18 05:31 POC Whole Bld Glucose 70 mg/dL (70 - 100) 07/22/18 11:34 Lactic Acid 1.0 mmol/L (0.5-2.2) 07/23/18 09:15 Calcium 7.9 mg/dL (8.5-10.3) L 07/28/18 05:31 Phosphorus 1.7 mg/dL (2.5-4.6) L 07/25/18 06:07 Total Bilirubin 0.6 mg/dL (0.2-1.0) 07/22/18 13:37 AST 30 IU/L (10-42) 07/22/18 13:37 ALT 14 IU/L (10-60) 07/22/18 13:37 Alkaline Phosphatase 98 IU/L (42-121) 07/22/18 13:37 Total Creatine Kinase 122 IU/L (22-269) 07/19/18 08:37 Troponin I < 0.04 ng/mL (<0.49) 07/22/18 13:37 Total Protein 6.6 g/dL (6.7-8.2) L 07/22/18 13:37 Albumin 2.7 g/dL (3.2-5.5) L 07/25/18 06:07 Globulin 3.2 g/dL (2.1-4.2) 07/22/18 13:37 Albumin/Globulin Ratio 1.1 (1.0-2.2) 07/22/18 13:37 Lipase 30 U/L (22-51) 07/22/18 13:37 Urine Color YELLOW 07/21/18 18:29 Urine Clarity CLEAR (CLEAR) 07/21/18 18:29 Urine pH 6.0 PH (5.0-7.5) 07/21/18 18:29 Ur Specific [place] 1.025 (1.002-1.030) 07/21/18 18:29 Urine Protein NEGATIVE mg/dL (NEGATIVE) 07/21/18 18:29 Urine Glucose (UA) NEGATIVE mg/dL (NEGATIVE) 07/21/18 18:29 Urine Ketones 15 mg/dL (NEGATIVE) H 07/21/18 18:29 Urine Occult Blood SMALL (NEGATIVE) H 07/21/18 18:29 Urine Nitrite NEGATIVE (NEGATIVE) 07/21/18 18:29 Urine Bilirubin NEGATIVE (NEGATIVE) 07/21/18 18:29 Urine Urobilinogen 0.2 (NORMAL) E.U./dL (NORMAL) 07/21/18 18:29 Ur Leukocyte Esterase NEGATIVE (NEGATIVE) 07/21/18 18:29 Urine RBC 6-10 /HPF (0-5) H 07/21/18 18:29 Urine WBC 0-3 /HPF (0-3) 07/21/18 18:29 Ur Squamous Epith Cells RARE Squamous (<= Few) 07/21/18 18:29 Urine Bacteria Rare /HPF (None Seen) 07/21/18 18:29 Urine Mucus Few Strands 07/21/18 18:29 Ur Microscopic Review INDICATED 07/21/18 18:29 Urine Culture Comments NOT INDICATED 07/21/18 18:29 Last Dose Date UNK 07/25/18 09:30 Last Dose Time UNK 07/25/18 09:30 Vancomycin Trough 17.4 ug/mL (10.0-20.0) 07/25/18 09:30 Urine Opiates Screen NEGATIVE (NEGATIVE) 07/17/18 00:00 Ur Oxycodone Screen NEGATIVE (NEGATIVE) 07/17/18 00:00 Urine Methadone Screen NEGATIVE (NEGATIVE) 07/17/18 00:00 Ur Propoxyphene Screen NEGATIVE (NEGATIVE) 07/17/18 00:00 Ur Barbiturates Screen NEGATIVE (NEGATIVE) 07/17/18 00:00 Ur Tricyclics Screen NEGATIVE (NEGATIVE) 07/17/18 00:00 Ur Phencyclidine Scrn NEGATIVE (NEGATIVE) 07/17/18 00:00 Ur Amphetamine Screen NEGATIVE (NEGATIVE) 07/17/18 00:00 U Methamphetamines Scrn NEGATIVE (NEGATIVE) 07/17/18 00:00 U Benzodiazepines Scrn NEGATIVE (NEGATIVE) 07/17/18 00:00 Urine Cocaine Screen NEGATIVE (NEGATIVE) 07/17/18 00:00 U Cannabinoids Screen NEGATIVE (NEGATIVE) 07/17/18 00:00 C. difficile Tox B Gene NEGATIVE (NEGATIVE) 07/23/18 07:43 Sepsis Event Note (H) - Evaluation Current Stage of Sepsis: Ruled out ABX Reporting Has patient been on IV antibiotics over the past 48 hours?: No Current Medications - Current Medications Current Medications: Active Medications Acetaminophen (Tylenol) 650 mg PO Q4HR PRN PRN Reason: Pain 1 to 4 Last Admin: 08/13/18 18:55 Dose: 650 mg Famotidine (Pepcid) 20 mg PO BID [facility] Last Admin: 08/31/18 08:18 Dose: 20 mg Memantine (Namenda) 5 mg PO BID [facility] Last Admin: 08/31/18 08:18 Dose: 5 mg Multi-Ingredient Ointment (Zinc Oxide) 1 applic TOP PRN PRN PRN Reason: Skin Care Multivitamins/Minerals (Theragran M) 1 tab PO DAILYWM [facility] Last Admin: 08/31/18 08:18 Dose: 1 tab Nystatin (Nystop) 1 applic TOP BID [facility] Last Admin: 08/31/18 08:20 Dose: 1 applic Polyethylene Glycol (Miralax) 17 gm PO DAILY [facility] Last Admin: 08/31/18 08:19 Dose: Not Given Trazodone HCl (Desyrel) 50 mg PO QPM PRN PRN Reason: Insomnia Last Admin: 08/28/18 20:09 Dose: 50 mg No Known Home Medications 10/31/17
[2018-09-01] MEDS: POLYETHYLENE GLYCOL 3350 17 GM PACKET PO SCH (08:07)
[2018-09-01] MEDS: FAMOTIDINE 20 MG TABLET PO SCH ×2 (08:07→21:06)
[2018-09-01] MEDS: NYSTATIN POWDER 15 GM TOP SCH ×2 (08:07→21:06)
[2018-09-01] MEDS: MULTIVITAMIN W/MINERALS TABLET PO SCH (08:07)
[2018-09-01] MEDS: MEMANTINE 5 MG TABLET PO SCH ×2 (08:07→21:06)
--- NOTE | 2018-09-01 14:29 | PROVIDER PROGRESS NOTE ---
Assessment/Plan - Problem List (1) Dementia Qualifiers: Dementia type: unspecified type Dementia behavioral disturbance: without behavioral disturbance Qualified Code(s): F03.90 - Unspecified dementia without behavioral disturbance Assessment/Plan: pt is stable, had a good appetite. pt is planed to d/c on next Tuesday pt is stable, pending for d/c stable, Continue Namenda. (2) NPH (normal pressure hydrocephalus) Assessment/Plan: stable symptoms, continue vital and nurse support (3) Problem situation relating to social and personal history Assessment/Plan: Now pt is Still awaiting guardianship to become official, POLST to be finalized then, and a facility to then accept him for permanent residence. - Current Meds Current Meds: Current Medications Generic Name Dose Route Start Last Admin Trade Name Freq PRN Reason Stop Dose Admin Acetaminophen 650 mg 07/23/18 11:56 08/13/18 18:55 Tylenol PO 650 mg Q4HR PRN Administration Pain 1 to 4 Famotidine 20 mg 07/23/18 21:00 09/01/18 08:07 Pepcid PO 20 mg BID REG Administration Memantine 5 mg 07/23/18 21:00 09/01/18 08:07 Namenda PO 5 mg BID REG Administration Multivitamins/Minerals 1 tab 07/24/18 16:00 09/01/18 08:07 Theragran M PO 1 tab DAILYWM REG Administration Nystatin 1 applic 08/20/18 21:00 09/01/18 08:07 Nystop TOP 1 applic BID REG Administration Polyethylene Glycol 17 gm 07/24/18 09:00 09/01/18 08:07 Miralax PO 17 gm DAILY [facility] Administration Trazodone HCl 50 mg 07/24/18 21:44 08/28/18 20:09 Desyrel PO 50 mg QPM PRN Administration Insomnia - Lab Result Fish Bone Diagrams: 08/18/18 11:45 07/28/18 05:31 Objective Vital Signs: Vital Signs - 24 hr 09/01/18 08:11 Temperature 36.6 C Heart Rate [ 58 L Brachial] Respiratory 18 Rate Blood Pressure 136/82 H [Right Brachial artery] O2 Saturation 96 Oxygen O2 Source Room air I&O (Last 24 Hrs): Intake and Output Totals x24h 08/30/18 08/31/18 09/01/18 23:59 23:59 23:59 Intake Total 960 720 880 Balance 960 720 880 - Results Results: Laboratory Results WBC 5.5 x10^3/uL (4.8-10.8) 08/18/18 11:45 RBC 3.55 10^6/uL (4.70-6.10) L 08/18/18 11:45 Hgb 12.1 g/dL (14.0-18.0) L 08/18/18 11:45 Hct 36.6 % (42.0-52.0) L 08/18/18 11:45 MCV 103.0 fL (80.0-94.0) H 08/18/18 11:45 MCH 34.2 pg (27.0-31.0) H 08/18/18 11:45 MCHC 33.2 g/dL (32.0-36.0) 08/18/18 11:45 RDW 14.9 % (12.0-15.0) 08/18/18 11:45 Plt Count 216 10^3/uL (130-450) 08/18/18 11:45 MPV 7.9 fL (7.4-11.4) 08/18/18 11:45 Neut # (Auto) 3.4 10^3/uL (1.5-6.6) 08/18/18 11:45 Lymph # (Auto) 1.0 10^3/uL (1.5-3.5) L 08/18/18 11:45 [place] # (Auto) 0.6 10^3/uL (0.0-1.0) 08/18/18 11:45 Eos # (Auto) 0.5 10^3/uL (0.0-0.7) 08/18/18 11:45 Baso # (Auto) 0.1 10^3/uL (0.0-0.1) 08/18/18 11:45 Absolute Nucleated RBC 0.01 x10^3/uL 08/18/18 11:45 Total Counted 100 07/26/18 05:05 Band Neuts % (Manual) 0 % (0-10) 07/26/18 05:05 Reactive Lymphs % (Man) 6 % 07/19/18 08:37 Abnorm Lymph % (Manual) 0 % 07/26/18 05:05 Nucleated RBC % 0.1 /100WBC 08/18/18 11:45 Neutrophils # (Manual) 1.5 10^3/uL (1.5-6.6) 07/26/18 05:05 Lymphocytes # (Manual) 0.6 10^3/uL (1.5-3.5) L 07/26/18 05:05 Monocytes # (Manual) 0.3 10^3/uL (0.0-1.0) 07/26/18 05:05 Eosinophils # (Manual) 0.0 10^3/uL (0-0.7) 07/26/18 05:05 Basophils # (Manual) 0.0 10^3/uL (0-0.1) 07/26/18 05:05 Differential Comment MANUAL DIFFERENTIAL 07/19/18 08:37 Manual Slide Review Indicated 07/27/18 04:20 Platelet Estimate DECREASED (<130,000) (NORMAL) 07/27/18 04:20 Platelet Morphology RARE GIANT PLATELETS (NORMAL) 07/19/18 08:37 RBC Morph Micro Appear 1+ ANISOCYTOSIS (NORMAL) 07/27/18 04:20 PT 12.7 secs (9.9-12.6) H 08/18/18 11:45 INR 1.1 (0.8-1.2) 08/18/18 11:45 Sodium 139 mmol/L (135-145) 07/28/18 05:31 Potassium 3.6 mmol/L (3.5-5.0) 07/28/18 05:31 Chloride 105 mmol/L (101-111) 07/28/18 05:31 Carbon Dioxide 26 mmol/L (21-32) 07/28/18 05:31 Anion Gap 8.0 (6-13) 07/28/18 05:31 BUN 15 mg/dL (6-20) 07/28/18 05:31 Creatinine 0.9 mg/dL (0.6-1.2) 07/28/18 05:31 Estimated GFR (MDRD) 82 (>89) L 07/28/18 05:31 Glucose 93 mg/dL (70-100) 07/28/18 05:31 POC Whole Bld Glucose 70 mg/dL (70 - 100) 07/22/18 11:34 Lactic Acid 1.0 mmol/L (0.5-2.2) 07/23/18 09:15 Calcium 7.9 mg/dL (8.5-10.3) L 07/28/18 05:31 Phosphorus 1.7 mg/dL (2.5-4.6) L 07/25/18 06:07 Total Bilirubin 0.6 mg/dL (0.2-1.0) 07/22/18 13:37 AST 30 IU/L (10-42) 07/22/18 13:37 ALT 14 IU/L (10-60) 07/22/18 13:37 Alkaline Phosphatase 98 IU/L (42-121) 07/22/18 13:37 Total Creatine Kinase 122 IU/L (22-269) 07/19/18 08:37 Troponin I < 0.04 ng/mL (<0.49) 07/22/18 13:37 Total Protein 6.6 g/dL (6.7-8.2) L 07/22/18 13:37 Albumin 2.7 g/dL (3.2-5.5) L 07/25/18 06:07 Globulin 3.2 g/dL (2.1-4.2) 07/22/18 13:37 Albumin/Globulin Ratio 1.1 (1.0-2.2) 07/22/18 13:37 Lipase 30 U/L (22-51) 07/22/18 13:37 Urine Color YELLOW 07/21/18 18:29 Urine Clarity CLEAR (CLEAR) 07/21/18 18:29 Urine pH 6.0 PH (5.0-7.5) 07/21/18 18:29 Ur Specific [place] 1.025 (1.002-1.030) 07/21/18 18:29 Urine Protein NEGATIVE mg/dL (NEGATIVE) 07/21/18 18:29 Urine Glucose (UA) NEGATIVE mg/dL (NEGATIVE) 07/21/18 18:29 Urine Ketones 15 mg/dL (NEGATIVE) H 07/21/18 18:29 Urine Occult Blood SMALL (NEGATIVE) H 07/21/18 18:29 Urine Nitrite NEGATIVE (NEGATIVE) 07/21/18 18:29 Urine Bilirubin NEGATIVE (NEGATIVE) 07/21/18 18:29 Urine Urobilinogen 0.2 (NORMAL) E.U./dL (NORMAL) 07/21/18 18:29 Ur Leukocyte Esterase NEGATIVE (NEGATIVE) 07/21/18 18:29 Urine RBC 6-10 /HPF (0-5) H 07/21/18 18:29 Urine WBC 0-3 /HPF (0-3) 07/21/18 18:29 Ur Squamous Epith Cells RARE Squamous (<= Few) 07/21/18 18:29 Urine Bacteria Rare /HPF (None Seen) 07/21/18 18:29 Urine Mucus Few Strands 07/21/18 18:29 Ur Microscopic Review INDICATED 07/21/18 18:29 Urine Culture Comments NOT INDICATED 07/21/18 18:29 Last Dose Date UNK 07/25/18 09:30 Last Dose Time UNK 07/25/18 09:30 Vancomycin Trough 17.4 ug/mL (10.0-20.0) 07/25/18 09:30 Urine Opiates Screen NEGATIVE (NEGATIVE) 07/17/18 00:00 Ur Oxycodone Screen NEGATIVE (NEGATIVE) 07/17/18 00:00 Urine Methadone Screen NEGATIVE (NEGATIVE) 07/17/18 00:00 Ur Propoxyphene Screen NEGATIVE (NEGATIVE) 07/17/18 00:00 Ur Barbiturates Screen NEGATIVE (NEGATIVE) 07/17/18 00:00 Ur Tricyclics Screen NEGATIVE (NEGATIVE) 07/17/18 00:00 Ur Phencyclidine Scrn NEGATIVE (NEGATIVE) 07/17/18 00:00 Ur Amphetamine Screen NEGATIVE (NEGATIVE) 07/17/18 00:00 U Methamphetamines Scrn NEGATIVE (NEGATIVE) 07/17/18 00:00 U Benzodiazepines Scrn NEGATIVE (NEGATIVE) 07/17/18 00:00 Urine Cocaine Screen NEGATIVE (NEGATIVE) 07/17/18 00:00 U Cannabinoids Screen NEGATIVE (NEGATIVE) 07/17/18 00:00 C. difficile Tox B Gene NEGATIVE (NEGATIVE) 07/23/18 07:43 Sepsis Event Note (H) - Evaluation Current Stage of Sepsis: Ruled out ABX Reporting Has patient been on IV antibiotics over the past 48 hours?: No
[2018-09-02] MEDS: POLYETHYLENE GLYCOL 3350 17 GM PACKET PO SCH (09:59)
[2018-09-02] MEDS: MULTIVITAMIN W/MINERALS TABLET PO SCH (09:59)
[2018-09-02] MEDS: FAMOTIDINE 20 MG TABLET PO SCH ×2 (09:59→21:20)
[2018-09-02] MEDS: MEMANTINE 5 MG TABLET PO SCH ×2 (09:59→21:20)
[2018-09-02] MEDS: NYSTATIN POWDER 15 GM TOP SCH ×2 (10:00→21:20)
--- NOTE | 2018-09-02 11:14 | PROVIDER PROGRESS NOTE ---
Assessment/Plan - Problem List (1) Dementia Qualifiers: Dementia type: unspecified type Dementia behavioral disturbance: without behavioral disturbance Qualified Code(s): F03.90 - Unspecified dementia without behavioral disturbance Assessment/Plan: stable, pt has no complaint Continue Namenda. pt is planned to d/c to nurse home [facility] on tuesday (2) NPH (normal pressure hydrocephalus) Assessment/Plan: stable, continue vital and nurse support (3) Problem situation relating to social and personal history Assessment/Plan: Now pt is planned to d/c to nurse home [facility] on coming Tuesday - Current Meds Current Meds: Current Medications Generic Name Dose Route Start Last Admin Trade Name Freq PRN Reason Stop Dose Admin Acetaminophen 650 mg 07/23/18 11:56 08/13/18 18:55 Tylenol PO 650 mg Q4HR PRN Administration Pain 1 to 4 Famotidine 20 mg 07/23/18 21:00 09/02/18 09:59 Pepcid PO 20 mg BID REG Administration Memantine 5 mg 07/23/18 21:00 09/02/18 09:59 Namenda PO 5 mg BID REG Administration Multivitamins/Minerals 1 tab 07/24/18 16:00 09/02/18 09:59 Theragran M PO 1 tab DAILYWM REG Administration Nystatin 1 applic 08/20/18 21:00 09/02/18 10:00 Nystop TOP 1 applic BID REG Administration Polyethylene Glycol 17 gm 07/24/18 09:00 09/02/18 09:59 Miralax PO 17 gm DAILY REG Administration Trazodone HCl 50 mg 07/24/18 21:44 08/28/18 20:09 Desyrel PO 50 mg QPM PRN Administration Insomnia - Lab Result Fish Bone Diagrams: 08/18/18 11:45 07/28/18 05:31 Objective Vital Signs: Vital Signs - 24 hr 09/02/18 08:18 Temperature 36.6 C Heart Rate [ 58 L Brachial] Respiratory 16 Rate Blood Pressure 136/68 H [Right Brachial artery] O2 Saturation 93 Oxygen O2 Source Room air I&O (Last 24 Hrs): Intake and Output Totals x24h 08/31/18 09/01/18 09/02/18 23:59 23:59 23:59 Intake Total 720 1330 720 Balance 720 1330 720 - Results Results: Laboratory Results WBC 5.5 x10^3/uL (4.8-10.8) 08/18/18 11:45 RBC 3.55 10^6/uL (4.70-6.10) L 08/18/18 11:45 Hgb 12.1 g/dL (14.0-18.0) L 08/18/18 11:45 Hct 36.6 % (42.0-52.0) L 08/18/18 11:45 MCV 103.0 fL (80.0-94.0) H 08/18/18 11:45 MCH 34.2 pg (27.0-31.0) H 08/18/18 11:45 MCHC 33.2 g/dL (32.0-36.0) 08/18/18 11:45 RDW 14.9 % (12.0-15.0) 08/18/18 11:45 Plt Count 216 10^3/uL (130-450) 08/18/18 11:45 MPV 7.9 fL (7.4-11.4) 08/18/18 11:45 Neut # (Auto) 3.4 10^3/uL (1.5-6.6) 08/18/18 11:45 Lymph # (Auto) 1.0 10^3/uL (1.5-3.5) L 08/18/18 11:45 [place] # (Auto) 0.6 10^3/uL (0.0-1.0) 08/18/18 11:45 Eos # (Auto) 0.5 10^3/uL (0.0-0.7) 08/18/18 11:45 Baso # (Auto) 0.1 10^3/uL (0.0-0.1) 08/18/18 11:45 Absolute Nucleated RBC 0.01 x10^3/uL 08/18/18 11:45 Total Counted 100 07/26/18 05:05 Band Neuts % (Manual) 0 % (0-10) 07/26/18 05:05 Reactive Lymphs % (Man) 6 % 07/19/18 08:37 Abnorm Lymph % (Manual) 0 % 07/26/18 05:05 Nucleated RBC % 0.1 /100WBC 08/18/18 11:45 Neutrophils # (Manual) 1.5 10^3/uL (1.5-6.6) 07/26/18 05:05 Lymphocytes # (Manual) 0.6 10^3/uL (1.5-3.5) L 07/26/18 05:05 Monocytes # (Manual) 0.3 10^3/uL (0.0-1.0) 07/26/18 05:05 Eosinophils # (Manual) 0.0 10^3/uL (0-0.7) 07/26/18 05:05 Basophils # (Manual) 0.0 10^3/uL (0-0.1) 07/26/18 05:05 Differential Comment MANUAL DIFFERENTIAL 07/19/18 08:37 Manual Slide Review Indicated 07/27/18 04:20 Platelet Estimate DECREASED (<130,000) (NORMAL) 07/27/18 04:20 Platelet Morphology RARE GIANT PLATELETS (NORMAL) 07/19/18 08:37 RBC Morph Micro Appear 1+ ANISOCYTOSIS (NORMAL) 07/27/18 04:20 PT 12.7 secs (9.9-12.6) H 08/18/18 11:45 INR 1.1 (0.8-1.2) 08/18/18 11:45 Sodium 139 mmol/L (135-145) 07/28/18 05:31 Potassium 3.6 mmol/L (3.5-5.0) 07/28/18 05:31 Chloride 105 mmol/L (101-111) 07/28/18 05:31 Carbon Dioxide 26 mmol/L (21-32) 07/28/18 05:31 Anion Gap 8.0 (6-13) 07/28/18 05:31 BUN 15 mg/dL (6-20) 07/28/18 05:31 Creatinine 0.9 mg/dL (0.6-1.2) 07/28/18 05:31 Estimated GFR (MDRD) 82 (>89) L 07/28/18 05:31 Glucose 93 mg/dL (70-100) 07/28/18 05:31 POC Whole Bld Glucose 70 mg/dL (70 - 100) 07/22/18 11:34 Lactic Acid 1.0 mmol/L (0.5-2.2) 07/23/18 09:15 Calcium 7.9 mg/dL (8.5-10.3) L 07/28/18 05:31 Phosphorus 1.7 mg/dL (2.5-4.6) L 07/25/18 06:07 Total Bilirubin 0.6 mg/dL (0.2-1.0) 07/22/18 13:37 AST 30 IU/L (10-42) 07/22/18 13:37 ALT 14 IU/L (10-60) 07/22/18 13:37 Alkaline Phosphatase 98 IU/L (42-121) 07/22/18 13:37 Total Creatine Kinase 122 IU/L (22-269) 07/19/18 08:37 Troponin I < 0.04 ng/mL (<0.49) 07/22/18 13:37 Total Protein 6.6 g/dL (6.7-8.2) L 07/22/18 13:37 Albumin 2.7 g/dL (3.2-5.5) L 07/25/18 06:07 Globulin 3.2 g/dL (2.1-4.2) 07/22/18 13:37 Albumin/Globulin Ratio 1.1 (1.0-2.2) 07/22/18 13:37 Lipase 30 U/L (22-51) 07/22/18 13:37 Urine Color YELLOW 07/21/18 18:29 Urine Clarity CLEAR (CLEAR) 07/21/18 18:29 Urine pH 6.0 PH (5.0-7.5) 07/21/18 18:29 Ur Specific [place] 1.025 (1.002-1.030) 07/21/18 18:29 Urine Protein NEGATIVE mg/dL (NEGATIVE) 07/21/18 18:29 Urine Glucose (UA) NEGATIVE mg/dL (NEGATIVE) 07/21/18 18:29 Urine Ketones 15 mg/dL (NEGATIVE) H 07/21/18 18:29 Urine Occult Blood SMALL (NEGATIVE) H 07/21/18 18:29 Urine Nitrite NEGATIVE (NEGATIVE) 07/21/18 18:29 Urine Bilirubin NEGATIVE (NEGATIVE) 07/21/18 18:29 Urine Urobilinogen 0.2 (NORMAL) E.U./dL (NORMAL) 07/21/18 18:29 Ur Leukocyte Esterase NEGATIVE (NEGATIVE) 07/21/18 18:29 Urine RBC 6-10 /HPF (0-5) H 07/21/18 18:29 Urine WBC 0-3 /HPF (0-3) 07/21/18 18:29 Ur Squamous Epith Cells RARE Squamous (<= Few) 07/21/18 18:29 Urine Bacteria Rare /HPF (None Seen) 07/21/18 18:29 Urine Mucus Few Strands 07/21/18 18:29 Ur Microscopic Review INDICATED 07/21/18 18:29 Urine Culture Comments NOT INDICATED 07/21/18 18:29 Last Dose Date UNK 07/25/18 09:30 Last Dose Time UNK 07/25/18 09:30 Vancomycin Trough 17.4 ug/mL (10.0-20.0) 07/25/18 09:30 Urine Opiates Screen NEGATIVE (NEGATIVE) 07/17/18 00:00 Ur Oxycodone Screen NEGATIVE (NEGATIVE) 07/17/18 00:00 Urine Methadone Screen NEGATIVE (NEGATIVE) 07/17/18 00:00 Ur Propoxyphene Screen NEGATIVE (NEGATIVE) 07/17/18 00:00 Ur Barbiturates Screen NEGATIVE (NEGATIVE) 07/17/18 00:00 Ur Tricyclics Screen NEGATIVE (NEGATIVE) 07/17/18 00:00 Ur Phencyclidine Scrn NEGATIVE (NEGATIVE) 07/17/18 00:00 Ur Amphetamine Screen NEGATIVE (NEGATIVE) 07/17/18 00:00 U Methamphetamines Scrn NEGATIVE (NEGATIVE) 07/17/18 00:00 U Benzodiazepines Scrn NEGATIVE (NEGATIVE) 07/17/18 00:00 Urine Cocaine Screen NEGATIVE (NEGATIVE) 07/17/18 00:00 U Cannabinoids Screen NEGATIVE (NEGATIVE) 07/17/18 00:00 C. difficile Tox B Gene NEGATIVE (NEGATIVE) 07/23/18 07:43 Sepsis Event Note (H) - Evaluation Current Stage of Sepsis: Ruled out ABX Reporting Has patient been on IV antibiotics over the past 48 hours?: No
[2018-09-03 08:15] VITALS: BP 133/65
[2018-09-03] MEDS: MEMANTINE 5 MG TABLET PO SCH ×2 (09:44→21:54)
[2018-09-03] MEDS: FAMOTIDINE 20 MG TABLET PO SCH ×2 (09:44→21:54)
[2018-09-03] MEDS: MULTIVITAMIN W/MINERALS TABLET PO SCH (09:44)
[2018-09-03] MEDS: POLYETHYLENE GLYCOL 3350 17 GM PACKET PO SCH (09:46)
[2018-09-03] MEDS: NYSTATIN POWDER 15 GM TOP SCH ×2 (09:47→21:54)
--- NOTE | 2018-09-03 16:32 | PROVIDER PROGRESS NOTE ---
Subjective - Prog Note Date Prog Note Date: 09/03/18 - Subjective Pt reports feeling: No change Subjective: pt had nose ulcer for 7 yrs. he report the ulcer from the score which was hurt by his glasses. It seem uninfected, and chronic ulcer. Current Medications - Current Medications Current Medications: Active Medications Acetaminophen (Tylenol) 650 mg PO Q4HR PRN PRN Reason: Pain 1 to 4 Last Admin: 08/13/18 18:55 Dose: 650 mg Famotidine (Pepcid) 20 mg PO BID [facility] Last Admin: 09/03/18 09:44 Dose: 20 mg Memantine (Namenda) 5 mg PO BID [facility] Last Admin: 09/03/18 09:44 Dose: 5 mg Multi-Ingredient Ointment (Zinc Oxide) 1 applic TOP PRN PRN PRN Reason: Skin Care Multivitamins/Minerals (Theragran M) 1 tab PO DAILYWM [facility] Last Admin: 09/03/18 09:44 Dose: 1 tab Nystatin (Nystop) 1 applic TOP BID [facility] Last Admin: 09/03/18 09:47 Dose: 1 applic Polyethylene Glycol (Miralax) 17 gm PO DAILY [facility] Last Admin: 09/03/18 09:46 Dose: 17 gm Trazodone HCl (Desyrel) 50 mg PO QPM PRN PRN Reason: Insomnia Last Admin: 08/28/18 20:09 Dose: 50 mg No Known Home Medications 10/31/17 Objective - Vital Signs/Intake & Output Reviewed Vital Signs: Yes Intake & Output: Intake & Output 08/31/18 09/01/18 09/02/18 09/03/18 23:59 23:59 23:59 23:59 Intake Total 720 1330 2300 1440 Output Total 100 Balance 720 1330 2300 1340 - Objective General Appearance: positive: No acute distress, Alert. negative: Lethargic Eyes Bilateral: positive: Normal inspection, PERRL, No lid inflammation, Conjunctivae nml ENT: positive: Pharynx nml, No signs of dehydration. negative: ENT inspection nml, Purulent nasal drainage, Pharyngeal erythema, Oral lesions Neck: positive: Nml inspection, Thyroid nml, No JVD, Trachea midline. negative: Thyromegaly, Lymphadenopathy (R), Lymphadenopathy (L), Stiff neck, Swelling/bruising, Tracheal deviation Respiratory: positive: Chest non-tender, No respiratory distress, Breath sounds nml. negative: Wheezes, Rales, Rhonchi Cardiovascular: positive: Regular rate & rhythm, No murmur, No gallop. negative: Irregularly irregular, Extrasystoles, Tachycardia, Bradycardia, JVD present, Systolic murmur, Diastolic murmur Peripheral Pulses: 2+ Radial (R), 2+ Radial (L), 2+ Dorsalis pedis (R), 2+ Dorsalis pedis (L) Abdomen: positive: Non-tender, No organomegaly, Nml bowel sounds, No distention. negative: Tenderness, Guarding, Rebound Back: positive: Nml inspection. negative: CVA tenderness (R), CVA tenderness (L) Skin: positive: Color nml, No rash, Warm, Dry, Laceration (cm). negative: Cyanosis, Diaphoresis, Pallor Extremities: positive: Non-tender, Full ROM, Nml appearance. negative: Calf tenderness, Joint swelling, Mauricio's sign/cords Neurologic/Psychiatric: positive: Oriented x3, Motor nml, Sensation nml, Mood/affect nml. negative: Weakness, Sensory loss, Facial droop, Slurred/abnml speech, Depressed mood/affect - Lab Results Fish Bones: 08/18/18 11:45 07/28/18 05:31 ABX Reporting Has patient been on IV antibiotics over the past 48 hours?: No Sepsis Event Note (H) - Evaluation Current Stage of Sepsis: Ruled out Assessment/Plan - Problem List (1) Dementia Impression: stable, pt has no complaint Continue Namenda. pt is planned to d/c to nurse home [facility] on coming Tuesday (2) NPH (normal pressure hydrocephalus) Assessment/Plan: stable, continue vital and nurse support (3) Problem situation relating to social and personal history Assessment/Plan: Now pt is planned to d/c to nurse home [facility] on coming Tuesday (4) ulcer at nose chronic ulcer, it seems uninfected order nurse dress change consult wound care wound culture, will followup Qualifiers: Dementia type: unspecified type Dementia behavioral disturbance: without behavioral disturbance Qualified Code(s): F03.90 - Unspecified dementia without behavioral disturbance
[2018-09-04 06:10] LABS: BASOPHILS # (AUTO) 0.1 10^3/uL (0.0-0.1); BASOPHILS % (AUTO) 1.9 %; EOSINOPHILS # (AUTO) 0.5 10^3/uL (0.0-0.7); EOSINOPHILS % (AUTO) 8.5 %; HGB - HEMOGLOBIN 12.8 g/dL (14.0-18.0); LYMPHOCYTES # (AUTO) 1.2 10^3/uL (1.5-3.5); LYMPHOCYTES % (AUTO) 21.3 %; MEAN CORPUSCULAR HEMOGLOBIN 33.9 pg (27.0-31.0); MEAN CORPUSCULAR VOLUME 102.8 fL (80.0-94.0); MEAN PLATELET VOLUME 8.6 fL (7.4-11.4); MONOCYTES # (AUTO) 0.5 10^3/uL (0.0-1.0); MONOCYTES % (AUTO) 9.4 %; NEUTROPHILS # (AUTO) 3.3 10^3/uL (1.5-6.6); NEUTROPHILS % (AUTO) 58.9 %; PLT - PLATELET COUNT 197 10^3/uL (130-450); RED BLOOD COUNT 3.77 10^6/uL (4.70-6.10); RED CELL DISTRIBUTION WIDTH 14.3 % (12.0-15.0); WHITE BLOOD COUNT 5.6 x10^3/uL (4.8-10.8)
[2018-09-04 06:17] LABS: ALBUMIN 3.4 g/dL (3.2-5.5); BILIRUBIN,TOTAL 0.5 mg/dL (0.2-1.0); CREATININE 1.1 mg/dL (0.6-1.2); MAGNESIUM 1.9 mg/dL (1.7-2.8); TOTAL PROTEIN 6.7 g/dL (6.7-8.2)
[2018-09-04] MEDS: NYSTATIN POWDER 15 GM TOP SCH (08:54)
[2018-09-04] MEDS: MULTIVITAMIN W/MINERALS TABLET PO SCH (08:54)
[2018-09-04] MEDS: POLYETHYLENE GLYCOL 3350 17 GM PACKET PO SCH (08:54)
[2018-09-04] MEDS: FAMOTIDINE 20 MG TABLET PO SCH (08:54)
[2018-09-04] MEDS: MEMANTINE 5 MG TABLET PO SCH (08:54)
--- NOTE | 2018-09-04 11:24 | Discharge Plan ---
"Discharge Plan for SNF / [facility] - Discharge Plan And Transition Orders Disposition: 03 SNF DC/Xfer Allergies and Adverse Reactions: Allergies Allergy/AdvReac Type Severity Reaction Status Date / Time Sulfa (Sulfonamide Allergy Unknown Verified 10/31/17 16:06 Antibiotics) Penicillins AdvReac Unknown Verified 10/31/17 16:06 - SNF / ASSISTED Transition Orders Admit to (Facility): [facility] Under the care of (Name): health provider at [facility] Discharge Diagnosis: Dementia, normal pressure hydrocephalus, problem situation relating to social and personal history, ulcer at nose Medicare Certification Statement: I do not certify that Post Hospital fpc care is medically necessary on a continuing basis for any of the conditions for which she/he is receiving care during hospitalization. Notify PCP of admission and forward orders to primary provider for signature. Weight on admission and: Daily Call PCP immediately if weight increases by: 2 kg Other Notification Orders: Call PCP immediately if patient develops dyspnea, chest pain/tightness or edema. House Bowel Program: Yes Additional Bowel Program Orders: If no BM after 2 days, nurse may give M.O.M. 30ml PO PRN and/or ducolax Supp 1 HI and/or GRACE 250mg P.O., and/or senna 1-2 tabs PO. On day 3 nurse may give repeat above order until residents constipation is resolved. Annual Influenza Vaccine (between Jan 14 and August 13): Yes Two-step PPD per [facility] [id number] or approved exception documents: Yes Treatments & Other Orders: pt may followup health provider at [facility] when pt is arrival to [facility], may followup casino gaming inspector as out-pt for evaluation and treatment of pt's nose ulcer, and have dress change as nurse instruction. Oxygen Orders: PRN Medication Orders: PLEASE REFER TO THE DISCHARGE MEDICATION LIST. Insulin Orders?: No - Medications New Prescriptions: Acetaminophen [Tylenol] 650 mg PO Q4HR PRN #20 tablet PRN Reason: Pain 1 to 4 Memantine [Namenda] 5 mg PO BID #15 tablet Multivitamin W/Minerals [Theragran M] 1 tab PO DAILYWM #10 tablet Nystatin [Nystop] 1 applic TOP BID #1 bottle traZODone [Desyrel] 50 mg PO QPM PRN #10 tablet PRN Reason: Insomnia - Diet Type: Geriatric Texture: Regular Liquids: Thin May have monthly special meal: Yes - Therapies | Activity Activity: Activity as Tolerated Additional Instructions: Please follow-up with plastic surgery at [facility] for further evaluation of your facial fractures. Please call [phone] Please follow-up with Dr. Aly Toro at [facility] with the neurosurgery clinic for further evaluation of your normal pressure hydrocephalus. Please call area code [phone] to schedule appointment"
--- NOTE | 2018-09-04 11:39 | DISCHARGE SUMMARY ---
Discharge Summary Discharge Date: 09/04/18 Discharging Provider: BRYANT Condition at Discharge: Stable Discharge Disposition: SNF DC/Xfer Discharge Facility Name: [facility] - DIAGNOSES Admission Diagnoses: 1. Healthcare associated pneumonia 2. Suspected aspiration pneumonia with right middle lobe lower lobe infiltrate involvement 3. Acute left sinusitis with associated facial fractures 4. Acute fall with a history of fall with multiple facial fractures to the left nasal bone, superior lateral jin of the left maxillary, left face periorbital along with left supraorbital frontal soft tissue swelling 5. Macrocytosis 6. Alzheimer's dementia with behavioral disturbance and history of falls 7. Advance care planning education and counseling 7. Social placement Discharge Diagnoses with Status of Each Condition: (1) Dementia (2) NPH (normal pressure hydrocephalus) (3) Problem situation relating to social and personal history (4) ulcer at nose - HPI History of Present Illness: refer from Dr. 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 In addition patient had likely aspirated as patient began to have decreasing level of consciousness and from his baseline mental status of Alzheimer's dementia. Patient was found to have a right lower lobe infiltrate on chest x-ray and desaturations were clock at 88% on room air. Patient was deemed to have a HCAP with underlying as piration. Copious green mucus pooling at the level of the oropharynx was noted. Upon initial exam patient had bilateral expiratory rhonchi and fine bibasilar rales along with a normal CBC and normal electrolytes with a creatinine of 1.1 lactic acid was normal with a C. difficile negative and a CT head showing no acute intracranial process. Patient had CT of the facial bones and C-spine which did relieve yield no fractures at the levels to be C-spine but did reveal left nasal bone fractures fractures of the superior lateral jin with left maxillary left facial and left jen-orbital involvement. There was left supraorbital and frontal soft tissue swelling as well which is consistent with patient falling to the ground hitting his face with some contusions and lacerations. - HOSPITAL COURSE Hospital Course: (1) Dementia stable, pt is prescribed Namenda. followup PCP (2) NPH (normal pressure hydrocephalus) stable, followup PCP (3) Problem situation relating to social and personal history D/C to [facility], followup nurse home care (4) ulcer at nose chronic ulcer for 7 yrs. followup dermterlogist as out-pt, nurse care for dress change. - ALLERGIES Allergies/Adverse Reactions: Allergies Allergy/AdvReac Type Severity Reaction Status Date / Time Sulfa (Sulfonamide Allergy Unknown Verified 10/31/17 16:06 Antibiotics) Penicillins AdvReac Unknown Verified 10/31/17 16:06 - MEDICATIONS Home Medications: Ambulatory Orders Medication Instructions Recorded Confirmed Acetaminophen [Tylenol] 650 mg PO Q4HR PRN #20 tablet 09/04/18 Memantine [Namenda] 5 mg PO BID #15 tablet 09/04/18 Multivitamin W/Minerals [Theragran 1 tab PO DAILYWM #10 tablet 09/04/18 M] Nystatin [Nystop] 1 applic TOP BID #1 bottle 09/04/18 traZODone [Desyrel] 50 mg PO QPM PRN #10 tablet 09/04/18 - PHYSICAL EXAM AT DISCHARGE General Appearance: positive: No acute distress, Alert. negative: Lethargic Eyes Bilateral: positive: Normal inspection, PERRL, No lid inflammation, Conjun ctivae nml ENT: positive: ENT inspection nml, Pharynx nml, No signs of dehydration. negative: Purulent nasal drainage, Pharyngeal erythema, Oral lesions Neck: positive: Nml inspection, Thyroid nml, No JVD, Trachea midline. negative: Thyromegaly, Lymphadenopathy (R), Lymphadenopathy (L), Stiff neck, Swelling/bruising, Tracheal deviation Respiratory: positive: Chest non-tender, No respiratory distress, Breath sounds nml. negative: Wheezes, Rales, Rhonchi Cardiovascular: positive: Regular rate & rhythm, No murmur, No gallop. negative: Irregularly irregular, Extrasystoles, Tachycardia, Bradycardia, JVD present, Systolic murmur, Diastolic murmur Peripheral Pulses: positive: 2+ Abdomen: positive: Non-tender, No organomegaly, Nml bowel sounds, No distention. negative: Tenderness, Guarding, Rebound Back: positive: Nml inspection. negative: CVA tenderness (R), CVA tenderness (L) Skin: positive: Color nml, No rash, Warm, Dry. negative: Cyanosis, Diaphoresis, Pallor Extremities: positive: Non-tender, Full ROM, Nml appearance. negative: Calf tenderness, Joint swelling, Mauricio's sign/cords Neurologic/Psychiatric: positive: Motor nml, Sensation nml, Mood/affect nml. negative: Weakness, Sensory loss, Facial droop, Slurred/abnml speech, Depressed mood/affect - LABS Result Diagrams: 09/04/18 05:35 09/04/18 05:35 - SEPSIS Current Stage of Sepsis: Ruled out - FOLLOW UP Follow Up: pt may followup health provider at [facility] when pt is arrival to [facility], may followup grades 1 thru 5 teacher as out-pt for evaluation and treatment of pt's nose ulcer, and have dress change as nurse instruction. - TIME SPENT Time Spent in Discharge (Minutes): 50
== END 2018-09-04 11:54 | DRG 56 ==
LOC: EDUNIT# → ED 23:41 → MS2 07-18 11:56 → UNDOADMIN 07-18 11:56 → MS2 07-23 11:56
PROVIDERS: ADMIT Family Medicine; ATTEND Nurse Practitioner Gerontology
DX: G30.9 Alzheimer's disease, unspecified (principal); F03.90 Unspecified dementia, unspecified severity, without behavioral disturbance, psychotic disturbance, mood disturbance, and anxiety; Z88.0 Allergy status to penicillin; Z88.2 Allergy status to sulfonamides; S00.91XA Abrasion of unspecified part of head, initial encounter; J69.0 Pneumonitis due to inhalation of food and vomit; S00.93XA Contusion of unspecified part of head, initial encounter; S02.92XA Unspecified fracture of facial bones, initial encounter for closed fracture; E86.0 Dehydration; J18.8 Other pneumonia, unspecified organism; F02.81 Dementia in other diseases classified elsewhere, unspecified severity, with behavioral disturbance; G91.2 (Idiopathic) normal pressure hydrocephalus; N17.9 Acute kidney failure, unspecified; D61.818 Other pancytopenia; F17.200 Nicotine dependence, unspecified, uncomplicated; L98.499 Non-pressure chronic ulcer of skin of other sites with unspecified severity; Z91.81 History of falling; Y95 Nosocomial condition; S02.2XXA Fracture of nasal bones, initial encounter for closed fracture; W19.XXXA Unspecified fall, initial encounter; J01.90 Acute sinusitis, unspecified; D75.89 Other specified diseases of blood and blood-forming organs; E87.6 Hypokalemia; R19.7 Diarrhea, unspecified; L60.2 Onychogryphosis; D72.819 Decreased white blood cell count, unspecified; R27.0 Ataxia, unspecified
CPT/HCPCS: 36415; 51701; 70450; 70486; 71045; 72125; 80048; 80053; 80069; 80202; 81001; 81003; 82550; 83605; 83690; 83735; 84484; 85025; 85610; 87040; 87070; 87205; 87493; 92526; 92610; 93005; 96365; 96366; 96367; 97116; 97161; 97530; 99285; A6250; A9270; J1650; J3370; J7120; 80306; 87086